=== PATIENT | female | born 1970 | race Caucasian/White ===

== ENCOUNTER 2023-05-01 13:35 | Emergency (ER) | payer SELFPAY ==
[2023-05-01 13:43] VITALS: BP 122/74; PULSE 91; RESP 16; TEMP 36.9; O2SAT 95; BMI 23.5
--- NOTE | 2023-05-01 14:05 | ED_ITS ---
HPI - URI/Sore Throat General Chief Complaint: Upper Respiratory Infection Stated Complaint: URTI COMPLAINTS Time Seen by Provider: 05/01/23 14:05 Source: patient Limitations: no limitations History of Present Illness HPI Narrative: Patient presents to emergency department complaining of cough. Patient states she has a productive cough for 3 days. Cough is worse in the morning. She is a smoker. She has a runny nose, a lot of nasal congestion and now is having postnasal drip and a sore throat. She took extra ALLERGY pills and decongestants has not had any relief. She denies any fever, or chills. She denies any nausea, vomiting, diarrhea, constipation, abdominal pain. She denies chest pain, shortness of breath. denies any wheezing.She states she had to cut down on the smoking this week. Related Data Previous Rx's Medication Instructions Recorded albuterol sulfate 90 mcg/actuation 2 inh inhalation Q4H PRN shortness 05/01/23 aerosol inhaler of breath or wheezing #8.5 grams methylprednisolone 4 mg tablets in 4 mg PO DAILY #21 ea 05/01/23 a dose pack (Medrol (Matteo)) Allergies Allergy/AdvReac Type Severity Reaction Status Date / Time No Known Drug Allergies Allergy Verified 05/01/23 13:42 Review of Systems ROS Status of ROS 10 or more systems reviewed and unremarkable except as noted in history and below [facility] Social History Smoking status: Current every day smoker Exam Narrative Exam Narrative: Nurses notes and vital signs reviewed and patient is not hypoxic. General: Nontoxic, Well-appearing and in no apparent distress. Skin: Warm, dry, no pallor noted. No Rash Head: Normocephalic, atraumatic. Neck: Supple, non-tender. Eye: Pupils are equal, round and EOMI. No scleral icterus. Ears, Nose, Mouth, and Throat: TM clear, no posterior oropharynx erythema, Postnasal drip noted,no nasal mucosal hypertrophy, uvula is mid-line Oral mucosa is moist Cardiovascular: Regular Rate and Rhythm without murmur, gallop or rub. Respiratory: No accessory muscle use or respiratory distress. Lungs are clear to auscultation, no wheezing, rales or rhonchi Chest Wall: no tenderness Back: No midline thoracic or lumbar vertebral tenderness. No CVA tenderness Musculoskeletal: normal ROM, no calf or popliteal tenderness, no lower extremity edema/swelling GI: Abdomen is soft, non-distended. Normal bowel sounds. No masses appreciated. No tenderness to palpation. No rebound, guarding, or rigidity noted. Neurological: A&O x4. No cranial nerve dysfunction observed. No truncal ataxia. Moves all extremities. Sensation intact. Psychiatric: Cooperative and interactive. Normal mood and affect. Constitutional Vital Signs - 24 hr 05/01/23 13:43 Temperature 98.4 F Pulse Rate [Monitor] 91 H Respiratory Rate 16 Blood Pressure [Right Arm] 122/74 H Pulse Oximetry 95 Oxygen Delivery Method Room Air Course Vital Signs Vital signs: Vital Signs Temperature 98.4 F 05/01/23 13:43 Pulse Rate 91 H 05/01/23 13:43 Respiratory Rate 16 05/01/23 13:43 Blood Pressure 122/74 H 05/01/23 13:43 Pulse Oximetry 95 05/01/23 13:43 Oxygen Delivery Method Room Air 05/01/23 13:43 Temperature 98.4 F 05/01/23 13:43 Pulse Rate 91 H 05/01/23 13:43 Respiratory Rate 16 05/01/23 13:43 Blood Pressure 122/74 H 05/01/23 13:43 Pulse Oximetry 95 05/01/23 13:43 Oxygen Delivery Method Room Air 05/01/23 13:43 MDM - URI/Sore Throat MDM Narrative Medical decision making narrative: This patient. Patient will be prescribed albuterol inhaler, and a Medrol Dosepak. pt declined covid 19 testing. At this time the patient is without objective evidence of an acute process requiring hospitalization or inpatient management. The patient has remained hemodynamically stable. No additional indication for emergent studies at this time. I answered all questions. Discussed discharge instructions including standard anticipatory guidance and what should prompt a return to the emergency department, including if they get worse are not getting better or develops any new or concerning symptoms. I've given them specific time frame in which to follow-up, and who to follow-up with. The patient demonstrates understanding. Patient is nontoxic and stable for discharge with outpatient follow-up. This note was created with the assistance of a speech recognition program. Although the intention is to generate documents that actually reflects the content of the visit, no guarantees can be provided that every mistake has been identified and corrected by editing. Differential Diagnosis Differential diagnosis: Likely upper respiratory infection, otitis media, viral infection, bronchitis and pharyngitis Lab Data Attestation: I reviewed the patient's lab results. Labs: Lab Results 05/01/23 Range/Units 14:05 Streptococcus Screen Negative Discharge Plan Discharge Chief Complaint: Upper Respiratory Infection Clinical Impression: Bronchitis, Pharyngitis Patient Disposition: Home, Self-Care Time of Disposition Decision: 14:32 Condition: Good Mode of Transportation: Private Vehicle Prescriptions / Home Meds: New methylprednisolone [Medrol (Matteo)] 4 mg tablets,dose pack 4 mg PO DAILY Qty: 21 0RF albuterol sulfate 90 mcg/actuation HFA aerosol inhaler 2 inh inhalation Q4H PRN (Reason: shortness of breath or wheezing) Qty: 8.5 0RF Instructions: Acute Bronchitis (ED), How to Quit Using Smokeless Tobacco (ED) Stand Alone Forms: Portal Instructions Referrals: VALENTE VICKERS MD [Physician] - 1 week Physician,Non-Staff, [Primary Care Provider] - 1 week Discharge Date/Time: 05/01/23 14:56
[2023-05-01 14:27] LABS: Strep A Antigen Screen Negative
[2023-05-01 14:28] LABS: Internal Control Within Normal Limits
== END 2023-05-01 14:56 | disposition home or self-care (01) ==
PROVIDERS: Emergency Provider Emergency Medicine
DX: J40 Bronchitis, not specified as acute or chronic (principal); J02.9 Acute pharyngitis, unspecified; F17.210 Nicotine dependence, cigarettes, uncomplicated
CPT/HCPCS: 87070; 87880; 99283

== ENCOUNTER 2023-05-17 19:29 | Emergency (ER) | payer SELFPAY ==
[2023-05-17 19:33] VITALS: BP 122/71; PULSE 101; RESP 16; TEMP 36.7; O2SAT 97; BMI 22.7
--- NOTE | 2023-05-17 19:44 | ED_ITS ---
HPI - URI/Sore Throat General Chief Complaint: Upper Respiratory Infection Stated Complaint: SOB, HURTS TO BREATHE Time Seen by Provider: 05/17/23 19:38 Source: patient Limitations: no limitations History of Present Illness HPI Narrative: patient states she was seen here about 2-3 weeks ago for bronchitis. Continues to cough. phlegm is clear. She does smoke cigarettes. She has left sided chest pain from coughing so much. Not short of breath but hurts to take a deep breath. Denies nausea of fever. No history of injury MD elicited complaint: Reports cough Related Data Previous Rx's Medication Instructions Recorded albuterol sulfate 90 mcg/actuation 2 inh inhalation Q4H PRN shortness 05/01/23 aerosol inhaler of breath or wheezing #8.5 grams methylprednisolone 4 mg tablets in 4 mg PO DAILY #21 ea 05/01/23 a dose pack (Medrol (Matteo)) Allergies Allergy/AdvReac Type Severity Reaction Status Date / Time No Known Drug Allergies Allergy Verified 05/01/23 13:42 Review of Systems ROS Status of ROS 10 or more systems reviewed and unremarkable except as noted in history and below Cardiovascular Reports: chest pain Respiratory Reports: cough PFSH PFSH Social History Smoking status: Current every day smoker Exam Constitutional Vital Signs - 24 hr 05/17/23 19:33 05/17/23 19:58 Temperature 98.1 F Pulse Rate [Monitor] 101 H Respiratory Rate 16 Blood Pressure [Right Arm] 122/71 H Pulse Oximetry 97 Oxygen Delivery Method Room Air Room Air Common normals: no apparent distress, oriented x3, healthy appearing, alert and well nourished [facility] Common normals: normocephalic and head/scalp atraumatic Eye Common normals: PERRL, EOMs intact bilaterally and conjunctivae normal Chest Common normals: inspection of chest normal Other: left chest wall tender Respiratory Common normals: normal respiratory effort, no retractions, no use of accessory muscles and clear to auscultation bilaterally Cardio Common normals: regular rate, regular rhythm, S1 normal heart sound and S2 normal heart sound GI Common normals: Normal to inspection, nondistended, normoactive bowel sounds present and non-tender Extremity Common normals: normal to inspection and full ROM Neuro Common normals: oriented x3, CN's II-XII intact bilaterally, moves all extremities, no focal motor deficits and no sensory deficits noted Psych Appearance: grossly normal Course Vital Signs Vital signs: Vital Signs Temperature 98.1 F 05/17/23 19:33 Pulse Rate 101 H 05/17/23 19:33 Respiratory Rate 16 05/17/23 19:33 Blood Pressure 122/71 H 05/17/23 19:33 Pulse Oximetry 97 05/17/23 19:33 Oxygen Delivery Method Room Air 05/17/23 19:33 Temperature 98.1 F 05/17/23 19:33 Pulse Rate 101 H 05/17/23 19:33 Respiratory Rate 16 05/17/23 19:33 Blood Pressure 122/71 H 05/17/23 19:33 Pulse Oximetry 97 05/17/23 19:33 Oxygen Delivery Method Room Air 05/17/23 19:58 MDM - URI/Sore Throat MDM Narrative Medical decision making narrative: patient presents complaining of left sided chest pain from repetitive coughing. Seen a couple of weeks ago and prescribed steroids for her cough. not short of breath. D-dimer neg. CT chest with left lingula infiltrate . CBC with elevated WBC. she also has hyperglycemia which may be related to recent steroid use. No past history of diabetes and she is asymptomatic. also found to have underlying renal disease. Patient informed of the above. Will treat her pneumonia with levaquin and she is advised of the importance of follow up with PCP Lab Data Labs: Lab Results 05/17/23 Range/Units 19:52 WBC 19.9 H (4.0-11.0) 10^3/uL RBC 4.55 (4.20-5.40) 10^6/uL Hgb 13.8 (12.0-16.0) g/dL Hct 40.2 (36.0-48.0) % MCV 88.4 (81.0-99.0) fL MCH 30.3 (26.7-34.0) pg MCHC 34.3 (29.9-35.2) g/dL RDW 12.7 (11.0-15.0) % Plt Count 326 (150-450) 10^3/uL MPV 10.0 (9.5-13.5) fL Neut % (Auto) 67.7 (43.0-75.0) % Lymph % (Auto) 26.2 (20.5-60.0) % Clare % (Auto) 4.1 (1.7-12.0) % Eos % (Auto) 0.8 L (0.9-7.0) % Baso % (Auto) 0.5 (0.2-2.0) % Neut # (Auto) 13.5 H (1.4-6.5) 10^3/uL Lymph # (Auto) 5.2 H (1.2-3.8) 10^3/uL Clare # (Auto) 0.8 (0.3-0.8) 10^3/uL Eos # (Auto) 0.2 (0.0-0.7) 10^3/uL Baso # (Auto) 0.1 (0.0-0.1) 10^3/uL Abs Immat Gran (auto) 0.13 H (0.00-0.03) 10^3/uL Imm/Tot Granulo (auto) 0.7 H (0.0-0.5) % D-Dimer 0.55 (<=0.59) mg/L FEU Sodium 135 L (136-145) mmol/L Potassium 3.5 (3.5-5.1) mmol/L Chloride 99 (98-107) mmol/L Carbon Dioxide 26.7 (21.0-32.0) mmol/L Anion Gap 12.8 BUN 3.0 L (7.0-18.0) mg/dL Creatinine 1.25 H (0.55-1.02) mg/dL Est GFR ( Amer) 55 L (>=60) Est GFR (Non-Af Amer) 45 L (>=60) BUN/Creatinine Ratio 2.4 Glucose 342 H (74-106) mg/dL Calcium 8.9 (8.5-10.1) mg/dL Discharge Plan Discharge Chief Complaint: Upper Respiratory Infection Clinical Impression: Acute hyperglycemia, Pneumonia Patient Disposition: Home, Self-Care Prescriptions / Home Meds: No Action methylprednisolone [Medrol (Matteo)] 4 mg tablets,dose pack 4 mg PO DAILY Qty: 21 0RF albuterol sulfate 90 mcg/actuation HFA aerosol inhaler 2 inh inhalation Q4H PRN (Reason: shortness of breath or wheezing) Qty: 8.5 0RF Instructions: Bacterial Pneumonia (ED), Diabetic Hyperglycemia (ED) Additional Instructions: follow up with Dr Yoo next week Stand Alone Forms: Portal Instructions Referrals: Physician,Non-Staff, MD [Primary Care Provider] - 1 week
[2023-05-17 20:04] LABS: Basophils Absolute Auto 0.1 10^3/uL (0.0-0.1); Basophils Percent Auto 0.5 % (0.2-2.0); Eosinophils Absolute Auto 0.2 10^3/uL (0.0-0.7); Eosinophils Percent Auto 0.8 % (0.9-7.0); Hematocrit 40.2 % (36.0-48.0); Hemoglobin 13.8 g/dL (12.0-16.0); Immature Granulocytes Abs Auto 0.13 10^3/uL (0.00-0.03); Immature Granulocytes Pct Auto 0.7 % (0.0-0.5); Lymphocytes Absolute Auto 5.2 10^3/uL (1.2-3.8); Lymphocytes Percent Auto 26.2 % (20.5-60.0); Mean Corpuscular HGB Conc 34.3 g/dL (29.9-35.2); Mean Corpuscular Hemoglobin 30.3 pg (26.7-34.0); Mean Corpuscular Volume 88.4 fL (81.0-99.0); Monocytes Absolute Auto 0.8 10^3/uL (0.3-0.8); Monocytes Percent Auto 4.1 % (1.7-12.0); Neutrophils Absolute Auto 13.5 10^3/uL (1.4-6.5); Neutrophils Percent Auto 67.7 % (43.0-75.0); Platelet Count 326 10^3/uL (150-450); Red Blood Count 4.55 10^6/uL (4.20-5.40); Red Cell Distribution Width 12.7 % (11.0-15.0); White Blood Count 19.9 10^3/uL (4.0-11.0)
[2023-05-17 20:23] LABS: D Dimer 0.55 mg/L FEU (<=0.59)
[2023-05-17 20:32] LABS: Anion Gap 12.8; BUN Creatinine Ratio 2.4; Calcium 8.9 mg/dL (8.5-10.1); Carbon Dioxide 26.7 mmol/L (21.0-32.0); Chloride 99 mmol/L (98-107); Estimated GFR (African America 55 (>=60); Estimated GFR (Non-African Ame 45 (>=60); Glucose 342 mg/dL (74-106); Potassium 3.5 mmol/L (3.5-5.1); Sodium 135 mmol/L (136-145)
--- NOTE | 2023-05-17 20:42 | CT_ITS ---
The [address] [address] Patient Name: CHAYA RODRIGUEZ MRN: [id number] date: 1970 Sex: F Assigned Patient Location: ER Current Patient Location: ER Accession/Order Number: [id number] Exam Date: 05/17/2023 20:50 Report Date: 05/17/2023 21:45 At the request of: TONIA BOND Procedure: CT chest wo con EXAMINATION:CT chest wo con INDICATION:left rib pain COMPARISON:None TECHNIQUE:Thin section transaxial slices were acquired through the chest. Coronal and sagittal reconstructed images were reviewed. IV CONTRAST:Without FINDINGS: LUNGS: There is endobronchial thickening and mucous plugging with patchy linear airspace disease in the left lower lobe and lingula. The imaging findings may represent an infectious process from developing pneumonia. There is a benign calcified granuloma in the left anterior upper lobe. There are emphysematous changes elsewhere in the lungs with chronic pleural-parenchymal scarring in right greater than left apices. PLEURAL CAVITY: No pleural effusion. MEDIASTINUM: Trachea and central airways are patent. HEART: The heart is unremarkable. VASCULAR:The thoracic aorta is normal in caliber. LYMPH NODES:No suspicious lymphadenopathy. CHEST WALL/AXILLA: Chest wall and axilla are unremarkable. BONES: No acute or healing fractures are present in the bony thorax. VISUALIZED UPPER ABDOMEN: There is hepatomegaly with severe diffuse hepatic steatosis of the visualized liver. There are a few calcified granulomas in the liver and spleen. Nonobstructive right renal calculi are present in the upper kidney. IMPRESSION: Peribronchial thickening and mucous plugging with airspace opacities in the lingula and left lower lobe possibly representing an infectious process given the clinical history. Electronically authenticated by: LILIAN GU Date: 05/17/2023 21:45
[2023-05-17] MEDS: LEVOFLOXACIN 500 MG TABLET PO (22:08)
[2023-05-17 22:12] VITALS: BP 105/64; PULSE 92; RESP 18; TEMP 37.7; O2SAT 98
== END 2023-05-17 22:10 | disposition home or self-care (01) ==
PROVIDERS: Emergency Provider Internal Medicine
DX: J18.9 Pneumonia, unspecified organism (principal); R73.9 Hyperglycemia, unspecified; F17.210 Nicotine dependence, cigarettes, uncomplicated
CPT/HCPCS: 36415; 71250; 80048; 85025; 85378; 99284

== ENCOUNTER 2023-08-14 20:46 | Emergency (ER) | payer SELFPAY ==
[2023-08-14 20:51] VITALS: BP 117/73; PULSE 93; RESP 16; TEMP 36.7; O2SAT 98; BMI 22.8
--- NOTE | 2023-08-14 20:56 | XR_ITS ---
The [address] [address] Patient Name: CHAYA RODRIGUEZ MRN: [id number] date: 1970 Sex: F Assigned Patient Location: ER Current Patient Location: ED.MAIN Accession/Order Number: [id number] Exam Date: 08/14/2023 21:10 Report Date: 08/14/2023 21:59 At the request of: TONIA BOND Procedure: XR knee RT 3V STUDY: XR knee RT 3V, [id number] HISTORY: injury COMPARISON: None FINDINGS: No acute fracture, dislocation, or suspicious osseous lesion. No significant degenerative changes. No knee joint effusion. XR/XR knee RT 3V IMPRESSION: No acute osseous abnormality. Electronically authenticated by: KACI GIRON Date: 08/14/2023 21:59
--- NOTE | 2023-08-14 20:56 | PC.NURSE ---
no redness, swelling ot bruising observed. pt able to ambulate but has a limp with ambulating
--- NOTE | 2023-08-14 20:57 | ED.LOWEXI1 ---
HPI - Extremity Injury (Lower) General Chief Complaint: Extremity Injury, Lower Stated Complaint: LOWER EXTREMITY PAIN Time Seen by Provider: 08/14/23 20:53 Source: patient Mode of arrival: walk-in History of Present Illness HPI Narrative: walking her dog on a leash last week and it pulled her down. States dog weighs about 80lbs. She landed on the right knee. Continues to have pain of the knee mikal when walking. No weakness or numbness and denies other injury MD complaint: Reports knee injury Onset (ago): week(s) Type of Injury: Reports blunt Place: Reports home Related Data Previous Rx's Medication Instructions Recorded albuterol sulfate 90 mcg/actuation 2 inh inhalation Q4H PRN shortness 05/01/23 aerosol inhaler of breath or wheezing #8.5 grams methylprednisolone 4 mg tablets in 4 mg PO DAILY #21 ea 05/01/23 a dose pack (Medrol (Matteo)) Allergies Allergy/AdvReac Type Severity Reaction Status Date / Time No Known Drug Allergies Allergy Verified 05/01/23 13:42 Review of Systems ROS Status of ROS 10 or more systems reviewed and unremarkable except as noted in history and below [facility] Social History Smoking status: Current every day smoker Exam Constitutional Vital Signs, click to edit/add: Last Vital Signs Temp 98.1 F 08/14/23 20:51 Pulse 93 H 08/14/23 20:51 Resp 16 08/14/23 20:51 BP 117/73 08/14/23 20:51 Pulse Ox 98 08/14/23 20:51 O2 Del Method Room Air 08/14/23 20:51 Common normals: no apparent distress, average body habitus, oriented x3, no limitations, healthy appearing, alert and well nourished Eye Common normals: EOMs intact bilaterally and conjunctivae normal Respiratory Common normals: normal respiratory effort, no retractions, no use of accessory muscles and clear to auscultation bilaterally Cardio Common normals: regular rate, regular rhythm, S1 normal heart sound and S2 normal heart sound Extremity Other: right hip nontender. right ankle nontender right knee grossly unremarkable on inspection . no swelling. mild tenderness Neuro Common normals: oriented x3, CN's II-XII intact bilaterally, moves all extremities, no focal motor deficits and no sensory deficits noted Psych Appearance: grossly normal Course Vital Signs Vital signs: Vital Signs Temperature 98.1 F 08/14/23 20:51 Pulse Rate 93 H 08/14/23 20:51 Respiratory Rate 16 08/14/23 20:51 Blood Pressure 117/73 08/14/23 20:51 Pulse Oximetry 98 08/14/23 20:51 Oxygen Delivery Method Room Air 08/14/23 20:51 Temperature 98.1 F 08/14/23 20:51 Pulse Rate 93 H 08/14/23 20:51 Respiratory Rate 16 08/14/23 20:51 Blood Pressure 117/73 08/14/23 20:51 Pulse Oximetry 98 08/14/23 20:51 Oxygen Delivery Method Room Air 08/14/23 20:51 MDM - Extremity Injury (Lower) MDM Narrative Medical decision making narrative: presents one week after fall and striking her right knee. Still has pain and tenderness. No significant swelling or deformity. xray neg. Patient informed of the diagnosis of contusion and discharged home after knee immobilizer applied. Discharge Plan Discharge Chief Complaint: Extremity Injury, Lower Clinical Impression: Contusion of knee, right Patient Disposition: Home, Self-Care Prescriptions / Home Meds: No Action methylprednisolone [Medrol (Matteo)] 4 mg tablets,dose pack 4 mg PO DAILY Qty: 21 0RF albuterol sulfate 90 mcg/actuation HFA aerosol inhaler 2 inh inhalation Q4H PRN (Reason: shortness of breath or wheezing) Qty: 8.5 0RF Instructions: Contusion in Adults (ED) Additional Instructions: follow up with the family doctor in 2-3 days for recheck Stand Alone Forms: Portal Instructions Referrals: Physician,Non-Staff, MD [Primary Care Provider] - 1 week
== END 2023-08-14 22:27 | disposition home or self-care (01) ==
PROVIDERS: Emergency Provider Internal Medicine
DX: S80.01XA Contusion of right knee, initial encounter (principal); W18.39XA Other fall on same level, initial encounter; F17.210 Nicotine dependence, cigarettes, uncomplicated
CPT/HCPCS: 73562; 99283

== ENCOUNTER 2024-03-06 18:33 | Emergency (ER) | payer MEDICAID, SELFPAY ==
[2024-03-06 18:46] VITALS: BP 132/73; PULSE 91; TEMP 36.7; O2SAT 98; BMI 24.0
--- NOTE | 2024-03-06 18:50 | XR_ITS ---
The [address] [address] Patient Name: CHAYA RODRIGUEZ MRN: [id number] date: 1970 Sex: F Assigned Patient Location: ER Current Patient Location: ER Accession/Order Number: [id number] Exam Date: 03/06/2024 19:08 Report Date: 03/06/2024 19:47 At the request of: JAME CALDWELL Procedure: XR toe LT min 2V STUDY: XR toe LT min 2V, [id number] HISTORY: pain 3rd toe COMPARISON: None FINDINGS: No acute fracture, dislocation, or suspicious osseous lesion. No significant degenerative changes. Visualized soft tissues are within normal limits. XR/XR toe LT min 2V IMPRESSION: Negative exam. No osseous etiology for third toe pain demonstrated. Electronically authenticated by: KACI GIRON Date: 03/06/2024 19:47
--- NOTE | 2024-03-06 18:58 | ED_ITS ---
HPI HPI - Extremity Injury (Lower) General Chief Complaint: Extremity Injury, Lower Stated Complaint: lower extremity injury Time Seen by Provider: 03/06/24 18:44 Source: patient Mode of arrival: walk-in Limitations: no limitations History of Present Illness HPI Narrative: Patient is a 53-year-old female presents to the ER with concerns of left third toe pain. Patient states she fractured the toe 4 weeks ago, was seen by orthopedics in [place], follow-up in the office with x-ray suspected healing per patient, was told to DC the shoe. Patient states she was at home when her dog stepped on her toe causing pain to increase. Patient has been taking naproxen 500 mg without relief. She appears in no distress. Patient states she would like the pain medicine she had for her knee arthroscopy. oxycodone. pt appears in no distresPatient denies injury to Her proximal foot, ankle or lower leg. Injury: Left: toes Place: Reports home Related Data Home Medications ?Medication ?Instructions ?Recorded ?Confirmed naproxen 500 mg tablet 500 mg PO BID 03/06/24 03/06/24 Allergies Allergy/AdvReac Type Severity Reaction Status Date / Time No Known Drug Allergies Allergy Verified 05/01/23 13:42 Opioid HPI Opioid Management Most Recent Pain and Opioid Data: Last Pain Scale 8 03/06/24 19:03 Last ED Pain Assessment 03/06/24 19:03 Review of Systems ROS Constitutional Denies: fever or chills Eyes Denies: change in vision or blurry vision Ears, nose, mouth, and throat Denies: throat pain, neck pain, throat swelling or difficulty swallowing Cardiovascular Denies: chest pain Respiratory Denies: shortness of breath, cough or wheezing Gastrointestinal Denies: abdominal pain, nausea or vomiting Genitourinary Denies: painful urination or urinary frequency Musculoskeletal Reports: joint pain (left 3rd toe); Denies: back pain Integumentary/Breast Denies: rash or itching Neurological Denies: headache Psychiatric Denies: anxiety Endocrine Denies: excessive urination PFSH PFSH Social History Smoking status: Current every day smoker Exam Narrative Exam Narrative: Vital signs reviewed and nurse's notes. The patient is not hypoxic. General: Alert, no acute distress, patient resting comfortably Skin: warm, intact, no pallor noted, no skin injury noted. Head: Normocephalic, atraumatic Eye: Normal conjunctiva, no exudates Respiratory: No acute distress, lungs CTA Musculoskeletal: No evidence of deformity to the left foot or toes. There is no swelling. There is no ecchymosis. No nail injury. No erythema or warmth noted. DP and PT pulses are intact 2+. Normal sensation, normal capillary refill less than 2 seconds. There is no cyanosis or mottling noted. The patient has tenderness very localized to middle and distal phalanx of 3rd toe. The patient has no pain with stressing the foot. Full ankle dorsiflexion and plantar flexion. No tenderness noted to the 5th MT, midfoot, ankle or proximal fibular area. There is no pain with calcaneal squeeze, achilles tendon is intact and no defect is palpated. Neurological: alert and orient x4, normal sensory and motor observed. Psychiatric: Cooperative Constitutional Vital Signs, click to edit/add: Last Vital Signs Temp 98.0 F 03/06/24 18:46 Pulse 91 H 03/06/24 18:46 Resp 16 03/06/24 18:46 BP 132/73 03/06/24 18:46 Pulse Ox 98 03/06/24 18:46 O2 Del Method Room Air 03/06/24 18:46 Course Vital Signs Vital signs: Vital Signs Temperature 98.0 F 03/06/24 18:46 Pulse Rate 91 H 03/06/24 18:46 Respiratory Rate 16 03/06/24 18:46 Blood Pressure 132/73 03/06/24 18:46 Pulse Oximetry 98 03/06/24 18:46 Oxygen Delivery Method Room Air 03/06/24 18:46 Temperature 98.0 F 03/06/24 18:46 Pulse Rate 91 H 03/06/24 18:46 Respiratory Rate 16 03/06/24 18:46 Blood Pressure 132/73 03/06/24 18:46 Pulse Oximetry 98 03/06/24 18:46 Oxygen Delivery Method Room Air 03/06/24 18:46 MDM - Extremity Injury (Lower) MDM Narrative Medical decision making narrative: No visual evidence of trauma, localized pain with patient describing fracture previously healed, patient medicated with Tylenol for pain, encouraged her to continue with her naproxen 500 mg prescription, ice pack applied. X-ray performed and discussed at bedside X-ray without evidence of fracture, would treat as toe contusion recommend ice, elevation. She may go back into her splint and follow-up with her orthopedist with previous treatment, I recommended Tylenol Counter as directed and continue with the naproxen. The patient is to followup with Your orthopedic provider , primary care physician in next 2-3 days or to return to the emergency department should any of the signs or symptoms worsen or new symptoms develop. Patient had questions answered. The patient agrees with the following Diagnosis and Treatment plan and the patient will be discharged home. Imaging Data xr left toe: Radiologist's impression: ITS Impressions Toe X-Ray 03/06/24 18:50 IMPRESSION: Negative exam. No osseous etiology for third toe pain demonstrated. Electronically authenticated by: KACI GIRON Date: 03/06/2024 19:47 Discharge Plan Discharge Stand Alone Forms: Portal Instructions Chief Complaint: Extremity Injury, Lower Clinical Impression: Contusion of toe of left foot Patient Disposition: Home, Self-Care Time of Disposition Decision: 19:55 Condition: Good Prescriptions / Home Meds: No Action naproxen 500 mg tablet 500 mg PO BID Print Language: Maori Instructions: P.R.I.C.E. Treatment (ED) Additional Instructions: Contact Dr. [facility] for follow up in 3- 5days Referrals: Physician,Non-Staff, [Primary Care Provider] - 1 week Logan Hameed DPM [Physician] - As needed
[2024-03-06] MEDS: ACETAMINOPHEN 500 MG TABLET 1000 MG PO (20:06)
== END 2024-03-06 20:12 | disposition home or self-care (01) ==
PROVIDERS: Emergency Provider Emergency Medicine
DX: S90.122A Contusion of left lesser toe(s) without damage to nail, initial encounter (principal); W54.1XXA Struck by dog, initial encounter; Z79.899 Other long term (current) drug therapy; F17.210 Nicotine dependence, cigarettes, uncomplicated
CPT/HCPCS: 73660; 99283

== ENCOUNTER 2024-03-13 22:32 | Emergency (ER) | payer MEDICAID, SELFPAY ==
[2024-03-13 22:37] VITALS: BP 113/75; PULSE 95; TEMP 37.1; O2SAT 98; BMI 23.5
[2024-03-13 22:56] LABS: Internal Control Within Normal Limits; Strep A Antigen Screen Negative
--- NOTE | 2024-03-13 22:56 | PC.NURSE ---
pt c/o sore throat that started yesterday, went away and came back worse today.
[2024-03-13] MEDS: IBUPROFEN 400 MG TABLET 800 MG PO (23:11)
[2024-03-13] MEDS: PENICILLIN V POTASSIUM 250 MG TABLET 500 MG PO (23:11)
--- NOTE | 2024-03-13 23:13 | ED.DENTAL1 ---
HPI - Dental/Oral General Chief complaint: Dental/Oral Stated complaint: Sore Throat Time Seen by Provider: 03/13/24 22:40 Source: patient Mode of arrival: walk-in Limitations: no limitations History of Present Illness HPI Narrative: 53-year-old female presents to the emergency department for sore throat and tooth ache. The sore throat started yesterday and today that her tooth started hurting, on the right lower jaw. The pain is throbbing and moderate and she does not have a dentist. No fever or difficulty breathing or swallowing. Related Data Home Medications ?Medication ?Instructions ?Recorded ?Confirmed multivitamin (Daily Multi-Vitamin 1 tab PO DAILY 03/13/24 03/13/24 tablet) Previous Rx's ?Medication ?Instructions ?Recorded ibuprofen 800 mg tablet 800 mg PO Q8H PRN pain #20 tabs 03/13/24 penicillin V potassium 250 mg 250 mg PO QID 10 days #40 tabs 03/13/24 tablet Allergies Allergy/AdvReac Type Severity Reaction Status Date / Time No Known Drug Allergies Allergy Verified 03/13/24 22:40 Review of Systems ROS Narrative A ten point review of systems is negative except as noted above. PFSH PFS Social History Smoking status: Current every day smoker Exam Narrative Exam Narrative: Nurses note and vital signs reviewed and patient is not hypoxic. General: The patient appears well and in no apparent distress. Patient is resting comfortably on cart. Skin: Warm, dry, no pallor noted. There is no rash noted. Head: Normocephalic, atraumatic Eye: Normal conjunctiva, no drainage Ears, Nose, Mouth, and Throat: oral mucosa is moist. Nares patent. Dental caries noted in the right lower dentition. No bleeding or pus present. No swelling to the floor of her mouth. Nose pharyngeal erythema or exudate. Uvula midline. Cardiovascular: Regular Rate and Rhythm Respiratory: Patient is in no distress, no accessory muscle use, lungs are clear to auscultation, no wheezing, rales or rhonchi Back: non-tender GI: Soft and nontender Musculoskeletal: No joint swelling Neurological: A&O, normal speech Psychiatric: Cooperative Constitutional Vital Signs, click to edit/add: Last Vital Signs Temp 98.8 F 03/13/24 22:37 Pulse 95 H 03/13/24 22:37 Resp 16 03/13/24 22:37 BP 113/75 03/13/24 22:37 Pulse Ox 98 03/13/24 22:37 O2 Del Method Room Air 03/13/24 22:37 Course Vital Signs Vital signs: Vital Signs Temperature 98.8 F 03/13/24 22:37 Pulse Rate 95 H 03/13/24 22:37 Respiratory Rate 16 03/13/24 22:37 Blood Pressure 113/75 03/13/24 22:37 Pulse Oximetry 98 03/13/24 22:37 Oxygen Delivery Method Room Air 03/13/24 22:37 Temperature 98.8 F 03/13/24 22:37 Pulse Rate 95 H 03/13/24 22:37 Respiratory Rate 16 03/13/24 22:37 Blood Pressure 113/75 03/13/24 22:37 Pulse Oximetry 98 03/13/24 22:37 Oxygen Delivery Method Room Air 03/13/24 22:37 MDM - Dental/Oral MDM Narrative Medical decision making narrative: Strep test is negative. She was prescribed penicillin and Motrin for her tooth and was given dental referral list. Treatment diagnosis and follow-up were discussed with the patient. Differential Diagnosis Differential diagnosis: Likely gingival abscess, dental caries, toothache, dental abscess and other (Strep throat) Lab Data Attestation: I reviewed the patient's lab results. Labs: Lab Results 03/13/24 Range/Units 22:40 Streptococcus Screen Negative Discharge Plan Discharge Stand Alone Forms: Portal Instructions Chief Complaint: Dental/Oral Clinical Impression: Dental caries, Toothache Patient Disposition: Home, Self-Care Time of Disposition Decision: 23:01 Condition: Good Mode of Transportation: Private Vehicle Prescriptions / Home Meds: New penicillin V potassium 250 mg tablet 250 mg PO QID 10 Days Qty: 40 0RF ibuprofen 800 mg tablet 800 mg PO Q8H PRN (Reason: pain) Qty: 20 0RF No Action multivitamin [Daily Multi-Vitamin] Tablet 1 tab PO DAILY Print Language: Mongolian Instructions: Toothache (ED) Additional Instructions: Follow-up with your dentist Referrals: Physician,Non-Staff, MD [Primary Care Provider] - 1 week
== END 2024-03-13 23:20 | disposition home or self-care (01) ==
PROVIDERS: Emergency Provider Emergency Medicine
DX: K08.89 Other specified disorders of teeth and supporting structures (principal); K02.9 Dental caries, unspecified; F17.210 Nicotine dependence, cigarettes, uncomplicated
CPT/HCPCS: 87070; 87880; 99283

== ENCOUNTER 2024-05-03 21:39 | Emergency (ER) | payer MEDICAID, SELFPAY ==
[2024-05-03 21:43] VITALS: BP 148/87; PULSE 95; TEMP 36.9; O2SAT 96; BMI 23.5
--- OUTSIDE RECORDS SUMMARY | 2024-05-03 21:46 | XMS_ITS | CCD ---
Author Organization [facility] CliniSymi Care Team Providers Care X Ray Examiner Of Aircraft Name Role Phone PAY ., DR YIN Admitting Unavailable GREMARY ALICE ., YUKI GARCIA Consulting Unavailabl e PAY ., DR YIN Attending Unavailable REQUEST, NONE LISTED Primary Care Unavaila ble MYRTLE RODRIGUEZ Consulting Unavailable STEVE ., JIMMY Attending Unavailable STEVE ., JIMMY Consulting Unavailable REQUEST, NONE LISTED Primary Care Unavaila ble STEVE ., JIMMY Admitting Unavailable REQUEST, NONE LISTED Primary Care Unavaila ble STEVE ., JIMMY Admitting Unavailable STEVE ., JIMMY Attending Unavailable RENEE YOUNG Consulting Unavailable STEVE ., JIMMY Consulting Unavailable GISELA ., YUKI GARCIA Consulting Unavailabl e HAY ., DR ACE Admitting Unavailable REQUEST, NONE LISTED Primary Care Unavaila ble HAY ., DR ACE Attending Unavailable RONDA, TONIA Admitting Unavailable RONDA, TONIA Attending Unavailable RONDA, TONIA Consulting Unavailable REQUEST, NONE LISTED Primary Care Unavaila ble NONE, XXXX Primary Care Physician Unavailab le Unavailable Primary Care Provider Unavailabl e HARTMAN, KAMARI T Attending Unavailable HARTMAN, KAMARI T Attending Unavailable HARTMAN, KAMARI T Attending Unavailable JAQUI GUEVARA Attending Unavailable HARTMAN, KAMARI T Attending Unavailable HARTMAN, KAMARI T Referring Unavailable JAQUI GUEVARA Attending Unavailable HARTMAN, KAMARI Hair Attending Unavailable DokkHayde almeida Attending Unavailable Hartman, Kamari T Referring Unavailable Hartman, Kamari T Attending Unavailable Hartman, Kamari T Admitting Unavailable Jaqui Guevara Attending Unavailable Jaqui Guevara Admitting Unavailable Jaqui Guevara Referring Unavailable Wayne Rangel Attending Unavailable kkjuan pablo, Hayde Sheth Attending Unavailable Hayde Pro Attending Unavailable Haflaquita, Astrit H Attending Unavailable Allergies Allergy Classification Reported Allergen(s) Allergy Type Date of Onset Reaction(s) Facility (1 source) No Known Medication Allergies; Translations: [No Known Medication Allergies] Propensity to adverse reactions (disorder) [facility] Repository Medications Current Medications Medication Drug Class(es) Dates Sig (Normalized) Sig (Original) lidocaine 0.05 mg/mg medicated patch (1 source) Antiarrhythmic, Amide Local Anesthetic Start: 03-18-2024 Lidoderm 5% Patch 1 patch(es), Topical, Daily, 7 EA, Refill(s) 0, apply 12 hours on and 12 hours off daily, [id number], 170, cm, 03/18/24 18:36:00 EDT, Height/Length Dosing, 70, kg, 03/18/24 18:36:00 EDT, Weight Dosing Start Date: 03/18/24 Status: Ordered Magnesium (1 source) Start: 01-16-2021 magnesium 200 MG tablet Multiple Vitamin (multivitamin) tablet (1 source) take 1 tablet by mouth in the morning Multiple Vitamin (multivitamin) tablet Take 1 tablet by mouth in the morning. 0 Active naproxen 500 mg oral tablet (11 sources) Nonsteroidal Anti-inflammatory Drug Start: 06-18-2023 End: 04-13-2024 take 1 tablet by mouth twice daily as needed for pain Naprosyn 500 mg Tab 500 mg = 1 tab(s), Oral, BID, PRN for pain, # 20 tab(s), Refills(s) 0, Pharmacy: [facility] #[id number], 170, cm, 03/18/24 18:36:00 EDT, Height/Length Dosing, 70, kg, 03/18/24 18:36:00 EDT, Weight Dosing Start Date: 03/18/24 Status: Ordered traMADol hydrochloride 50 mg oral tablet (1 source) Opioid Agonist Start: 09-01-2023 End: 09-04-2023 take 1 tablet by mouth every six hours as needed for pain traMADOL 50 mg Tab 50 mg = 1 tab(s), Oral, q6hr, PRN for pain, X 3 day(s), # 12 tab(s), Refills(s) 0, Pharmacy: [facility] #[id number], 170, cm, 09/01/23 14:16:00 EDT, Height/Length Dosing, 70.5, kg, 09/01/23 14:16:00 EDT, Weight Dosing Start Date: 09/01/23 Stop Date: 09/04/23 Status: Ordered Completed/Discontinued Medications Medication Drug Class(es) Dates Sig (Normalized) Sig (Original) penicillin v potassium 500 mg oral tablet (1 source) Start: 06-18-2023 End: 06-28-2023 take 1 tablet by mouth three times daily penicillin V potassium 500 mg Tab 500 mg = 1 tab(s), Oral, TID, Take one tab by mouth 3 times a day. # 30, X 10 day(s), # 30 tab(s), Refills(s) 0, Pharmacy: [facility] #[id number], 170, cm, 06/18/23 17:05:00 EDT, Height/Length Dosing, 70.5, kg, 06/18/23 17:05:00 EDT, Weight Dosing Start Date: 06/18/23 Stop Date: 06/28/23 Status: Ordered Problems Active Problems Problem Classification Problem Date Documented Date Episodic/Chronic Disorders of teeth and jaw (6 sources) Other specified disorders of teeth and supporting structures; Translations: [Periapical abscess without sinus] Onset: 05-01-2022 Episodic E Codes: Natural/environment (2 sources) Exposure to other specified factors, initial encounter; Translations: [Bitten by dog, initial encounter] Onset: 05-16-2022 Episodic Fracture of lower limb (1 source) Closed fracture of phalanx of foot; Translations: [Unspecified fracture of unspecified toe(s), initial encounter for closed fracture] Onset: 01-26-2024 Episodic Other eye disorders (3 sources) Other specified disorders of eye and adnexa; Translations: [OTHER SPEC DISORDERS EYE AND ADNEXA] Onset: 03-26-2023 Episodic Other nervous system disorders (1 source) Carpal tunnel syndrome, right upper limb; Translations: [CARPAL TUNNEL SYND RIGHT UPPER LIMB] Onset: 10-17-2022 Chronic Other non-traumatic joint disorders (1 source) Arthropathy of right knee joint; Translations: [Other specified joint disorders, right knee] Onset: 09-01-2023 Episodic Residual codes; unclassified (1 source) Acquired absence of other specified parts of digestive tract; Translations: [ACQ ABSENCE OTH PART DIGESTV TRACT] Onset: 03-27-2023 Episodic Residual codes; unclassified (1 source) History of arthroscopy of knee joint; Translations: [Other specified postprocedural states] 12-30-2023 Episodic Sprains and strains (2 sources) Unspecified sprain of right thumb, initial encounter; Translations: [Sprain of knee] Onset: 10-17-2022 Episodic Substance-related disorders (7 sources) Nicotine dependence, cigarettes, uncomplicated; Translations: [Smoker] Onset: 03-27-2023 09-01-2023 Chronic Comment on above: Added secondary to d ocumentation in Social History. Superficial injury; contusion (2 sources) Injury of conjunctiva and corneal abrasion without foreign body, right eye, initial encounter; Translations: [Contusion of left chest wall] Onset: 03-27-2023 Episodic Past or Other Problems Problem Classification Problem Date Documented Da te Episodic/Chronic Immunizations and screening for infectious disease (1 source) Encounter for immunization; Translations: [ENCOUNTER FOR IMMUNIZATION] Onset: 05-16-2022 Episodic Open wounds of extremities (4 sources) Open bite of right forearm, initial encounter; Translations: [OPEN BITE RIGHT FOREARM INITIAL ENC] Onset: 05-14-2022 Episodic Other aftercare (1 source) Other nursing home (current) drug therapy; Translations: [[employer]ORTS OFFICIAL CURRENT DRUG THERAPY] Onset: 10-03-2022 Episodic Other connective tissue disease (4 sources) Pain in right finger(s); Translations: [PAIN IN RIGHT FINGERS] Onset: 09-07-2022 Episodic Results Test Name Value Interpretation Reference Range Facility XR Ribs Unilat 3 Views Left w/ PA Cheston 03-19-2024 XR Ribs Unilat 3 Views Left w/ PA Chest Exam Date/Time: 03/18/2024 19:22 EDT Reason for Exam: Injury Report IMPRESSION: NO DISPLACED FRACTURE OR SIGNIFICANT POSTTRAUMATIC COMPLICATION IDENTIFIED. EXAM: XR Ribs Unilat 3 Views Left w/ PA Chest DATE: 03/18/2024 7:08 PM CLINICAL HISTORY: Pain after injury. COMPARISON: None available. TECHNIQUE: An upright PA radiograph of the chest, and 6 radiographs of the left ribs were obtained. FINDINGS: There is no displaced fracture, significant pulmonary infiltrate, cardiomegaly, vascular congestion, pleural effusion, pneumothorax, or other findings of concern identified. Minimal probable left basilar atelectasis and/or scarring, and a few small calcified granulomas are noted. Ordering Provider: Sakina Dejesus FINAL REPORT Dictated: 03/19/2024 11:29 am Gregorio Driscoll MD Signed (Electronic Signature): 03/19/2024 11:29 am Signed by: Gregorio Driscoll MD Transcribed by: OPHELIA Technologist: SEGUN Technical Comments Radiation Dose: Ka,r in mGy = na DAP = na Normal [facility] Consent for Treatmenton Consent for Treatment [id number] #1.00TIFF Normal [facility] Discharge Instructionson Discharge Instructions [id number] #1.00TIFF Normal [facility] ED Clinical Summaryon 2023 ED Clinical Summary [address] [address] ED Clinical Summary Person Information Name: CHAYA RODRIGUEZ/[facility] Age: 53 Years : 1970 Sex: Female Language: Belarusian PCP: NONE, XXXX Marital Status: Visit Id: Visit Reason: Rib/trunk pain-swelling; BACK PAIN Speciality: Acuity: 4 Enc Type: Emergency Med Service: Emergency Arrival: 03/18/2024 18:08:32 Discharge: 03/18/2024 19:38:48 LOS: 000 01:30 Checkin: 03/18/2024 18:08:32 Checkout: 03/18/2024 19:38:48 Dispo Type: Home (Routine DC) EVENTS: Event Name Event Status Request Date/Time Start Date/Time Complete Date/Time Arrive Complete 03/18/2024 18:08:32 03/18/2024 18:08:32 03/18/2024 18:08:32 Document Home Meds Request 03/18/2024 18:08:32 Triage Complete 03/18/2024 18:08:32 03/18/2024 18:36:28 03/18/2024 18:36:28 Registration Complete 03/18/2024 18:10:09 03/18/2024 18:10:09 03/18/2024 18:10:09 Reg Complete Request 03/18/2024 18:10:09 Reg Bed Request Complete 03/18/2024 18:10:09 03/18/2024 18:10:09 03/18/2024 18:10:09 Bed Assign Complete 03/18/2024 18:37:03 03/18/2024 18:37:03 03/18/2024 18:37:03 Dr Exam Complete 03/18/2024 18:37:03 03/18/2024 19:00:46 03/18/2024 19:00:46 RN Exam Complete 03/18/2024 18:37:03 03/18/2024 18:56:18 03/18/2024 18:56:18 X-Ray Cancel 03/18/2024 18:39:29 03/18/2024 19:07:42 Registration Complete 03/18/2024 19:00:46 03/18/2024 19:34:26 03/18/2024 19:34:26 X-Ray Complete 03/18/2024 19:07:41 03/18/2024 19:08:10 03/18/2024 19:22:16 Wet Read Request 03/18/2024 19:22:16 Meds Admin Complete 03/18/2024 19:29:15 03/18/2024 19:37:44 Discharge Complete 03/18/2024 19:31:06 03/18/2024 19:38:51 03/18/2024 19:38:51 Transfer Complete 03/18/2024 19:38:51 03/18/2024 19:38:51 03/18/2024 19:38:51 ADDRESS: [address] [place] [id number] PHYS DOC NOTES: MEDICAL INFORMATION: Prescriptions Given: New Medications [facility][id number], [address] [place], [place] [id number], [phone] lidocaine topical (Lidoderm 5% Patch) 1 Patches Topical every day. apply 12 hours on and 12 hours off daily. Refills: 0. Medications to Continue Taking That Have Changed [facility] #[id number], [address] [place], [place] [id number], [phone] START: naproxen (Naprosyn 500 mg Tab) 1 Tablets By Mouth 2 times a day as needed for pain. Refills: 0. Other Medications START: naproxen (Naprosyn 500 mg Tab) 1 Tablets By Mouth 2 times a day. Refills: 0. START: naproxen (Naprosyn 500 mg Tab) 1 Tablets By Mouth 2 times a day as needed for pain. Refills: 0. PATIENT EDUCATION INFORMATION: Instructions: Rib Contusion Follow up: With: Address: When: Cory Charisse [address] [place], [place] [id number] In 3 days 03/21/2024 Comments: You can use the medications as prescribed as needed for pain. Please follow-up with your primary care doctor next 2 to 3 days for further evaluation management. Please return to the ED for any new or worsening symptoms. With: Address: When: XXXX [facility] [place] In 3 days DIAGNOSIS: Contusion of rib on left side Normal [facility] ED Note-Physicianon 03-18-20 ED Note-Physician Basic Information Time Seen: Hayde Pro DO 03/18/2024 19:00 Chief Complaint pt leaned over against something and heard a pop on her left trunk area. reports pain. History of Present Illness Patient is a 53-year-old female presenting to the ED for evaluation of left rib pain. Patient states she was cleaning her car when she leaned over to turn the car on felt a pop in her left ribs. Patient denies any other falls or injuries, denies any difficulty breathing. Does note worsening pain with breathing Review of Systems A 10 point review of systems is negative except as noted above. Medical and Surgical History: Reviewed and noted Social history: Lives at home Tobacco: Denies Physical Exam Vitals & Measurements T: 36.8 ?C(Oral) HR: 79(Peripheral) RR: 18 BP: 115/70 SpO2: 97% HT: 170 cm WT: 70 kg BMI: 24.22 General: Well developed, non toxic appearing, no acute distress HEENT: Head atraumatic, Mucosa moist, hearing grossly normal Neck: No JVD, tracheal deviation Cardiac: Regular rate, rhythm, no murmurs, or gallops, 2+ radial pulses Respiratory: Lungs clear to auscultation B/L, normal respiratory effort reproducible pain over left ribs 8 and 9 Abdomen: Soft non tender, no rebound or guarding, no peritoneal signs Extremities: No edema noted in the LE B/L, no tenderness to palpation Neurologic: Alert and oriented, speech clear Skin: No rashes or lesions Psych: Appropriate mood and behavior Medical Decision Making MEDICAL DECISION MAKING Number and Complexity of Problems Differential Diagnosis: [] [facility] Data External documents reviewed: [] My EKG interpretation: [] My CT interpretation: [] My X-ray interpretation: [] My Ultrasound interpretation: [] Decision rules/scores evaluated: [] Discussed with: [] Treatment and Disposition ED Course: Patient is a 53-year-old female presenting to the ED for evaluation of left rib pain. Patient is nontoxic and on arrival, no acute distress. Does have pain to palpation of left rib #8 on exam, x-rays obtained which shows no acute fracture. Patient given short course of pain medication for home. Follow-up with her primary care doctor next 2 to 3 days. Return to ED for any new or worsening symptoms. Shared decision making: [] Code status: [] Assessment/Plan Contusion of rib on left side (S20.212A: Contusion of left front wall of thorax, initial encounter) Orders: acetaminophen-hydroc odone, 1 EA, Tab, Oral, Once, Stop date 03/18/24 19:29:00 EDT, STAT, Start date 03/18/24 19:29:00 EDT lidocaine topical, 1 patch(es), Patch, TransDermal, Once, Stop date 03/18/24 19:28:00 EDT, STAT, Start date 03/18/24 19:28:00 EDT lidocaine topical, 1 patch(es), Topical, Daily, 7 EA, Refill(s) 0, apply 12 hours on and 12 hours off daily, [facility][id number], 170, cm, 03/18/24 18:36:00 EDT, Height/Length Dosing, 70, kg, 03/18/24 18:36:00 EDT, Weight Dosing naproxen, 500 mg = 1 tab(s), Oral, BID, PRN for pain, # 20 tab(s), Refills(s) 0, Pharmacy: [facility] #[id number], 170, cm, 03/18/24 18:36:00 EDT, Height/Length Dosing, 70, kg, 03/18/24 18:36:00 EDT, Weight Dosing Medications Administered Given Lidoderm 5% Patch, 1 patch(es), TransDermal TO GO acetaminophen-hydroc odone 325 mg - 5 mg, 1 EA, Oral Disposition Plan Discharge Prescription List Prescriptions Lidoderm 5% Patch, 1 patch(es), Topical, Daily Naprosyn 500 mg Tab, 500 mg= 1 tab(s), Oral, BID, PRN Follow-up With When Contact Information Cory Mcqueen In 3 days 03/21/2024 EDT [address] [place] [address] Additional Instructions: You can use the medications as prescribed as needed for pain. Please follow-up with your primary care doctor next 2 to 3 days for further evaluation management. Please return to the ED for any new or worsening symptoms. XXXX NONE In 3 days [place] Additional Instructions: Patient Education Rib Contusion Problem List/Past Medical History Ongoing Smoker Historical No qualifying data Medications Inpatient No active inpatient medications Home Lidoderm 5% Patch, 1 patch(es), Topical, Daily Naprosyn 500 mg Tab, 500 mg= 1 tab(s), Oral, BID, PRN Naprosyn 500 mg Tab, 500 mg= 1 tab(s), Oral, BID Naprosyn 500 mg Tab, 500 mg= 1 tab(s), Oral, BID, PRN Allergies No Known Medication Allergies Social History Alcohol - Medium Risk, 09/01/2023 Current, Wine, 1-2 times per month, 09/01/2023 Substance Abuse - No Risk, 09/01/2023 Tobacco - High Risk, 09/01/2023 10 or more cigarettes (1/2 pack or more)/day in last 30 days Tobacco Use:. Cigarettes, 09/01/2023 Lab Results No qualifying data available. Diagnostic Results XR Ribs Unilat 3 Views Left w/ PA Chest * Preliminary * 03/18/24 19:27:36 NEGATIVE: No infiltrate, mass or other acute cardiopulmonary abnormality, no rib fracture Read By: Hayde Pro DO [facility] Comment on above: Result Comment: Elec tronically Signed By: Hayde Pro DO\.br\Date and Time Signed: 03/18/24 19:44 EDT ED Patient Education Noteon 03-18-2024 ED Patient Education Note Orthopedics Rib Contusion A rib contusion is a deep bruise on the rib area. Contusions are the result of a blunt trauma that causes bleeding and injury to the tissues under the skin. A rib contusion may involve bruising of the ribs and of the skin and muscles in the area. The skin over the contusion may turn blue, purple, or yellow. Minor injuries result in a painless contusion. More severe contusions may be painful and swollen for a few weeks. What are the causes? This condition is usually caused by a hard, direct hit to an area of the body. This often occurs while playing contact sports. What are the signs or symptoms? Symptoms of this condition include: ? Swelling and redness of the injured area. ? Discoloration of the injured area. ? Tenderness and soreness of the injured area. ? Pain with or without movement. ? Pain when breathing in. How is this diagnosed? This condition may be diagnosed based on: ? Your symptoms and medical history. ? A physical exam. ? Imaging tests?such as an X-ray, CT scan, or MRI?to determine if there were internal injuries or broken bones (fractures). How is this treated? This condition may be treated with: ? Rest. This is often the best treatment for a rib contusion. ? Ice packs. This reduces swelling and inflammation. ? Deep-breathing exercises. These may be recommended to reduce the risk for lung collapse and pneumonia. ? Medicines. Vihn-gvh-rfhtdbv or prescription medicines may be given to control pain. ? Injection of a numbing medicine around the nerve near your injury (nerve block). Follow these instructions at home: Medicines ? Take mbal-ojz-orjmolt and prescription medicines only as told by your health care provider. ? Ask your health care provider if the medicine prescribed to you: ? Requires you to avoid driving or using machinery. ? Can cause constipation. You may need to take these actions to prevent or treat constipation: ? Drink enough fluid to keep your urine pale yellow. ? Take eleq-qyy-kczaswy or prescription medicines. ? Eat foods that are high in fiber, such as beans, whole grains, and fresh fruits and vegetables. ? Limit foods that are high in fat and processed sugars, such as fried or sweet foods. Managing pain, stiffness, and swelling If directed, put ice on the injured area. To do this: ? Put ice in a plastic bag. ? Place a towel between your skin and the bag. ? Leave the ice on for 20 minutes, 2?3 times a day. ? Remove the ice if your skin turns bright red. This is very important. If you cannot feel pain, heat, or cold, you have a greater risk of damage to the area. Activity ? Rest the injured area. ? Avoid strenuous activity and any activities or movements that cause pain. Be careful during activities, and avoid bumping the injured area. ? Do not lift anything that is heavier than 5 lb (2.3 kg), or the limit that you are told, until your health care provider says that it is safe. General instructions ? Do not use any products that contain nicotine or tobacco, such as cigarettes, e-cigarettes, and chewing tobacco. These can delay healing. If you need help quitting, ask your health care provider. ? Do deep-breathing exercises as told by your health care provider. ? If you were given an incentive spirometer, use it every 1?2 hours while you are awake, or as recommended by your health care provider. This device measures how well you are filling your lungs with each breath. ? Keep all follow-up visits. This is important. Contact a health care provider if you have: ? Increased bruising or swelling. ? Pain that is not controlled with treatment. ? A fever. Get help right away if you: ? Have difficulty breathing or shortness of breath. ? Develop a continual cough, or you cough up thick or bloody mucus from your lungs (sputum). ? Feel nauseous or you vomit. ? Have pain in your abdomen. These symptoms may represent a serious problem that is an emergency. Do not wait to see if the symptoms will go away. Get medical help right away. Call your local emergency services (911 in the [place] Do not drive yourself to the hospital. Summary ? A rib contusion is a deep bruise on your rib area. Contusions are the result of a blunt trauma that causes bleeding and injury to the tissues under the skin. ? The skin over the contusion may turn blue, purple, or yellow. Minor injuries may cause a painless contusion. More severe contusions may be painful and swollen for a few weeks. ? Rest the injured area. Avoid strenuous activity and any activities or movements that cause pain. This information is not intended to replace advice given to you by your health care provider. Make sure you discuss any questions you have with your health care provider. Document Revised: 02/08/2021 Document Reviewed: 02/08/2021 Elsevier Patient Education ? 2022 [employer] Normal [facility] ED Patient Summaryon 024 ED Patient Summary [place] [id number] Patient Discharge Instructions Person Information Name: CHAYA RODRIGUEZ Age: 53 Years Arrival Date: 03/18/2024 18:08:32 Discharge Diagnosis: Contusion of rib on left side Primary Care Physician: NONE, XXXX Provider Information Primary Provider: Hayde Pro DO Advanced Sonographer:None The exam and treatment you received in the Emergency Department were for an urgent problem and are not intended as complete care. It is important that you follow up with a doctor, nurse practitioner, or physician?s paperhanger assistant for ongoing care. If your symptoms become worse or you do not improve as expected and you are unable to reach your usual health care provider, you should return to the Emergency Department. We are available 24 hours a day. MICHAELCHAYA NOEL has been given the following list of patient education materials, prescriptions and follow-up instructions: Follow-up Instructions: With: Address: When: Cory Mcqueen [address] [place], [place] [id number] In 3 days 03/21/2024 Comments: You can use the medications as prescribed as needed for pain. Please follow-up with your primary care doctor next 2 to 3 days for further evaluation management. Please return to the ED for any new or worsening symptoms. With: Address: When: XXXX NONE , [place] In 3 days In the event that this physician does not participate in your insurance network, please consult with your insurance company to find a nearby participating provider. Patient Education Materials: Rib Contusion A MESSAGE TO ALL PATIENTS REGARDING OPIOIDS PRESCRIPTION OPIOIDS: WHAT YOU NEED TO KNOW Prescription opioids can be used to help relieve hqqxdiey-in-ivwsep pain and are often prescribed following a surgery or injury, or for certain health conditions. These medications can be an important part of the treatment but also come with serious risks. It is important to work with your healthcare provider to make sure you are getting the safest, most effective care. WHAT ARE THE RISKS AND SIDE EFFECTS OF OPIOID USE? Prescription opioids carry serious risks of addiction and overdose, especially with prolonged use. An opioid overdose, often marked by slowed breathing, can cause sudden . The use of prescription opioids can have a number of side effects as well, even when taken as directed: ? Tolerance?meaning you might need to take more of the medication for the same pain relief ? Physical dependence?meaning you have symptoms of withdrawal when a medication is stopped ? Increased sensitivity to pain ? Constipation ? Nausea, vomiting, and dry mouth ? Sleepiness and dizziness ? Confusion ? Depression ? Low levels of testosterone that can result in lower sex drive, energy, and strength ? Itching and sweating RISKS ARE GREATER WITH: ? History of drug misuse, substance use disorder, or overdose ? Mental health conditions (such as depression or anxiety) ? Sleep apnea ? Older age (65 years and older) ? Avoid alcohol while taking prescription opioids. Also, unless specifically advised by your health care provider, medications to avoid include: ? Benzodiazepines (such as Xanax or Valium) ? Muscle relaxants (such as Soma or Flexeril) ? Hypnotics (such as Ambien or Lunesta) ? Other prescription opioids KNOW YOUR OPTIONS Talk to your health care provider about ways to manage your pain that don?t involve prescription opioids. Some of these options may actually work better and have fewer risks and side effects. Options may include: ? Pain relievers such as acetaminophen, ibuprofen, and naproxen ? Some medication that are also used for depression or seizures ? Physical therapy and exercise ? Cognitive behavioral therapy, a psychological, goal-directed approach, in which patients learn how to modify physical, behavioral, and emotional triggers of pain and stress. IF YOU ARE PRESCRIBED OPIOIDS FOR PAIN: ? Never take opioids in greater amounts or more often than prescribed. ? Follow up with your primary health care provider. o Work together to create a plan on how to manage your pain. o Talk about ways to help manage your pain that don?t involve prescription opioids. o Talk about any and all concerns and side effects. ? Help prevent misuse and abuse o Never sell or share prescription opioids. o Never use another person?s prescription opioids. ? Store prescription opioids in a secure place and out of reach of others (this may include visitors, children, friends, and family). ? Safely dispose of unused prescription opioids: Find your community drug take-back program or your pharmacy mail-back program, or flush them down the toilet, following guidance from the Food and Drug Administration (www.fda.gov/Drugs/R esourcesForYou). ? Visit www.cdc.gov/drugover dose to learn abou (more content not included)... [facility] Consent for Treatmenton 01-17 Consent for Treatment [id number] #1.00TIFF [facility] Discharge Instructionson Discharge Instructions [id number] #1.00TIFF Normal [facility] ED Clinical Summaryon 2023 ED Clinical Summary [place] [id number] ED Clinical Summary Person Information Name: CHAYA RODRIGUEZ Katia/[facility] Age: 53 Years : 1970 Sex: Female Language: Belarusian PCP: NONE, XXXX Marital Status: Visit Id: Visit Reason: Knee injury - Minor; Knee pain-swelling; RIGHT KNEE PAIN KNEE SURGERY DEC 04 Speciality: Acuity: 4 Enc Type: Emergency Med Service: Emergency Arrival: 02/09/2024 22:21:16 Discharge: 02/09/2024 23:00:56 LOS: 000 00:39 Checkin: 02/09/2024 22:21:16 Checkout: 02/09/2024 23:00:56 Dispo Type: Home (Routine DC) EVENTS: Event Name Event Status Request Date/Time Start Date/Time Complete Date/Time Arrive Complete 02/09/2024 22:21:16 02/09/2024 22:21:16 02/09/2024 22:21:16 Document Home Meds Request 02/09/2024 22:21:16 Triage Complete 02/09/2024 22:21:16 02/09/2024 22:28:49 02/09/2024 22:28:49 Dr Exam Complete 02/09/2024 22:23:26 02/09/2024 22:23:26 02/09/2024 22:23:26 Registration Complete 02/09/2024 22:23:26 02/09/2024 22:24:34 02/09/2024 22:24:34 Reg Complete Request 02/09/2024 22:24:34 Reg Bed Request Complete 02/09/2024 22:24:34 02/09/2024 22:24:34 02/09/2024 22:24:34 Bed Assign Complete 02/09/2024 22:29:01 02/09/2024 22:29:01 02/09/2024 22:29:01 RN Exam Complete 02/09/2024 22:29:01 02/09/2024 22:34:00 02/09/2024 22:34:00 X-Ray Complete 02/09/2024 22:32:44 02/09/2024 22:38:43 02/09/2024 22:47:49 Wet Read Request 02/09/2024 22:47:49 Meds Admin Complete 02/09/2024 22:52:33 02/09/2024 22:58:49 Discharge Complete 02/09/2024 22:53:42 02/09/2024 23:01:00 02/09/2024 23:01:00 Transfer Complete 02/09/2024 23:01:00 02/09/2024 23:01:00 02/09/2024 23:01:00 ADDRESS: [address] [place] [id number] PHYS DOC NOTES: MEDICAL INFORMATION: Prescriptions Given: Medications to Continue Taking That Have Changed [id number], [address] [place], [place] [id number], [phone] START: naproxen (Naprosyn 500 mg Tab) 1 Tablets By Mouth 2 times a day as needed for pain. Refills: 0. Other Medications START: naproxen (Naprosyn 500 mg Tab) 1 Tablets By Mouth 2 times a day. Refills: 0. PATIENT EDUCATION INFORMATION: Instructions: Knee Sprain, Adult, Ubnq-ue-Hjtd Follow up: With: Address: When: Kamari Hartman [address] [place] [id number] Business (1) In 3 days 02/12/2024 Comments: You can take the pain medication every 12 hours as prescribed as needed for pain. Please follow-up with your primary care doctor in addition to orthopedics for further evaluation management. Please return to the ED for any new or worsening symptoms. With: Address: When: [facility] , [place] In 3 days 02/12/2024 DIAGNOSIS: Knee sprain Normal [facility] ED Note-Physicianon 02-10-20 ED Note-Physician Basic Information Time Seen: Hayde Pro DO 02/09/2024 22:23 Chief Complaint (R) knee pain since yesterday after having a dog run into the back of knee. Knee surgery 12/04/23 History of Present Illness Patient is a 53-year-old female presenting to the ED for evaluation of right knee pain. Patient states that she had knee surgery done in November by Dr. Hartman for an meniscus repair. Patient states her dog ran into the back of her knee last night. Has been having pain in the back of her knee since last night however has been able to walk on it. Patient denies any numbness or tingling any other complaints. Review of Systems A 10 point review of systems is negative except as noted above. Medical and Surgical History: Reviewed and noted Social history: Lives at home Tobacco: Denies Physical Exam Vitals & Measurements T: 36.6 ?C(Oral) HR: 84(Peripheral) RR: 16 BP: 109/73 SpO2: 96% HT: 170 cm WT: 70.3 kg BMI: 24.33 General: Well developed, non toxic appearing, no acute distress HEENT: Head atraumatic, Mucosa moist, hearing grossly normal Neck: No JVD, tracheal deviation Cardiac: Regular rate, rhythm, no murmurs, or gallops, 2+ radial pulses Respiratory: Lungs clear to auscultation B/L, normal respiratory effort Extremities: Well-healed incision noted on the anterior aspect of the right knee tenderness palpation of the posterior aspect of the knee, no ligamentous laxity Neurologic: Alert and oriented, speech clear Skin: No rashes or lesions Psych: Appropriate mood and behavior Medical Decision Making MEDICAL DECISION MAKING Number and Complexity of Problems Differential Diagnosis: [] [facility] Data External documents reviewed: [] My EKG interpretation: [] My CT interpretation: [] My X-ray interpretation: [] My Ultrasound interpretation: [] Decision rules/scores evaluated: [] Discussed with: [] Treatment and Disposition ED Course: Patient is a 53-year-old female presenting to the ED for evaluation of right knee pain. Patient is nontoxic and on arrival, no acute distress. Due to patient's complaints x-ray of the knee is obtained. Patient offered medication for pain however she declined. Patient's x-ray imaging is negative. Patient given [place] in the ED for pain is discharged home with Naprosyn. She is to follow-up with her primary care doctor in addition to orthopedics for further evaluation and management. She states she has an appointment on Saturday with Dr. Rincon. She is to return to the ED for any new or worsening symptoms. Shared decision making: [] Code status: [] Assessment/Plan Knee sprain (S83.90XA: Sprain of unspecified site of unspecified knee, initial encounter) Orders: acetaminophen-hydroc odone, 1 tab(s), Tab, Oral, Once, Stop date 02/09/24 22:52:00 EDT, STAT, Start date 02/09/24 22:52:00 EDT naproxen, 500 mg = 1 tab(s), Oral, BID, PRN for pain, # 20 tab(s), Refills(s) 0, Pharmacy: [id number], 170, cm, 02/09/24 22:28:00 EDT, Height/Length Dosing, 70.3, kg, 02/09/24 22:28:00 EDT, Weight Dosing XR Knee Complete 4+ Views Right Disposition Plan Discharge Prescription List Prescriptions Naprosyn 500 mg Tab, 500 mg= 1 tab(s), Oral, BID, PRN Follow-up With When Contact Information Kamari Hartman In 3 days 02/12/[address] [place], [place] [phone] [facility] (1) Additional Instructions: You can take the pain medication every 12 hours as prescribed as needed for pain. Please follow-up with your primary care doctor in addition to orthopedics for further evaluation management. Please return to the ED for any new or worsening symptoms. XXXX NONE In 3 days 02/12/2024 EDT [place] Additional Instructions: Patient Education Knee Sprain, Adult, Lhzb-eo-Wwgn Problem List/Past Medical History Ongoing Smoker Historical No qualifying data Medications Inpatient No active inpatient medications Home Naprosyn 500 mg Tab, 500 mg= 1 tab(s), Oral, BID Allergies No Known Medication Allergies Social History Alcohol - Medium Risk, 09/01/2023 Current, Wine, 1-2 times per month, 09/01/2023 Substance Abuse - No Risk, 09/01/2023 Tobacco - High Risk, 09/01/2023 10 or more cigarettes (1/2 pack or more)/day in last 30 days Tobacco Use:. Cigarettes, 09/01/2023 Lab Results No qualifying data available. Diagnostic Results XR Knee Complete 4+ Views Right * Preliminary * 02/09/24 22:50:14 NEGATIVE: No fracture, dislocation or other acute abnormality Read By: Hayde Pro DO Normal [facility] Comment on above: Result Comment: Elec tronically Signed By: Hayde Pro DO\.br\Date and Time Signed: 02/09/24 22:54 EDT ED Patient Education Noteon 02-10-2024 ED Patient Education Note Orthopedics Knee Sprain A knee sprain is a stretch or tear in a knee ligament. Knee ligaments are tissues that connect bones in the knee to each other. What are the causes? This condition often results from: ? A fall. ? An injury to the knee. What are the signs or symptoms? Symptoms of this condition include: ? Trouble straightening or bending the leg. ? Swelling in the knee. ? Bruising around the knee. ? Tenderness or pain in the knee. ? Sudden muscle tightening (spasms) around the knee. How is this treated? Treatment for this condition may involve: ? Keeping the knee still (immobilized) with a cast, brace, or splint. ? Putting ice on the knee. This helps with pain and swelling. ? Raising (elevating) the knee above the level of your heart when you are resting. This helps with pain and swelling. ? Taking medicine for pain. ? Doing exercises to keep your knee from being weak or stiff. ? Having surgery. This may be needed if the ligament is completely torn. Follow these instructions at home: If you have a splint or brace: ? Wear it as told by your doctor. Remove it only as told by your doctor. ? Check the skin around it every day. Tell your doctor about any concerns. ? Loosen it if your toes: ? Tingle. ? Become numb. ? Turn cold and blue. ? Keep it clean and dry. If you have a cast: ? Do not stick anything inside it to scratch your skin. ? Check the skin around it every day. Tell your doctor about any concerns. ? You may put lotion on dry skin around the edges of the cast. Do not put lotion on the skin under the cast. ? Keep it clean and dry. Bathing If you have a splint, brace, or cast that is not waterproof: ? Do not let it get wet. ? Cover it with a watertight covering when you take a bath or a shower. Managing pain, stiffness, and swelling ? If told, put ice on the injured area. To do this: ? If you have a removable splint or brace, remove it as told by your doctor. ? Put ice in a plastic bag. ? Place a towel between your skin and the bag or between your cast and the bag. ? Leave the ice on for 20 minutes, 2?3 times a day. ? Move your toes often to reduce stiffness and swelling. ? Raise the injured area above the level of your heart while you are sitting or lying down. General instructions ? Take giqh-eqq-dvmhqgp and prescription medicines only as told by your doctor. ? Do not use any products that contain nicotine or tobacco, such as cigarettes, e-cigarettes, and chewing tobacco. These can delay healing. If you need help quitting, ask your doctor. ? Do exercises as told by your doctor. ? Keep all follow-up visits as told by your doctor. This is important. Contact a doctor if: ? Your pain gets worse. ? The cast, brace, or splint does not fit right. ? The cast, brace, or splint gets damaged. Get help right away if: ? You cannot use your knee to support your body weight (bear weight) for standing or walking. ? You cannot move the injured area. ? Your knee ramon or you have pain after you walk only a few steps. ? You have very bad pain, swelling, or numbness in your leg below the cast, brace, or splint. ? Your foot or toes are numb, cold, or blue after loosening your splint or brace. Summary ? A knee sprain is a stretch or tear in a tissue (ligament) that connects your knee bones to each other. ? You may need to wear a splint, brace, or cast to keep the knee still while it is getting better. ? Surgery may be needed if the ligament is completely torn. This information is not intended to replace advice given to you by your health care provider. Make sure you discuss any questions you have with your health care provider. Document Revised: 02/11/2023 Document Reviewed: 09/23/2020 [employer] Patient Education ? 2022 [employer]. Normal [facility] ED Patient Summaryon 024 ED Patient Summary [place] [id number] Patient Discharge Instructions Person Information Name: CHAYA RODRIGUEZ Age: 53 Years Arrival Date: 02/09/2024 22:21:16 Discharge Diagnosis: Knee sprain Primary Care Physician: NONE, XXXX Provider Information Primary Provider: Hayde Pro DO Advanced Sonographer:None The exam and treatment you received in the Emergency Department were for an urgent problem and are not intended as complete care. It is important that you follow up with a doctor, nurse practitioner, or physician?s paperhanger assistant for ongoing care. If your symptoms become worse or you do not improve as expected and you are unable to reach your usual health care provider, you should return to the Emergency Department. We are available 24 hours a day. CHAYA RODRIGUEZ has been given the following list of patient education materials, prescriptions and follow-up instructions: Follow-up Instructions: With: Address: When: Kamari Hartman [address] [place], [place] [phone] [facility] () In 3 days 02/12/2024 Comments: You can take the pain medication every 12 hours as prescribed as needed for pain. Please follow-up with your primary care doctor in addition to orthopedics for further evaluation management. Please return to the ED for any new or worsening symptoms. With: Address: When: [facility] , [place] In 3 days 02/12/2024 In the event that this physician does not participate in your insurance network, please consult with your insurance company to find a nearby participating provider. Patient Education Materials: Knee Sprain, Adult, Luht-ii-Dmkz A MESSAGE TO ALL PATIENTS REGARDING OPIOIDS PRESCRIPTION OPIOIDS: WHAT YOU NEED TO KNOW Prescription opioids can be used to help relieve mpigwcoj-fq-kzyzuk pain and are often prescribed following a surgery or injury, or for certain health conditions. These medications can be an important part of the treatment but also come with serious risks. It is important to work with your healthcare provider to make sure you are getting the safest, most effective care. WHAT ARE THE RISKS AND SIDE EFFECTS OF OPIOID USE? Prescription opioids carry serious risks of addiction and overdose, especially with prolonged use. An opioid overdose, often marked by slowed breathing, can cause sudden . The use of prescription opioids can have a number of side effects as well, even when taken as directed: ? Tolerance?meaning you might need to take more of the medication for the same pain relief ? Physical dependence?meaning you have symptoms of withdrawal when a medication is stopped ? Increased sensitivity to pain ? Constipation ? Nausea, vomiting, and dry mouth ? Sleepiness and dizziness ? Confusion ? Depression ? Low levels of testosterone that can result in lower sex drive, energy, and strength ? Itching and sweating RISKS ARE GREATER WITH: ? History of drug misuse, substance use disorder, or overdose ? Mental health conditions (such as depression or anxiety) ? Sleep apnea ? Older age (65 years and older) ? Avoid alcohol while taking prescription opioids. Also, unless specifically advised by your health care provider, medications to avoid include: ? Benzodiazepines (such as Xanax or Valium) ? Muscle relaxants (such as Soma or Flexeril) ? Hypnotics (such as Ambien or Lunesta) ? Other prescription opioids KNOW YOUR OPTIONS Talk to your health care provider about ways to manage your pain that don?t involve prescription opioids. Some of these options may actually work better and have fewer risks and side effects. Options may include: ? Pain relievers such as acetaminophen, ibuprofen, and naproxen ? Some medication that are also used for depression or seizures ? Physical therapy and exercise ? Cognitive behavioral therapy, a psychological, goal-directed approach, in which patients learn how to modify physical, behavioral, and emotional triggers of pain and stress. IF YOU ARE PRESCRIBED OPIOIDS FOR PAIN: ? Never take opioids in greater amounts or more often than prescribed. ? Follow up with your primary health care provider. o Work together to create a plan on how to manage your pain. o Talk about ways to help manage your pain that don?t involve prescription opioids. o Talk about any and all concerns and side effects. ? Help prevent misuse and abuse o Never sell or share prescription opioids. o Never use another person?s prescription opioids. ? Store prescription opioids in a secure place and out of reach of others (this may include visitors, children, friends, and family). ? Safely dispose of unused prescription opioids: Find your community drug take-back program or your pharmacy mail-back program, or flush them down the toilet, following guidance from the Food and Drug Administration (www.fda.gov/Drug (more content not included)... Normal [facility] XR Knee Complete 4+ Views Christian gonzalez 02-10-2024 XR Knee Complete 4+ Views Right Exam Date/Time: 02/09/2024 22:47 EDT Reason for Exam: Pain, Traumatic Report [facility] [phone] IMPRESSION: NEGATIVE RIGHT KNEE. CLINICAL HISTORY: Pain, Traumatic COMPARISON: NONE. FINDINGS: NUMBER OF VIEWS views of the right knee demonstrate no evidence of a fracture, dislocation, bone or joint abnormality. Ordering Provider: Hayde Pro FINAL REPORT Dictated: 02/10/2024 10:31 am Dimitris Yoon MD, V. Signed (Electronic Signature): 02/10/2024 10:31 am Signed by: Dimitris Yoon MD, V. Transcribed by: OPHELIA Technologist: CLAUDETTE Technical Comments Radiation Dose: abena Lucio in mGy = na DAP = na Normal [facility] Consent for Treatmenton 01-16 Consent for Treatment [id number] #1.00TIFF Normal [facility] Discharge Instructionson Discharge Instructions [id number]#1.00TIFF Normal [facility] ED Clinical Summaryon 2023 ED Clinical Summary [place] [id number] ED Clinical Summary Person Information Name: CHAYA RODRIGUEZ/[facility] Age: 53 Years : 1970 Sex: Female Language: Belarusian PCP: NONE, XXXX Marital Status: Visit Id: Visit Reason: Foot injury - Minor; Toe pain-swelling; TOE INJURY Speciality: Acuity: 4 Enc Type: Emergency Med Service: Emergency Arrival: 01/26/2024 22:26:58 Discharge: 01/26/2024 23:21:42 LOS: 000 00:55 Checkin: 01/26/2024 22:26:58 Checkout: 01/26/2024 23:21:42 Dispo Type: Home (Routine DC) EVENTS: Event Name Event Status Request Date/Time Start Date/Time Complete Date/Time Arrive Complete 01/26/2024 22:26:58 01/26/2024 22:26:58 01/26/2024 22:26:58 Document Home Meds Request 01/26/2024 22:26:58 Triage Complete 01/26/2024 22:26:58 01/26/2024 22:39:23 01/26/2024 22:39:23 Registration Complete 01/26/2024 22:30:42 01/26/2024 22:30:42 01/26/2024 22:30:42 Reg Complete Request 01/26/2024 22:30:42 Reg Bed Request Complete 01/26/2024 22:30:42 01/26/2024 22:30:42 01/26/2024 22:30:42 Bed Assign Complete 01/26/2024 22:39:34 01/26/2024 22:39:34 01/26/2024 22:39:34 Dr Exam Complete 01/26/2024 22:39:34 01/26/2024 22:39:45 01/26/2024 22:39:45 RN Exam Complete 01/26/2024 22:39:34 01/26/2024 23:04:27 01/26/2024 23:04:27 Registration Request 01/26/2024 22:39:45 X-Ray Complete 01/26/2024 22:45:27 01/26/2024 22:51:52 01/26/2024 23:06:36 Wet Read Request 01/26/2024 23:06:36 Patient Care Complete 01/26/2024 23:07:12 01/26/2024 23:14:02 Discharge Complete 01/26/2024 23:12:18 01/26/2024 23:21:48 01/26/2024 23:21:48 Meds Admin Complete 01/26/2024 23:12:41 01/26/2024 23:20:59 Transfer Complete 01/26/2024 23:21:48 01/26/2024 23:21:48 01/26/2024 23:21:48 ADDRESS: [address] [place] [phone] [facility] NOTES: MEDICAL INFORMATION: Prescriptions Given: Medications to Continue with No Changes Other Medications naproxen (Naprosyn 500 mg Tab) 1 Tablets By Mouth 2 times a day. Refills: 0. PATIENT EDUCATION INFORMATION: Instructions: Toe Fracture, Gqck-xq-Yaba Follow up: With: Address: When: [place] [address] Business (1) In 3 days 01/29/2024 Comments: You can use the pain medication every 6 hours as needed for pain. Please follow-up with orthopedics for further evaluation management. Please return to the ED for any new or worsening symptoms. With: Address: When: XXXX NONE , [place] In 3 days DIAGNOSIS: Toe fracture Normal [facility] ED Note-Physicianon 01-27-20 ED Note-Physician Basic Information Time Seen: Hayde Pro DO 01/26/2024 22:39 Chief Complaint pt to ED with c/o L third toe pain after stubbing it on tub around 1500. states increasing pain radiating up top of foot and bruising noted per pt. pt is ambulatory into ED. History of Present Illness Patient is a 53-year-old female presenting to the ED for evaluation of left third toe pain. Patient states she was attempting get into the bathtub when her dog tripped her up and she stubbed her third toe on the top. Patient states she has had increasing pain in the toe since that time. States she did hear it snap when initially occurred. Review of Systems A 10 point review of systems is negative except as noted above. Medical and Surgical History: Reviewed and noted Social history: Lives at home Tobacco: Denies Physical Exam Vitals & Measurements T: 36.8 ?C(Oral) HR: 88(Peripheral) RR: 16 BP: 112/70 SpO2: 97% HT: 170 cm WT: 69.2 kg BMI: 23.94 General: Well developed, non toxic appearing, no acute distress HEENT: Head atraumatic, Mucosa moist, hearing grossly normal Neck: No JVD, tracheal deviation Cardiac: Regular rate, rhythm, no murmurs, or gallops, 2+ radial pulses Respiratory: Lungs clear to auscultation B/L, normal respiratory effort Extremities: Bruising tenderness palpation of the third digit of the left foot, no obvious other bruising Neurologic: Alert and oriented, speech clear Skin: No rashes or lesions Psych: Appropriate mood and behavior Medical Decision Making MEDICAL DECISION MAKING Number and Complexity of Problems Differential Diagnosis: [] [facility] Data External documents reviewed: [] My EKG interpretation: [] My CT interpretation: [] My X-ray interpretation: [] My Ultrasound interpretation: [] Decision rules/scores evaluated: [] Discussed with: [] Treatment and Disposition ED Course: Patient is a 53-year-old female presenting to the ED for evaluation of third digit pain. Patient is nontoxic and on arrival, no acute distress. Does have bruising noted to the third digit on the left foot. X-rays obtained which does show a tuft fracture. Patient is placed in a postop shoe was given short course of pain medication for home. She is to follow-up with her primary care doctor in addition to orthopedics for further evaluation management. Shared decision making: [] Code status: [] Assessment/Plan Toe fracture (S92.919A: Unspecified fracture of unspecified toe(s), initial encounter for closed fracture) Orders: acetaminophen-hydroc odone, 1 EA, Tab, Oral, Once, Stop date 01/26/24 23:12:00 EDT, STAT, Start date 01/26/24 23:12:00 EDT Post-op Shoe XR Foot 3+ Views Left Medications Administered Given TO GO acetaminophen-hydroc odone 325 mg - 5 mg, 1 EA, Oral Disposition Plan Discharge Prescription List Prescriptions No active prescription medications Follow-up With When Contact Information Pan Rincon In 3 days 01/29/2024 EDT [address] [place] [address]- [facility] (1) Additional Instructions: You can use the pain medication every 6 hours as needed for pain. Please follow-up with orthopedics for further evaluation management. Please return to the ED for any new or worsening symptoms. XXXX NONE In 3 days [place] Additional Instructions: Patient Education Toe Fracture, Nycy-td-Zpoj Problem List/Past Medical History Ongoing Smoker Historical No qualifying data Medications Inpatient No active inpatient medications Home Naprosyn 500 mg Tab, 500 mg= 1 tab(s), Oral, BID Allergies No Known Medication Allergies Social History Alcohol - Medium Risk, 09/01/2023 Current, Wine, 1-2 times per month, 09/01/2023 Substance Abuse - No Risk, 09/01/2023 Tobacco - High Risk, 09/01/2023 10 or more cigarettes (1/2 pack or more)/day in last 30 days Tobacco Use:. Cigarettes, 09/01/2023 Lab Results No qualifying data available. Diagnostic Results XR Foot 3+ Views Left * Preliminary * 01/26/24 23:07:59 : tuft fracture 3rd digit Read By: Hayde Pro DO [facility] Comment on above: Result Comment: Elec tronically Signed By: Hayde Pro DO\.br\Date and Time Signed: 01/27/24 02:14 EDT ED Patient Education Noteon 01-27-2024 ED Patient Education Note Orthopedics Toe Fracture A toe fracture is a break in one of the toe bones (phalanges). This may happen if you: ? Drop a heavy object on your toe. ? Stub your toe. ? Twist your toe. ? Exercise the same way too much. What are the signs or symptoms? The main symptoms are swelling and pain in the toe. You may also have: ? Bruising. ? Stiffness. ? Numbness. ? A change in the way the toe looks. ? Broken bones that poke through the skin. ? Blood under the toenail. How is this treated? Treatments may include: ? Taping the broken toe to a toe that is next to it (sri taping). ? Wearing a shoe that has a wide, rigid sole to protect the toe and to limit its movement. ? Wearing a cast. ? Surgery. This may be needed if the: ? Pieces of broken bone are out of place. ? Bone pokes through the skin. ? Physical therapy. Follow these instructions at home: If you have a shoe: ? Wear the shoe as told by your doctor. Remove it only as told by your doctor. ? Loosen the shoe if your toes tingle, become numb, or turn cold and blue. ? Keep the shoe clean and dry. If you have a cast: ? Do not put pressure on any part of the cast until it is fully hardened. This may take a few hours. ? Do not stick anything inside the cast to scratch your skin. ? Check the skin around the cast every day. Tell your doctor about any concerns. ? You may put lotion on dry skin around the edges of the cast. ? Do not put lotion on the skin under the cast. ? Keep the cast clean and dry. Bathing ? Do not take baths, swim, or use a hot tub until your doctor says it is okay. Ask your doctor if you can take showers. ? If the shoe or cast is not waterproof: ? Do not let it get wet. ? Cover it with a watertight covering when you take a bath or a shower. Activity ? Do not use your foot to support your body weight until your doctor says it is okay. ? Use crutches as told by your doctor. ? Ask your doctor what activities are safe for you during recovery. ? Avoid activities as told by your doctor. ? Do exercises as told by your doctor or therapist. Driving ? Do not drive or use heavy machinery while taking pain medicine. ? Do not drive while wearing a cast on a foot that you use for driving. Managing pain, stiffness, and swelling ? Put ice on the injured area if told by your doctor: ? Put ice in a plastic bag. ? Place a towel between your skin and the bag. ? If you have a shoe, remove it as told by your doctor. ? If you have a cast, place a towel between your cast and the bag. ? Leave the ice on for 20 minutes, 2?3 times per day. ? Raise (elevate) the injured area above the level of your heart while you are sitting or lying down. General instructions ? If your toe was taped to a toe that is next to it, follow your doctor's instructions for changing the gauze and tape. Change it more often: ? If the gauze and tape get wet. If this happens, dry the space between the toes. ? If the gauze and tape are too tight and they cause your toe to become pale or to lose feeling (go numb). ? If your doctor did not give you a protective shoe, wear sturdy shoes that support your foot. Your shoes should not: ? Pinch your toes. ? Fit tightly against your toes. ? Do not use any tobacco products, including cigarettes, chewing tobacco, or e-cigarettes. These can delay bone healing. If you need help quitting, ask your doctor. ? Take medicines only as told by your doctor. ? Keep all follow-up visits as told by your doctor. This is important. Contact a doctor if: ? Your pain medicine is not helping. ? You have a fever. ? You notice a bad smell coming from your cast. Get help right away if: ? You lose feeling (have numbness) in your toe or foot, and it is getting worse. ? Your toe or your foot tingles. ? Your toe or your foot gets cold or turns blue. ? You have redness or swelling in your toe or foot, and it is getting worse. ? You have very bad pain. Summary ? A toe fracture is a break in one of the toe bones. ? Use ice and raise your foot. This will help lessen pain and swelling. ? Use crutches as told by your doctor. This information is not intended to replace advice given to you by your health care provider. Make sure you discuss any questions you have with your health care provider. Document Revised: 04/09/2022 Document Reviewed: 04/09/2022 Elsevier Patient Education ? 2022 [employer]. Normal [facility] ED Patient Summaryon 024 ED Patient Summary [address] [address] Patient Discharge Instructions Person Information Name: CHAYA RODRIGUEZ Age: 53 Years Arrival Date: 01/26/2024 22:26:58 Discharge Diagnosis: Toe fracture Primary Care Physician: JARAD, XXXX Provider Information Primary Provider: Hayde Pro DO Advanced Sonographer:None The exam and treatment you received in the Emergency Department were for an urgent problem and are not intended as complete care. It is important that you follow up with a doctor, nurse practitioner, or physician?s paperhanger assistant for ongoing care. If your symptoms become worse or you do not improve as expected and you are unable to reach your usual health care provider, you should return to the Emergency Department. We are available 24 hours a day. CHAYA RODRIGUEZ has been given the following list of patient education materials, prescriptions and follow-up instructions: Follow-up Instructions: With: Address: When: Pan Rincon [address] [place] [address] [id number] [facility] (1) In 3 days 01/29/2024 Comments: You can use the pain medication every 6 hours as needed for pain. Please follow-up with orthopedics for further evaluation management. Please return to the ED for any new or worsening symptoms. With: Address: When: XXXX NONE , [place] In 3 days In the event that this physician does not participate in your insurance network, please consult with your insurance company to find a nearby participating provider. Patient Education Materials: Toe Fracture, Cizt-po-Lzlz A MESSAGE TO ALL PATIENTS REGARDING OPIOIDS PRESCRIPTION OPIOIDS: WHAT YOU NEED TO KNOW Prescription opioids can be used to help relieve sjucshoh-ma-hbizty pain and are often prescribed following a surgery or injury, or for certain health conditions. These medications can be an important part of the treatment but also come with serious risks. It is important to work with your healthcare provider to make sure you are getting the safest, most effective care. WHAT ARE THE RISKS AND SIDE EFFECTS OF OPIOID USE? Prescription opioids carry serious risks of addiction and overdose, especially with prolonged use. An opioid overdose, often marked by slowed breathing, can cause sudden . The use of prescription opioids can have a number of side effects as well, even when taken as directed: ? Tolerance?meaning you might need to take more of the medication for the same pain relief ? Physical dependence?meaning you have symptoms of withdrawal when a medication is stopped ? Increased sensitivity to pain ? Constipation ? Nausea, vomiting, and dry mouth ? Sleepiness and dizziness ? Confusion ? Depression ? Low levels of testosterone that can result in lower sex drive, energy, and strength ? Itching and sweating RISKS ARE GREATER WITH: ? History of drug misuse, substance use disorder, or overdose ? Mental health conditions (such as depression or anxiety) ? Sleep apnea ? Older age (65 years and older) ? Avoid alcohol while taking prescription opioids. Also, unless specifically advised by your health care provider, medications to avoid include: ? Benzodiazepines (such as Xanax or Valium) ? Muscle relaxants (such as Soma or Flexeril) ? Hypnotics (such as Ambien or Lunesta) ? Other prescription opioids KNOW YOUR OPTIONS Talk to your health care provider about ways to manage your pain that don?t involve prescription opioids. Some of these options may actually work better and have fewer risks and side effects. Options may include: ? Pain relievers such as acetaminophen, ibuprofen, and naproxen ? Some medication that are also used for depression or seizures ? Physical therapy and exercise ? Cognitive behavioral therapy, a psychological, goal-directed approach, in which patients learn how to modify physical, behavioral, and emotional triggers of pain and stress. IF YOU ARE PRESCRIBED OPIOIDS FOR PAIN: ? Never take opioids in greater amounts or more often than prescribed. ? Follow up with your primary health care provider. o Work together to create a plan on how to manage your pain. o Talk about ways to help manage your pain that don?t involve prescription opioids. o Talk about any and all concerns and side effects. ? Help prevent misuse and abuse o Never sell or share prescription opioids. o Never use another person?s prescription opioids. ? Store prescription opioids in a secure place and out of reach of others (this may include visitors, children, friends, and family). ? Safely dispose of unused prescription opioids: Find your community drug take-back program or your pharmacy mail-back program, or flush them down the toilet, following guidance from the Food and Drug Administration (www.fda.gov/Drugs/R esourcesForYou). ? Visit www.cdc.gov/drugover dose to learn about the ris (more content not included)... Normal [facility] XR Foot 3+ Views Lefton 01-16 XR Foot 3+ Views Left Exam Date/Time: 01/26/2024 23:06 EDT Reason for Exam: Pain, Traumatic Report IMPRESSION: Possible nondisplaced fracture of the third toe distal phalanx. EXAMINATION/TECHNIQU E: XR Foot 3+ Views Left HISTORY: Pain of the left third toe. COMPARISON: None RESULT: Subtle area of irregularity involving the distal aspect of the third toe distal phalanx, possible nondisplaced fracture. No evidence for fracture elsewhere. No dislocation. No significant degenerative changes. Small plantar calcaneal enthesophyte. No other significant abnormality. Ordering Provider: Hayde Pro FINAL REPORT Dictated: 01/27/2024 10:52 am Eliseo Mills MD Signed (Electronic Signature): 01/27/2024 10:52 am Signed by: Eliseo Mills MD Transcribed by: OPHELIA Technologist: SHANNEN Technical Comments Radiation Dose: Ka,r in mGy = n/a DAP = n/a Normal [facility] Auto Diffon 11-06-2023 Basophils/100 WBC (Bld) 0.9 % Normal 0.0-2.0 [facility] Comment on above: Order Comment: Order Added by Anne Expert. Performed By: #### 2 [id number], [id number], [id number], [id number] ####[facility] [address] [place] [address] Basophils/Leukocytes Auto (Bld) [Pure # fraction] 0.1 E9/L Normal 0.0-0.2 [facility] Comment on above: Order Comment: Order Added by Discern Expert. Performed By: #### 2 628649, 0803747, [id number], [id number] ####[address] [address] Eosinophils/100 WBC (Bld) 2.3 % Normal 0.0-8.0 [facility] Comment on above: Order Comment: Order Added by Discern Expert. Performed By: #### 2 642671, 6641755, 01543832, 1349069 ####[address] [address] Eosinophils/Leukocytes Auto (Bld) [Pure # fraction] 0.3 E9/L Normal 0.0-0.5 [facility] Comment on above: Order Comment: Order Added by Anne Expert. Performed By: #### 2 124625, 9699742, 36267720, 4004295 ####[address] [address] Lymphocytes/100 WBC (Bld) 36.1 % Normal 14.0-50.0 [facility] Comment on above: Order Comment: Order Added by Anne Expert. Performed By: #### 2 234549, 5959478, 05507660, 0625784 ####[address] [address] Lymphocytes/Leukocytes Auto (Bld) [Pure # fraction] 5.3 E9/L High 1.0-4.0 [facility] Comment on above: Order Comment: Order Added by Anne Expert. Performed By: #### 2 925780, 2531681, 29608162, 0188341 ####[address] [address] Monocytes/100 WBC (Bld) 3.0 % Low 4.0-14.0 [facility] Comment on above: Order Comment: Order Added by Anne Expert. Performed By: #### 2 880005, 8468036, 01883780, 6247683 ####[address] [address] Monocytes/Leukocytes Auto (Bld) [Pure # fraction] 0.4 E9/L Normal 0.2-1.0 [facility] Comment on above: Order Comment: Order Added by Discern Expert. Performed By: #### 2 949602, 0473396, 33068630, 2945047 ####[facility] [address] [place] [address] Neutrophils/100 WBC (Bld) 57.7 % Normal 36.0-75.0 [facility] Comment on above: Order Comment: Order Added by Discern Expert. Performed By: #### 2 567570, 6730521, 40717242, 1477856 ####[facility] [address] [place] [address] Neutrophils/Leukocytes Auto (Bld) [Pure # fraction] 8.5 E9/L High 2.0-7.5 [facility] Comment on above: Order Comment: Order Added by Discern Expert. Performed By: #### 2 367880, 4636904, 96549026, 7446039 ####[facility] [address] [place] [address] BMPon 11-06-2023 Anion gap [Moles/Vol] 12 mmol/L Normal 6-16 [facility] Comment on above: Performed By: #### 2 958859, 4627890, 96738883, 4575257 ####[facility] [address] [place] [address] BUN/Creat Ratio 10 No Units Normal 10-20 [facility] Comment on above: Performed By: #### 2 122583, 5817640, 01117526, 0319686 ####[facility] [address] [place] [address] Calcium [Mass/Vol] 9.5 mg/dL Normal 8.9-11.1 [facility] Comment on above: Performed By: #### 2 057951, 6282401, 80819308, 6762242 ####[facility] [address] [place] [address] Chloride [Moles/Vol] 101 mmol/L Normal 101-111 [facility] Comment on above: Performed By: #### 2 232547, 4575368, 67662108, 4907209 ####[facility] [address] [place] [address] CO2 [Moles/Vol] 27 mmol/L Normal 21-31 [facility] Comment on above: Performed By: #### 2 340821, 9915896, 63702138, 2964830 ####[facility] [address] [place] [address] Creatinine [Mass/Vol] 0.9 mg/dL Normal 0.5-1.3 [facility] Comment on above: Performed By: #### 2 488618, 6342179, 05335848, 7724362 ####[facility] [address] [place] [address] Glucose [Mass/Vol] 247 mg/dL High 55-199 [facility] Comment on above: Performed By: #### 2 978947, 3632179, 47480846, 1117185 ####[facility] [address] [place] [address] Potassium [Moles/Vol] 3.7 mmol/L Normal 3.5-5.3 [facility] Comment on above: Performed By: #### 2 008196, 4548032, 52222277, 5577707 ####[facility] [address] [place] [address] Sodium [Moles/Vol] 136 mmol/L Normal 135-145 [facility] Comment on above: Performed By: #### 2 212839, 1663871, 61044520, 9690471 ####[facility] [address] [place] [address] Urea nitrogen [Mass/Vol] 9 mg/dL Normal 5-21 [facility] Comment on above: Performed By: #### 2 183762, 9260255, 33086813, 4993747 ####[facility] [address] [place] [address] CBC w/ Auto Diffon Erythrocyte distribution width (RBC) [Ratio] 13.2 % Normal 10.9-14.2 [facility] Comment on above: Performed By: #### 2 911932, 6668234, 74652462, 0344381 ####[address] [address] Hematocrit (Bld) [Volume fraction] 42.3 % Normal 34.0-46.0 [facility] Comment on above: Performed By: #### 2 904546, 7395030, 20683867, 8147163 ####[place] [address] Hemoglobin (Bld) [Mass/Vol] 14.5 g/dL Normal 12.0-16.0 [facility] Comment on above: Performed By: #### 2 071871, 2671976, 41924127, 4952478 ####[place] [address] MCH (RBC) [Entitic mass] 30.3 pg Normal 27.0-34.0 [facility] Comment on above: Performed By: #### 2 373824, 5101666, 15321265, 0374941 ####[address] [address] MCHC (RBC) [Mass/Vol] 34.4 g/dL Normal 31.4-36.0 [facility] Comment on above: Performed By: #### 2 886492, 0517565, 92557857, 8794681 ####[address] [address] MCV (RBC) [Entitic vol] 88.3 fL Normal 80.0-100.0 [facility] Comment on above: Performed By: #### 2 175843, 9113391, 50820609, 0387991 ####[address] [address] Platelet mean volume (Bld) [Entitic vol] 8.7 fL Normal 6.4-10.8 [facility] Comment on above: Performed By: #### 2 972518, 4163616, 66136260, 0516970 ####[facility] [address] [place] [address] Platelets (Bld) [#/Vol] 288.0 E9/L Normal 150.0-500.0 [facility] Comment on above: Performed By: #### 2 745818, 9876297, 98890654, 7854473 ####[facility] [address] [place] [address] RBC (Bld) [#/Vol] 4.8 E12/L Normal 4.3-5.9 [facility] Comment on above: Performed By: #### 2 1967[address], 6462726, 39240705, 4079373 ####[facility] [address] [place] [address] WBC corrected for nucl RBC Auto (Bld) [#/Vol] 14.8 E9/L High 4.0-11.0 [facility] Comment on above: Result Comment: Slid e reviewed by KD. Performed By: #### 2 186150, 8183440, 18360401, 5114996 ####[facility] [address] [place] [address] CHEMISTRYOrdered By: SYSTEM SYSTEM on 11-06-2023 Anion gap [Moles/Vol] 12 mmol/L Normal 6 - 16 mEq/L R emisol Chem Calcium [Mass/Vol] 9.5 mg/dL Normal 8.9 - 11. 1 mg/dL Remisol Chem Chloride [Moles/Vol] 101 mmol/L Normal 101 - 1 11 mmol/L Remisol Chem CO2 [Moles/Vol] 27 mmol/L Normal 21 - 31 mmol/L Remis ol Chem Creatinine [Mass/Vol] 0.9 mg/dL Normal 0.5 - 1.3 mg/dL Remisol Chem eGFR mL/min/1.73 m2 Normal >=59mL/min/1. 7 3 m2 Remisol Chem Glucose [Mass/Vol] 247 mg/dL High 55 - 199 mg/dL Re misol Chem Potassium [Moles/Vol] 3.7 mmol/L Normal 3.5 - 5.3 mmol/L Remisol Chem Sodium [Moles/Vol] 136 mmol/L Normal 135 - 145 mmol/L Remisol Chem Urea nitrogen [Mass/Vol] 9 mg/dL Normal 5 - 21 mg/dL Remisol Chem Urea nitrogen/Creatinine [Mass ratio] 10 mg/mg Normal 10 - 20 Remisol Chem Consent for Treatmenton 10-19 Consent for Treatment [id number] #1.00TIFF Normal [facility] HEMATOLOGYOrdered By: SYSTEM SYSTEM on 11-06-2023 Basophils/100 WBC (Bld) 0.9 % Normal 0.0 - 2.0 % [facility] Basophils/Leukocytes Auto (Bld) [Pure # fraction] 0.1 E9/L Normal 0.0 - 0.2 E9/L [facility] Eosinophils/100 WBC (Bld) 2.3 % Normal 0.0 - 8.0 % [facility] Eosinophils/Leukocytes Auto (Bld) [Pure # fraction] 0.3 E9/L Normal 0.0 - 0.5 E9/L [facility] Lymphocytes/100 WBC (Bld) 36.1 % Normal 14.0 - 50.0 % [facility] Lymphocytes/Leukocytes Auto (Bld) [Pure # fraction] 5.3 E9/L High 1.0 - 4.0 E9/L [facility] Monocytes/100 WBC (Bld) 3.0 % Low 4.0 - 14.0 % [facility] Monocytes/Leukocytes Auto (Bld) [Pure # fraction] 0.4 E9/L Normal 0.2 - 1.0 E9/L [facility] Neutrophils/100 WBC (Bld) 57.7 % Normal 36.0 - 75.0 % [facility] Neutrophils/Leukocytes Auto (Bld) [Pure # fraction] 8.5 E9/L High 2.0 - 7.5 E9/L [facility] HEMATOLOGYOrdered By: Sharon Souza on 11-06-2023 Erythrocyte distribution width (RBC) [Ratio] 13.2 % Normal 10.9 - 14.2 % [facility] Hematocrit (Bld) [Volume fraction] 42.3 % Normal 34.0 - 46.0 % [facility] Hemoglobin (Bld) [Mass/Vol] 14.5 g/dL Normal 12.0 - 16.0 gm/dL [facility] MCH (RBC) [Entitic mass] 30.3 pg Normal 27.0 - 34.0 pg [facility] MCHC (RBC) [Mass/Vol] 34.4 g/dL Normal 31.4 - 36.0 gm/dL [facility] MCV (RBC) [Entitic vol] 88.3 fL Normal 80.0 - 100.0 fL [facility] Platelet mean volume (Bld) [Entitic vol] 8.7 fL Normal 6.4 - 10.8 fL [facility] Platelets (Bld) [#/Vol] 288.0 E9/L Normal 150.0 - 500.0 E9/L [facility] RBC (Bld) [#/Vol] 4.8 E12/L Normal 4.3 - 5.9 E12/L [facility] WBC corrected for nucl RBC Auto (Bld) [#/Vol] 14.8 E9/L High 4.0 - 11.0 E9/L [facility] Comment on above: Result Comment: Slid e reviewed by CHRISTELLE. eGFRon 11-06-2023 GFR/1.73 sq M.predicted among non-blacks MDRD (S/P/Bld) [Vol rate/Area] mL/min/{1.73_m2} Normal >=59 [facility] Comment on above: Order Comment: Order added by Discern Expert. Performed By: #### 2 782352, 3754807, 45521801, 2931133 ####[facility] [address] [place] [address] Physician Orderon 11-04-2023 Physician Order [id number] #1.00TIFF Normal [facility] Physician Orderon 10-31-2023 Physician Order [id number] #1.00TIFF Normal [facility] MRI Knee w/ + w/o Contrast R ighton 10-09-2023 MRI Knee w/ + w/o Contrast Right Exam Date/Time: 10/07/2023 12:47 EST Reason for Exam: [id number], [id number] Report IMPRESSION: LIGAMENTS AND MENISCI ARE INTACT. NO SUSPICIOUS BONE OR SOFT TISSUE LESION. Exam: MRI Knee w/ + w/o Contrast Right History: Knee cyst. Knee pain. Technique: Multiplanar multisequence MRI of the knee was performed without contrast. Comparison: Radiograph since the knee 09/01/2023 Findings: Quadriceps and patellar tendons are intact. A round hyperintense T2/hypointense T1 structure anterior and medial to the distal patellar tendon measures approximately 1 cm and demonstrates no internal enhancement compatible with nonspecific cyst, possibly epidermal inclusion cyst. Small joint effusion. Anterior and posterior cruciate ligaments are intact. Hyperintense T2/hypointense T1 structure within the posterior aspect of the tibial plateau at the attachment of the posterior cruciate ligament is most compatible with intraosseous ganglion. The medial collateral ligament, lateral collateral ligament, and popliteus are intact. The medial and lateral meniscus are intact. No well-defined or measurable cartilage defect identified. Popliteal fossa structures are intact. No Echeverria cyst. Ordering Provider: Jaqui Guevara FINAL REPORT Dictated: 10/09/2023 1:50 pm Cory Paula DO Signed (Electronic Signature): 10/09/2023 1:50 pm Signed by: Cory Paula DO Transcribed by: OPHELIA Technologist: MELI Technical Comments MultiHance Technical Comments Contrast amount in ml's: 14 Normal [facility] Consent for Treatmenton 09-19 Consent for Treatment [id number] #1.00TIFF Normal [facility] RAD - MRI Screening Formon 1 12-07-2022 RAD - MRI Screening Form [id number] 4#1.00TIFF Normal [facility] Physician Orderon 09-30-2023 Physician Order [id number] #1.00TIFF Normal [facility] ED Note-Physicianon 09-03-20 ED Note-Physician Basic Information Time Seen: Mauro PICKERING, Yahir Ramirez. 09/01/2023 15:06 Chief Complaint Pt presents to ED with complaints of lump on right knee onset a while ago, increased after cleaning and felt a pop . Ambulatory upon arrival. History of Present Illness A 52-year-old female reports to the emergency department with chief complaint of a lump on her right knee. Reports been going on for a while, but after cleaning today, she felt a pop, and she was kneeling on it. Reports the pain is slowly worsened. States that she is still with a cough, but went to get checked out. She denies any injury or trauma otherwise to the leg. Reports that she does not take anything for pain except with Tylenol. Denies any fevers. Review of Systems A 10 point review of systems is negative except as noted above. Medical and Surgical History: Reviewed and noted Social history: Lives at home Family History: Reviewed. Tobacco: User Physical Exam Vitals & Measurements T: 36.8 ?C(Oral) HR: 85(Monitored) RR: 16 BP: 111/65 SpO2: 97% HT: 170 cm WT: 70.5 kg BMI: 24.39 General: The patient appears well and in no apparent distress. Patient is resting comfortably on bed. Afebrile Skin: Warm, dry, no pallor noted. There is a small area that appears to be cystic booker on the patient's right knee in the medial aspect of the knee. Mild tenderness to palpation. No swelling or erythema noted. Head: Normocephalic, atraumatic Neck: No JVD Eye: PERRLA, EOMI ENT: Moist mucus membranes Cardiovascular: Regular rate normal peripheral perfusion. Pedal pulses +2 bilaterally Respiratory: No respiratory distress no accessory muscle use no obvious audible wheezing Chest Wall: no deformity Musculoskeletal: normal ROM, no deformity, no swelling GI: No obvious distention Neurological: A&O moves all extremities equal strength and symmetry Psychiatric: Cooperative and appropriate Medical Decision Making MEDICAL DECISION MAKING Number and Complexity of Problems Differential Diagnosis: [] [facility] Data External documents reviewed: [] My EKG interpretation: [] My CT interpretation: [] My X-ray interpretation: reviewed My Ultrasound interpretation: [] Decision rules/scores evaluated: [] Discussed with: [] Treatment and Disposition ED Course: 52-year-old female reports to the emergency department with chief complaint of right knee pain. Reports that it is slowly been a cystlike structure has been growing. Reports last couple days has worsened. States that she did hear a pop, wanting it checked out. No swelling or erythema noted of the leg. There is the area of the what appears to be a cyst, that does not appear to be osseous. Is not erythematous there is any signs of infection. Patient is otherwise afebrile and was comfortably. Due to her concerns we did do an x-ray. X-ray was negative for any acute findings. Due to her symptoms, discussed likely a cyst, and should follow-up with orthopedics for further evaluation. Patient was given tramadol for pain. Discussed return precautions. Follow-up with your primary care provider in 3 to 5 days. If symptoms worsen, do not improve, or new symptoms arise please report back to emergency department for further evaluation. The patient was understanding and agreeable to plan moving forward. Shared decision making: [] Code status: [] Assessment/Plan Cyst of right knee joint (M25.861: Other specified joint disorders, right knee) Orders: tramadol, 50 mg = 1 tab(s), Oral, q6hr, PRN for pain, X 3 day(s), # 12 tab(s), Refills(s) 0, Pharmacy: [id number], 170, cm, 09/01/23 14:16:00 EDT, Height/Length Dosing, 70.5, kg, 09/01/23 14:16:00 EDT, Weight Dosing XR Knee Complete 4+ Views Right Disposition Plan Patient Discharge Condition Stable Discharge Disposition To home Discharge Prescription List Prescriptions traMADOL 50 mg Tab, 50 mg= 1 tab(s), Oral, q6hr, PRN Follow-up With When Contact Information Pan Rincon In 3 days 09/04/2023 EDT [address] [place] [address]- Business (1) Additional Instructions: You may follow-up with Dr. Rincon for further evaluation of your knee cyst. Naomy RINCON In 3 days 09/04/2023 EDT [address] [place] [address] [facility] (1) Additional Instructions: Follow-up with your primary care provider in 3 to 5 days. If symptoms worsen, do not improve, or new symptoms arise please report back to emergency department for further evaluation. Patient Education Meniscal Cyst Attestation Patient seen and evaluated by the physician paperhanger assistant. Attending physician was present in the emergency department and supervised care. This visit was performed by both the physician and an APC. I performed all aspects of the MDM as documented. This report was transcribed using voice recognition software. Every effort was made to ensure accuracy, however, inadvertently computerized transcriptio (more content not included)... Normal [facility] Comment on above: Result Comment: Elec tronically Signed By: Yahir Wade PA-C\.br\Date and Time Signed: 09/01/23 18:11 EDT\.br\Electronically Co-Signed By: Wayne Rangel MD\.br\Date and Time Co-Signed: 09/03/23 20:04 EDT Consent for Treatmenton 08-18 Consent for Treatment [id number] #1.00TIFF [facility] Discharge Instructionson Discharge Instructions [id number] 6#1.00TIFF [facility] ED Clinical Summaryon 2022 ED Clinical Summary [address] [address] ED Clinical Summary Person Information Name: CHAYA RODRIGUEZ/[facility] Age: 52 Years : 1970 Sex: Female Language: Belarusian PCP: NONE, XXXX Marital Status: Single Visit Id: Visit Reason: Knee pain-swelling; LUMP ON RIGHT KNEE Speciality: Acuity: 4 Enc Type: Emergency Med Service: Emergency Arrival: 09/01/2023 14:11:07 Discharge: 09/01/2023 16:07:07 LOS: 000 01:56 Checkin: 09/01/2023 14:11:07 Checkout: 09/01/2023 16:07:07 Dispo Type: Home (Routine DC) EVENTS: Event Name Event Status Request Date/Time Start Date/Time Complete Date/Time Arrive Complete 09/01/2023 14:11:07 09/01/2023 14:11:07 09/01/2023 14:11:07 Document Home Meds Request 09/01/2023 14:11:07 Triage Complete 09/01/2023 14:11:07 09/01/2023 14:16:06 09/01/2023 14:16:06 Bed Assign Complete 09/01/2023 14:16:20 09/01/2023 14:16:20 09/01/2023 14:16:20 Dr Exam Complete 09/01/2023 14:16:20 09/01/2023 15:06:50 09/01/2023 15:06:50 RN Exam Complete 09/01/2023 14:16:20 09/01/2023 15:00:32 09/01/2023 15:00:32 Registration Complete 09/01/2023 14:16:22 09/01/2023 14:16:22 09/01/2023 14:16:22 Reg Complete Request 09/01/2023 14:16:22 Reg Bed Request Complete 09/01/2023 14:16:22 09/01/2023 14:16:22 09/01/2023 14:16:22 Registration Request 09/01/2023 15:06:50 X-Ray Complete 09/01/2023 15:10:41 09/01/2023 15:22:57 09/01/2023 15:35:56 Wet Read Request 09/01/2023 15:35:56 Discharge Complete 09/01/2023 15:59:17 09/01/2023 16:07:11 09/01/2023 16:07:11 Transfer Complete 09/01/2023 16:07:11 09/01/2023 16:07:11 09/01/2023 16:07:11 ADDRESS: [address] [place] [id number] PHYS DOC NOTES: MEDICAL INFORMATION: Prescriptions Given: New Medications [id number], [address] [place], [place] [id number], [phone] tramadol (traMADOL 50 mg Tab) 1 Tablets By Mouth every 6 hours as needed for pain for 3 Days. Refills: 0. Medications to Continue with No Changes Other Medications naproxen (Naprosyn 500 mg Tab) 1 Tablets By Mouth 2 times a day. Refills: 0. PATIENT EDUCATION INFORMATION: Instructions: Meniscal Cyst Follow up: With: Address: When: Pan Rincon [address] [place] [address] Business (1) In 3 days 09/04/2023 Comments: You may follow-up with Dr. Rincon for further evaluation of your knee cyst. With: Address: When: Naomy RINCON [address] [place], [place] [id number] [employer] [facility] (1) In 3 days 09/04/2023 Comments: Follow-up with your primary care provider in 3 to 5 days. If symptoms worsen, do not improve, or new symptoms arise please report back to emergency department for further evaluation. DIAGNOSIS: Cyst of right knee joint Normal [facility] ED Patient Education Noteon 09-01-2023 ED Patient Education Note Orthopedics Meniscal Cyst A meniscal cyst is a fluid-filled growth that forms on a crescent-shaped wedge of cartilage in the knee (meniscus). Each knee has two menisci. They sit between the thighbone (femur) and shinbone (tibia) that form the knee joint. The menisci cushion and stabilize the knee. A meniscal cyst can cause knee pain and limit movement of your knee. What are the causes? Often, a meniscal cyst develops after a knee injury involving a tear in a meniscus. The tear allows the fluid inside the knee joint (synovial fluid) to leak out and form the cyst. What increases the risk? You are more likely to develop a meniscal cyst if you have a knee injury resulting in a torn meniscus. These injuries often occur from: ? Contact sports. ? Sports or activities that involve squatting, twisting, or pivoting movements. As people age, their menisci get thinner and weaker. Tears can happen more easily, even from simply climbing stairs. What are the signs or symptoms? Symptoms of this condition include: ? A bump on either side of your knee where the knee bones come together. ? Knee pain that gets worse with movement and better with rest. ? Swelling. ? Stiffness. ? A feeling that your knee is locking, catching, or giving way. How is this diagnosed? This condition may be diagnosed based on: ? Your symptoms and medical history, including any previous injuries. ? A physical exam. During the exam, your health care provider may: ? Feel for a lump that pops in and out of your knee joint with movement. ? Check your knee for tenderness, strength, movement, and stability. ? Imaging tests, such as an MRI or ultrasound. How is this treated? Treatment for this condition may depend on your symptoms. These include: ? Resting. ? Taking medicine to reduce pain and swelling. This is usually an NSAID, such as ibuprofen. ? Doing physical therapy. ? Wearing a knee brace or elastic wrap for support. ? Getting an injection of medicine (steroid) into the cyst. ? Having a procedure to drain fluid from the cyst with a needle (aspiration). ? Having surgery to remove the cyst and possibly part of the meniscus. Follow these instructions at home: If you have a knee brace or elastic wrap: ? Wear the brace or wrap as told by your health care provider. Remove it only as told by your health care provider. ? Loosen it if your toes tingle, become numb, or turn cold and blue. ? Keep it clean. ? If the brace or wrap is not waterproof and cannot be removed: ? Do not let it get wet. ? Cover it with a watertight covering when you take a bath or shower. Managing pain, stiffness, and swelling ? If directed, put ice on the affected area. To do this: ? If you have a removable brace or wrap, remove it as told by your health care provider. ? Put ice in a plastic bag. ? Place a towel between your skin and the bag. ? Leave the ice on for 20 minutes, 2?3 times a day. ? Remove the ice if your skin turns bright red. This is very important. If you cannot feel pain, heat, or cold, you have a greater risk of damage to the area. ? Move your toes often to reduce stiffness and swelling. Activity ? Rest and return to your normal activities as told by your health care provider. Avoid activities that make pain or swelling worse. Ask your health care provider what activities are safe for you. ? Do not use the injured limb to support your body weight until your health care provider says that you can. Use crutches or a cane as told by your health care provider. ? Do exercises to strengthen your knee and leg muscles as told by your health care provider. General instructions ? Use a knee brace or wrap as told by your health care provider. ? Take zmru-ctl-gmkvury and prescription medicines only as told by your health care provider. ? Keep all follow-up visits. This is important. How is this prevented? To help prevent a meniscal cyst from recurring: ? Do not play sports after an injury until your health care provider approves. ? Do not train too hard. If you have pain or swelling, stop and rest. ? Ask your health care provider to design a stretching program for you. Follow it as directed. ? Use proper equipment when playing sports and exercising. ? Wear shoes that are right for your activity. ? Wear a knee support during sports activities as told by your health care provider. ? Start new activities gradually. Contact a health care provider if: ? You have pain that is getting worse. ? Your knee brace is damaged. ? Your knee feels numb. ? You notice swelling or redness below your brace. Summary ? The meniscus is a crescent-shaped wedge of cartilage in the knee. There are two menisci in each knee. They cushion and stabilize the knee. ? A meniscal cyst is a fluid-filled growth that forms on a meniscus. ? A meniscal cyst can cause knee pain and limit movement of (more content not included)... Normal [facility] ED Patient Summaryon 023 ED Patient Summary [place] [id number] Patient Discharge Instructions Person Information Name: CHAYA RODRIGUEZ Age: 52 Years Arrival Date: 09/01/2023 14:11:07 Discharge Diagnosis: Cyst of right knee joint Primary Care Physician: NONE, XXXX Provider Information Primary Provider: Advanced Sonographer:None The exam and treatment you received in the Emergency Department were for an urgent problem and are not intended as complete care. It is important that you follow up with a doctor, nurse practitioner, or physician?s paperhanger assistant for ongoing care. If your symptoms become worse or you do not improve as expected and you are unable to reach your usual health care provider, you should return to the Emergency Department. We are available 24 hours a day. CHAYA RODRIGUEZ has been given the following list of patient education materials, prescriptions and follow-up instructions: Follow-up Instructions: With: Address: When: Pan Rincon [address] [place] [id number] [facility] [facility] [place] (1) In 3 days 09/04/2023 Comments: You may follow-up with Dr. Rincon for further evaluation of your knee cyst. With: Address: When: Naomy RINCON [address] [place] [address] [facility] [place] (1) In 3 days 09/04/2023 Comments: Follow-up with your primary care provider in 3 to 5 days. If symptoms worsen, do not improve, or new symptoms arise please report back to emergency department for further evaluation. In the event that this physician does not participate in your insurance network, please consult with your insurance company to find a nearby participating provider. Patient Education Materials: Meniscal Cyst A MESSAGE TO ALL PATIENTS REGARDING OPIOIDS PRESCRIPTION OPIOIDS: WHAT YOU NEED TO KNOW Prescription opioids can be used to help relieve nskbodbd-ig-eqfmfx pain and are often prescribed following a surgery or injury, or for certain health conditions. These medications can be an important part of the treatment but also come with serious risks. It is important to work with your healthcare provider to make sure you are getting the safest, most effective care. WHAT ARE THE RISKS AND SIDE EFFECTS OF OPIOID USE? Prescription opioids carry serious risks of addiction and overdose, especially with prolonged use. An opioid overdose, often marked by slowed breathing, can cause sudden . The use of prescription opioids can have a number of side effects as well, even when taken as directed: ? Tolerance?meaning you might need to take more of the medication for the same pain relief ? Physical dependence?meaning you have symptoms of withdrawal when a medication is stopped ? Increased sensitivity to pain ? Constipation ? Nausea, vomiting, and dry mouth ? Sleepiness and dizziness ? Confusion ? Depression ? Low levels of testosterone that can result in lower sex drive, energy, and strength ? Itching and sweating RISKS ARE GREATER WITH: ? History of drug misuse, substance use disorder, or overdose ? Mental health conditions (such as depression or anxiety) ? Sleep apnea ? Older age (65 years and older) ? Avoid alcohol while taking prescription opioids. Also, unless specifically advised by your health care provider, medications to avoid include: ? Benzodiazepines (such as Xanax or Valium) ? Muscle relaxants (such as Soma or Flexeril) ? Hypnotics (such as Ambien or Lunesta) ? Other prescription opioids KNOW YOUR OPTIONS Talk to your health care provider about ways to manage your pain that don?t involve prescription opioids. Some of these options may actually work better and have fewer risks and side effects. Options may include: ? Pain relievers such as acetaminophen, ibuprofen, and naproxen ? Some medication that are also used for depression or seizures ? Physical therapy and exercise ? Cognitive behavioral therapy, a psychological, goal-directed approach, in which patients learn how to modify physical, behavioral, and emotional triggers of pain and stress. IF YOU ARE PRESCRIBED OPIOIDS FOR PAIN: ? Never take opioids in greater amounts or more often than prescribed. ? Follow up with your primary health care provider. o Work together to create a plan on how to manage your pain. o Talk about ways to help manage your pain that don?t involve prescription opioids. o Talk about any and all concerns and side effects. ? Help prevent misuse and abuse o Never sell or share prescription opioids. o Never use another person?s prescription opioids. ? Store prescription opioids in a secure place and out of reach of others (this may include visitors, children, friends, and family). ? Safely dispose of unused prescription opioids: Find your community drug take-back program or your pharmacy mail-back program, or flush them down the t (more content not included)... Normal [facility] XR Knee Complete 4+ Views [facility] 09-01-2023 XR Knee Complete 4+ Views Right Exam Date/Time: 09/01/2023 15:35 EDT Reason for Exam: Pain, Non Traumatic Report IMPRESSION: MILD DEGENERATIVE CHANGE, RIGHT. CLINICAL HISTORY: Pain, Non Traumatic COMPARISON: NONE. FINDINGS: 4 views of the right knee. Mild narrowing of the medial, lateral, patellofemoral compartments. No fracture, dislocation, bone lesion, effusion. Ordering Provider: Yahir Wade FINAL REPORT Dictated: 09/01/2023 3:42 pm Signer Dylon FRAGOSO Signed (Electronic Signature): 09/01/2023 3:42 pm Signed by: Signer Dylon FRAGOSO Transcribed by: OPHELIA Technologist: SOL Technical Comments Radiation Dose: Kar in mGy = na DAP = na Normal [facility] Consent for Treatmenton 08-0 Consent for Treatment [id number] #1.00CD:127 Normal [facility] Discharge Instructionson Discharge Instructions [id number] #1.00CD:127 Normal [facility] ED Clinical Summaryon 2022 ED Clinical Summary [place] [id number] ED Clinical Summary Person Information Name: CHAYA RODRIGUEZ/[facility] Age: 52 Years : 1970 Sex: Female Language: Belarusian PCP: NONE, XXXX Marital Status: Single Visit Id: Visit Reason: Mouth pain; Jaw pain; Dental pain; DENTAL PAIN Speciality: Acuity: 5 Enc Type: Emergency Med Service: Emergency Arrival: 06/18/2023 16:57:49 Discharge: 06/18/2023 17:37:07 LOS: 000 00:40 Checkin: 06/18/2023 16:57:49 Checkout: 06/18/2023 17:37:07 Dispo Type: Home (Routine DC) EVENTS: Event Name Event Status Request Date/Time Start Date/Time Complete Date/Time Arrive Complete 06/18/2023 16:57:49 06/18/2023 16:57:49 06/18/2023 16:57:49 Document Home Meds Request 06/18/2023 16:57:49 Triage Complete 06/18/2023 16:57:49 06/18/2023 17:05:05 06/18/2023 17:05:05 Bed Assign Complete 06/18/2023 17:00:16 06/18/2023 17:00:16 06/18/2023 17:00:16 Dr Exam Complete 06/18/2023 17:00:16 06/18/2023 17:01:33 06/18/2023 17:01:33 RN Exam Complete 06/18/2023 17:00:16 06/18/2023 17:40:36 06/18/2023 17:40:36 Registration Complete 06/18/2023 17:01:33 06/18/2023 17:02:11 06/18/2023 17:02:11 Reg Complete Request 06/18/2023 17:02:11 Reg Bed Request Complete 06/18/2023 17:02:11 06/18/2023 17:02:11 06/18/2023 17:02:11 Dr Exam Complete 06/18/2023 17:06:07 06/18/2023 17:06:07 06/18/2023 17:06:07 Registration Complete 06/18/2023 17:06:07 06/18/2023 17:21:53 06/18/2023 17:21:53 Discharge Complete 06/18/2023 17:19:28 06/18/2023 17:41:22 06/18/2023 17:41:22 Transfer Complete 06/18/2023 17:41:22 06/18/2023 17:41:22 06/18/2023 17:41:22 ADDRESS: [address] [place] [id number] PHYS DOC NOTES: MEDICAL INFORMATION: Prescriptions Given: New Medications [id number], [address] [place], [place] [id number], [phone] naproxen (Naprosyn 500 mg Tab) 1 Tablets By Mouth 2 times a day. Refills: 0. penicillin V potassium (penicillin V potassium 500 mg Tab) 1 Tablets By Mouth 3 times a day for 10 Days. Take one tab by mouth 3 times a day. # 30. Refills: 0. PATIENT EDUCATION INFORMATION: Instructions: Dental Pain Follow up: With: Address: When: [address] [address] Business (1) In 3 days 06/21/2023 Comments: Dentistry follow-up DIAGNOSIS: Pain, dental Normal [facility] ED Note-Physicianon 06-18-20 ED Note-Physician Basic Information Time Seen: Gopal Sutton PA-C 06/18/2023 17:01 Chief Complaint pt c/o right lower jaw pain and edema. pt stated that she needs to get her teeth pulled but has to wait d/t money reasons History of Present Illness 52-year-old female comes to the ED for evaluation of dental pain. She states she has bad teeth . She developed some right lower dental pain this morning. No fever, chills, nausea, vomiting or bleeding or drainage from mouth pain or difficulty with speaking or swallowing. No prior treatments. Review of Systems A 10 point review of systems is negative except as noted above. Medical and Surgical History: Reviewed and noted Social history: Lives at home Tobacco: Denies Physical Exam Vitals & Measurements T: 36.8 ?C(Oral) HR: 97(Peripheral) RR: 16 BP: 120/73 SpO2: 97% HT: 170 cm WT: 70.5 kg BMI: 24.39 Nurses notes and vital signs reviewed and patient is not hypoxic. General: The patient appears well, no acute distress. Skin: Warm, dry. Head: Atraumatic. Neck: No soft tissue swelling. Eye: Normal conjunctiva. Ears, Nose, Mouth, and Throat: Tenderness around the #29 tooth with gingival erythema. No swelling. No evidence of abscess formation. No dental instability or bleeding. No tonsillar hypertrophy or exudates. Uvula is midline. No associated stridor, trismus or drooling. Cardiovascular: Strong distal pulses. Chest wall: Respiratory: Respirations are nonlabored. Back: Normal range of motion. Musculoskeletal: Normal ROM with no gross deformity. Gastrointestinal: Urological: Neurological: Awake and alert. No focal deficits. Follows commands. Psychiatric: Cooperative. Medical Decision Making No evidence of acute fractures. No trismus, stridor or drooling. No evidence of abscess formation requiring incision and drainage. No fever or chills. No airway compromise. Patient treated with pain medications and antibiotics. Given dentistry follow-up. Patient was encouraged to return to the ED if symptoms worsen or change. Assessment/Plan Pain, dental (K08.89: Other specified disorders of teeth and supporting structures) Orders: naproxen, 500 mg = 1 tab(s), Oral, BID, # 20 tab(s), Refills(s) 0, Pharmacy: [id number], 170, cm, 06/18/23 17:05:00 EDT, Height/Length Dosing, 70.5, kg, 06/18/23 17:05:00 EDT, Weight Dosing penicillin V potassium, 500 mg = 1 tab(s), Oral, TID, Take one tab by mouth 3 times a day. # 30, X 10 day(s), # 30 tab(s), Refills(s) 0, Pharmacy: [facility] #[id number], 170, cm, 06/18/23 17:05:00 EDT, Height/Length Dosing, 70.5, kg, 06/18/23 17:05:00 EDT, Weight Dosing Disposition Plan Patient Discharge Condition Disposition: Discharged home Condition: Improved and stable Counseled: Patient and/or family were counseled to workup, results, treatment plan and follow-up recommendations Discharge Prescription List Prescriptions Naprosyn 500 mg Tab, 500 mg= 1 tab(s), Oral, BID penicillin V potassium 500 mg Tab, 500 mg= 1 tab(s), Oral, TID Follow-up With When Contact Information [employer] [facility] In 3 days 06/21/[address] [place] [address] [id number] [facility] (1) Additional Instructions: Dentistry follow-up Patient Education Dental Pain Attestation Patient seen and evaluated by the physician paperhanger assistant. Attending physician was present in the emergency department and supervised care. This visit was performed by both the physician and an APC. I performed all aspects of the MDM as documented. This report was transcribed using voice recognition software. Every effort was made to ensure accuracy, however, inadvertently computerized alteration worker mistakes may be present. Appropriate healthcare PPE was used in evaluating this patient. The patient was placed in a mask. The healthcare provider was wearing mask, gloves, and utilizing proper hand hygiene. All equipment was properly cleansed. Problem List/Past Medical History Ongoing No qualifying data Historical No qualifying data Medications Inpatient No active inpatient medications Home No active home medications Allergies No Known Medication Allergies Lab Results No qualifying data available. Diagnostic Results No qualifying data available. [facility] Comment on above: Result Comment: Elec tronically Signed By: Gopal Sutton PA-C\.br\Date and Time Signed: 06/18/23 17:19 EDT\.br\Electronically Co-Signed By: Adán James M.D.\.br\Date and Time Co-Signed: 06/18/23 18:04 EDT ED Patient Education Noteon 06-18-2023 ED Patient Education Note Dentistry Dental Pain Dental pain is often a sign that something is wrong with your teeth or gums. It is also something that can occur following dental treatment. If you have dental pain, it is important to contact your dental care provider, especially if the cause of the pain has not been determined. Dental pain may be of varying intensity and can be caused by many things, including: ? Tooth decay (cavities or caries). Cavities are caused by bacteria that produce acids that irritate the nerve of your tooth, making it sensitive to air and hot or cold temperatures. This eventually causes discomfort or pain. ? Abscess or infection. Once the bacteria reach the inner part of the tooth (pulp), a bacterial infection (dental abscess) can occur. Pus typically collects at the end of the root of a tooth. ? Injury. ? A crack in the tooth. ? Gum recession exposing the root, and possibly the nerves, of a tooth. ? Gum (periodontal)disease . ? Abnormal grinding or clenching. ? Poor or improper home care. ? An unknown reason (idiopathic). Your pain may be mild or severe. It may occur when you are: ? Chewing. ? Exposed to hot or cold temperatures. ? Eating or drinking sugary foods or beverages, such as soda or candy. Your pain may be constant, or it may come and go without cause. Follow these instructions at home: The following actions may help to lessen any discomfort that you are feeling before or after getting dental care. Medicines ? Take orou-tti-xqzjlem and prescription medicines only as told by your dental care provider. ? If you were prescribed an antibiotic medicine, take it as told by your dental care provider. Do not stop taking the antibiotic even if you start to feel better. Eating and drinking Avoid foods or drinks that cause you pain, such as: ? Very hot or very cold foods or drinks. ? Sweet or sugary foods or drinks. Managing pain and swelling ? Ice can sometimes be used to reduce pain and swelling, especially if the pain is following dental treatment. ? If directed, put ice on the painful area of your face. To do this: ? Put ice in a plastic bag. ? Place a towel between your skin and the bag. ? Leave the ice on for 20 minutes, 2?3 times a day. ? Remove the ice if your skin turns bright red. This is very important. If you cannot feel pain, heat, or cold, you have a greater risk of damage to the area. Brushing your teeth ? To keep your mouth and gums healthy, brush your teeth twice a day using a fluoride toothpaste. ? Use a toothpaste made for sensitive teeth as directed by your dental care provider, especially if the root is exposed. ? Always brush your teeth with a soft-bristled toothbrush. This will help prevent irritation to your gums. General instructions ? Floss at least once a day. ? Do not apply heat to the outside of the face. ? Gargle with a mixture of salt and water 3?4 times a day or as needed. To make salt water, completely dissolve ??1 tsp (3?6 g) of salt in 1 cup (237 mL) of warm water. ? Keep all follow-up visits. This is important. Contact a dental care provider if: ? You have any unexplained dental pain. ? Your pain is not controlled with medicines. ? Your symptoms get worse. ? You have new symptoms. Get help right away if: ? You are unable to open your mouth. ? You are having trouble breathing or swallowing. ? You have a fever. ? You notice that your face, neck, or jaw is swollen. These symptoms may represent a serious problem that is an emergency. Do not wait to see if the symptoms will go away. Get medical help right away. Call your local emergency services (911 in the [place] Do not drive yourself to the hospital. Summary ? Dental pain may be caused by many things, including tooth decay and infection. ? Your pain may be mild or severe. ? Take qano-vny-pscqcnt and prescription medicines only as told by your dental care provider. ? Watch your dental pain for any changes. Let your dental care provider know if your symptoms get worse. This information is not intended to replace advice given to you by your health care provider. Make sure you discuss any questions you have with your health care provider. Document Revised: 08/09/2021 Document Reviewed: 08/09/2021 Elsevier Patient Education ? 2022 [employer] Normal [facility] ED Patient Summaryon 023 ED Patient Summary [address] [address] Patient Discharge Instructions Person Information Name: CHAYA RODRIGUEZ Age: 52 Years Arrival Date: 06/18/2023 16:57:49 Discharge Diagnosis: Pain, dental Primary Care Physician: NONE, XXXX Provider Information Primary Provider: Adán James M.D. Advanced Sonographer:Gopal Sutton PA-C The exam and treatment you received in the Emergency Department were for an urgent problem and are not intended as complete care. It is important that you follow up with a doctor, nurse practitioner, or physician?s paperhanger assistant for ongoing care. If your symptoms become worse or you do not improve as expected and you are unable to reach your usual health care provider, you should return to the Emergency Department. We are available 24 hours a day. CHAYA RODRIGUEZ has been given the following list of patient education materials, prescriptions and follow-up instructions: Follow-up Instructions: With: Address: When: [employer] [address] [address] Business (1) In 3 days 06/21/2023 Comments: Dentistry follow-up In the event that this physician does not participate in your insurance network, please consult with your insurance company to find a nearby participating provider. Patient Education Materials: Dental Pain A MESSAGE TO ALL PATIENTS REGARDING OPIOIDS PRESCRIPTION OPIOIDS: WHAT YOU NEED TO KNOW Prescription opioids can be used to help relieve fucbfkcu-qf-obqvhb pain and are often prescribed following a surgery or injury, or for certain health conditions. These medications can be an important part of the treatment but also come with serious risks. It is important to work with your healthcare provider to make sure you are getting the safest, most effective care. WHAT ARE THE RISKS AND SIDE EFFECTS OF OPIOID USE? Prescription opioids carry serious risks of addiction and overdose, especially with prolonged use. An opioid overdose, often marked by slowed breathing, can cause sudden . The use of prescription opioids can have a number of side effects as well, even when taken as directed: ? Tolerance?meaning you might need to take more of the medication for the same pain relief ? Physical dependence?meaning you have symptoms of withdrawal when a medication is stopped ? Increased sensitivity to pain ? Constipation ? Nausea, vomiting, and dry mouth ? Sleepiness and dizziness ? Confusion ? Depression ? Low levels of testosterone that can result in lower sex drive, energy, and strength ? Itching and sweating RISKS ARE GREATER WITH: ? History of drug misuse, substance use disorder, or overdose ? Mental health conditions (such as depression or anxiety) ? Sleep apnea ? Older age (65 years and older) ? Avoid alcohol while taking prescription opioids. Also, unless specifically advised by your health care provider, medications to avoid include: ? Benzodiazepines (such as Xanax or Valium) ? Muscle relaxants (such as Soma or Flexeril) ? Hypnotics (such as Ambien or Lunesta) ? Other prescription opioids KNOW YOUR OPTIONS Talk to your health care provider about ways to manage your pain that don?t involve prescription opioids. Some of these options may actually work better and have fewer risks and side effects. Options may include: ? Pain relievers such as acetaminophen, ibuprofen, and naproxen ? Some medication that are also used for depression or seizures ? Physical therapy and exercise ? Cognitive behavioral therapy, a psychological, goal-directed approach, in which patients learn how to modify physical, behavioral, and emotional triggers of pain and stress. IF YOU ARE PRESCRIBED OPIOIDS FOR PAIN: ? Never take opioids in greater amounts or more often than prescribed. ? Follow up with your primary health care provider. o Work together to create a plan on how to manage your pain. o Talk about ways to help manage your pain that don?t involve prescription opioids. o Talk about any and all concerns and side effects. ? Help prevent misuse and abuse o Never sell or share prescription opioids. o Never use another person?s prescription opioids. ? Store prescription opioids in a secure place and out of reach of others (this may include visitors, children, friends, and family). ? Safely dispose of unused prescription opioids: Find your community drug take-back program or your pharmacy mail-back program, or flush them down the toilet, following guidance from the Food and Drug Administration (www.fda.gov/Drugs/R esourcesForYou). ? Visit www.cdc.gov/drugover dose to learn about the risks of opioids abuse and overdose. ? If you believe you may be struggling with addiction, tell your health animal care worker and ask for guidance or call [employer]pl[employer] at 6-887-962-BXRT. (more content not included)... Normal [facility] XR HAND RT MIN 3Von 09-29-20 22 XR HAND RT MIN 3V EXAM: XR HAND RT MIN 3V, XR WRIST RT MIN 3 V HISTORY: Bone injury COMPARISON: None. TECHNIQUE: 3 views of the right hand and 3 views of the right wrist FINDINGS: No acute fracture is seen. Joint alignment is normal. Joint spaces are preserved. Soft tissues appear unremarkable. IMPRESSION: No acute fracture of the right wrist and right hand. Electronically authenticated by: RENEE YOUNG Date: 2022-09-29 17:12 Normal [facility] XR FOREARM RT 2Von 2 XR FOREARM RT 2V EXAM: XR FOREARM RT 2V HISTORY: Dog bite of forearm COMPARISON: None. TECHNIQUE: 2 views of the right forearm were obtained. FINDINGS: There is no evidence of an acute fracture or dislocation. No significant osseous abnormality is identified. The joint spaces proximally and distally are intact and there is no evidence of a joint effusion. Mild soft tissue swelling is seen at the site of dog bite distally and dorsally in the forearm. No radiopaque foreign body is identified. IMPRESSION: No acute fracture or dislocation. The joint spaces are intact. No osseous abnormality is identified. Mild soft tissue swelling along the dorsal aspect of the distal forearm. No radiopaque foreign body is identified. Electronically authenticated by: MYRTLE RODRIGUEZ Date: 2022-05-14 16:25 Normal [facility] Vital Signs Date Time Vital Sign Value Performing Clinician Pepito alatorre 03-18-2024 18:34-0400 Body temperature 98.24 [degF] [facility] 03-18-2024 18:34-0400 Diastolic blood pressure 70 mm[Hg] [facility] 03-18-2024 18:34-0400 Heart rate 79 /min [facility] 03-18-2024 18:34-0400 Respiratory rate 18 /min [facility] 03-18-2024 18:34-0400 SaO2% (BldA) [Mass fraction] 97 % [facility] 03-18-2024 18:34-0400 Systolic blood pressure 115 mm[Hg] [facility] 02-09-2024 22:24-0400 Body temperature 97.88 [degF] Kaylinn Dokken [facility] 02-09-2024 22:24-0400 Diastolic blood pressure 73 mm[Hg] Kaylinn Dokken [facility] 02-09-2024 22:24-0400 Heart rate 84 /min Kaylinn Dokken [facility] 02-09-2024 22:24-0400 Respiratory rate 16 /min Kaylinn Dokken [facility] 02-09-2024 22:24-0400 SaO2% (BldA) [Mass fraction] 96 % Kaylinn Dokken [facility] 02-09-2024 22:24-0400 Systolic blood pressure 109 mm[Hg] Kaylinn Dokken [facility] 01-26-2024 22:34-0400 Body temperature 98.24 [degF] Kaylinn Dokken [facility] 01-26-2024 22:34-0400 Diastolic blood pressure 70 mm[Hg] Kaylinn Dokken [facility] 01-26-2024 22:34-0400 Heart rate 88 /min Kaylinn Dokken [facility] 01-26-2024 22:34-0400 Respiratory rate 16 /min Kaylinn Dokken [facility] 01-26-2024 22:34-0400 SaO2% (BldA) [Mass fraction] 97 % Hayde Pro [facility] 01-26-2024 22:34-0400 Systolic blood pressure 112 mm[Hg] Hayde Ortizen [facility] 09-01-2023 14:57-0400 Diastolic blood pressure 65 mm[Hg] Wayne Juan Carlos [facility] 09-01-2023 14:57-0400 Heart rate 85 /min Wayne Juan Carlos [facility] 09-01-2023 14:57-0400 Mean blood pressure 80 mm[Hg] Wayne Juan Carlos [facility] 09-01-2023 14:57-0400 Respiratory rate 16 /min Wayne Juan Carlos [facility] 09-01-2023 14:57-0400 SaO2% (BldA) [Mass fraction] 97 % Wayne Juan Carlos [facility] 09-01-2023 14:57-0400 Systolic blood pressure 111 mm[Hg] Wayne Juan Carlos [facility] 09-01-2023 14:14-0400 Body temperature 98.24 [degF] Wayne Juan Carlos [facility] 09-01-2023 14:14-0400 Diastolic blood pressure 75 mm[Hg] Wayne Juan Carlos [facility] 09-01-2023 14:14-0400 Heart rate 105 /min Wayne Juan Carlos [facility] 09-01-2023 14:14-0400 Respiratory rate 18 /min Wayne Juan Carols [facility] 09-01-2023 14:14-0400 SaO2% (BldA) [Mass fraction] 98 % Wayne Rangel [facility] 09-01-2023 14:14-0400 Systolic blood pressure 115 mm[Hg] Wayne Rangel [facility] 06-18-2023 17:00-0400 Body temperature 98.24 [degF] [facility] 06-18-2023 17:00-0400 Diastolic blood pressure 73 mm[Hg] [facility] 06-18-2023 17:00-0400 Heart rate 97 /min [facility] 06-18-2023 17:00-0400 Respiratory rate 16 /min [facility] 06-18-2023 17:00-0400 SaO2% (BldA) [Mass fraction] 97 % [facility] 06-18-2023 17:00-0400 Systolic blood pressure 120 mm[Hg] [facility] Encounters Encounter Date Encounter Type Care Provider Facility Start: 03-18-2024 End: 03-18-2024 Emergency department patient visit Hayde Pro [facility] Start: 03-18-2024 End: 03-18-2024 Emergency department patient visit [facility] Start: 02-18-2024 End: 02-18-2024 ambulatory KAMARI HARTMAN Not Available Start: 02-12-2024 End: 02-12-2024 ambulatory JAQUI GUEVARA Not Available Start: 02-10-2024 End: 02-10-2024 Emergency department patient visit Hayde Pro Facility[facility] Start: 02-09-2024 End: 02-09-2024 Emergency department patient visit Hayde Pro [facility] Start: 01-28-2024 End: 01-28-2024 ambulatory KAMARI HARTMAN Not Available Start: 01-27-2024 End: 01-27-2024 Emergency department patient visit Hayde Pro [facility] Start: 01-26-2024 End: 01-26-2024 Emergency department patient visit Hayde Pro [facility] Start: 12-20-2023 End: 12-20-2023 ambulatory KAMARI HARTMAN Not Available Start: 12-20-2023 End: 12-20-2023 Clinical Support Kamari Hartman DO Work Phone: [facility] Comment on above: S/P right knee arthr oscopy (Primary Dx) Start: 12-17-2023 End: 12-17-2023 ambulatory KAMARI HARTMAN Not Available Start: 11-06-2023 End: 11-07-2023 ambulatory Kamari Reginaldo Hartman [facility] Start: 11-06-2023 End: 11-06-2023 Patient encounter procedure Kamari Reginaldo Hartman [facility] Start: 10-31-2023 End: 10-31-2023 ambulatory KAMARI Reginaldo HARTMAN Not Available Start: 10-16-2023 End: 10-16-2023 ambulatory JAQUI Brielle NASIMA Not Available Start: 10-07-2023 End: 10-08-2023 ambulatory Jaqui Guevara [facility] Start: 10-07-2023 End: 10-07-2023 Patient encounter procedure Jaqui Guevara [facility] Start: 09-01-2023 End: 09-01-2023 Emergency department patient visit Wayne Rangel [facility] Start: 09-01-2023 End: 09-01-2023 Emergency department patient visit Wayne Rangel [facility] Start: 06-18-2023 End: 06-18-2023 Emergency department patient visit Adán James [facility] Start: 06-18-2023 End: 06-18-2023 Emergency department patient visit Adán James [facility] Start: 03-26-2023 End: 03-26-2023 ambulatory YUKI HIGGINS . Facility:[facility] Start: 09-29-2022 End: 09-29-[address] ABRAHAM LISTED REQUEST Facility:[facility] Start: 09-07-2022 End: 09-07-2022 ambulatory JIMMY WILSON . Facility:[facility] Start: 05-14-2022 End: 05-14-[address] ANNAMARIA GALLEGOS . Facility:[facility] Start: 05-01-2022 End: 05-01-2022 ambulatory TONIA BOND Facility:[facility] Plan of Treatment Date Care Activity Detail Author Start: 02-12-2024 End: 02-12-2024 Patient encounter procedure 02/12/2024 1:15 PM EDT Office Visit [facility] [address] [place] [id number] Jaqui Guevara PA [address] [place] [address] [facility] Payers Date Payer Category Payer Medicaid [facility] [facility] [place] [employer] [place] [id number] 2023-Present [address] [address] [place] [address] [id number] 2023 Medicaid [id number] 2023 Self-pay 1970 Unknown [id number] 2.840.1.655680.3.579.2.59 1970 Unknown [id number] 2.840.1.961211.3.579.2.593 1970 Unknown [id number] 2.16840.1.914148.3.579.2.593 1970 Unknown [id number] 2.840.1.057705.3.579.2.593 1970 Unknown [id number] 2.16.840.1.286745.3.579.2.593 1970 Unknown [id number] 2.16.840.1.666997.3.579.2.1259 1970 Unknown [id number] 2.16.840.1.278551.3.579.2.1259 1970 Unknown [id number] 2.16.840.1.596784.3.579.2.1259 1970 Unknown [id number] 2.16.840.1.457381.3.579.2.1259 1970 Unknown [id number] 2.16.840.1.544088.3.579.2.1259 1970 Unknown [id number] 2.16.840.1.179193.3.579.2.9 1970 Unknown [id number] 2.16.840.1.753324.3.579.2.125 1970 Unknown [id number] 2.16.840.1.943857.3.579.2.9 1970 Unknown [id number] 2.16.840.1.993674.3.579.2.727 1970 Unknown [id number] 2.16.840.1.165551.3.579.2.727 1970 Unknown [id number] 2.16.840.1.113067.3.579.2.72 1970 Unknown [id number] 2.16.840.1.199371.3.579.2.72 1970 Unknown [id number] 2.16.840.1.538193.3.579.2.72 1970 Unknown [id number] 2.16.840.1.730971.3.579.2.727 1970 Unknown [id number] 2.16.840.1.688476.3.579.2.727 1959 Self-pay [id number] Social History Date Type Detail Facility Tobacco smoking status Raman kraft [facility] Start: 12-17-2023 Sex Assigned At Female F [facility] Start: 09-01-2023 Tobacco smoking status Heavy t obacco smoker (finding) [facility] Start: 10-18-1985 [facility] Start: 10-18-1985 History of tobacco use Cigarette Smo ker [facility] Start: 10-16-2023 End: 12-17-2023 Cigarettes smoked current (pack per day) - Reported 0.5 [facility] Start: 10-16-2023 Tobacco use and exposure Smokeless tobacco non-user [facility] Start: 12-17-2023 Alcohol intake Ex-drinker (finding) [facility] Start: 1970 Sex Assigned At Not on file [facility] Functional Status Date Assessment Result Facility 03-18-2024 Functional Status N/A [facility] 02-09-2024 Functional Status N/A [facility] 01-26-2024 Functional Status N/A [facility] 09-01-2023 Functional Status N/A [facility] 06-18-2023 Functional Status N/A [facility] Clinical Notes 06-18-2023 to 03-18-2024 Note Date & Type Note Facility 03-18-2024 Hospital Discharg e instructions Patient Education 03/18/2024 19:38:52 Rib Contusion Rib Contusion A rib contusion is a deep bruise on the rib area. Contusions are the result of a blunt trauma that causes bleeding and injury to the tissues under the skin. A rib contusion may involve bruising of the ribs and of the skin and muscles in the area. The skin over the contusion may turn blue, purple, or yellow. Minor injuries result in a painless contusion. More severe contusions may be painful and swollen for a few weeks. What are the causes? This condition is usually caused by a hard, direct hit to an area of the body. This often occurs while playing contact sports. What are the signs or symptoms? Symptoms of this condition include: Swelling and redness of the injured area. Discoloration of the injured area. Tenderness and soreness of the injured area. Pain with or without movement. Pain when breathing in. How is this diagnosed? This condition may be diagnosed based on: Your symptoms and medical history. A physical exam. Imaging tests such as an X-ray, CT scan, or MRI to determine if there were internal injuries or broken bones (fractures). How is this treated? This condition may be treated with: Rest. This is often the best treatment for a rib contusion. Ice packs. This reduces swelling and inflammation. Deep-breathing exercises. These may be recommended to reduce the risk for lung collapse and pneumonia. Medicines. Jexc-aie-hogljxe or prescription medicines may be given to control pain. Injection of a numbing medicine around the nerve near your injury (nerve block). Follow these instructions at home: Medicines Take aqar-ihq-tukgxmh and prescription medicines only as told by your health care provider. Ask your health care provider if the medicine prescribed to you: ?Requires you to avoid driving or using machinery. ?Can cause constipation. You may need to take these actions to prevent or treat constipation: ?Drink enough fluid to keep your urine pale yellow. ?Take aqbr-umb-djrhlbg or prescription medicines. ?Eat foods that are high in fiber, such as beans, whole grains, and fresh fruits and vegetables. ?Limit foods that are high in fat and processed sugars, such as fried or sweet foods. Managing pain, stiffness, and swelling If directed, put ice on the injured area. To do this: Put ice in a plastic bag. Place a towel between your skin and the bag. Leave the ice on for 20 minutes, 2 3 times a day. Remove the ice if your skin turns bright red. This is very important. If you cannot feel pain, heat, or cold, you have a greater risk of damage to the area. Activity Rest the injured area. Avoid strenuous activity and any activities or movements that cause pain. Be careful during activities, and avoid bumping the injured area. Do not lift anything that is heavier than 5 lb (2.3 kg), or the limit that you are told, until your health care provider says that it is safe. General instructions Do not use any products that contain nicotine or tobacco, such as cigarettes, e-cigarettes, and chewing tobacco. These can delay healing. If you need help quitting, ask your health care provider. Do deep-breathing exercises as told by your health care provider. If you were given an incentive spirometer, use it every 1 2 hours while you are awake, or as recommended by your health care provider. This device measures how well you are filling your lungs with each breath. Keep all follow-up visits. This is important. Contact a health care provider if you have: Increased bruising or swelling. Pain that is not controlled with treatment. A fever. Get help right away if you: Have difficulty breathing or shortness of breath. Develop a continual cough, or you cough up thick or bloody mucus from your lungs (sputum). Feel nauseous or you vomit. Have pain in your abdomen. These symptoms may represent a serious problem that is an emergency. Do not wait to see if the symptoms will go away. Get medical help right away. Call your local emergency services (911 in the [place] Do not drive yourself to the hospital. Summary A rib contusion is a deep bruise on your rib area. Contusions are the result of a blunt trauma that causes bleeding and injury to the tissues under the skin. The skin over the contusion may turn blue, purple, or yellow. Minor injuries may cause a painless contusion. More severe contusions may be painful and swollen for a few weeks. Rest the injured area. Avoid strenuous activity and any activities or movements that cause pain. This information is not intended to replace advice given to you by your health care provider. Make sure you discuss any questions you have with your health care provider. Document Revised: 02/08/2021 Document Reviewed: 02/08/2021 [employer] Patient Education 2022 [employer]. Follow Up Care 03/18/2024 18:08:50 With:Cory Mcqueen Address: [address] [place] [address] When:03/21/2024 19:30:51 Comments:You can use the medications as prescribed as needed for pain. Please follow-up with your primary care doctor next 2 to 3 days for further evaluation management. Please return to the ED for any new or worsening symptoms. With:XXXX NONE Address: [place] When:Within 3 Day(s) [facility] 03-18-2024 Evaluation + Plan note Extrac ginny from: Title:ED Note Author:Hayde Pro DO Date :03/18/24 Contusion of rib on left yadira e (S20.212A: Contusion of left front wall of thorax, initial encounter) Orders: acetaminophen-hydrocodone, 1 EA, Tab, Oral, Once, Stop date 03/18/24 19:29:00 EDT, STAT, Start date 03/18/24 19:29:00 EDT lidocaine topical, 1 patch(es), Patch, TransDermal, Once, Stop date 03/18/24 19:28:00 EDT, STAT, Start date 03/18/24 19:28:00 EDT lidocaine topical, 1 patch(es), Topical, Daily, 7 EA, Refill(s) 0, apply 12 hours on and 12 hours off daily, [facility] #[id number], 170, cm, 03/18/24 18:36:00 EDT, Height/Length Dosing, 70, kg, 03/18/24 18:36:00 EDT, Weight Dosing naproxen, 500 mg = 1 tab(s), Oral, BID, PRN for pain, # 20 tab(s), Refills(s) 0, Pharmacy: [facility] #[id number], 170, cm, 03/18/24 18:36:00 EDT, Height/Length Dosing, 70, kg, 03/18/24 18:36:00 EDT, Weight Dosing [facility]03-25-2024 Hospital Discharge instructions Patient Education 02/09/2024 23:01:01 Knee Sprain, Adult, Mrby-vb-Hkrq Knee Sprain A knee sprain is a stretch or tear in a knee ligament. Knee ligaments are tissues that connect bones in the knee to each other. What are the causes? This condition often results from: A fall. An injury to the knee. What are the signs or symptoms? Symptoms of this condition include: Trouble straightening or bending the leg. Swelling in the knee. Bruising around the knee. Tenderness or pain in the knee. Sudden muscle tightening (spasms) around the knee. How is this treated? Treatment for this condition may involve: Keeping the knee still (immobilized) with a cast, brace, or splint. Putting ice on the knee. This helps with pain and swelling. Raising (elevating) the knee above the level of your heart when you are resting. This helps with pain and swelling. Taking medicine for pain. Doing exercises to keep your knee from being weak or stiff. Having surgery. This may be needed if the ligament is completely torn. Follow these instructions at home: If you have a splint or brace: Wear it as told by your doctor. Remove it only as told by your doctor. Check the skin around it every day. Tell your doctor about any concerns. Loosen it if your toes: ?Tingle. ?Become numb. ?Turn cold and blue. Keep it clean and dry. If you have a cast: Do not stick anything inside it to scratch your skin. Check the skin around it every day. Tell your doctor about any concerns. You may put lotion on dry skin around the edges of the cast. Do not put lotion on the skin under the cast. Keep it clean and dry. Bathing If you have a splint, brace, or cast that is not waterproof: Do not let it get wet. Cover it with a watertight covering when you take a bath or a shower. Managing pain, stiffness, and swelling If told, put ice on the injured area. To do this: ?If you have a removable splint or brace, remove it as told by your doctor. ?Put ice in a plastic bag. ?Place a towel between your skin and the bag or between your cast and the bag. ?Leave the ice on for 20 minutes, 2 3 times a day. Move your toes often to reduce stiffness and swelling. Raise the injured area above the level of your heart while you are sitting or lying down. General instructions Take mdqc-orn-xrwjwtx and prescription medicines only as told by your doctor. Do not use any products that contain nicotine or tobacco, such as cigarettes, e- cigarettes, and chewing tobacco. These can delay healing. If you need help quitting, ask your doctor. Do exercises as told by your doctor. Keep all follow-up visits as told by your doctor. This is important. Contact a doctor if: Your pain gets worse. The cast, brace, or splint does not fit right. The cast, brace, or splint gets damaged. Get help right away if: You cannot use your knee to support your body weight (bear weight) for standing or walking. You cannot move the injured area. Your knee ramon or you have pain after you walk only a few steps. You have very bad pain, swelling, or numbness in your leg below the cast, brace, or splint. Your foot or toes are numb, cold, or blue after loosening your splint or brace. Summary A knee sprain is a stretch or tear in a tissue (ligament) that connects your knee bones to each other. You may need to wear a splint, brace, or cast to keep the knee still while it is getting better. Surgery may be needed if the ligament is completely torn. This information is not intended to replace advice given to you by your health care provider. Make sure you discuss any questions you have with your health care provider. Document Revised: 02/11/2023 Document Reviewed: 09/23/2020 [employer] Patient Education 2022 [employer]. Follow Up Care 02/09/2024 22:22:55 With:Kamari Hartman Address: [address] [place], [place] [id number] [facility] () When:02/12/2024 Comments:You can take the pain medication every 12 hours as prescribed as needed for pain. Please follow-up with your primary care doctor in addition to orthopedics for further evaluation management. Please return to the ED for any new or worsening symptoms. With:XXXX NONE Address: [place] When:02/12/2024 [facility]03-24-2024 Evaluation + Plan noteExtracted from: Title:ED Note Author:Hayde Pro DO Date :02/09/24 Knee sprain (S83.90XA: Sprai n of unspecified site of unspecified knee, initial encounter) Orders: acetaminophen-hydrocodone, 1 tab(s), Tab, Oral, Once, Stop date 02/09/24 22:52:00 EDT, STAT, Start date 02/09/24 22:52:00 EDT naproxen, 500 mg = 1 tab(s), Oral, BID, PRN for pain, # 20 tab(s), Refills(s) 0, Pharmacy: [facility] #[id number], 170, cm, 02/09/24 22:28:00 EDT, Height/Length Dosing, 70.3, kg, 02/09/24 22:28:00 EDT, Weight Dosing XR Knee Complete 4+ Views Right [facility]03-11-2024 Hospital Discharge instructions Patient Education 01/26/2024 23:21:49 Toe Fracture, Eraf-nb-Fiom Toe Fracture A toe fracture is a break in one of the toe bones (phalanges). This may happen if you: Drop a heavy object on your toe. Stub your toe. Twist your toe. Exercise the same way too much. What are the signs or symptoms? The main symptoms are swelling and pain in the toe. You may also have: Bruising. Stiffness. Numbness. A change in the way the toe looks. Broken bones that poke through the skin. Blood under the toenail. How is this treated? Treatments may include: Taping the broken toe to a toe that is next to it (sri taping). Wearing a shoe that has a wide, rigid sole to protect the toe and to limit its movement. Wearing a cast. Surgery. This may be needed if the: ?Pieces of broken bone are out of place. ?Bone pokes through the skin. Physical therapy. Follow these instructions at home: If you have a shoe: Wear the shoe as told by your doctor. Remove it only as told by your doctor. Loosen the shoe if your toes tingle, become numb, or turn cold and blue. Keep the shoe clean and dry. If you have a cast: Do not put pressure on any part of the cast until it is fully hardened. This may take a few hours. Do not stick anything inside the cast to scratch your skin. Check the skin around the cast every day. Tell your doctor about any concerns. You may put lotion on dry skin around the edges of the cast. Do not put lotion on the skin under the cast. Keep the cast clean and dry. Bathing Do not take baths, swim, or use a hot tub until your doctor says it is okay. Ask your doctor if youcan take showers. If the shoe or cast is not waterproof: ?Do not let it get wet. ?Cover it with a watertight covering when you take a bath or a shower. Activity Do not use your foot to support your body weight until your doctor says it is okay. Use crutches as told by your doctor. Ask your doctor what activities are safe for you during recovery. Avoid activities as told by your doctor. Do exercises as told by your doctor or therapist. Driving Do not drive or use heavy machinery while taking pain medicine. Do not drive while wearing a cast on a foot that you use for driving. Managing pain, stiffness, and swelling Put ice on the injured area if told by your doctor: ?Put ice in a plastic bag. ?Place a towel between your skin and the bag. ?If you have a shoe, remove it as told by your doctor. ?If you have a cast, place a towel between your cast and the bag. ?Leave the ice on for 20 minutes, 2 3 times per day. Raise (elevate) the injured area above the level of your heart while you are sitting or lying down. General instructions If your toe was taped to a toe that is next to it, follow your doctor's instructions for changing the gauze and tape. Change it more often: ?If the gauze and tape get wet. If this happens, dry the space between the toes. ?If the gauze and tape are too tight and they cause your toe to become pale or to lose feeling (go numb). If your doctor did not give you a protective shoe, wear sturdy shoes that support your foot. Your shoes should not: ?Pinch your toes. ?Fit tightly against your toes. Do not use any tobacco products, including cigarettes, chewing tobacco, or e- cigarettes. These can delay bone healing. If you need help quitting, ask your doctor. Take medicines only as told by your doctor. Keep all follow-up visits as told by your doctor. This is important. Contact a doctor if: Your pain medicine is not helping. You have a fever. You notice a bad smell coming from your cast. Get help right away if: You lose feeling (have numbness) in your toe or foot, and it is getting worse. Your toe or your foot tingles. Your toe or your foot gets cold or turns blue. You have redness or swelling in your toe or foot, and it is getting worse. You have very bad pain. Summary A toe fracture is a break in one of the toe bones. Use ice and raise your foot. This will help lessen pain and swelling. Use crutches as told by your doctor. This information is not intended to replace advice given to you by your health care provider. Make sure you discuss any questions you have with your health care provider. Document Revised: 04/09/2022 Document Reviewed: 04/09/2022 [employer] Patient Education 2022 [employer]. Follow Up Care 01/26/2024 22:28:41 With:Pan Rincon Address: [address] [address]- [facility] (1) When:01/29/2024 Comments:You can use the pain medication every 6 hours as needed for pain. Please follow-up with orthopedicsfor further evaluation management. Please return to the ED for any new or worsening symptoms. With:XXXX NONE Address: [place] When:Within 3 Day(s) [facility]10-15-2023 Hospital Discharge instructions Patient Education 09/01/2023 16:07:11 Meniscal Cyst Meniscal Cyst A meniscal cyst is a fluid-filled growth that forms on a crescent-shaped wedge of cartilage in the knee (meniscus). Each knee has two menisci. They sit between the thighbone (femur) and shinbone (tibia) that form the knee joint. The menisci cushion and stabilize the knee. A meniscal cyst can cause knee pain and limit movement of your knee. What are the causes? Often, a meniscal cyst develops after a knee injury involving a tear in a meniscus. The tear allowsthe fluid inside the knee joint (synovial fluid) to leak out and form the cyst. What increases the risk? You are more likely to develop a meniscal cyst if you have a knee injury resulting in a torn meniscus. These injuries often occur from: Contact sports. Sports or activities that involve squatting, twisting, or pivoting movements. As people age, their menisci get thinner and weaker. Tears can happen more easily, even from simplyclimbing stairs. What are the signs or symptoms? Symptoms of this condition include: A bump on either side of your knee where the knee bones come together. Knee pain that gets worse with movement and better with rest. Swelling. Stiffness. A feeling that your knee is locking, catching, or giving way. How is this diagnosed? This condition may be diagnosed based on: Your symptoms and medical history, including any previous injuries. A physical exam. During the exam, your health care provider may: ?Feel for a lump that pops in and out of your knee joint with movement. ?Check your knee for tenderness, strength, movement, and stability. Imaging tests, such as an MRI or ultrasound. How is this treated? Treatment for this condition may depend on your symptoms. These include: Resting. Taking medicine to reduce pain and swelling. This is usually an NSAID, such as ibuprofen. Doing physical therapy. Wearing a knee brace or elastic wrap for support. Getting an injection of medicine (steroid) into the cyst. Having a procedure to drain fluid from the cyst with a needle (aspiration). Having surgery to remove the cyst and possibly part of the meniscus. Follow these instructions at home: If you have a knee brace or elastic wrap: Wear the brace or wrap as told by your health care provider. Remove it only as told by your health care provider. Loosen it if your toes tingle, become numb, or turn cold and blue. Keep it clean. If the brace or wrap is not waterproof and cannot be removed: ?Do not let it get wet. ?Cover it with a watertight covering when you take a bath or shower. Managing pain, stiffness, and swelling If directed, put ice on the affected area. To do this: ?If you have a removable brace or wrap, remove it as told by your health care provider. ?Put ice in a plastic bag. ?Place a towel between your skin and the bag. ?Leave the ice on for 20 minutes, 2 3 times a day. ?Remove the ice if your skin turns bright red. This is very important. If you cannot feel pain, heat, or cold, you have a greater risk of damage to the area. Move your toes often to reduce stiffness and swelling. Activity Rest and return to your normal activities as told by your health care provider. Avoid activities that make pain or swelling worse. Ask your health care provider what activities are safe for you. Do not use the injured limb to support your body weight until your health care provider says that you can. Use crutches or a cane as told by your health care provider. Do exercises to strengthen your knee and leg muscles as told by your health care provider. General instructions Use a knee brace or wrap as told by your health care provider. Take pukn-vum-tdeuasz and prescription medicines only as told by your health care provider. Keep all follow-up visits. This is important. How is this prevented? To help prevent a meniscal cyst from recurring: Do not play sports after an injury until your health care provider approves. Do not train too hard. If you have pain or swelling, stop and rest. Ask your health care provider to design a stretching program for you. Follow it as directed. Use proper equipment when playing sports and exercising. Wear shoes that are right for your activity. Wear a knee support during sports activities as told by your health care provider. Start new activities gradually. Contact a health care provider if: You have pain that is getting worse. Your knee brace is damaged. Your knee feels numb. You notice swelling or redness below your brace. Summary The meniscus is a crescent-shaped wedge of cartilage in the knee. There are two menisci in each knee. They cushion and stabilize the knee. A meniscal cyst is a fluid-filled growth that forms on a meniscus. A meniscal cyst can cause knee pain and limit movement of the knee. You are more likely to develop a meniscal cyst if you have a knee injury involving a torn meniscus. This information is not intended to replace advice given to you by your health care provider. Make sure you discuss any questions you have with your health care provider. Document Revised: 03/09/2021 Document Reviewed: 03/09/2021 [employer] Patient Education 2022 [employer]. Follow Up Care 09/01/2023 14:11:44 With:Pan Rincon Address: [address] [place] [address]- Business (1) When:09/04/2023 15:59:05 Comments:You may follow-up with Dr. Rincon for further evaluation of your knee cyst. With:Naomy RINCON Address: [address] [place] [address]- Business (1) When:09/04/2023 15:58:55 Comments:Follow-up with your primary care provider in 3 to 5 days. If symptoms worsen, do not improve, or new symptoms arise please report back to emergency department for further evaluation. [facility]08-01-2023 Hospital Discharge instructions Patient Education 06/18/2023 17:41:23 Dental Pain Dental Pain Dental pain is often a sign that something is wrong with your teeth or gums. It is also something that can occur following dental treatment. If you have dental pain, it is important to contact your dental care provider, especially if the cause of the pain has not been determined. Dental pain may beof varying intensity and can be caused by many things, including: Tooth decay (cavities or caries). Cavities are caused by bacteria that produce acids that irritate the nerve of your tooth, making it sensitive to air and hot or cold temperatures. This eventually causes discomfort or pain. Abscess or infection. Once the bacteria reach the inner part of the tooth (pulp), a bacterial infection (dental abscess) can occur. Pus typically collects at the end of the root of a tooth. Injury. A crack in the tooth. Gum recession exposing the root, and possibly the nerves, of a tooth. Gum (periodontal)disease. Abnormal grinding or clenching. Poor or improper home care. An unknown reason (idiopathic). Your pain may be mild or severe. It may occur when you are: Chewing. Exposed to hot or cold temperatures. Eating or drinking sugary foods or beverages, such as soda or candy. Your pain may be constant, or it may come and go without cause. Follow these instructions at home: The following actions may help to lessen any discomfort that you are feeling before or after getting dental care. Medicines Take tqtk-qoc-wqmjyxz and prescription medicines only as told by your dental care provider. If you were prescribed an antibiotic medicine, take it as told by your dental care provider. Do notstop taking the antibiotic even if you start to feel better. Eating and drinking Avoid foods or drinks that cause you pain, such as: Very hot or very cold foods or drinks. Sweet or sugary foods or drinks. Managing pain and swelling Ice can sometimes be used to reduce pain and swelling, especially if the pain is following dental treatment. If directed, put ice on the painful area of your face. To do this: ?Put ice in a plastic bag. ?Place a towel between your skin and the bag. ?Leave the ice on for 20 minutes, 2 3 times a day. ?Remove the ice if your skin turns bright red. This is very important. If you cannot feel pain, heat, or cold, you have a greater risk of damage to the area. Brushing your teeth To keep your mouth and gums healthy, brush your teeth twice a day using a fluoride toothpaste. Use a toothpaste made for sensitive teeth as directed by your dental care provider, especially if the root is exposed. Always brush your teeth with a soft-bristled toothbrush. This will help prevent irritation to your gums. General instructions Floss at least once a day. Do not apply heat to the outside of the face. Gargle with a mixture of salt and water 3 4 times a day or as needed. To make salt water, completely dissolve 1 tsp (3 6 g) of salt in 1 cup (237 mL) of warm water. Keep all follow-up visits. This is important. Contact a dental care provider if: You have any unexplained dental pain. Your pain is not controlled with medicines. Your symptoms get worse. You have new symptoms. Get help right away if: You are unable to open your mouth. You are having trouble breathing or swallowing. You have a fever. You notice that your face, neck, or jaw is swollen. These symptoms may represent a serious problem that is an emergency. Do not wait to see if the symptoms will go away. Get medical help right away. Call your local emergency services (911 in the [place] Do not drive yourself to the hospital. Summary Dental pain may be caused by many things, including tooth decay and infection. Your pain may be mild or severe. Take ghlg-uuu-ixplzqn and prescription medicines only as told by your dental care provider. Watch your dental pain for any changes. Let your dental care provider know if your symptoms get worse. This information is not intended to replace advice given to you by your health care provider. Make sure you discuss any questions you have with your health care provider. Document Revised: 08/09/2021 Document Reviewed: 08/09/2021 [employer] Patient Education 2022 [employer]. Follow Up Care 06/18/2023 16:59:26 With:[employer] Address: [facility] [place] [address] Business (1) When:06/21/2023 17:19:24 Comments:Dentistry follow-up [facility]08-01-2023 Evaluation + Plan noteExtracted from: Title:ED Note Author:Gopal Sutton PA-C te:06/18/23 Pain, dental (K08.89: Other specified disorders of teeth and supporting structures) Orders: naproxen, 500 mg = 1 tab(s), Oral, BID, # 20 tab(s), Refills(s) 0, Pharmacy: [id number], 170, cm, 06/18/23 17:05:00 EDT, Height/Length Dosing, 70.5, kg, 06/18/23 17:05:00 EDT, Weight Dosing penicillin V potassium, 500 mg = 1 tab(s), Oral, TID, Take one tab by mouth 3 times a day. # 30, X 10 day(s), # 30 tab(s), Refills(s) 0, Pharmacy: [facility] #[id number], 170, cm, 06/18/23 17:05:00 EDT, Height/Length Dosing, 70.5, kg, 06/18/23 17:05:00 EDT, [facility] Diagnosis S/P right knee arthroscopy- Primary [facility] Narrative No data available for this section [facility] No data available for this section [facility] No data available for this section [facility] Summary Purpose Family History No Family History Records Found No data available for this section No data available for this section No data available for this section No data available for this section No data available for this section No Family History Records Found No data available for this section No Family History Records Found Advance Directives No Advanced Directives Records FoundNo Advanced Directives Records FoundNo Advanced Directives Records Found Additional Source Comments INFORMATION SOURCE (unrecogn ized section and content) DATE CREATED AUTHOR 03/27/2023 [facility] DATE CREATED AUTHOR AUTHOR'S ORGANIZ ATION 02/19/2024 [facility] DATE CREATED AUTHOR AUTHOR'S ORGANIZ ATION 03/22/2024 [facility] FOR RECORDS PERTAINING TO PATIENTS WHO ARE OR HAVE BEEN ENROLLED IN A CHEMICAL DEPENDENCY/SUBSTANCEABUSE PROGRAM, SOME INFORMATION MAY BE OMITTED. This clinical summary was aggregated from multiple sources. Caution should be exercised in using it in the provision of clinical care. This summary normalizes information from multiple sources, and as a consequence, information in this document may materially change the coding, format and clinical context of patient data. In addition, data may be omitted in some cases. CLINICAL DECISIONS SHOULD BE BASED ON THE PRIMARY CLINICAL RECORDS. [facility] [email or web address] [facility]. provides no warranty or guarantee of the accuracy or completeness of information in this document.
--- NOTE | 2024-05-03 21:48 | XR_ITS ---
The [address] [address] Patient Name: CHAYA RODRIGUEZ MRN: [id number] date: 1970 Sex: F Assigned Patient Location: ER Current Patient Location: ER Accession/Order Number: [id number] Exam Date: 05/03/2024 21:57 Report Date: 05/03/2024 22:40 At the request of: ANA LAURA LATIF Procedure: XR knee RT 3V EXAM: XR knee RT 3V TECHNIQUE: AP, lateral and oblique views right knee HISTORY: pain, hx of knee surgery COMPARISON: 08/14/2023 FINDINGS: No acute fracture or dislocation. Soft tissues are unremarkable. No arthritic changes. XR/XR knee RT 3V IMPRESSION: No acute findings Electronically authenticated by: ANKIT RIVERA Date: 05/03/2024 22:40
[2024-05-03] MEDS: OXYCODONE HCL/ACETAMINOPHEN 5MG/325MG 1 TAB PO (22:06)
--- NOTE | 2024-05-03 22:23 | ED_ITS ---
HPI HPI - General Adult General Chief complaint: Extremity Problem, Nontraumatic Stated complaint: Lower Extremity Pain, Right Knee Time Seen by Provider: 05/03/24 21:43 Source: patient Mode of arrival: walk-in Limitations: no limitations History of Present Illness HPI narrative: 53-year-old female to the emergency department chief complaint of right knee pain. Patient has a history of trouble with this knee including 2 previous surgeries. She has not seen Dr. Hartman in some time. She reports that she has increasing pain especially after her dog jumped on her and pushed on the knee. She denies any redness, warmth or swelling. No specific falls or injuries. Pain worsening over the last 2 weeks. Related Data Previous Rx's ?Medication ?Instructions ?Recorded oxycodone-acetaminophen 5 mg-325 1 tab PO Q6H PRN pain 3 days #12 05/03/24 mg tablet (Percocet) tabs Allergies Allergy/AdvReac Type Severity Reaction Status Date / Time No Known Drug Allergies Allergy Verified 05/03/24 21:48 Opioid HPI Opioid Management Most Recent Opioid Data: Last Pain Scale 8 03/13/24 23:11 Review of Systems ROS Status of ROS 10 or more systems reviewed and unremark able except as noted in history and below PFSH PFSH Social History Smoking status: Current every day smoker Exam Narrative Exam Narrative: VITALS: I have reviewed the triage vital signs. GENERAL: Well developed, well appearing adult in no acute distress. Right lower Extremity: DP and PT pulses intact. Limb is similar color and temperature to the contralateral limb. No redness or warmth. Compartments soft. No swelling. No ecchymosis. No medial malleolus tenderness. No lateral malleolus tenderness. No tenderness at the base of the fifth metatarsal. No midfoot tenderness. No fibular head tenderness. Able to bear weight with arches maintained. Sensation is intact over the foot and lower leg. Dorsiflexion/plantar flexion, knee flexion/extension, hip flexion/extension are grossly intact by strength testing. SKIN: Warm and dry. Normal turgor. No rash or lesions appreciated. PSYCH: Mood, affect, and interaction is appropriate to the setting. Constitutional Vital Signs, click to edit/add: Last Vital Signs Temp 98.4 F 05/03/24 21:43 Pulse 95 H 05/03/24 21:43 Resp 18 05/03/24 21:43 BP 148/87 H 05/03/24 21:43 Pulse Ox 96 05/03/24 21:43 O2 Del Method Room Air 05/03/24 21:43 Course Vital Signs Vital signs: Vital Signs Temperature 98.4 F 05/03/24 21:43 Pulse Rate 95 H 05/03/24 21:43 Respiratory Rate 18 05/03/24 21:43 Blood Pressure 148/87 H 05/03/24 21:43 Pulse Oximetry 96 05/03/24 21:43 Oxygen Delivery Method Room Air 05/03/24 21:43 Temperature 98.4 F 05/03/24 21:43 Pulse Rate 95 H 05/03/24 21:43 Respiratory Rate 18 05/03/24 21:43 Blood Pressure 148/87 H 05/03/24 21:43 Pulse Oximetry 96 05/03/24 21:43 Oxygen Delivery Method Room Air 05/03/24 21:43 Medical Decision Making MDM Narrative Medical decision making narrative: 53-year-old female to the emergency department chief complaint of acute on chronic right knee pain. Vital stable, the patient is afebrile. Right lower extremity unremarkable exam. No evidence of septic arthritis. Low suspicion for fracture. Will obtain an x-ray. Percocet was given for discomfort. Patient agrees with this plan. X-rays negative. Short course of Percocet given for her breakthrough pain. Francois wrap. She will follow-up with Dr. Hartman in office. Return precautions were discussed. All questions were answered. The patient was discharged home. Imaging Data X-ray knee: Radiologist's impression: ITS Impressions Knee X-Ray 05/03/24 21:48 IMPRESSION: No acute findings Electronically authenticated by: ANKIT RIVERA Date: 05/03/2024 22:40 Discharge Plan Discharge Stand Alone Forms: Portal Instructions Chief Complaint: Extremity Problem, Nontraumatic Clinical Impression: Knee sprain Patient Disposition: Home, Self-Care Time of Disposition Decision: 22:50 Condition: Good Mode of Transportation: Private Vehicle Prescriptions / Home Meds: New oxycodone-acetaminophen [Percocet] 5-325 mg tablet 1 tab PO Q6H PRN (Reason: pain) 3 Days Qty: 12 0RF Print Language: Guyanese Instructions: Knee Sprain (ED), How to Use an Elastic Bandage (ED) Additional Instructions: Call the office of your primary care doctor to arrange for follow-up within the above-stated timeframe. Follow-up with your primary care doctor about this ED visit. You should review your labs, imaging, and diagnoses from this ED visit with your primary care physician. There may be non-emergent findings that need further evaluation. If you were prescribed medications you should discuss possible side-effects and drug interactions with your pharmacist. Call 911 or go to the nearest Emergency Department if you develop any new or worsening symptoms. Referrals: KAMARI HARTMAN [Physician] - 1 week Physician,Non-Staff, [Primary Care Provider] - 1 week
== END 2024-05-03 23:17 | disposition home or self-care (01) ==
PROVIDERS: Emergency Provider Student in an Organized Health Care Education/Training Program
DX: S83.91XA Sprain of unspecified site of right knee, initial encounter (principal); W54.1XXA Struck by dog, initial encounter; F17.200 Nicotine dependence, unspecified, uncomplicated
CPT/HCPCS: 73562; 99283

== ENCOUNTER 2024-05-15 22:22 | Emergency (ER) | payer MEDICAID, SELFPAY ==
--- OUTSIDE RECORDS SUMMARY | 2024-05-15 22:30 | XMS_ITS ---
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 Name Role Phone PAY ., DR YIN Admitting Unavailable GRECHRODOLFO ., YUKI GARCIA Consulting Unavailabl e PAY ., DR YIN Attending Unavailable REQUEST, NONE LISTED Primary Care Unavaila ble NEFCY, MYRTLE Consulting Unavailable STEVE ., JIMMY Attending Unavailable STEVE ., JIMMY Consulting Unavailable REQUEST, NONE LISTED Primary Care Unavaila ble STEVE ., JIMMY Admitting Unavailable REQUEST, NONE LISTED Primary Care Unavaila ble STEVE ., JIMMY Admitting Unavailable STEVE ., JIMMY Attending Unavailable AHDOOT, RENEE Consulting Unavailable STEVE ., JIMMY Consulting Unavailable RENECHRODOLFO ., YUKI GARCIA Consulting Unavailabl e HAY [...] Attending Unavailable HARTMAN, KAMARI T Attending Unavailable HILLS, JAQUI Hannah Attending Unavailable HARTMAN, KAMARI Hair Attending Unavailable HARTMAN, KAMARI T Referring Unavailable HILLSJAQUI Attending Unavailable HARTMAN, KAMARI Hair Attending Unavailable DokkHayde almeida Attending Unavailable Hartman, Kamari T Referring Unavailable Hartman, Kamari T Attending Unavailable Hartman, Kamari T Admitting Unavailable Hope Hull, Jaqui D Attending Unavailable Hope Hull, Jaqiu D Admitting Unavailable Hope Hull, Jaqui D Referring Unavailable Wayne Rangel Attending Unavailable Inocencia, Hayde Sheth Attending Unavailable Hayde Pro Attending Unavailable Adán James Attending Unavailable Allergies Allergy Classification Reported Allergen(s) Allergy Type Date of Onset Reaction(s) Facility (1 source) No Known Medication Allergies; Translations: [No Known Medication Allergies] Propensity to adverse reactions (disorder) [facility] Repository Encounters Encounter Date Encounter Type Care Provider Facility Start: 03-18-2024 End: 03-18-2024 Emergency department patient visit Hayde Pro Facility:[facility] [place] Start: 03-18-2024 End: 03-18-2024 Emergency department patient visit Adán James [facility] Start: 02-18-2024 End: 02-18-2024 ambulatory KAMARI HARTMAN Not Available Start: 02-12-2024 End: 02-12-2024 ambulatory JAQUI GUEVARA Not Available Start: 02-10-2024 End: 02-10-2024 Emergency department patient visit Hayde Pro Facility:[facility] [place] Start: 02-09-2024 End: 02-09-2024 Emergency department patient visit Hayde Pro [facility] Start: 01-28-2024 End: 01-28-2024 ambulatory KAMARI HARTMAN Not Available Start: 01-27-2024 End: 01-27-2024 Emergency department patient visit Hayde Pro Facility:[facility] [place] Start: 01-26-2024 End: 01-26-2024 Emergency department patient visit Hayde Pro [facility] Start: 12-20-2023 End: 12-20-2023 ambulatory KAMARI HARTMAN Not Available Start: 12-20-2023 End: 12-20-2023 Clinical Support Kamari Hartman DO Work Phone: [facility] Comment on above: S/P right knee arthr oscopy (Primary Dx) Start: 12-17-2023 End: 12-17-2023 ambulatory KAMARI HARTMAN Not Available Start: 11-06-2023 End: 11-07-2023 ambulatory Kamari Hartman Facility:[facility] [place] Start: 11-06-2023 End: 11-06-2023 Patient encounter procedure Kamari Hartman [facility] Start: 10-31-2023 End: 10-31-2023 ambulatory KAMARI HARTMAN Not Available Start: 10-16-2023 End: 10-16-2023 ambulatory JAQUI GUEVARA Not Available Start: 10-07-2023 End: 10-08-2023 ambulatory Jaqui Guevara Facility:[facility] [place] Start: 10-07-2023 End: 10-07-2023 Patient encounter procedure Jaqui Guevara [facility] Start: 09-01-2023 End: 09-01-2023 Emergency department patient visit Wayne Rangel Facility:[facility] [place] Start: 09-01-2023 End: 09-01-2023 Emergency department patient visit Wayne Rangel [facility] Start: 06-18-2023 End: 06-18-2023 Emergency department patient visit Adán Parry Erika Facility:[facility] [place] Start: 06-18-2023 End: 06-18-2023 [facility] Start: 03-26-2023 End: 03-26-2023 ambulatory YUKI HIGGINS . Facility: Start: 09-29-2022 End: 09-29-[address] ABRAHAM LISTED REQUEST Facility: Start: 09-07-2022 End: 09-07-2022 ambulatory JIMMY WILSON . Facility: Start: 05-14-2022 End: 05-14-[address] ANNAMARIA GALLEGOS . Facility: Start: 05-01-2022 End: 05-01-2022 ambulatory TONIA BOND Facility: Medications Current Medications Medication Drug Class(es) Dates Sig (Normalized) Sig (Original) lidocaine 0.05 mg/mg medicated patch (1 source) Antiarrhythmic, Amide Local Anesthetic Start: 03-18-2024 Lidoderm 5% Patch 1 patch(es), Topical, Daily, 7 EA, Refill(s) 0, apply 12 hours on and 12 hours off daily, [facility] #[id number], 170, cm, 03/18/24 18:36:00 EDT, Height/Length Dosing, [...] pain, # 20 tab(s), Refills(s) 0, Pharmacy: [id number], 170, cm, 03/18/24 18:36:00 EDT, Height/Length Dosing, [...] day(s), # 12 tab(s), Refills(s) 0, Pharmacy: [facility] #[id number], 170, cm, 09/01/23 14:16:00 EDT, Height/Length Dosing, [...] day(s), # 30 tab(s), Refills(s) 0, Pharmacy: [facility] #[id number], 170, cm, 06/18/23 17:05:00 EDT, Height/Length Dosing, 70.5, kg, 06/18/23 17:05:00 EDT, Weight Dosing Start Date: 06/18/23 Stop Date: 06/28/23 Status: Ordered Payers Date Payer Category Payer Medicaid [employer] [place] [employer] [place] [id number] 2023-Present [address] [address] [place] [address] [id number] 2023 Medicaid [id number] 2023 Self-pay 1970 Unknown [id number] 2.16.840.1.986405.3.579.2.593 1970 Unknown [id number] 2.16.840.1.340508.3.579.2.593 1970 Unknown [id number] 2.16.840.1.000064.3.579.2.593 1970 Unknown [id number] 2.16.840.1.597732.3.579.2.593 1970 Unknown [id number] 2.16.840.1.955954.3.579.2.593 1970 Unknown [id number] 2.16.840.1.985198.3.579.2.1259 1970 Unknown [id number] 2.16.840.1.470953.3.579.2.1259 1970 Unknown [id number] 2.16.840.1.156174.3.579.2.1259 1970 Unknown [id number] 2.16.840.1.198029.3.579.2.1259 1970 Unknown [id number] 2.16.840.1.170919.3.579.2.1259 1970 Unknown [id number] 2.16.840.1.525007.3.579.2.1259 1970 Unknown [id number] 2.16.840.1.089121.3.579.2.1259 1970 Unknown [id number] 2.16.840.1.377642.3.579.2.1259 1970 Unknown [id number] 2.16.840.1.353659.3.579.2.727 1970 Unknown [id number] 2.16.840.1.527215.3.579.2.727 1970 Unknown [id number] 2.16.840.1.987845.3.579.2.727 1970 Unknown [id number] 2.16.840.1.686384.3.579.2.727 1970 Unknown [id number] 2.16.840.1.285859.3.579.2.727 1970 Unknown [id number] 2.16.840.1.007092.3.579.2.727 1970 Unknown [id number] 2.16.840.1.673534.3.579.2.727 1959 Self-pay [id number] Plan of Treatment Date Care Activity Detail Author Start: 02-12-2024 End: 02-12-2024 Patient encounter procedure 02/12/2024 1:15 PM EDT Office Visit [facility] [address] [place] [id number] Jaqui Guevara PA [address] [place] [address] [facility] Problems Active Problems Problem Classification Problem Date [...] 05-14-2022 Episodic Other aftercare (1 source) 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) drug therapy; Translations: [OTH USP CURRENT DRUG THERAPY] Onset: 10-03-2022 Episodic Other [...] mGy = na DAP = na Normal [facility] Consent for Treatmenton Consent for Treatment [id number] #1.00TIFF Normal [facility] Discharge Instructionson Discharge Instructions [id number] #1.00TIFF Normal [facility] ED Clinical Summaryon 2023 ED Clinical Summary [address] [address] ED Clinical Summary Person Information Name: CHAYA RODRIGUEZ/[facility] Age: 53 Years : 1970 Sex: Female Language: German PCP: NONE, XXXX Marital Status: Visit Id: [...] 03/18/2024 19:38:51 03/18/2024 19:38:51 03/18/2024 19:38:51 ADDRESS: [address] [place] [phone] PHYS DOC NOTES: MEDICAL INFORMATION: Prescriptions Given: New Medications [id number], [address] [place], [place] [phone], [phone] lidocaine topical (Lidoderm 5% Patch) 1 Patches Topical every day. apply 12 hours on and 12 hours off daily. Refills: 0. Medications to Continue Taking That Have Changed [facility] [employer] [facility] #[id number], [address] [place], [place] [id number], [phone] START: naproxen (Naprosyn 500 mg Tab) 1 [...] Contusion Follow up: With: Address: When: Cory Mcqueen [address] [place], [place] [phone] In 3 days 03/21/2024 Comments: You can use the medications as prescribed as needed for pain. Please follow-up with your primary care doctor next 2 to 3 days for further evaluation management. Please return to the ED for any new or worsening symptoms. With: Address: When: XXXX [facility] , [place] In 3 days DIAGNOSIS: Contusion of rib on left side Normal [facility] ED Note-Physicianon 03-18-20 ED Note-Physician Basic Information [...] and Complexity of Problems Differential Diagnosis: [] [facility] Data External documents reviewed: [] My EKG [...] hours on and 12 hours off daily, [id number], 170, cm, 03/18/24 18:36:00 EDT, Height/Length Dosing, 70, kg, 03/18/24 18:36:00 EDT, Weight Dosing naproxen, 500 mg = 1 tab(s), Oral, BID, PRN for pain, # 20 tab(s), Refills(s) 0, Pharmacy: [facility] #[id number], 170, cm, 03/18/24 18:36:00 EDT, Height/Length Dosing, [...] 03/21/2024 EDT [address] [place] [address] Additional Instructions: You can use the medications [...] rib fracture Read By: Hayde Pro DO [facility] Comment on above: Result Comment: Elec tronically [...] for lung collapse and pneumonia. ? Medicines. Exyk-kmx-qbphkvv or prescription medicines may be given to control pain. ? Injection of a numbing medicine around the nerve near your injury (nerve block). Follow these instructions at home: Medicines ? Take yibq-vym-zwpvlpm and prescription medicines only as told by your health care provider. ? Ask your health care provider if the medicine prescribed to you: ? Requires you to avoid driving or using machinery. ? Can cause constipation. You may need to take these actions to prevent or treat constipation: ? Drink enough fluid to keep your urine pale yellow. ? Take dfdz-buy-hymjtdf or prescription medicines. ? Eat foods that [...] provider. Document Revised: 02/08/2021 Document Reviewed: 02/08/2021 [employer] Patient Education ? 2022 [employer] Normal [facility] ED Patient Summaryon 024 ED Patient Summary [place] [id number] Patient Discharge Instructions Person Information Name: CHAYA RODRIGUEZ Age: 53 Years Arrival Date: 03/18/2024 18:08:32 Discharge Diagnosis: Contusion of rib on left side Primary Care Physician: NONE, XXXX Provider Information Primary Provider: Dokken DO, Kaylinn A Advanced Tailman:None The exam and treatment you received in the Emergency Department were for an urgent problem and are not intended as complete care. It is important that you follow up with a doctor, nurse practitioner, or physician?s assistant to the dean for ongoing care. If your symptoms become [...] Cory Mcqueen [address] [place], [place] [phone] In 3 days 03/21/2024 Comments: You can use the medications as prescribed as needed for pain. Please follow-up with your primary care doctor next 2 to 3 days for further evaluation management. Please return to the ED for any new or worsening symptoms. With: Address: When: XXXX [facility] , [place] In 3 days In the event that this physician does not participate in your insurance network, please consult with your insurance company to find a nearby participating provider. Patient Education Materials: Rib Contusion A MESSAGE TO ALL PATIENTS REGARDING OPIOIDS PRESCRIPTION OPIOIDS: WHAT YOU NEED TO KNOW Prescription opioids can be used to help relieve mbnaycse-fa-cvhwaj pain and are often prescribed following a [...] to learn abou (more content not included)... [facility] Consent for Treatmenton 01-17 Consent for Treatment [id number] #1.00TIFF [facility] Discharge Instructionson Discharge Instructions [id number] #1.00TIFF [facility] ED Clinical Summaryon 2023 ED Clinical Summary [address] [address] ED Clinical Summary Person Information Name: CHAYA RODRIGUEZ/[facility] Age: 53 Years : 1970 Sex: Female Language: German PCP: NONE, XXXX Marital Status: Visit Id: [...] 02/09/2024 23:01:00 02/09/2024 23:01:00 02/09/2024 23:01:00 ADDRESS: [address] [place] [phone] PHYS DOC NOTES: MEDICAL INFORMATION: Prescriptions Given: Medications to Continue Taking That Have Changed [facility] #[id number], [address] [place], [place] [id number], [phone] START: naproxen (Naprosyn 500 mg Tab) 1 Tablets By Mouth 2 times a day as needed for pain. Refills: 0. Other Medications START: naproxen (Naprosyn 500 mg Tab) 1 Tablets By Mouth 2 times a day. Refills: 0. PATIENT EDUCATION INFORMATION: Instructions: Knee Sprain, Adult, Exhk-ig-Limt Follow up: With: Address: When: Kamari Hartman [address] [place] [id number] [facility] () In 3 days 02/12/2024 Comments: You can take the pain medication every 12 hours as prescribed as needed for pain. Please follow-up with your primary care doctor in addition to orthopedics for further evaluation management. Please return to the ED for any new or worsening symptoms. With: Address: When: MICHELLE NONE , [place] In 3 days 02/12/2024 DIAGNOSIS: Knee sprain Normal [facility] ED Note-Physicianon 02-10-20 ED Note-Physician Basic Information [...] and Complexity of Problems Differential Diagnosis: [] [facility] Data External documents reviewed: [] My EKG [...] Patient's x-ray imaging is negative. Patient given [place] in the ED for pain is discharged [...] pain, # 20 tab(s), Refills(s) 0, Pharmacy: [facility] #[id number], 170, cm, 02/09/24 22:28:00 EDT, Height/Length Dosing, 70.3, kg, 02/09/24 22:28:00 EDT, Weight Dosing XR Knee Complete 4+ Views Right Disposition Plan Discharge Prescription List Prescriptions Naprosyn 500 mg Tab, 500 mg= 1 tab(s), Oral, BID, PRN Follow-up With When Contact Information Kamari Hartman In 3 days 02/12/[address] [place], [place] [id number] (1) Additional Instructions: You can take the pain medication every 12 hours as prescribed as needed for pain. Please follow-up with your primary care doctor in addition to orthopedics for further evaluation management. Please return to the ED for any new or worsening symptoms. XXXX NONE In 3 days 02/12/2024 EDT [place] Additional Instructions: Patient Education Knee Sprain, Adult, Mzdb-gb-Xhmj Problem List/Past Medical History Ongoing Smoker Historical [...] abnormality Read By: Hayde Pro DO Normal [facility] Comment on above: Result Comment: Elec tronically [...] or lying down. General instructions ? Take aygi-lud-kxjhtys and prescription medicines only as told by [...] provider. Document Revised: 02/11/2023 Document Reviewed: 09/23/2020 [employer] Patient Education ? 2022 [employer] Normal [facility] ED Patient Summaryon 024 ED Patient Summary [facility] [address] [place], [place] [address] Patient Discharge Instructions Person Information Name: CHAYA RODRIGUEZ Age: 53 Years Arrival Date: 02/09/2024 22:21:16 Discharge Diagnosis: Knee sprain Primary Care Physician: NONE, XXXX Provider Information Primary Provider: Hayde Pro DO Advanced Tailman:Jori The exam and treatment you received in the Emergency Department were for an urgent problem and are not intended as complete care. It is important that you follow up with a doctor, nurse practitioner, or physician?s assistant to the dean for ongoing care. If your symptoms become worse or you do not improve as expected and you are unable to reach your usual health care provider, you should return to the Emergency Department. We are available 24 hours a day. CHAYA RODRIGUZE has been given the following list of patient education materials, prescriptions and follow-up instructions: Follow-up Instructions: With: Address: When: Kamari Hartman [address] [place] [address] [facility] () In 3 days 02/12/2024 Comments: You can take the pain medication every 12 hours as prescribed as needed for pain. Please follow-up with your primary care doctor in addition to orthopedics for further evaluation management. Please return to the ED for any new or worsening symptoms. With: Address: When: SERA NORRIS In 3 days 02/12/2024 In the event that this physician does not participate in your insurance network, please consult with your insurance company to find a nearby participating provider. Patient Education Materials: Knee Sprain, Adult, Kxnf-yw-Igse A MESSAGE TO ALL PATIENTS REGARDING OPIOIDS PRESCRIPTION OPIOIDS: WHAT YOU NEED TO KNOW Prescription opioids can be used to help relieve bmnewqqc-xn-ypzyjv pain and are often prescribed following a [...] Administration (www.fda.gov/Drug (more content not included)... [facility] XR Knee Complete 4+ Views Christian gonzalez 02-10-2024 XR Knee Complete 4+ Views Right Exam Date/Time: 02/09/2024 22:47 EDT Reason for Exam: Pain, Traumatic Report [facility] [phone] IMPRESSION: NEGATIVE RIGHT KNEE. CLINICAL HISTORY: Pain, [...] OPHELIA Technologist: CLAUDETTE Technical Comments Radiation Dose: Ka,r in mGy = na DAP = na [facility] Consent for Treatmenton 01-16 Consent for Treatment [id number] #1.00TIFF Normal [facility] Discharge Instructionson Discharge Instructions [id number] 2#1.00TIFF Normal [facility] ED Clinical Summaryon 2023 ED Clinical Summary [address] [address] ED Clinical Summary Person Information Name: CHAYA RODRIGUEZ/[facility] Age: 53 Years : 1970 Sex: Female Language: German PCP: NONE, XXXX Marital Status: Visit Id: [...] 01/26/2024 23:21:48 01/26/2024 23:21:48 01/26/2024 23:21:48 ADDRESS: [address] [place] [phone] PHYS DOC NOTES: MEDICAL INFORMATION: Prescriptions Given: Medications to Continue with No Changes Other Medications naproxen (Naprosyn 500 mg Tab) 1 Tablets By Mouth 2 times a day. Refills: 0. PATIENT EDUCATION INFORMATION: Instructions: Toe Fracture, Jypm-en-Hlbq Follow up: With: Address: When: Pan Rin[address] [place] [address] Business (1) In 3 days 01/29/2024 Comments: You can use the pain medication every 6 hours as needed for pain. Please follow-up with orthopedics for further evaluation management. Please return to the ED for any new or worsening symptoms. With: Address: When: XXXX [facility] , [place] In 3 days DIAGNOSIS: Toe fracture [facility] ED Note-Physicianon 01-27-20 ED Note-Physician Basic Information [...] and Complexity of Problems Differential Diagnosis: [] [facility] Data External documents reviewed: [] My EKG [...] Rincon In 3 days 01/29/2024 EDT [address] [place] [address]- [facility] (1) Additional Instructions: You can use the pain medication every 6 hours as needed for pain. Please follow-up with orthopedics for further evaluation management. Please return to the ED for any new or worsening symptoms. XXXX NONE In 3 days [place] Additional Instructions: Patient Education Toe Fracture, Rzuk-uv-Jobv Problem List/Past Medical History Ongoing Smoker Historical [...] 3rd digit Read By: Hayde Pro DO [facility] Comment on above: Result Comment: Elec tronically [...] provider. Document Revised: 04/09/2022 Document Reviewed: 04/09/2022 [employer] Patient Education ? 2022 [employer] Normal [facility] ED Patient Summaryon 024 ED Patient Summary [place] [id number] Patient Discharge Instructions Person Information Name: CHAYA RODRIGUEZ Age: 53 Years Arrival Date: 01/26/2024 22:26:58 Discharge Diagnosis: Toe fracture Primary Care Physician: NONE, XXXX Provider Information Primary Provider: Hayde Pro DO Advanced Tailman:None The exam and treatment you received in the Emergency Department were for an urgent problem and are not intended as complete care. It is important that you follow up with a doctor, nurse practitioner, or physician?s assistant to the dean for ongoing care. If your symptoms become worse or you do not improve as expected and you are unable to reach your usual health care provider, you should return to the Emergency Department. We are available 24 hours a day. CHAYA RODRIGUEZ has been given the following list of patient education materials, prescriptions and follow-up instructions: Follow-up Instructions: With: Address: When: Pan Rincon [address] [place] [address] Business (1) In 3 days 01/29/2024 Comments: You can use the pain medication every 6 hours as needed for pain. Please follow-up with orthopedics for further evaluation management. Please return to the ED for any new or worsening symptoms. With: Address: When: XXXX [facility] , [place] In 3 days In the event that this physician does not participate in your insurance network, please consult with your insurance company to find a nearby participating provider. Patient Education Materials: Toe Fracture, Tdcz-mt-Jpcc A MESSAGE TO ALL PATIENTS REGARDING OPIOIDS PRESCRIPTION OPIOIDS: WHAT YOU NEED TO KNOW Prescription opioids can be used to help relieve hwxqxpor-sv-hnubvx pain and are often prescribed following a [...] the ris (more content not included)... [facility] XR Foot 3+ Views Lefton 03 XR Foot 3+ Views Left Exam Date/Time: [...] mGy = n/a DAP = n/a [facility] Auto Diffon 11-06-2023 Basophils/100 WBC (Bld) 0.9 % Normal 0.0-2.0 [facility] Comment on above: Order Comment: Order Added by Discern Expert. Performed By: #### 2 [id number], [id number] ####[facility] [address] [place] [address] Basophils/Leukocytes Auto (Bld) [Pure # fraction] 0.1 E9/L Normal 0.0-0.2 [facility] Comment on above: Order Comment: Order Added by Discern Expert. Performed By: #### 2 [id number], [id number], [id number] ####[facility] [address] [place] [address] Eosinophils/100 WBC (Bld) 2.3 % Normal 0.0-8.0 [facility] Comment on above: Order Comment: Order Added by Discern Expert. Performed By: #### 2 [id number], [id number], [id number], [id number] ####[facility] [address] [place] [address] Eosinophils/Leukocytes Auto (Bld) [Pure # fraction] 0.3 E9/L Normal 0.0-0.5 [facility] Comment on above: Order Comment: Order Added by Discern Expert. Performed By: #### 2 [id number], [id number], [id number], [id number] ####[facility] [address] [place] [address] Lymphocytes/100 WBC (Bld) 36.1 % Normal 14.0-50.0 [facility] Comment on above: Order Comment: Order Added by Discern Expert. Performed By: #### 2 [id number], [id number], [id number], [id number] ####[place] [address] [place] [address] Lymphocytes/Leukocytes Auto (Bld) [Pure # fraction] 5.3 E9/L High 1.0-4.0 [facility] Comment on above: Order Comment: Order Added by Discern Expert. Performed By: #### 2 [id number], [id number], [id number], [id number] ####[address] [address] Monocytes/100 WBC (Bld) 3.0 % Low 4.0-14.0 [facility] Comment on above: Order Comment: Order Added by Anne Expert. Performed By: #### 2 [id number], [id number], [id number], [id number] ####[address] [address] Monocytes/Leukocytes Auto (Bld) [Pure # fraction] 0.4 E9/L Normal 0.2-1.0 [facility] Comment on above: Order Comment: Order Added by Anne Expert. Performed By: #### 2 743809, 4054828, 54484838, [id number] ####[address] [address] Neutrophils/100 WBC (Bld) 57.7 % Normal 36.0-75.0 [facility] Comment on above: Order Comment: Order Added by Discern Expert. Performed By: #### 2 885271, 2001416, [id number], 5691184 ####[place] [address] [place] [address] Neutrophils/Leukocytes Auto (Bld) [Pure # fraction] 8.5 E9/L High 2.0-7.5 [facility] Comment on above: Order Comment: Order Added by Anne Expert. Performed By: #### 2 111577, 1547135, 59673783, [id number] ####[address] [address] BMPon 11-06-2023 Anion gap [Moles/Vol] 12 mmol/L Normal 6-16 [facility] Comment on above: Performed By: #### 2 061486, 9785301, 50150165, 9291945 ####[facility] [address] [place] [address] BUN/Creat Ratio 10 No Units Normal 10-20 [facility] Comment on above: Performed By: #### 2 793541, 9159927, 38906011, 3612007 ####[facility] [address] [place] [address] Calcium [Mass/Vol] 9.5 mg/dL Normal 8.9-11.1 [facility] Comment on above: Performed By: #### 2 400793, 7943864, 09961863, 1324043 ####[facility] [address] [place] [address] Chloride [Moles/Vol] 101 mmol/L Normal 101-111 [facility] Comment on above: Performed By: #### 2 049470, 7488323, 84583121, 1432946 ####[facility] [address] [place] [address] CO2 [Moles/Vol] 27 mmol/L Normal 21-31 [facility] Comment on above: Performed By: #### 2 879287, 7060162, 40748498, 1857274 ####[facility] [address] [place] [address] Creatinine [Mass/Vol] 0.9 mg/dL Normal 0.5-1.3 [facility] Comment on above: Performed By: #### 2 271235, 3656071, 63355998, 4169914 ####[facility] [address] [place] [address] Glucose [Mass/Vol] 247 mg/dL High 55-199 [facility] Comment on above: Performed By: #### 2 561695, 5699929, 20126375, 9194989 ####[facility] [address] [place] [address] Potassium [Moles/Vol] 3.7 mmol/L Normal 3.5-5.3 [facility] Comment on above: Performed By: #### 2 628765, 9071107, 32603329, 1732232 ####[facility] [address] [place] [address] Sodium [Moles/Vol] 136 mmol/L Normal 135-145 [facility] Comment on above: Performed By: #### 2 218370, 6408813, 53851944, 7377052 ####[facility] [address] [place] [address] Urea nitrogen [Mass/Vol] 9 mg/dL Normal 5-21 [facility] Comment on above: Performed By: #### 2 063160, 4486092, 25192504, 8090056 ####[facility] [address] [place] [address] CBC w/ Auto Diffon 3 Erythrocyte distribution width (RBC) [Ratio] 13.2 % Normal 10.9-14.2 [facility] Comment on above: Performed By: #### 2 300263, 8710092, 96695347, 7118961 ####[facility] [address] [place] [address] Hematocrit (Bld) [Volume fraction] 42.3 % Normal 34.0-46.0 [facility] Comment on above: Performed By: #### 2 970064, 2949507, 89460440, 9699108 ####[facility] [address] [place] [address] Hemoglobin (Bld) [Mass/Vol] 14.5 g/dL Normal 12.0-16.0 [facility] Comment on above: Performed By: #### 2 509443, 9401490, 89332510, 7235691 ####[facility] [address] [place] [address] MCH (RBC) [Entitic mass] 30.3 pg Normal 27.0-34.0 [facility] Comment on above: Performed By: #### 2 111767, 3380179, 46513204, 6725772 ####[place] [address] MCHC (RBC) [Mass/Vol] 34.4 g/dL Normal 31.4-36.0 [facility] Comment on above: Performed By: #### 2 923781, 6763138, 51496495, 4413923 ####[place] [address] MCV (RBC) [Entitic vol] 88.3 fL Normal 80.0-100.0 [facility] Comment on above: Performed By: #### 2 326012, 3832949, 70531614, 1989169 ####[address] [address] Platelet mean volume (Bld) [Entitic vol] 8.7 fL Normal 6.4-10.8 [facility] Comment on above: Performed By: #### 2 480671, 5392171, 62462086, 6355021 ####[place] [address] Platelets (Bld) [#/Vol] 288.0 E9/L Normal 150.0-500.0 [facility] Comment on above: Performed By: #### 2 637039, 7187232, 51301245, 3620843 ####[place] [address] RBC (Bld) [#/Vol] 4.8 E12/L Normal 4.3-5.9 [facility] Comment on above: Performed By: #### 2 007552, 1395380, 85173050, 2342475 ####[address] [address] WBC corrected for nucl RBC Auto (Bld) [#/Vol] 14.8 E9/L High 4.0-11.0 [facility] Comment on above: Result Comment: Slid e reviewed by KD. Performed By: #### 2 100124, 3755983, 85287103, 4182205 ####[facility] [address] [place] [address] CHEMISTRYOrdered By: SYSTEM SYSTEM on 11-06-2023 Anion [...] Treatmenton 10-19 Consent for Treatment [id number] #1.00TIFF Normal [facility] HEMATOLOGYOrdered By: SYSTEM SYSTEM on 11-06-2023 Basophils/100 [...] 7.5 E9/L [facility] HEMATOLOGYOrdered By: Sharon Sozua on 11-06-2023 Erythrocyte distribution width (RBC) [Ratio] [...] 14.8 E9/L High 4.0 - 11.0 E9/L [facility] Comment on above: Result Comment: Slid e reviewed by KD. eGFRon 11-06-2023 GFR/1.73 sq M.predicted among non-blacks MDRD (S/P/Bld) [Vol rate/Area] mL/min/{1.73_m2} Normal >=59 [facility] Comment on above: Order Comment: Order added by Discern Expert. Performed By: #### 2 828366, 5619814, 85994835, 6569087 ####[facility] [address] [place] [address] Physician Orderon 11-04-2023 Physician Order [id number] #1.00TIFF Normal [facility] Physician Orderon 10-31-2023 Physician Order [id number] #1.00TIFF Normal [facility] MRI Knee w/ + w/o Contrast R [facility] 10-09-2023 MRI Knee w/ + w/o Contrast [...] Comments Contrast amount in ml's: 14 Normal [facility] Consent for Treatmenton 09-19 Consent for Treatment [id number] #1.00TIFF Normal [facility] RAD - MRI Screening Formon 1 12-07-2022 RAD - MRI Screening Form [id number] 4#1.00TIFF Normal [facility] Physician Orderon 09-30-2023 Physician Order [id number] #1.00TIFF Normal [facility] ED Note-Physicianon 09-03-20 ED Note-Physician Basic Information [...] and Complexity of Problems Differential Diagnosis: [] [facility] Data External documents reviewed: [] My EKG [...] day(s), # 12 tab(s), Refills(s) 0, Pharmacy: [id number], 170, cm, 09/01/23 14:16:00 EDT, Height/Length Dosing, 70.5, kg, 09/01/23 14:16:00 EDT, Weight Dosing XR Knee Complete 4+ Views Right Disposition Plan Patient Discharge Condition Stable Discharge Disposition To home Discharge Prescription List Prescriptions traMADOL 50 mg Tab, 50 mg= 1 tab(s), Oral, q6hr, PRN Follow-up With When Contact Information Pan Rincon In 3 days 09/04/2023 EDT [address] [place] [address]- Business (1) Additional Instructions: You may follow-up with Dr. Rincon for further evaluation of your knee cyst. Naomy RINCON In 3 days 09/04/2023 EDT [address] [place] [address]- Business (1) Additional Instructions: Follow-up with your primary care provider in 3 to 5 days. If symptoms worsen, do not improve, or new symptoms arise please report back to emergency department for further evaluation. Patient Education Meniscal Cyst Attestation Patient seen and evaluated by the physician assistant to the dean. Attending physician was present in the emergency department and supervised care. This visit was performed by both the physician and an APC. I performed all aspects of the MDM as documented. This report was transcribed using voice recognition software. Every effort was made to ensure accuracy, however, inadvertently computerized transcriptio (more content not included)... [facility] Comment on above: Result Comment: Elec tronically Signed By: Yahir Wade PA-C\.br\Date and Time Signed: 09/01/23 18:11 EDT\.br\Electronically Co-Signed By: Wayne Rangel MD\.br\Date and Time Co-Signed: 09/03/23 20:04 EDT Consent for Treatmenton 08-18 Consent for Treatment [id number] #1.00TIFF Normal [facility] Discharge Instructionson Discharge Instructions [id number] 6#1.00TIFF Normal [facility] ED Clinical Summaryon 2022 ED Clinical Summary [place] [id number] ED Clinical Summary Person Information Name: [facility] Age: 52 Years : 1970 Sex: Female Language: German PCP: NONE, XXXX Marital Status: Single Visit [...] 09/01/2023 16:07:11 09/01/2023 16:07:11 09/01/2023 16:07:11 ADDRESS: [address] [place] [id number] [facility] DOC NOTES: MEDICAL INFORMATION: Prescriptions Given: New Medications [id number], [address] [place], [place] [id number], [phone] tramadol (traMADOL 50 mg Tab) 1 Tablets By Mouth every 6 hours as needed for pain for 3 Days. Refills: 0. Medications to Continue with No Changes Other Medications naproxen (Naprosyn 500 mg Tab) 1 Tablets By Mouth 2 times a day. Refills: 0. PATIENT EDUCATION INFORMATION: Instructions: Meniscal Cyst Follow up: With: Address: When: Pan Rincon [address] [place] [address] Business (1) In 3 days 09/04/2023 Comments: You may follow-up with Dr. Rincon for further evaluation of your knee cyst. With: Address: When: Naomy RINCON [address] [place] [address] Business (1) In 3 days 09/04/2023 Comments: Follow-up with your primary care provider in 3 to 5 days. If symptoms worsen, do not improve, or new symptoms arise please report back to emergency department for further evaluation. DIAGNOSIS: Cyst of right knee joint Normal [facility] ED Patient Education Noteon 09-01-2023 ED Patient [...] by your health care provider. ? Take pvor-pli-aostfrg and prescription medicines only as told by [...] movement of (more content not included)... Normal [facility] ED Patient Summaryon 023 ED Patient Summary [address] [address] Patient Discharge Instructions Person Information Name: CHAYA RODRIGUEZ Age: 52 Years Arrival Date: 09/01/2023 14:11:07 Discharge Diagnosis: Cyst of right knee joint Primary Care Physician: NONE, XXXX Provider Information Primary Provider: Advanced Tailman:None The exam and treatment you received in the Emergency Department were for an urgent problem and are not intended as complete care. It is important that you follow up with a doctor, nurse practitioner, or physician?s assistant to the dean for ongoing care. If your symptoms become worse or you do not improve as expected and you are unable to reach your usual health care provider, you should return to the Emergency Department. We are available 24 hours a day. CHAYA RODRIGUEZ has been given the following list of patient education materials, prescriptions and follow-up instructions: Follow-up Instructions: With: Address: When: Pan Rincon [address] [place] [address] Business () In 3 days 09/04/2023 Comments: You may follow-up with Dr. Rincon for further evaluation of your knee cyst. With: Address: When: Naomy RINCON [address] [place] [address] [employer] (1) In 3 days 09/04/2023 Comments: Follow-up [...] opioids can be used to help relieve ancaodfm-pv-irrzyj pain and are often prescribed following a [...] the t (more content not included)... Normal [facility] XR Knee Complete 4+ Views Christian gonzalez 09-01-2023 XR Knee Complete 4+ Views Right Exam Date/Time: 09/01/2023 15:35 EDT Reason for Exam: Pain, Non Traumatic Report IMPRESSION: MILD DEGENERATIVE CHANGE, RIGHT. CLINICAL HISTORY: Pain, Non Traumatic COMPARISON: NONE. FINDINGS: 4 views of the right knee. Mild narrowing of the medial, lateral, patellofemoral compartments. No fracture, dislocation, bone lesion, effusion. Ordering Provider: Yahir Wade FINAL REPORT Dictated: 09/01/2023 3:42 pm Dylon Aragon MD Signed (Electronic Signature): 09/01/2023 3:42 pm Signed by: Dylon Aragon MD Transcribed by: OPHELIA Technologist: SOL Technical Comments Radiation Dose: Ka,r in mGy = na DAP = na [facility] Consent for Treatmenton Consent for Treatment [id number] #1.00CD:127 Normal [facility] Discharge Instructionson Discharge Instructions [id number] #1.00CD:127 Normal [facility] ED Clinical Summaryon 2022 ED Clinical Summary [address] [address] ED Clinical Summary Person Information Name: CHAYA RODRIGUEZ/[facility] Age: 52 Years : 1970 Sex: Female Language: German PCP: NONE, XXXX Marital Status: Single Visit [...] 06/18/2023 17:41:22 06/18/2023 17:41:22 06/18/2023 17:41:22 ADDRESS: [address] [place] [id number] PHYS DOC NOTES: MEDICAL INFORMATION: Prescriptions Given: New Medications [facility] #[id number], [address] [place], [place] [id number], [phone] naproxen (Naprosyn 500 mg Tab) 1 Tablets By Mouth 2 times a day. Refills: 0. penicillin V potassium (penicillin V potassium 500 mg Tab) 1 Tablets By Mouth 3 times a day for 10 Days. Take one tab by mouth 3 times a day. # 30. Refills: 0. PATIENT EDUCATION INFORMATION: Instructions: Dental Pain Follow up: With: Address: When: [place] [address] [address] Business (1) In 3 days 06/21/2023 Comments: Dentistry follow-up DIAGNOSIS: Pain, dental Normal [facility] ED Note-Physicianon 06-18-20 ED Note-Physician Basic Information [...] BID, # 20 tab(s), Refills(s) 0, Pharmacy: [facility], 170, cm, 06/18/23 17:05:00 EDT, Height/Length Dosing, 70.5, kg, 06/18/23 17:05:00 EDT, Weight Dosing penicillin V potassium, 500 mg = 1 tab(s), Oral, TID, Take one tab by mouth 3 times a day. # 30, X 10 day(s), # 30 tab(s), Refills(s) 0, Pharmacy: [facility], 170, cm, 06/18/23 17:05:00 EDT, Height/Length Dosing, [...] Oral, TID Follow-up With When Contact Information [facility] In 3 days 06/21/2023 [place] [address]- Business (1) Additional Instructions: Dentistry follow-up Patient Education Dental Pain Attestation Patient seen and evaluated by the physician assistant to the dean. Attending physician was present in the emergency department and supervised care. This visit was performed by both the physician and an APC. I performed all aspects of the MDM as documented. This report was transcribed using voice recognition software. Every effort was made to ensure accuracy, however, inadvertently computerized location worker mistakes may be present. Appropriate healthcare [...] available. Diagnostic Results No qualifying data available. Normal [facility] Comment on above: Result Comment: Elec tronically [...] after getting dental care. Medicines ? Take olfe-lht-lqoyxys and prescription medicines only as told by [...] may be mild or severe. ? Take mvsr-uag-jmhtcua and prescription medicines only as told by [...] provider. Document Revised: 08/09/2021 Document Reviewed: 08/09/2021 [employer] Patient Education ? 2022 [employer]. Normal [facility] ED Patient Summaryon 023 ED Patient Summary [place] [address] Patient Discharge Instructions Person Information Name: CHAYA RODRIGUEZ Age: 52 Years Arrival Date: 06/18/2023 16:57:49 Discharge Diagnosis: Pain, dental Primary Care Physician: NONE, XXXX Provider Information Primary Provider: Erika Gann, Aádn Parry Advanced Tailman:Gopal Sutton PA-C The exam and treatment you received in the Emergency Department were for an urgent problem and are not intended as complete care. It is important that you follow up with a doctor, nurse practitioner, or physician?s assistant to the dean for ongoing care. If your symptoms become worse or you do not improve as expected and you are unable to reach your usual health care provider, you should return to the Emergency Department. We are available 24 hours a day. CHAYA RODRIGUEZ has been given the following list of patient education materials, prescriptions and follow-up instructions: Follow-up Instructions: With: Address: When: [place] [place] [id number] Business (1) In 3 days 06/21/2023 Comments: Dentistry follow-up In the event that this physician does not participate in your insurance network, please consult with your insurance company to find a nearby participating provider. Patient Education Materials: Dental Pain A MESSAGE TO ALL PATIENTS REGARDING OPIOIDS PRESCRIPTION OPIOIDS: WHAT YOU NEED TO KNOW Prescription opioids can be used to help relieve cblunoko-hg-qgylfe pain and are often prescribed following a [...] be struggling with addiction, tell your health intensive care medicine specialist and ask for guidance or call [facility] National Helpline at 9-692-067-PVQW. (more content not included)... Normal [facility] XR HAND RT MIN 3Von 09-29-20 22 [...] by: RENEE YOUNG Date: 2022-09-29 17:12 Normal [facility] XR FOREARM RT 2Von 2 XR [...] by: MYRTLE RODRIGUEZ Date: 2022-05-14 16:25 Normal [facility] Social History Date Type Detail Facility Start: 12-17-2023 Sex Assigned At Female F [facility] Start: 12-17-2023 Alcohol intake Ex-drinker (finding) [facility] Start: 10-18-1985 Tobacco smoking stat [facility] Smokes tobacco daily [facility] Start: 10-16-2023 End: 12-17-2023 Cigarettes smoked current (pack per day) - Reported 0.5 [facility] Start: 10-16-2023 Tobacco use and exposure Smokeless tobacco non-user [facility] Start: 09-01-2023 Tobacco smoking status Heavy t obacco smoker (finding) [facility] Start: 10-18-1985 History of tobacco use Cigarette Smo ker [facility] Start: 1970 Sex Assigned At Not on file N [facility] Tobacco smoking status [facility] Vital Signs Date Time Vital Sign Value Performing Clinician Pepito alatorre 03-18-2024 18:34-0400 Body temperature 98.24 [degF] [facility] 03-18-2024 18:34-0400 Diastolic blood pressure 70 mm[Hg] [facility] 03-18-2024 18:34-0400 Heart rate 79 /min [facility] 03-18-2024 18:34-0400 Respiratory rate 18 /min [facility] 03-18-2024 18:34-0400 SaO2% (BldA) [Mass fraction] 97 % [facility] 03-18-2024 18:34-0400 Systolic blood pressure 115 mm[Hg] Astrit Hajdari [facility] 02-09-2024 22:24-0400 Body temperature 97.88 [degF] Kaylinn Dokken [facility] 02-09-2024 22:24-0400 Diastolic blood pressure 73 mm[Hg] Kaylinn Dokken [facility] 02-09-2024 22:24-0400 Heart rate 84 /min Kaylinn Dokken [facility] 02-09-2024 22:24-0400 Respiratory rate 16 /min Kaylinn Dokken [facility] 02-09-2024 22:24-0400 SaO2% (BldA) [Mass fraction] 96 % Kaylinn Dokken [facility] 02-09-2024 22:24-0400 Systolic blood pressure 109 mm[Hg] Kaylinn Dokken [facility] 01-26-2024 22:34-0400 Body temperature 98.24 [degF] Kaylinn Dokken [facility] 01-26-2024 22:34-0400 Diastolic blood pressure 70 mm[Hg] Kaylinn Dokken [facility] 01-26-2024 22:34-0400 Heart rate 88 /min Kaylinn Dokken [facility] 01-26-2024 22:34-0400 Respiratory rate 16 /min Kaylinn Dokken [facility] 01-26-2024 22:34-0400 SaO2% (BldA) [Mass fraction] 97 % Kaylinn Dokken [facility] 01-26-2024 22:34-0400 Systolic blood pressure 112 mm[Hg] Hayde Pro [facility] 09-01-2023 14:57-0400 Diastolic blood pressure 65 mm[Hg] Wayne Juan Carlos [facility] 09-01-2023 14:57-0400 Heart rate 85 /min Wayne Juan Carlos [facility] 09-01-2023 14:57-0400 Mean blood pressure 80 mm[Hg] Wayne Juan Carlos [facility] 09-01-2023 14:57-0400 Respiratory rate 16 /min Wayne Juan Carlos [facility] 09-01-2023 14:57-0400 SaO2% (BldA) [Mass fraction] 97 % Wayne Juan Carlos [facility] 09-01-2023 14:57-0400 Systolic blood pressure 111 mm[Hg] Wayne Juan Carlos [facility] 09-01-2023 14:14-0400 Body temperature 98.24 [degF] Wayne Juan Carlos [facility] 09-01-2023 14:14-0400 Diastolic blood pressure 75 mm[Hg] Wayne Juan Carlos [facility] 09-01-2023 14:14-0400 Heart rate 105 /min Wayne Juan Carlos [facility] 09-01-2023 14:14-0400 Respiratory rate 18 /min Wayne Juan Carlos [facility] 09-01-2023 14:14-0400 SaO2% (BldA) [Mass fraction] 98 % Wayne Juan Carlos [facility] 09-01-2023 14:14-0400 Systolic blood pressure 115 mm[Hg] Wayne Juan Carlos [facility] 06-18-2023 17:00-0400 Body temperature 98.24 [degF] [facility] 06-18-2023 17:00-0400 Diastolic blood pressure 73 mm[Hg] [facility] 06-18-2023 17:00-0400 Heart rate 97 /min [facility] 06-18-2023 17:00-0400 Respiratory rate 16 /min [facility] 06-18-2023 17:00-0400 SaO2% (BldA) [Mass fraction] 97 % [facility] 06-18-2023 17:00-0400 Systolic blood pressure 120 mm[Hg] [facility] Functional Status Date Assessment Result Facility 03-18-2024 Functional Status N/A [facility] 02-09-2024 Functional Status N/A [facility] 01-26-2024 Functional Status N/A [facility] 09-01-2023 Functional Status N/A [facility] 06-18-2023 Functional Status N/A [facility] Clinical Notes 06-18-2023 to 03-18-2024 Note [...] risk for lung collapse and pneumonia. Medicines. Msrc-lks-rvctrwl or prescription medicines may be given to control pain. Injection of a numbing medicine around the nerve near your injury (nerve block). Follow these instructions at home: Medicines Take qmkn-auj-rttettp and prescription medicines only as told by your health care provider. Ask your health care provider if the medicine prescribed to you: ?Requires you to avoid driving or using machinery. ?Can cause constipation. You may need to take these actions to prevent or treat constipation: ?Drink enough fluid to keep your urine pale yellow. ?Take jzwm-cxk-ihxdiog or prescription medicines. ?Eat foods that are [...] provider. Document Revised: 02/08/2021 Document Reviewed: 02/08/2021 [employer] Patient Education 2022 [employer]. Follow Up Care 03/18/2024 18:08:50 With:Cory Mcqueen Address: [address] [facility] [address] [place] [id number] When:03/21/2024 19:30:51 Comments:You can use the medications as prescribed as needed for pain. Please follow-up with your primary care doctor next 2 to 3 days for further evaluation management. Please return to the ED for any new or worsening symptoms. With:XXXX NONE Address: [place] When:Within 3 Day(s) [facility] 03-18-2024 Evaluation + Plan note Extrac ginny [...] hours on and 12 hours off daily, [facility], 170, cm, 03/18/24 18:36:00 EDT, Height/Length Dosing, 70, kg, 03/18/24 18:36:00 EDT, Weight Dosing naproxen, 500 mg = 1 tab(s), Oral, BID, PRN for pain, # 20 tab(s), Refills(s) 0, Pharmacy: [facility], 170, cm, 03/18/24 18:36:00 EDT, Height/Length Dosing, 70, kg, 03/18/24 18:36:00 EDT, Weight Dosing [facility] Discharge instructions Patient Education 02/09/2024 23:01:01 Knee Sprain, Adult, Kquk-ge-Xxjv Knee Sprain A knee sprain is a [...] sitting or lying down. General instructions Take lvjt-xtx-ikruxsa and prescription medicines only as told by [...] provider. Document Revised: 02/11/2023 Document Reviewed: 09/23/2020 [employer] Patient Education 2022 [employer]. Follow Up Care 02/09/2024 22:22:55 With:Kamari Hartman Address: [address] [place], [place] [id number] [facility] (1) When:02/12/2024 Comments:You can take the pain medication every 12 hours as prescribed as needed for pain. Please follow-up with your primary care doctor in addition to orthopedics for further evaluation management. Please return to the ED for any new or worsening symptoms. With:XXXX NONE Address: ID When:02/12/2024 [facility]03-24-2024 Evaluation + Plan noteExtracted from: Title:ED Note Author:Hayde Pro DO Date :02/09/24 Knee sprain (S83.90XA: Sprai n of unspecified site of unspecified knee, initial encounter) Orders: acetaminophen-hydrocodone, 1 tab(s), Tab, Oral, Once, Stop date 02/09/24 22:52:00 EDT, STAT, Start date 02/09/24 22:52:00 EDT naproxen, 500 mg = 1 tab(s), Oral, BID, PRN for pain, # 20 tab(s), Refills(s) 0, Pharmacy: [id number], 170, cm, 02/09/24 22:28:00 EDT, Height/Length Dosing, 70.3, kg, 02/09/24 22:28:00 EDT, Weight Dosing XR Knee Complete 4+ Views Right [facility]03-11-2024 Hospital Discharge instructions Patient Education 01/26/2024 23:21:49 Toe Fracture, Eqvr-sd-Khoz Toe Fracture A toe fracture is a [...] provider. Document Revised: 04/09/2022 Document Reviewed: 04/09/2022 [employer] Patient Education 2022 [employer]. Follow Up Care 01/26/2024 22:28:41 With:Pan Rincon Address: [address] [address]- [employer] (1) When:01/29/2024 Comments:You can use the pain medication every 6 hours as needed for pain. Please follow-up with orthopedicsfor further evaluation management. Please return to the ED for any new or worsening symptoms. With:XXXX NONE Address: [place] When:Within 3 Day(s) [facility]10-15-2023 Hospital Discharge instructions Patient Education 09/01/2023 16:07:11 [...] told by your health care provider. Take dfcn-fur-bkcgwen and prescription medicines only as told by [...] provider. Document Revised: 03/09/2021 Document Reviewed: 03/09/2021 [employer] Patient Education 2022 [employer]. Follow Up Care 09/01/2023 14:11:44 With:Pan Rincon Address: [address] [place] [address]- [employer] (1) When:09/04/2023 15:59:05 Comments:You may follow-up with Dr. Rincon for further evaluation of your knee cyst. With:Naomy RINCON Address: [address] [place] [address]- Business (1) When:09/04/2023 15:58:55 Comments:Follow-up with your primary care provider in 3 to 5 days. If symptoms worsen, do not improve, or new symptoms arise please report back to emergency department for further evaluation. [facility]08-01-2023 Hospital Discharge instructions Patient Education 06/18/2023 17:41:23 [...] or after getting dental care. Medicines Take xnpu-bpw-yfklobc and prescription medicines only as told by [...] pain may be mild or severe. Take hxnl-bdi-wzvwkgv and prescription medicines only as told by [...] provider. Document Revised: 08/09/2021 Document Reviewed: 08/09/2021 [employer] Patient Education 2022 [employer]. Follow Up Care 06/18/2023 16:59:26 With:[employer] Address: [address] [place] [id number] [employer] (1) When:06/21/2023 17:19:24 Comments:Dentistry follow-up [facility]08-01-2023 Evaluation + Plan noteExtracted from: Title:ED Note Author:Herman PICKERING, Gopal Briones te:06/18/23 Pain, dental (K08.89: Other specified disorders of teeth and supporting structures) Orders: naproxen, 500 mg = 1 tab(s), Oral, BID, # 20 tab(s), Refills(s) 0, Pharmacy: [facility] #[id number], 170, cm, 06/18/23 17:05:00 EDT, Height/Length Dosing, 70.5, kg, 06/18/23 17:05:00 EDT, Weight Dosing penicillin V potassium, 500 mg = 1 tab(s), Oral, TID, Take one tab by mouth 3 times a day. # 30, X 10 day(s), # 30 tab(s), Refills(s) 0, Pharmacy: [facility] #[id number], 170, cm, 06/18/23 17:05:00 EDT, Height/Length Dosing, 70.5, kg, 06/18/23 17:05:00 EDT, Weight Dosing [facility] Diagnosis S/P right knee arthroscopy- Primary [facility] Narrative No data available for this section [facility] No data available for this section [facility] No data available for this section [facility] Summary Purpose Family History No Family History [...] content) DATE CREATED AUTHOR 03/27/2023 [facility] DATE CREATED AUTHOR AUTHOR'S ORGANIZ ATION 02/19/2024 [facility] DATE CREATED AUTHOR AUTHOR'S ORGANIZ ATION 03/22/2024 [facility] FOR RECORDS PERTAINING TO PATIENTS WHO ARE [...] BE BASED ON THE PRIMARY CLINICAL RECORDS. [facility]. provides no warranty or guarantee of the accuracy or completeness of information in this document.
[2024-05-15 22:43] VITALS: BP 133/70; PULSE 90; TEMP 36.8; O2SAT 97; BMI 23.5
--- NOTE | 2024-05-15 22:48 | XR_ITS ---
The [address] [address] Patient Name: CHAYA RODRIGUEZ MRN: [id number] date: 1970 Sex: F Assigned Patient Location: ER Current Patient Location: ER Accession/Order Number: [id number] Exam Date: 05/15/2024 23:59 Report Date: 05/16/2024 00:45 At the request of: TONIA BOND Procedure: XR ankle LT min 3V EXAM: XR ankle LT min 3V HISTORY: The patient is a 53-year-old female. Ankle wrapped in dog chain COMPARISON: None. FINDINGS: No acute or ununited fractures are seen within or around the ankle joint. The ankle mortise is intact and uniform. The syndesmosis is maintained. No soft tissue swelling is seen. XR/XR ankle LT min 3V IMPRESSION: Radiographically negative left ankle. Electronically authenticated by: LACY ALCALA Date: 05/16/2024 00:45
--- NOTE | 2024-05-16 01:57 | ED.LOWEXI1 ---
HPI HPI - Extremity Injury (Lower) General Chief Complaint: Extremity Injury, Lower Stated Complaint: Lower Pain Time Seen by Provider: 05/16/24 01:45 Source: patient Mode of arrival: walk-in Limitations: no limitations History of Present Illness HPI Narrative: walking her dogs and the leash wrapped around and twist her left ankle tonight. Presents complaining of pain of the ankle. Denies numbness , weakness or other injury Related Data Previous Rx's ?Medication ?Instructions ?Recorded oxycodone-acetaminophen 5 mg-325 1 tab PO Q6H PRN pain 3 days #12 05/03/24 mg tablet (Percocet) tabs Allergies Allergy/AdvReac Type Severity Reaction Status Date / Time No Known Drug Allergies Allergy Verified 05/15/24 22:47 Opioid HPI Opioid Management Most Recent Pain and Opioid Data: Last Pain Scale 8 03/13/24 23:11 Review of Systems ROS Status of ROS 10 or more systems reviewed and unremarkable except as noted in history and below PFSH PFSH Social History Smoking status: Current every day smoker Exam Constitutional Vital Signs, click to edit/add: Last Vital Signs Temp 98.2 F 05/15/24 22:43 Pulse 90 05/15/24 22:43 Resp 16 05/15/24 22:43 BP 133/70 05/15/24 22:43 Pulse Ox 97 05/15/24 22:43 O2 Del Method Room Air 05/15/24 22:43 Common normals: no apparent distress, average body habitus, oriented x3, no limitations, healthy appearing, alert and well nourished [facility] Common normals: normocephalic and head/scalp atraumatic Respiratory Common normals: normal respiratory effort, no retractions and no use of accessory muscles Cardio Common normals: regular rate, regular rhythm, S1 normal heart sound and S2 normal heart sound Extremity Other: mild swelling left lat. malleolus. No discoloration. mild-mod tenderness Neuro Common normals: oriented x3, CN's II-XII intact bilaterally, moves all extremities and no focal motor deficits Psych Appearance: grossly normal Course Vital Signs Vital signs: Vital Signs Temperature 98.2 F 05/15/24 22:43 Pulse Rate 90 05/15/24 22:43 Respiratory Rate 16 05/15/24 22:43 Blood Pressure 133/70 05/15/24 22:43 Pulse Oximetry 97 05/15/24 22:43 Oxygen Delivery Method Room Air 05/15/24 22:43 Temperature 98.2 F 05/15/24 22:43 Pulse Rate 90 05/15/24 22:43 Respiratory Rate 16 05/15/24 22:43 Blood Pressure 133/70 05/15/24 22:43 Pulse Oximetry 97 05/15/24 22:43 Oxygen Delivery Method Room Air 05/15/24 22:43 MDM - Extremity Injury (Lower) MDM Narrative Medical decision making narrative: patient presents after sprain injury left ankle while walking her dogs. Xray neg for fracture. Does have mild left lateral malleolus swelling. Placed in air cast and provided dose of motrin and discharged home Imaging Data Chest x-ray: Radiologist's impression: ITS Impressions Ankle X-Ray 05/15/24 22:48 IMPRESSION: Radiographically negative left ankle. Electronically authenticated by: LACY ALCALA Date: 05/16/2024 00:45 Discharge Plan Discharge Stand Alone Forms: Portal Instructions Chief Complaint: Extremity Injury, Lower Clinical Impression: Ankle sprain and strain Patient Disposition: Home, Self-Care Prescriptions / Home Meds: No Action oxycodone-acetaminophen [Percocet] 5-325 mg tablet 1 tab PO Q6H PRN (Reason: pain) 3 Days Qty: 12 0RF Print Language: Sierra Leonean Instructions: Ankle Sprain (ED) Additional Instructions: follow up with your doctor next week for recheck Referrals: Physician,Non-Staff, MD [Primary Care Provider] - 1 week
[2024-05-16 02:03] VITALS: BP 113/69; PULSE 79; O2SAT 99
[2024-05-16] MEDS: IBUPROFEN 400 MG TABLET 800 MG PO (02:33)
== END 2024-05-16 02:39 | disposition home or self-care (01) ==
PROVIDERS: Emergency Provider Internal Medicine
DX: S93.402A Sprain of unspecified ligament of left ankle, initial encounter (principal); S96.912A Strain of unspecified muscle and tendon at ankle and foot level, left foot, initial encounter; X50.1XXA Overexertion from prolonged static or awkward postures, initial encounter; Y93.K1 Activity, walking an animal; F17.200 Nicotine dependence, unspecified, uncomplicated
CPT/HCPCS: 73610; 99283

== ENCOUNTER 2024-07-10 20:28 | Emergency (ER) | payer MEDICAID, SELFPAY ==
--- OUTSIDE RECORDS SUMMARY | 2024-07-10 20:35 | XMS_ITS | CCD ---
Author Organization [facility] CliniSyde Care Team Providers Care Home Economics Expert Name Role Phone PAY ., DR YIN Admitting Unavailable GREMARY ALICE ., YUKI GARCIA Consulting Unavailabl e PAY ., DR YIN Attending Unavailable REQUEST, NONE LISTED Primary Care Unavaila ble JENNIFER, MYRTLE Consulting Unavailable STEVE ., JIMMY Attending [...] HARTMAN, KAMARI T Attending Unavailable HARTMAN, KAMARI Hair Attending Unavailable HILLS, JAQUI Hannah Attending Unavailable HARTMAN, KAMARI Hair Attending Unavailable HARTMAN, KAMARI T Referring Unavailable HILLS, JAQUI D Attending Unavailable HARTMAN, KAMARI Hair Attending Unavailable HARTMAN, KAMARI T Referring Unavailable HILLS, JAQUI D Referring Unavailable HILLS, JAQUI D Attending Unavailable HARTMAN, KAMARI Hair Attending Unavailable Dokken, Hayde Sheth Attending Unavailable Hartman, Kamari T Admitting Unavailable Hartman, Kamari T Attending Unavailable Hartman, Kamari T Referring Unavailable Channelview, Jaqui D Admitting Unavailable [place], Jaqui D Attending Unavailable [place], Jaqui D Referring Unavailable Dokken, Hayde Sheth Attending Unavailable Juan Carlos, Wayne Attending Unavailable JesusFederico Attending Unavailable Dokkjuan pablo, Hayde Sheth Attending Unavailable Allergies Allergy Classification Reported Allergen(s) Allergy Type Date of Onset Reaction(s) Facility (1 source) No Known Medication Allergies; Translations: [No Known Medication Allergies] Propensity to adverse reactions (disorder) [facility] Repository Medications Current Medications Medication Drug Class(es) Dates Sig (Normalized) Sig (Original) amoxicillin 875 mg / clavulanate 125 mg oral tablet (1 source) Penicillin-class Antibacterial Start: 06-20-2024 End: 06-27-2024 take 1 tablet by mouth every twelve hours Augmentin 875 mg oral tablet = 1 tab(s), Oral, q12hr, X 7 day(s), # 14 tab(s), Refills(s) 0, Pharmacy: [facility] #[id number], 170, cm, 06/20/24 17:44:00 EDT, Height/Length Dosing, 70.5, kg, 06/20/24 17:44:00 EDT, Weight Dosing Start Date: 06/20/24 Stop Date: 06/27/24 Status: Ordered lidocaine 0.05 mg/mg medicated patch (2 sources) Antiarrhythmic, Amide Local Anesthetic Start: 03-18-2024 Lidoderm 5% Patch 1 patch(es), Topical, Daily, 7 EA, Refill(s) 0, apply 12 hours on and 12 hours off daily, [facility] #[id number], 170, cm, 03/18/24 18:36:00 EDT, Height/Length Dosing, 70, kg, 03/18/24 18:36:00 EDT, Weight Dosing Start Date: 03/18/24 Status: Ordered Magnesium (1 source) Start: 01-16-2021 magnesium 200 MG tablet Multiple Vitamin (multivitamin) tablet (1 source) take 1 tablet by mouth in the morning Multiple Vitamin (multivitamin) tablet Take 1 tablet by mouth in the morning. 0 Active naproxen 500 mg oral tablet (15 sources) Nonsteroidal Anti-inflammatory Drug Start: 06-20-2024 End: 06-30-2024 take 1 tablet by mouth twice daily naproxen 500 mg Tab 500 mg = 1 tab(s), Oral, BID, X 10 day(s), # 20 tab(s), Refills(s) 0, Pharmacy: [facility] #[id number], 170, cm, 06/20/24 17:44:00 EDT, Height/Length Dosing, 70.5, kg, 06/20/24 17:44:00 EDT, Weight Dosing Start Date: 06/20/24 Stop Date: 06/30/24 Status: Ordered Start: 06-18-2023 End: 04-13-2024 take 1 tablet by mouth twice daily as needed for pain Naprosyn 500 mg Tab 500 mg = 1 tab(s), Oral, BID, PRN for pain, # 20 tab(s), Refills(s) 0, Pharmacy: [facility] #[id number], 170, cm, 03/18/24 18:36:00 EDT, Height/Length Dosing, [...] day(s), # 12 tab(s), Refills(s) 0, Pharmacy: [facility] #[id number], 170, cm, 09/01/23 14:16:00 EDT, Height/Length Dosing, [...] day(s), # 30 tab(s), Refills(s) 0, Pharmacy: [facility] #[id number], 170, cm, 06/18/23 17:05:00 EDT, Height/Length Dosing, 70.5, kg, 06/18/23 17:05:00 EDT, Weight Dosing Start Date: 06/18/23 Stop Date: 06/28/23 Status: Ordered Problems Active Problems Problem Classification Problem Date Documented Date Episodic/Chronic Disorders of teeth and jaw (8 sources) Other specified disorders of teeth and [...] of knee] Onset: 10-17-2022 Episodic Substance-related disorders (8 sources) Nicotine dependence, cigarettes, uncomplicated; Translations: [Smoker] [...] 05-14-2022 Episodic Other aftercare (1 source) Other senior living (current) drug therapy; Translations: [OTH PENITENTIARY CURRENT DRUG THERAPY] Onset: 10-03-2022 Episodic Other connective tissue disease (4 sources) Pain in right finger(s); Translations: [PAIN IN RIGHT FINGERS] Onset: 09-07-2022 Episodic Results Test Name Value Interpretation Reference Range Facility ED Note-Physicianon 06-22-20 ED Note-Physician ED Note-Physician Basic Information Time Seen: Ever Caldwell PA-C 06/20/2024 17:52 Chief Complaint dental pain started this am, radiates into jaw bottom left. no dentist. History of Present Illness Patient is a 53-year-old female who presents today for evaluation of her left-sided dental pain that radiates into her jaw. She states that this started this morning and has had this in the past due to dental caries. She states that because it Saturday she did not even try and contact her dentist. She states that she does have an oral surgeon that she follows up with and she will contact him on Saturday morning. She denies any fevers, body aches, chills. She does admit to poor dentition and knows that she needs teeth pulled. Review of Systems No other aggravating or relieving factors no other associated symptoms no other prior treatments or complaints. Family: Reviewed and noncontributory Social: lives at home Review of systems negative unless otherwise specified in the HPI. Physical Exam Vitals & Measurements T: 36.8 ?C(Oral) HR: 110(Peripheral) RR: 18 BP: 120/79 SpO2: 96% HT: 170 cm WT: 70.5 kg BMI: 24.39 Nurses notes reviewed and patient is noted to be non-hypoxic. General: The patient is comfortable, alert and oriented x3, well appearing, non toxic in no apparent distress. Head: Atraumatic and normocephalic. Eyes: Normal conjunctiva ENT: The oropharynx is normal. No pharyngeal erythema, uvular edema, tonsillar exudates, asymmetry or trismus. Uvula is midline. Mouth is normal to inspection With the exception of a pain on percussion of the tooth #20 and #21 and evidence of dental caries. There is no evidence of facial asymmetry or abscess formation. Floor of the mouth is soft. No tenderness in the submental or submandibular space. No tongue elevation or deviation. The patient has no evidence of periapical abscess, gingivitis, ANUG or other acute pathology. Airway is patent. Neck: The neck demonstrates normal range of motion. No meningeals signs are present. No stridor. No masses or lymphandenopathy noted. Respiratory: No acute distress. No stridor or retractions are noted. Cardiovascular: Normal perfusion peripherally. Skin: The skin exam shows no evidence of rashes Neuro: Alert and oriented, normal speech Medical Decision Making Patient is a 53-year-old female presents today for evaluation of her left-sided dental pain that radiates into her jaw. She has known poor dentition and needs teeth pulled. On exam there is multiple dental caries noted throughout the entire oral cavity. No evidence of abscess formation. She is afebrile and nontoxic-appearing. Pain to percussion of tooth #20 and 21. Given the concern for possible dental infection we will start her on Augmentin which I provided her with a dose here in the ED for. I will also start her on naproxen as an outpatient to help with pain and she will call her dentist first thing Saturday morning to get in with him. I did provide her with family health services if she is unable to get in with them. Return to ED precautions were reviewed with the patient at length. Assessment/Plan Dental infection (K04.7: Periapical abscess without sinus) Pain due to dental caries (K02.9: Dental caries, unspecified) Orders: amoxicillin-clavulana te, = 1 tab(s), Oral, q12hr, X 7 day(s), # 14 tab(s), Refills(s) 0, Pharmacy: [facility] #[id number], 170, cm, 06/20/24 17:44:00 EDT, Height/Length Dosing, 70.5, kg, 06/20/24 17:44:00 EDT, Weight Dosing amoxicillin-clavulana te, 1 tab(s), Tab, Oral, Once, Stop date 06/20/24 18:29:00 EDT, STAT, Start date 06/20/24 18:29:00 EDT naproxen, 500 mg = 1 tab(s), Oral, BID, X 10 day(s), # 20 tab(s), Refills(s) 0, Pharmacy: [facility] #[id number], 170, cm, 06/20/24 17:44:00 EDT, Height/Length Dosing, 70.5, kg, 06/20/24 17:44:00 EDT, Weight Dosing naproxen, 500 mg = 2 tab(s), Tab, Oral, Once, Stop date 06/20/24 18:29:00 EDT, STAT, Start date 06/20/24 18:29:00 EDT, 06/20/24 18:29:00 EDT Disposition Plan Patient Discharge Condition Stable Discharge Disposition Home Discharge Prescription List Prescriptions Augmentin 875 mg oral tablet, 1 tab(s), Oral, q12hr naproxen 500 mg Tab, 500 mg= 1 tab(s), Oral, BID Follow-up With When Contact LEYIO In 3 days 06/23/2024 EDT [address] [id number] [facility] (1) Additional Instructions: Justina FLYNN In 3 days 06/23/2024 EDT [address] [employer] [place], [place] [address] [facility] (1) Additional Instructions: Patient Education Dental Pain Attestation Patient seen and evaluated by the physician cafe assistant. Attending physician was present in the emergency department and supervised care. This visit was performed by both the physician and an APC. I performed all aspects of the MDM as documented. This report was transcribed using voice recognition software. Every effort was made to ensure accuracy, however, inadvertently computerized (more content not included)... [facility] Comment on above: Result Comment: Elec tronically Signed By: Ever Caldwell PA-C\.br\Date and Time Signed: 06/20/24 18:34 EDT\.br\Electronically Co-Signed By: Federico Lee DO\.br\Date and Time Co-Signed: 06/22/24 07:17 EDT ED Clinical Summaryon 2023 ED Clinical Summary ED Clinical Summary [address] [address] ED Clinical Summary Person Information Name: CHAYA RODRIGUEZ/Elissa Age: 53 Years : 1970 Sex: Female Language: Emirati PCP: NONE, XXXX Marital Status: Visit Id: Visit Reason: Jaw pain; Dental pain; JAAW PAIN Speciality: Acuity: 5 Enc Type: Emergency Med Service: Emergency Arrival: 06/20/2024 17:34:14 Discharge: 06/20/2024 18:34:50 LOS: 000 01:00 Checkin: 06/20/2024 17:34:14 Checkout: 06/20/2024 18:34:50 Dispo Type: Home (Routine DC) EVENTS: Event Name Event Status Request Date/Time Start Date/Time Complete Date/Time Arrive Complete 06/20/2024 17:34:14 06/20/2024 17:34:14 06/20/2024 17:34:14 Document Home Meds Request 06/20/2024 17:34:14 Triage Complete 06/20/2024 17:34:14 06/20/2024 17:44:00 06/20/2024 17:44:00 Registration Complete 06/20/2024 17:38:13 06/20/2024 17:38:13 06/20/2024 17:38:13 Reg Complete Request 06/20/2024 17:38:13 Reg Bed Request Complete 06/20/2024 17:38:13 06/20/2024 17:38:13 06/20/2024 17:38:13 Bed Assign Complete 06/20/2024 17:51:35 06/20/2024 17:51:35 06/20/2024 17:51:35 Dr Exam Complete 06/20/2024 17:51:35 06/20/2024 17:52:57 06/20/2024 17:52:57 RN Exam Complete 06/20/2024 17:51:35 06/20/2024 17:53:55 06/20/2024 17:53:55 Registration Request 06/20/2024 17:52:57 Dr Exam Complete 06/20/2024 17:55:29 06/20/2024 17:55:29 06/20/2024 17:55:29 Meds Admin Complete 06/20/2024 18:29:55 06/20/2024 18:33:52 Discharge Complete 06/20/2024 18:31:14 06/20/2024 18:35:00 06/20/2024 18:35:00 Transfer Complete 06/20/2024 18:35:00 06/20/2024 18:35:00 06/20/2024 18:35:00 ADDRESS: [address] [place] [phone] PHYS DOC NOTES: MEDICAL INFORMATION: Prescriptions Given: New Medications [facility] [employer] [facility] #[id number], [address] [place], [place] [phone], [phone] amoxicillin-clavulana te (Augmentin 875 mg oral tablet) 1 Tablets By Mouth every 12 hours for 7 Days. Refills: 0. Medications to Continue Taking That Have Changed [facility] [employer] [facility] #[id number], [address], [place] [phone], [phone] START: naproxen (naproxen 500 mg Tab) 1 Tablets By Mouth 2 times a day for 10 Days. Refills: 0. Other Medications START: naproxen (Naprosyn 500 mg Tab) 1 Tablets By Mouth 2 times a day. Refills: 0. START: naproxen (Naprosyn 500 mg Tab) 1 Tablets By Mouth 2 times a day as needed for pain. Refills: 0. START: naproxen (Naprosyn 500 mg Tab) 1 Tablets By Mouth 2 times a day as needed for pain. Refills: 0. Medications to Continue with No Changes Other Medications lidocaine topical (Lidoderm 5% Patch) 1 Patches Topical every day. apply 12 hours on and 12 hours off daily. Refills: 0. PATIENT EDUCATION INFORMATION: Instructions: Dental Pain Follow up: With: Address: When: [employer] [address] [address] Business (1) In 3 days 06/23/2024 With: Address: When: Justina FLYNN [address] [place] [address] Business (1) In 3 days 06/23/2024 DIAGNOSIS: Dental infection; Pain due to dental caries [facility] ED Patient Summaryon 024 ED Patient Summary ED Patient Summary [address] [address] Patient Discharge Instructions Person Information Name: CHAYA RODRIGUEZ Age: 53 Years Arrival Date: 06/20/2024 17:34:14 Discharge Diagnosis: Dental infection; Pain due to dental caries Primary Care Physician: NONE, XXXX Provider Information Primary Provider: Federico Lee DO [employer] P[employer]:Ever Caldwell PA-C The exam and treatment you received in the Emergency Department were for an urgent problem and are not intended as complete care. It is important that you follow up with a doctor, nurse practitioner, or physician?s cafe assistant for ongoing care. If your symptoms become worse or you do not improve as expected and you are unable to reach your usual health care provider, you should return to the Emergency Department. We are available 24 hours a day. CHAYA RODRIGUEZ has been given the following list of patient education materials, prescriptions and follow-up instructions: Follow-up Instructions: With: Address: When: [employer] [address] [place] [address] Business (1) In 3 days 06/23/2024 With: Address: When: Justina FLYNN [address] [place] [address] [facility] (1) In 3 days 06/23/2024 In the event that this physician does not participate in your insurance network, please consult with your insurance company to find a nearby participating provider. Patient Education Materials: Dental Pain A MESSAGE TO ALL PATIENTS REGARDING OPIOIDS PRESCRIPTION OPIOIDS: WHAT YOU NEED TO KNOW Prescription opioids can be used to help relieve yqzyesmr-uh-ofctjt pain and are often prescribed following a [...] guidance from the Food and Drug Administration (www.fda.gov/Drugs/Re sourcesForYou). ? Visit www.cdc.gov/drugoverd ose to learn about the risks of opioids abuse and overdose. ? If you believe you may be str (more content not included)... [facility] XR Ribs Unilat 3 Views Left w/ [...] in mGy = na DAP = na [facility] Consent for Treatmenton Consent for Treatment [id number] .00TIFF [facility] Discharge Instructionson Discharge Instructions [id number] .00TIFF [facility] ED Clinical Summaryon 2023 ED Clinical Summary [address] [address] ED Clinical Summary Person Information Name: CHAYA RODRIGUEZ/[place] Age: 53 Years : 1970 Sex: Female Language: Emirati PCP: NONE, XXXX Marital Status: Visit Id: [...] 03/18/2024 19:38:51 03/18/2024 19:38:51 03/18/2024 19:38:51 ADDRESS: [address] [place] [phone] PHYS DOC NOTES: MEDICAL INFORMATION: Prescriptions Given: [id number] [address] [place], [place] [phone], [phone] lidocaine topical (Lidoderm 5% Patch) 1 Patches Topical every day. apply 12 hours on and 12 hours off daily. Refills: 0. Medications to Continue Taking That Have Changed [facility] #[id number], [address] [place], [place] [phone], [phone] START: naproxen (Naprosyn 500 mg Tab) 1 [...] Cory Mcqueen [address] [place], [place] [phone] In 3 days 03/21/2024 Comments: You can use the medications as prescribed as needed for pain. Please follow-up with your primary care doctor next 2 to 3 days for further evaluation management. Please return to the ED for any new or worsening symptoms. With: Address: When: XXXX NONE , [place] In 3 days DIAGNOSIS: Contusion of rib on left side [facility] ED Note-Physicianon 03-18-20 ED Note-Physician Basic [...] front wall of thorax, initial encounter) Orders: acetaminophen-hydroco done, 1 EA, Tab, Oral, Once, Stop date 03/18/24 19:29:00 EDT, STAT, Start date 03/18/24 19:29:00 EDT lidocaine topical, 1 patch(es), Patch, TransDermal, Once, Stop date 03/18/24 19:28:00 EDT, STAT, Start date 03/18/24 19:28:00 EDT lidocaine topical, 1 patch(es), Topical, Daily, 7 EA, Refill(s) 0, apply 12 hours on and 12 hours off daily, [facility] #[id number], 170, cm, 03/18/24 18:36:00 EDT, Height/Length Dosing, 70, kg, 03/18/24 18:36:00 EDT, Weight Dosing naproxen, 500 mg = 1 tab(s), Oral, BID, PRN for pain, # 20 tab(s), Refills(s) 0, Pharmacy: [facility] #[id number], 170, cm, 03/18/24 18:36:00 EDT, Height/Length Dosing, 70, kg, 03/18/24 18:36:00 EDT, Weight Dosing Medications Administered Given Lidoderm 5% Patch, 1 patch(es), TransDermal TO GO acetaminophen-hydroco done 325 mg - 5 mg, 1 EA, Oral Disposition Plan Discharge Prescription List Prescriptions Lidoderm 5% Patch, 1 patch(es), Topical, Daily Naprosyn 500 mg Tab, 500 mg= 1 tab(s), Oral, BID, PRN Follow-up With When Contact Information Cory Mcqueen In 3 days 03/21/2024 EDT [address] [place] [address] Additional Instructions: You can use the medications [...] rib fracture Read By: Hayde Pro DO [facility] Comment on above: Result Comment: Elec tronically [...] for lung collapse and pneumonia. ? Medicines. Axju-voo-tewchhf or prescription medicines may be given to control pain. ? Injection of a numbing medicine around the nerve near your injury (nerve block). Follow these instructions at home: Medicines ? Take mjry-fiu-gggfjcb and prescription medicines only as told by your health care provider. ? Ask your health care provider if the medicine prescribed to you: ? Requires you to avoid driving or using machinery. ? Can cause constipation. You may need to take these actions to prevent or treat constipation: ? Drink enough fluid to keep your urine pale yellow. ? Take hosg-lrt-gtavgli or prescription medicines. ? Eat foods that [...] Reviewed: 02/08/2021 Elsevier Patient Education ? 2022 [employer] [facility] ED Patient Summaryon 024 ED Patient Summary [address] [id number] Patient Discharge Instructions Person Information Name: CHAYA RODRIGUEZ Age: 53 Years Arrival Date: 03/18/2024 18:08:32 Discharge Diagnosis: Contusion of rib on left side Primary Care Physician: NONE, XXXX Provider Information Primary Provider: Hayde Pro DO [employer] P[employer]:None The exam and treatment you received in the Emergency Department were for an urgent problem and are not intended as complete care. It is important that you follow up with a doctor, nurse practitioner, or physician?s cafe assistant for ongoing care. If your symptoms [...] Cory Mcqueen [address] [place], [place] [phone] In 3 days 03/21/2024 Comments: You can use the medications as prescribed as needed for pain. Please follow-up with your primary care doctor next 2 to 3 days for further evaluation management. Please return to the ED for any new or worsening symptoms. With: Address: When: XXXX [facility] , [place] In 3 days In the event that this physician does not participate in your insurance network, please consult with your insurance company to find a nearby participating provider. Patient Education Materials: Rib Contusion A MESSAGE TO ALL PATIENTS REGARDING OPIOIDS PRESCRIPTION OPIOIDS: WHAT YOU NEED TO KNOW Prescription opioids can be used to help relieve hlocrldd-qa-hfkjeo pain and are often prescribed following a [...] guidance from the Food and Drug Administration (www.fda.gov/Drugs/Re sourcesForYou). ? Visit www.cdc.gov/drugoverd ose to learn abou (more content not included)... [facility] Discharge Instructionson Discharge Instructions [id number] .00TIFF [facility] XR Knee Complete 4+ Views Ri mireyagloria 02-10-2024 XR Knee Complete 4+ Views Right Exam Date/Time: 02/09/2024 22:47 EDT Reason for Exam: Pain, Traumatic Report [facility] [phone] IMPRESSION: NEGATIVE RIGHT KNEE. CLINICAL HISTORY: Pain, [...] mGy = na DAP = na [facility] Consent for Treatmenton 01-17 Consent for Treatment [id number] .00TIFF [facility] ED Clinical Summaryon 2023 ED Clinical Summary [address] [address] ED Clinical Summary Person Information Name: CHAYA RODRIGUEZ Katia/[facility] Age: 53 Years : 1970 Sex: Female Language: Emirati PCP: NONE, XXXX Marital Status: Visit Id: [...] 02/09/2024 23:01:00 02/09/2024 23:01:00 02/09/2024 23:01:00 ADDRESS: [address] [place] [id number] PHYS DOC NOTES: MEDICAL INFORMATION: Prescriptions Given: Medications to Continue Taking That Have Changed [facility] #[id number], [address] [place], [place] [id number], [phone] START: naproxen (Naprosyn 500 mg Tab) 1 Tablets By Mouth 2 times a day as needed for pain. Refills: 0. Other Medications START: naproxen (Naprosyn 500 mg Tab) 1 Tablets By Mouth 2 times a day. Refills: 0. PATIENT EDUCATION INFORMATION: Instructions: Knee Sprain, Adult, Dotd-vp-Bflv Follow up: With: Address: When: Kamari Hartman [address] [place], [place] [id number] [employer] (1) In 3 days 02/12/2024 Comments: You can take the pain medication every 12 hours as prescribed as needed for pain. Please follow-up with your primary care doctor in addition to orthopedics for further evaluation management. Please return to the ED for any new or worsening symptoms. With: Address: When: XXXX NONE , [place] In 3 days 02/12/2024 DIAGNOSIS: Knee sprain [facility] ED Note-Physicianon 02-09-20 ED Note-Physician Basic Information Time Seen: Hayde [...] and Complexity of Problems Differential Diagnosis: [] MDM Data External documents reviewed: [] My EKG [...] Patient's x-ray imaging is negative. Patient given Ramsay in the ED for pain is discharged [...] site of unspecified knee, initial encounter) Orders: acetaminophen-hydroco done, 1 tab(s), Tab, Oral, Once, Stop date 02/09/24 22:52:00 EDT, STAT, Start date 02/09/24 22:52:00 EDT naproxen, 500 mg = 1 tab(s), Oral, BID, PRN for pain, # 20 tab(s), Refills(s) 0, Pharmacy: [facility] #[id number], 170, cm, 02/09/24 22:28:00 EDT, Height/Length Dosing, 70.3, kg, 02/09/24 22:28:00 EDT, Weight Dosing XR Knee Complete 4+ Views Right Disposition Plan Discharge Prescription List Prescriptions Naprosyn 500 mg Tab, 500 mg= 1 tab(s), Oral, BID, PRN Follow-up With When Contact Information Kamari Hartman In 3 days 02/12/[address] [place] [address]- [facility] (1) Additional Instructions: You can take the pain medication every 12 hours as prescribed as needed for pain. Please follow-up with your primary care doctor in addition to orthopedics for further evaluation management. Please return to the ED for any new or worsening symptoms. XXXX NONE In 3 days 02/12/2024 EDT [place] Additional Instructions: Patient Education Knee Sprain, Adult, Amqa-lg-Fbxy Problem List/Past Medical History Ongoing Smoker Historical [...] abnormality Read By: Hayde Pro DO [facility] Comment on above: Result Comment: Elec tronically Signed By: Hayde Pro DO\.br\Date and Time Signed: 02/09/24 22:54 EDT ED Patient Education Noteon 02-09-2024 ED Patient Education Note Orthopedics Knee Sprain [...] or lying down. General instructions ? Take aasp-bvy-cqsxjkd and prescription medicines only as told by [...] provider. Document Revised: 02/11/2023 Document Reviewed: 09/23/2020 [employer] Patient Education ? 2022 [employer] Normal [facility] ED Patient Summaryon 024 ED Patient Summary [address] [address] Patient Discharge Instructions Person Information Name: CHAYA RODRIGUEZ Age: 53 Years Arrival Date: 02/09/2024 22:21:16 Discharge Diagnosis: Knee sprain Primary Care Physician: NONE, XXXX Provider Information Primary Provider: Hadye Pro DO [employer] Pneumatic:None The exam and treatment you received in the Emergency Department were for an urgent problem and are not intended as complete care. It is important that you follow up with a doctor, nurse practitioner, or physician?s cafe assistant for ongoing care. If your symptoms [...] Instructions: With: Address: When: Kamari Hartman [address] [place] [address] Business (1) In 3 days 02/12/2024 Comments: You can take the pain medication every 12 hours as prescribed as needed for pain. Please follow-up with your primary care doctor in addition to orthopedics for further evaluation management. Please return to the ED for any new or worsening symptoms. With: Address: When: XXXX NONE , [place] In 3 days 02/12/2024 In the event that this physician does not participate in your insurance network, please consult with your insurance company to find a nearby participating provider. Patient Education Materials: Knee Sprain, Adult, Uxvp-yg-Ocic A MESSAGE TO ALL PATIENTS REGARDING OPIOIDS PRESCRIPTION OPIOIDS: WHAT YOU NEED TO KNOW Prescription opioids can be used to help relieve arrthtmy-pl-epexzc pain and are often prescribed following a [...] Drug Administration (www.fda.gov/Drug (more content not included)... [facility] Discharge Instructionson Discharge Instructions [id number]# 1.00TIFF [facility] ED Note-Physicianon 01-27-20 24 ED Note-Physician Basic Information Time Seen: Hayde [...] toe(s), initial encounter for closed fracture) Orders: acetaminophen-hydroco done, 1 EA, Tab, Oral, Once, Stop date 01/26/24 23:12:00 EDT, STAT, Start date 01/26/24 23:12:00 EDT Post-op Shoe XR Foot 3+ Views Left Medications Administered Given TO GO acetaminophen-hydroco done 325 mg - 5 mg, 1 EA, Oral Disposition Plan Discharge Prescription List Prescriptions No active prescription medications Follow-up With When Contact Information Pan Rincon In 3 days 01/29/2024 EDT [address] [place] [address]- [facility] (1) Additional Instructions: You can use the pain medication every 6 hours as needed for pain. Please follow-up with orthopedics for further evaluation management. Please return to the ED for any new or worsening symptoms. XXXX NONE In 3 days [place] Additional Instructions: Patient Education Toe Fracture, Zqcr-ul-Ayhd Problem List/Past Medical History Ongoing Smoker Historical [...] 3rd digit Read By: Hayde Pro DO [facility] Comment on above: Result Comment: Elec tronically Signed By: Hayde Pro DO\.br\Date and Time Signed: 01/27/24 02:14 EDT XR Foot 3+ Views Lefton 03- XR Foot 3+ Views Left Exam Date/Time: 01/26/2024 23:06 EDT Reason for Exam: Pain, Traumatic Report IMPRESSION: Possible nondisplaced fracture of the third toe distal phalanx. EXAMINATION/TECHNIQUE : XR Foot 3+ Views Left HISTORY: Pain [...] mGy = n/a DAP = n/a [facility] Consent for Treatmenton 01-16 Consent for Treatment [id number]#1 .00TIFF Normal [facility] ED Clinical Summaryon 2023 ED Clinical Summary [address] [address] ED Clinical Summary Person Information Name: CHAYA RODRIGUEZ/[facility] Age: 53 Years : 1970 Sex: Female Language: Emirati PCP: NONE, XXXX Marital Status: Visit Id: [...] 01/26/2024 23:21:48 01/26/2024 23:21:48 01/26/2024 23:21:48 ADDRESS: [address] [place] [id number] PHYS DOC NOTES: MEDICAL INFORMATION: Prescriptions Given: Medications to Continue with No Changes Other Medications naproxen (Naprosyn 500 mg Tab) 1 Tablets By Mouth 2 times a day. Refills: 0. PATIENT EDUCATION INFORMATION: Instructions: Toe Fracture, Erhn-kh-Fobk Follow up: With: Address: When: Pan Rincon [address] [place] [address] Business (6) In 3 days 01/29/2024 Comments: You can use the pain medication every 6 hours as needed for pain. Please follow-up with orthopedics for further evaluation management. Please return to the ED for any new or worsening symptoms. With: Address: When: XXXX NONE , [place] In 3 days DIAGNOSIS: Toe fracture Normal [facility] ED Patient Education Noteon 01-26-2024 ED Patient Education Note Orthopedics Toe Fracture [...] Reviewed: 04/09/2022 Elsevier Patient Education ? 2022 [employer]. Normal [facility] ED Patient Summaryon 024 ED Patient Summary [address] [address] Patient Discharge Instructions Person Information Name: CHAYA RODRIGUEZ Age: 53 Years Arrival Date: 01/26/2024 22:26:58 Discharge Diagnosis: Toe fracture Primary Care Physician: JARAD, XXXX Provider Information Primary Provider: Hayde Pro DO [employer] Pneumatic:None The exam and treatment you received in the Emergency Department were for an urgent problem and are not intended as complete care. It is important that you follow up with a doctor, nurse practitioner, or physician?s cafe assistant for ongoing care. If your symptoms [...] Follow-up Instructions: With: Address: When: Pan Rincon [address] [place] [address] [address] [facility] (1) In 3 days 01/29/2024 [...] participating provider. Patient Education Materials: Toe Fracture, Bdzx-qm-Onax A MESSAGE TO ALL PATIENTS REGARDING OPIOIDS PRESCRIPTION OPIOIDS: WHAT YOU NEED TO KNOW Prescription opioids can be used to help relieve svxgobuc-zq-rbmoqr pain and are often prescribed following a [...] guidance from the Food and Drug Administration (www.fda.gov/Drugs/Re sourcesForYou). ? Visit www.cdc.gov/drugoverd ose to learn about the ris (more content not included)... Normal [facility] Auto Diffon 11-06-2023 Basophils/100 WBC (Bld) 0.9 % Normal 0.0-2.0 [facility] Comment on above: Order Comment: Order Added by Discern Expert. Performed By: #### 2 435040, 3931208, 96969449, 8496239 ####[address] [address] Basophils/Leukocytes Auto (Bld) [Pure # fraction] 0.1 E9/L Normal 0.0-0.2 [facility] Comment on above: Order Comment: Order Added by Discern Expert. Performed By: #### 2 664716, 4609618, [id number], 6968786 ####[place] [address] [place] [address] Eosinophils/100 WBC (Bld) 2.3 % Normal 0.0-8.0 [facility] Comment on above: Order Comment: Order Added by Discern Expert. Performed By: #### 2 941351, 0923665, 11501719, 0071147 ####[address] [place] [address] Eosinophils/Leukocytes Auto (Bld) [Pure # fraction] 0.3 E9/L Normal 0.0-0.5 [facility] Comment on above: Order Comment: Order Added by Discern Expert. Performed By: #### 2 328225, 0515078, 37404354, 2631446 ####[address] [place] [address] Lymphocytes/100 WBC (Bld) 36.1 % Normal 14.0-50.0 [facility] Comment on above: Order Comment: Order Added by Discern Expert. Performed By: #### 2 560001, 7283197, 23961134, 8039235 ####[address] [address] Lymphocytes/Leukocytes Auto (Bld) [Pure # fraction] 5.3 E9/L High 1.0-4.0 [facility] Comment on above: Order Comment: Order Added by Discern Expert. Performed By: #### 2 369590, 8380617, 93258843, 5652783 ####[address] [address] Monocytes/100 WBC (Bld) 3.0 % Low 4.0-14.0 [facility] Comment on above: Order Comment: Order Added by Anne Expert. Performed By: #### 2 366968, 6346954, 85555253, 4854909 ####[address] [address] Monocytes/Leukocytes Auto (Bld) [Pure # fraction] 0.4 E9/L Normal 0.2-1.0 [facility] Comment on above: Order Comment: Order Added by Anne Expert. Performed By: #### 2 891295, 7502219, 65554315, 2483811 ####[address] [address] Neutrophils/100 WBC (Bld) 57.7 % Normal 36.0-75.0 [facility] Comment on above: Order Comment: Order Added by Anne Expert. Performed By: #### 2 424197, 5229958, 71514293, 3342811 ####[address] [address] Neutrophils/Leukocytes Auto (Bld) [Pure # fraction] 8.5 E9/L High 2.0-7.5 [facility] Comment on above: Order Comment: Order Added by Anne Expert. Performed By: #### 2 655747, 8241257, 28385802, 3601617 ####[place] [address] [place] [address] BMPon 11-06-2023 Anion gap [Moles/Vol] 12 mmol/L Normal 6-16 [facility] Comment on above: Performed By: #### 2 268099, 9495561, 40585104, 1768228 ####[facility] [address] [place] [address] BUN/Creat Ratio 10 No Units Normal 10-20 [facility] Comment on above: Performed By: #### 2 425307, 6513481, 33860245, 0466162 ####[facility] [address] [place] [address] Calcium [Mass/Vol] 9.5 mg/dL Normal 8.9-11.1 [facility] Comment on above: Performed By: #### 2 413123, 7748465, 24176557, 8721452 ####[facility] [address] [place] [address] Chloride [Moles/Vol] 101 mmol/L Normal 101-111 [facility] Comment on above: Performed By: #### 2 628963, 6624519, 40431386, 4235588 ####[facility] [address] [place] [address] CO2 [Moles/Vol] 27 mmol/L Normal 21-31 [facility] Comment on above: Performed By: #### 2 191409, 3336351, 74899103, 6914684 ####[facility] [address] [place] [address] Creatinine [Mass/Vol] 0.9 mg/dL Normal 0.5-1.3 [facility] Comment on above: Performed By: #### 2 913984, 8644233, 90995795, 9392302 ####[facility] [address] [place] [address] Glucose [Mass/Vol] 247 mg/dL High 55-199 [facility] Comment on above: Performed By: #### 2 041462, 6882907, 21689866, 1463212 ####[facility] [address] [place] [address] Potassium [Moles/Vol] 3.7 mmol/L Normal 3.5-5.3 [facility] Comment on above: Performed By: #### 2 829345, 0137788, 92185541, 9736892 ####[facility] [address] [place] [address] Sodium [Moles/Vol] 136 mmol/L Normal 135-145 [facility] Comment on above: Performed By: #### 2 541263, 2663543, 55641064, 7553870 ####[facility] [address] [place] [address] Urea nitrogen [Mass/Vol] 9 mg/dL Normal 5-21 [facility] Comment on above: Performed By: #### 2 457154, 4107031, 86092535, 9412205 ####[facility] [address] [place] [address] CBC w/ Auto Diffon 3 Erythrocyte distribution width (RBC) [Ratio] 13.2 % Normal 10.9-14.2 [facility] Comment on above: Performed By: #### 2 264006, 6266616, 92499436, 5308792 ####[facility] [address] [place] [address] Hematocrit (Bld) [Volume fraction] 42.3 % Normal 34.0-46.0 [facility] Comment on above: Performed By: #### 2 450651, 2332336, 65639806, 0145283 ####[facility] [address] [place] [address] Hemoglobin (Bld) [Mass/Vol] 14.5 g/dL Normal 12.0-16.0 [facility] Comment on above: Performed By: #### 2 743184, 8710213, 41089125, 8734183 ####[address] [place] [address] MCH (RBC) [Entitic mass] 30.3 pg Normal 27.0-34.0 [facility] Comment on above: Performed By: #### 2 739681, 4420522, 21423833, 5097148 ####[address] [address] MCHC (RBC) [Mass/Vol] 34.4 g/dL Normal 31.4-36.0 [facility] Comment on above: Performed By: #### 2 277028, 5549425, 92323450, 4760473 ####[address] [address] MCV (RBC) [Entitic vol] 88.3 fL Normal 80.0-100.0 [facility] Comment on above: Performed By: #### 2 124542, 2856268, 64664536, 0956536 ####[place] [address] Platelet mean volume (Bld) [Entitic vol] 8.7 fL Normal 6.4-10.8 [facility] Comment on above: Performed By: #### 2 575077, 8133258, 97662932, 4250840 ####[address] [address] Platelets (Bld) [#/Vol] 288.0 E9/L Normal 150.0-500.0 [facility] Comment on above: Performed By: #### 2 123447, 1395735, 98271774, 8516609 ####[address] [address] RBC (Bld) [#/Vol] 4.8 E12/L Normal 4.3-5.9 [facility] Comment on above: Performed By: #### 2 183215, 1533102, 06672231, 2053677 ####[address] [address] WBC corrected for nucl RBC Auto (Bld) [#/Vol] 14.8 E9/L High 4.0-11.0 [facility] Comment on above: Result Comment: Slid e reviewed by KD. Performed By: #### 2 794077, 7544075, 75120815, 4037825 ####[facility] [address] [place] [address] CHEMISTRYOrdered By: SYSTEM SYSTEM on 11-06-2023 Anion gap [Moles/Vol] 12 mmol/L Normal 6 - 16 mEq/L R emisol Chem Calcium [Mass/Vol] 9.5 mg/dL Normal 8.9 - 11. 1 mg/dL Remisol Chem Chloride [Moles/Vol] 101 mmol/L Normal 101 - 1 11 mmol/L Rem[facility] CO2 [Moles/Vol] 27 mmol/L Normal 21 - 31 mmol/L Rem[facility] Chem Creatinine [Mass/Vol] 0.9 mg/dL Normal 0.5 - 1.3 mg/dL Remisol Chem eGFR mL/min/1.73 m2 Normal >=59mL/min/1. 73 m2 [facility] Glucose [Mass/Vol] 247 mg/dL High 55 - 199 mg/dL [facility] Potassium [Moles/Vol] 3.7 mmol/L Normal 3.5 - 5.3 mmol/L [facility] Sodium [Moles/Vol] 136 mmol/L Normal 135 - 145 mmol/L [facility] Urea nitrogen [Mass/Vol] 9 mg/dL Normal 5 - 21 mg/dL [facility] Urea nitrogen/Creatinine [Mass ratio] 10 mg/mg Normal 10 - 20 Rem[facility] Consent for Treatmenton 10-19 Consent for Treatment [id number]#1 .00TIFF Normal [facility] HEMATOLOGYOrdered By: SYSTEM SYSTEM on 11-06-2023 [...] 14.8 E9/L High 4.0 - 11.0 E9/L [facility] Comment on above: Result Comment: Slid e reviewed by CHRISTELLE. eGFRon 11-06-2023 GFR/1.73 sq M.predicted among non-blacks MDRD (S/P/Bld) [Vol rate/Area] mL/min/{1.73_m2} Normal >=59 [facility] Comment on above: Order Comment: Order added by Discern Expert. Performed By: #### 2 414291, 7180814, 40032031, 7177124 ####[facility] [address] [place] [address] Physician Orderon 11-04-2023 Physician Order [id number]#1 .00TIFF Normal [facility] Physician Orderon 10-31-2023 Physician Order [id number]#1 .00TIFF Normal [facility] MRI Knee w/ + w/o Contrast R [facility] 10-09-2023 MRI Knee w/ + w/o [...] Comments Contrast amount in ml's: 14 Normal [facility] Consent for Treatmenton 09-19 Consent for Treatment [id number]#1 .00TIFF Normal [facility] RAD - MRI Screening Formon 12-07-2022 RAD - MRI Screening Form [id number]# 1.00TIFF Normal [facility] Physician Orderon 09-30-2023 Physician Order [id number]#1 .00TIFF Normal [facility] ED Note-Physicianon 09-03-20 ED Note-Physician Basic Information Time Seen: Yahir Wade PA-C. 09/01/2023 15:06 Chief Complaint Pt presents to [...] day(s), # 12 tab(s), Refills(s) 0, Pharmacy: [id number], 170, cm, 09/01/23 14:16:00 EDT, Height/Length Dosing, 70.5, kg, 09/01/23 14:16:00 EDT, Weight Dosing XR Knee Complete 4+ Views Right Disposition Plan Patient Discharge Condition Stable Discharge Disposition To home Discharge Prescription List Prescriptions traMADOL 50 mg Tab, 50 mg= 1 tab(s), Oral, q6hr, PRN Follow-up With When Contact Information Pan Rincon In 3 days 09/04/2023 EDT [address] [place] [address]- Business (1) Additional Instructions: You may follow-up with Dr. Rincon for further evaluation of your knee cyst. Naomy RINCON In 3 days 09/04/2023 EDT [address] [place] [address]- Business (1) Additional Instructions: Follow-up with your primary care provider in 3 to 5 days. If symptoms worsen, do not improve, or new symptoms arise please report back to emergency department for further evaluation. Patient Education Meniscal Cyst Attestation Patient seen and evaluated by the physician cafe assistant. Attending physician was present in the emergency department and supervised care. This visit was performed by both the physician and an APC. I performed all aspects of the MDM as documented. This report was transcribed using voice recognition software. Every effort was made to ensure accuracy, however, inadvertently computerized transcriptio (more content not included)... Normal [facility] Comment on above: Result Comment: Elec tronically Signed By: Yahir Wade PA-C\.br\Date and Time Signed: 09/01/23 18:11 EDT\.br\Electronically Co-Signed By: Wayne Rangel MD\.br\Date and Time Co-Signed: 09/03/23 20:04 EDT Consent for Treatmenton 08-18 Consent for Treatment [id number]#1 .00TIFF Normal [facility] Discharge Instructionson Discharge Instructions [id number]# 1.00TIFF Normal [facility] ED Clinical Summaryon 2022 ED Clinical Summary [place] [id number] ED Clinical Summary Person Information Name: CHAYA RODRIGUE[facility] Age: 52 Years : 1970 Sex: Female Language: Emirati PCP: NONE, XXXX Marital Status: Single Visit [...] 09/01/2023 16:07:11 09/01/2023 16:07:11 09/01/2023 16:07:11 ADDRESS: [address] [place] [id number] PHYS DOC NOTES: MEDICAL INFORMATION: Prescriptions Given: New Medications [id number], [address] [place], [place] [id number], [phone] tramadol (traMADOL 50 mg Tab) 1 Tablets By Mouth every 6 hours as needed for pain for 3 Days. Refills: 0. Medications to Continue with No Changes Other Medications naproxen (Naprosyn 500 mg Tab) 1 Tablets By Mouth 2 times a day. Refills: 0. PATIENT EDUCATION INFORMATION: Instructions: Meniscal Cyst Follow up: With: Address: When: Pan Rincon [address] [place] [address] Business (1) In 3 days 09/04/2023 Comments: You may follow-up with Dr. Rincon for further evaluation of your knee cyst. With: Address: When: Naomy RINCON [address] [place] [address] Business (1) In 3 days 09/04/2023 Comments: Follow-up with your primary care provider in 3 to 5 days. If symptoms worsen, do not improve, or new symptoms arise please report back to emergency department for further evaluation. DIAGNOSIS: Cyst of right knee joint Normal [facility] ED Patient Education Noteon 09-01-2023 ED [...] by your health care provider. ? Take vwwd-uwe-jtxuqnw and prescription medicines only as told by [...] movement of (more content not included)... Normal [facility] ED Patient Summaryon 023 ED Patient Summary [address] [address] Patient Discharge Instructions Person Information Name: CHAYA RODRIGUEZ Age: 52 Years Arrival Date: 09/01/2023 14:11:07 Discharge Diagnosis: Cyst of right knee joint Primary Care Physician: NONE, XXXX Provider Information Primary Provider: Advanced Riveter Pneumatic:None The exam and treatment you received in the Emergency Department were for an urgent problem and are not intended as complete care. It is important that you follow up with a doctor, nurse practitioner, or physician?s cafe assistant for ongoing care. If your symptoms [...] Instructions: With: Address: When: Pan Rincon [address] [place] [address] Business (1) In 3 days 09/04/2023 Comments: You may follow-up with Dr. Rincon for further evaluation of your knee cyst. With: Address: When: Naomy RINCON [address] [place] [address] [facility] (1) In 3 days 09/04/2023 Comments: Follow-up [...] opioids can be used to help relieve hdepomvf-wk-yxzotb pain and are often prescribed following a [...] the t (more content not included)... Normal [facility] XR Knee Complete 4+ Views Ri [facility] 09-01-2023 XR Knee Complete 4+ Views Right [...] mGy = na DAP = na Normal [facility] XR HAND RT MIN 3Von 09-29-20 [...] by: RENEE YOUNG Date: 2022-09-29 17:12 Normal [facility] XR FOREARM RT 2Von 2 XR FOREARM [...] by: MYRTLE RODRIGUEZ Date: 2022-05-14 16:25 Normal [facility] Vital Signs Date Time Vital Sign Value Performing Clinician Pepito alatorre 06-20-2024 17:40-0400 Body temperature 98.24 [degF] Federico Lee [facility] 06-20-2024 17:40-0400 Diastolic blood pressure 79 mm[Hg] Federico Lee [facility] 06-20-2024 17:40-0400 Heart rate 110 /min Federico Lee [facility] 06-20-2024 17:40-0400 Respiratory rate 18 /min Federico Lee [facility] 06-20-2024 17:40-0400 SaO2% (BldA) [Mass fraction] 96 % Federico Lee [facility] 06-20-2024 17:40-0400 Systolic blood pressure 120 mm[Hg] Federico Lee [facility] 03-18-2024 18:34-0400 Body temperature 98.24 [degF] [facility] 03-18-2024 18:34-0400 Diastolic blood pressure 70 mm[Hg] [facility] 03-18-2024 18:34-0400 Heart rate 79 /min [facility] 03-18-2024 18:34-0400 Respiratory rate 18 /min [facility] 03-18-2024 18:34-0400 SaO2% (BldA) [Mass fraction] 97 % Adán James [facility] 03-18-2024 18:34-0400 Systolic blood pressure 115 mm[facility]Hg[facility] 02-09-2024 22:24-0400 Body temperature 97.88 [degF] Kaylinn Dokken [facility] 02-09-2024 22:24-0400 Diastolic blood pressure 73 mm[Hg] Kaylinn Dokken [facility] 02-09-2024 22:24-0400 Heart rate 84 /min Kaylinn Dokken [facility] 02-09-2024 22:24-0400 Respiratory rate 16 /min Kaylinn Dokken [facility] 02-09-2024 22:24-0400 SaO2% (BldA) [Mass fraction] 96 % Kaylinn Dokken [facility] 02-09-2024 22:24-0400 Systolic blood pressure 109 mm[Hg] Kaylinn Dokken [facility] 01-26-2024 22:34-0400 Body temperature 98.24 [degF] Kaylinn Dokken [facility] 01-26-2024 22:34-0400 Diastolic blood pressure 70 mm[Hg] Kaylinn Dokken [facility] 01-26-2024 22:34-0400 Heart rate 88 /min Kaylinn Dokken [facility] 01-26-2024 22:34-0400 Respiratory rate 16 /min Kaylinn Dokken [facility] 01-26-2024 22:34-0400 SaO2% (BldA) [Mass fraction] 97 % Hayde Pro [facility] 01-26-2024 22:34-0400 Systolic blood pressure 112 mm[Hg] Hayde Pro [facility] 09-01-2023 14:57-0400 Diastolic blood pressure 65 mm[Hg] Wayne Juan Carlos [facility] 09-01-2023 14:57-0400 Heart rate 85 /min Wayne Juan Carlos [facility] 09-01-2023 14:57-0400 Mean blood pressure 80 mm[Hg] Wayne Juan Carlos [facility] 09-01-2023 14:57-0400 Respiratory rate 16 /min Wayne Juan Carlos [facility] 09-01-2023 14:57-0400 SaO2% (BldA) [Mass fraction] 97 % Wayne Juan Carlos [facility] 09-01-2023 14:57-0400 Systolic blood pressure 111 mm[Hg] Wayne Juan Carlos [facility] 09-01-2023 14:14-0400 Body temperature 98.24 [degF] Wayne Juan Carlos [facility] 09-01-2023 14:14-0400 Diastolic blood pressure 75 mm[Hg] Wayne Juan Carlos [facility] 09-01-2023 14:14-0400 Heart rate 105 /min Wayne Juan Carlos [facility] 09-01-2023 14:14-0400 Respiratory rate 18 /min Wayne Juan Carlos [facility] 09-01-2023 14:14-0400 SaO2% (BldA) [Mass fraction] 98 % Wayne Juan Carlos [facility] 09-01-2023 14:14-0400 Systolic blood pressure 115 mm[Hg] Wayne Rangel [facility] 06-18-2023 17:00-0400 Body temperature 98.24 [degF] [facility] 06-18-2023 17:00-0400 Diastolic blood pressure 73 mm[Hg] [facility] 06-18-2023 17:00-0400 Heart rate 97 /min [facility] 06-18-2023 17:00-0400 Respiratory rate 16 /min [facility] 06-18-2023 17:00-0400 SaO2% (BldA) [Mass fraction] 97 % [facility] 06-18-2023 17:00-0400 Systolic blood pressure 120 mm[Hg] [facility] Encounters Encounter Date Encounter Type Care Provider Facility Start: 06-22-2024 End: 06-22-2024 ambulatory JAQUI D HILLS Not Available Start: 06-22-2024 End: 06-22-2024 ambulatory JAQUI D HILLS Not Available Start: 06-20-2024 End: 06-20-2024 Emergency department patient visit Federico Lee [facility] Start: 05-26-2024 End: 05-26-2024 ambulatory KAMARI HARTMAN Not Available Start: 03-18-2024 End: 03-18-2024 Emergency department patient visit [facility] Start: 02-18-2024 End: 02-18-2024 ambulatory KAMARI HARTMAN Not Available Start: 02-12-2024 End: 02-12-2024 ambulatory JAQUI D HILLS Not Available Start: 02-09-2024 End: 02-09-2024 Emergency department patient visit Hayde Pro [facility] Start: 01-28-2024 End: 01-28-2024 ambulatory KAMARI HARTMAN Not Available Start: 01-26-2024 End: 01-26-2024 Emergency department patient visit Hayde Pro [facility] Start: 12-20-2023 End: 12-20-2023 Clinical Support Kamari Hartman DO Work Phone: [facility] Comment on above: S/P right knee arthr oscopy (Primary Dx) Start: 12-17-2023 End: 12-17-2023 ambulatory KAMARI HARTMAN Not Available Start: 11-06-2023 End: 11-06-2023 ambulatory Kamari Hartman Facility:[facility] Start: 11-06-2023 End: 11-06-2023 Patient encounter procedure Kamari Hartman [facility] Start: 10-31-2023 End: 10-31-2023 ambulatory KAMARI HARTMAN Not Available Start: 10-16-2023 End: 10-16-2023 ambulatory JAQUI GUEVARA Not Available Start: 10-07-2023 End: 10-07-2023 ambulatory Jaqui Guevara Facility:[facility] Start: 10-07-2023 End: 10-07-2023 Patient encounter procedure Jaqui Guevara [facility] Start: 09-01-2023 End: 09-01-2023 Emergency department patient visit Wayne Rangel [facility] Start: 06-18-2023 End: 06-18-2023 Emergency department patient visit Adán James [facility] Start: 03-26-2023 End: 03-26-2023 ambulatory YUKI HIGGINS . Facility: Start: 09-29-2022 End: 11-12-2022 ambulatory NONE LISTED REQUEST Facility:[facility] Start: 09-07-2022 End: 09-07-2022 ambulatory JIMMY WILSON . Facility:[facility] Start: 05-14-2022 End: 05-14-[address] ANNAMARIA GALLEGOS . Facility:[facility] Start: 05-01-2022 End: 05-01-2022 ambulatory TONIA BOND Facility: Plan of Treatment Date Care Activity Detail Author Start: 02-12-2024 End: 02-12-2024 Patient encounter procedure 02/12/2024 1:15 PM EDT Office Visit [facility] [address] [place] [id number] Jaqui Guevara PA [address] [place] [address] [facility] Payers Date Payer Category Payer Medicaid [employer] [employer] [place] [id number] 2023-Present [address] [address] [place] [address] [id number] 2023 Medicaid [id number] 1970 Unknown [id number] 2.16.840.1.643887.3.579.2.593 1970 Unknown [id number] 2.16.840.1.694333.3.579.2.593 1970 Unknown [id number] 2.16.840.1.172417.3.579.2.593 1970 Unknown [id number] 2.16.840.1.206723.3.579.2.593 1970 Unknown [id number] 2.16.840.1.500836.3.579.2.593 1970 Unknown [id number] 2.16.840.1.988503.3.579.2.1259 1970 Unknown [id number] 2.16.840.1.919560.3.579.2.1259 1970 Unknown [id number] 2.16.840.1.629795.3.579.2.9 1970 Unknown [id number] 2.16.840.1.213387.3.579.2.1259 1970 Unknown [id number] 2.16.840.1.435335.3.579.2.9 1970 Unknown [id number] 2.16.840.1.741904.3.579.2.1259 1970 Unknown [id number] 2.16.840.1.857156.3.579.2.9 1970 Unknown [id number] 2.16.840.1.892550.3.579.2.9 1970 Unknown [id number] 2.16.840.1.555407.3.579.2.9 1970 Unknown [id number] 2.16.840.1.945000.3.579.2.9 1970 Unknown [id number] 2.16.840.1.669197.3.579.2.9 1970 Unknown [id number] 2.16.840.1.426927.3.579.2.7 1970 Unknown [id number] 2.16.840.1.371433.3.579.2.727 1970 Unknown [id number] 2.16.840.1.863137.3.579.2.72 1970 Unknown [id number] 2.16.840.1.613343.3.579.2.72 1970 Unknown [id number] 2.16.840.1.814318.3.579.2.727 1970 Unknown [id number] 2.16.840.1.673657.3.579.2.727 1970 Unknown [id number] 2.16.840.1.225692.3.579.2.727 1959 Self-pay [id number] Social History Date Type Detail Facility Tobacco smoking status Raman kraft [facility] Start: 12-17-2023 Sex Assigned At Female F [facility] Start: 09-01-2023 Tobacco smoking status Heavy t obacco smoker (finding) [facility] Start: 10-18-1985 Tobacco smoking stat [facility] Smokes tobacco daily [facility] Start: 10-18-1985 History of tobacco use Cigarette Smo ker [facility] Start: 10-16-2023 End: 12-17-2023 Cigarettes smoked current (pack per day) - Reported 0.5 [facility] Start: 10-16-2023 Tobacco use and exposure Smokeless tobacco non-user [facility] Start: 12-17-2023 Alcohol intake Ex-drinker (finding) [facility] Start: 1970 Sex Assigned At Not on file [facility] Functional Status Date Assessment Result Facility 06-20-2024 Functional Status N/A [facility] 03-18-2024 Functional Status N/A [facility] 02-09-2024 Functional Status N/A [facility] 01-26-2024 Functional Status N/A [facility] 09-01-2023 Functional Status N/A [facility] 06-18-2023 Functional Status N/A [facility] Clinical Notes 06-18-2023 to 06-20-2024 Note Date & Type Note Facility 06-20-2024 Hospital Discharg e instructions Patient Education 06/20/2024 18:35:00 Dental Pain Dental Pain Dental pain is [...] or after getting dental care. Medicines Take zwqc-lxp-bvsbodn and prescription medicines only as told by [...] pain may be mild or severe. Take hhxs-spd-tqnbxtq and prescription medicines only as told by [...] provider. Document Revised: 08/09/2021 Document Reviewed: 08/09/2021 [employer] Patient Education 2022 [place]. Follow Up Care 06/20/2024 17:35:13 With:Primo1D Address: [address] [place] [address] Business (1) When:06/23/2024 18:31:08 With:Justina FLYNN Address: [address] [place] [address] Business (1) When:06/23/2024 18:31:05 [facility] 06-20-2024 Note ED Patient Education Note Dentistry Dental Pain [...] the nerves, of a tooth. ? Gum (periodontal)disease. ? Abnormal grinding or clenching. ? Poor [...] after getting dental care. Medicines ? Take uiqb-uls-xnsvwkz and prescription medicines only as told by [...] may be mild or severe. ? Take rnav-tlq-vewokps and prescription medicines only as told by [...] provider. Document Revised: 08/09/2021 Document Reviewed: 08/09/2021 [employer] Patient Education ? 2022 [place]. [facility] 03-18-2024 Hospital Discharg e instructions Patient Education [...] risk for lung collapse and pneumonia. Medicines. Zgxg-bhh-jzlcump or prescription medicines may be given to control pain. Injection of a numbing medicine around the nerve near your injury (nerve block). Follow these instructions at home: Medicines Take vush-yoi-diloqiy and prescription medicines only as told by your health care provider. Ask your health care provider if the medicine prescribed to you: ?Requires you to avoid driving or using machinery. ?Can cause constipation. You may need to take these actions to prevent or treat constipation: ?Drink enough fluid to keep your urine pale yellow. ?Take vtas-boj-rgopnog or prescription medicines. ?Eat foods that are [...] provider. Document Revised: 02/08/2021 Document Reviewed: 02/08/2021 [employer] Patient Education 2022 [place]. Follow Up Care 03/18/2024 18:08:50 With:Cory Mcqueen Address: [address] [place] [address] When:03/21/2024 19:30:51 Comments:You can use the medications as prescribed as needed for pain. Please follow-up with your primary care doctor next 2 to 3 days for further evaluation management. Please return to the ED for any new or worsening symptoms. With:XXXX NONE Address: [place] When:Within 3 Day(s) [facility] 03-18-2024 Evaluation + Plan note Extrac [...] hours on and 12 hours off daily, [id number], 170, cm, 03/18/24 18:36:00 EDT, Height/Length Dosing, 70, kg, 03/18/24 18:36:00 EDT, Weight Dosing naproxen, 500 mg = 1 tab(s), Oral, BID, PRN for pain, # 20 tab(s), Refills(s) 0, Pharmacy: [facility] #[id number], 170, cm, 03/18/24 18:36:00 EDT, Height/Length Dosing, 70, kg, 03/18/24 18:36:00 EDT, Weight Dosing [facility]03-25-2024 Hospital Discharge instructions Patient Education 02/09/2024 23:01:01 Knee Sprain, Adult, Avba-yk-Xkby Knee Sprain A knee sprain is a [...] sitting or lying down. General instructions Take ujic-abu-cgavvle and prescription medicines only as told by [...] provider. Document Revised: 02/11/2023 Document Reviewed: 09/23/2020 [employer] Patient Education 2022 [place]. Follow Up Care 02/09/2024 22:22:55 With:Kamari Hartman Address: [address] [place], [place] [id number] [facility] (1) When:02/12/2024 Comments:You can take the pain medication every 12 hours as prescribed as needed for pain. Please follow-up with your primary care doctor in addition to orthopedics for further evaluation management. Please return to the ED for any new or worsening symptoms. With:XXXX NONE Address: [place] When:02/12/2024 [facility]03-24-2024 Evaluation + Plan noteExtracted from: Title:ED Note Author:Hayde Pro DO Date :02/09/24 Knee sprain (S83.90XA: Sprai n of unspecified site of unspecified knee, initial encounter) Orders: acetaminophen-hydrocodone, 1 tab(s), Tab, Oral, Once, Stop date 02/09/24 22:52:00 EDT, STAT, Start date 02/09/24 22:52:00 EDT naproxen, 500 mg = 1 tab(s), Oral, BID, PRN for pain, # 20 tab(s), Refills(s) 0, Pharmacy: [id number], 170, cm, 02/09/24 22:28:00 EDT, Height/Length Dosing, 70.3, kg, 02/09/24 22:28:00 EDT, Weight Dosing XR Knee Complete 4+ Views Right [facility]03-11-2024 Hospital Discharge instructions Patient Education 01/26/2024 23:21:49 Toe Fracture, Gazy-oe-Oonm Toe Fracture A toe fracture is a [...] provider. Document Revised: 04/09/2022 Document Reviewed: 04/09/2022 [employer] Patient Education 2022 [place]. Follow Up Care 01/26/2024 22:28:41 With:Pan Rincon Address: [address] [place] [address]- [facility] (1) When:01/29/2024 Comments:You can use the pain medication every 6 hours as needed for pain. Please follow-up with orthopedicsfor further evaluation management. Please return to the ED for any new or worsening symptoms. With:XXXX NONE Address: [place] When:Within 3 Day(s) [facility]10-15-2023 Hospital Discharge instructions Patient Education 09/01/2023 [...] told by your health care provider. Take xlev-tgn-uuxbawi and prescription medicines only as told by [...] provider. Document Revised: 03/09/2021 Document Reviewed: 03/09/2021 [employer] Patient Education 2022 [place]. Follow Up Care 09/01/2023 14:11:44 With:Pan Rincon Address: [address] [place] [address] Business (1) When:09/04/2023 15:59:05 Comments:You may follow-up with Dr. Rincon for further evaluation of your knee cyst. With:Naomy RINCON Address: [address] [place] [address]- Business (1) When:09/04/2023 15:58:55 Comments:Follow-up with your primary care provider in 3 to 5 days. If symptoms worsen, do not improve, or new symptoms arise please report back to emergency department for further evaluation. [facility]08-01-2023 Hospital Discharge instructions Patient Education 06/18/2023 [...] or after getting dental care. Medicines Take ejep-pkq-jrggoaq and prescription medicines only as told by [...] pain may be mild or severe. Take kjcb-psk-rdzadxq and prescription medicines only as told by [...] provider. Document Revised: 08/09/2021 Document Reviewed: 08/09/2021 [employer] Patient Education 2022 [place]. Follow Up Care 06/18/2023 16:59:26 With:[employer] [facility] Address: [address] [place] [address] [place] [address] Business (1) When:06/21/2023 17:19:24 Comments:Dentistry follow-up [facility]08-01-2023 Evaluation + Plan noteExtracted from: Title:ED Note Author:Gopal Sutton PA-C te:06/18/23 Pain, dental (K08.89: Other specified disorders of teeth and supporting structures) Orders: naproxen, 500 mg = 1 tab(s), Oral, BID, # 20 tab(s), Refills(s) 0, Pharmacy: [facility] #[id number], 170, cm, 06/18/23 17:05:00 EDT, Height/Length Dosing, 70.5, kg, 06/18/23 17:05:00 EDT, Weight Dosing penicillin V potassium, 500 mg = 1 tab(s), Oral, TID, Take one tab by mouth 3 times a day. # 30, X 10 day(s), # 30 tab(s), Refills(s) 0, Pharmacy: [facility] #[id number], 170, cm, 06/18/23 17:05:00 EDT, Height/Length Dosing, 70.5, kg, 06/18/23 17:05:00 EDT, [facility] Diagnosis S/P right knee arthroscopy- Primary documented [facility] Narrative No data available [facility] No data available [facility] this [facility] No data available for this section [facility] Summary Purpose Family History No Family History Records Found No data available for this section No data available for this section No data available for this section No data available for this section No data available for this section No data available for this section No data available for this section No Family History Records FoundNo Family History Records Found Advance Directives No Advanced Directives Records FoundNo Advanced Directives Records FoundNo Advanced Directives Records Found Additional Source Comments INFORMATION SOURCE (unrecogn ized section and content) DATE CREATED AUTHOR 03/27/2023 [facility] DATE CREATED AUTHOR AUTHOR'S ORGANIZ ATION 06/24/2024 [facility] DATE CREATED AUTHOR AUTHOR'S ORGANIZ ATION 06/28/2024 [facility] FOR RECORDS PERTAINING TO PATIENTS WHO ARE [...] BE BASED ON THE PRIMARY CLINICAL RECORDS. [facility] [employer] [facility]. provides no warranty or guarantee of the accuracy or completeness of information in this document.
[2024-07-10 20:37] VITALS: BP 130/78; PULSE 101; TEMP 36.8; O2SAT 96; BMI 22.7
[2024-07-10] MEDS: TRIAMCINOLONE ACETONIDE 40 MG/ML VIAL IM (21:33)
--- NOTE | 2024-07-10 21:38 | ED_ITS ---
HPI HPI - General Adult General Chief complaint: Neuro Symptoms/Deficit Stated complaint: HAND PAIN, DROPPING ITEMS FROM HANDS Time Seen by Provider: 07/10/24 20:46 Source: patient Mode of arrival: walk-in Limitations: no limitations History of Present Illness HPI narrative: 53-year-old female to the emergency department with chief complaint of bilateral wrist pain and thumb tingling/numbness. Patient reports that she has had the symptoms multiple times in the past. Her orthopedic doctor told there was carpal tunnel. She is to wear thumb spica splints at night for this. She reports that it started acting up again over the last few days. She denies any other major medical problems. No falls or injuries. No other neurologic symptoms Related Data Allergies Allergy/AdvReac Type Severity Reaction Status Date / Time No Known Drug Allergies Allergy Verified 07/10/24 20:37 Opioid HPI Opioid Management Most Recent Opioid Data: Last Pain Scale 8 03/13/24 23:11 Review of Systems ROS Status of ROS 10 or more systems reviewed and unremark able except as noted in history and below PFSH PFSH Social History Smoking status: Current every day smoker Exam Narrative Exam Narrative: VITALS: I have reviewed the triage vital signs. GENERAL: Well developed, well appearing adult in no acute distress. NEURO: Alert and oriented. Moves all extremities. Face is symmetric and expressive. EYES: PERRL. No scleral icterus or conjunctival injection. No discharge. HENT: Normocephalic, atraumatic. Hearing is grossly intact. Nares grossly patent and without discharge. Mucous membranes moist. NECK: No JVD. Patient moves neck without restriction. ORTHO: Radial pulse intact bilaterally. Decree sensation over the thumb. Increased paresthesia with percussion of the carpal tunnel. Thumb apposition, finger abduction adduction, supervisor vendor quality strength are intact. Limbs are similar color temperature SKIN: Warm and dry. Normal turgor. No rash or lesions appreciated. PSYCH: Mood, affect, and interaction is appropriate to the setting. Constitutional Vital Signs, click to edit/add: Last Vital Signs Temp 98.2 F 07/10/24 20:37 Pulse 101 H 07/10/24 20:37 Resp 16 07/10/24 20:37 BP 130/78 07/10/24 20:37 Pulse Ox 96 07/10/24 20:37 O2 Del Method Room Air 07/10/24 20:37 Course Vital Signs Vital signs: Vital Signs Temperature 98.2 F 07/10/24 20:37 Pulse Rate 101 H 07/10/24 20:37 Respiratory Rate 16 07/10/24 20:37 Blood Pressure 130/78 07/10/24 20:37 Pulse Oximetry 96 07/10/24 20:37 Oxygen Delivery Method Room Air 07/10/24 20:37 Temperature 98.2 F 07/10/24 20:37 Pulse Rate 101 H 07/10/24 20:37 Respiratory Rate 16 07/10/24 20:37 Blood Pressure 130/78 07/10/24 20:37 Pulse Oximetry 96 07/10/24 20:37 Oxygen Delivery Method Room Air 07/10/24 20:37 Medical Decision Making MDM Narrative Medical decision making narrative: 53-year-old female with history of carpal tunnel the emergency department provide clinically appears to be carpal tunnel. Vital stable, the patient is afebrile. No other focal neurologic deficits. She is neurovascularly intact. Conservative treatment. Steroids, current splints, will follow-up with orthopedics. Return precautions were discussed. All questions were answered. Patient was discharged home. Medical Records Medical records reviewed: Yes I reviewed the patient's medical records Discharge Plan Discharge Stand Alone Forms: Work/School Release, Portal Instructions Chief Complaint: Neuro Symptoms/Deficit Clinical Impression: Bilateral carpal tunnel syndrome Patient Disposition: Home, Self-Care Time of Disposition Decision: 21:08 Condition: Good Mode of Transportation: Private Vehicle Print Language: Romanian Instructions: Carpal Tunnel Syndrome (DC) Referrals: KAMARI HARTMAN [Physician] - 1 week Physician,Non-Staff, [Primary Care Provider] - 1 week
== END 2024-07-10 21:48 | disposition home or self-care (01) ==
PROVIDERS: Emergency Provider Student in an Organized Health Care Education/Training Program
DX: G56.03 Carpal tunnel syndrome, bilateral upper limbs (principal); F17.210 Nicotine dependence, cigarettes, uncomplicated
CPT/HCPCS: 96372; 99284; J3301

== ENCOUNTER 2024-11-02 15:35 | Emergency (ER) | payer MEDICAID, SELFPAY ==
[2024-11-02 15:39] VITALS: BP 119/73; PULSE 100; TEMP 36.4; O2SAT 96; BMI 39.2
--- NOTE | 2024-11-02 15:47 | ED.BACK1 ---
HPI HPI - Back Pain/Injury General Chief Complaint: Back Pain/Injury Stated Complaint: HIP PAIN Time Seen by Provider: 11/02/24 15:38 History of Present Illness HPI Narrative: 54-year-old female presents for left-sided lower back pain. It began this morning when she got up. There is no injury or unusual activity yesterday. Goes into her buttock but not all the way down her leg. It is worse in certain positions. Related Data Previous Rx's ?Medication ?Instructions ?Recorded acetaminophen 300 mg-codeine 30 mg 1 tab PO Q6H PRN pain 5 days #20 11/02/24 tablet tabs prednisone 10 mg tablet See Rx Instructions .Route 11/02/24 .COMPLEX #30 tabs Allergies Allergy/AdvReac Type Severity Reaction Status Date / Time No Known Drug Allergies Allergy Verified 07/10/24 20:37 Opioid HPI Opioid Management Most Recent Opioid Data: Last Pain Scale 8 11/02/24 15:42 11/02/24 Review of Systems ROS Narrative A ten point review of systems is negative except as noted above. PFSH PFSH Social History Smoking status: Current every day smoker Little interest or pleasure in doing things: not at all Feeling down, depressed, or hopeless: not at all Exam Narrative Exam Narrative: Nurses note and vital signs reviewed and patient is not hypoxic. General: The patient appears well and in no apparent distress. Skin: Warm, dry, no pallor noted. There is no rash noted. Head: Normocephalic, atraumatic Eye: Normal conjunctiva, no drainage Ears, Nose, Mouth, and Throat: oral mucosa is moist. Nares patent. Cardiovascular: Regular Rate and Rhythm Respiratory: Patient is in no distress, no accessory muscle use, lungs are clear to auscultation, no wheezing, rales or rhonchi Back: No bruise or rash or focal area of tenderness to palpation. Left hip has full range of motion. GI: Soft and nontender Musculoskeletal: The patient has no evidence of calf tenderness, no pitting edema, symmetrical pulses noted bilaterally Neurological: A&O, normal speech Psychiatric: Cooperative Constitutional Vital Signs, click to edit/add: Last Vital Signs Temp 97.6 F 11/02/24 15:39 Pulse 100 H 11/02/24 15:39 Resp 18 11/02/24 15:39 BP 119/73 11/02/24 15:39 Pulse Ox 96 12/16/24 15:39 O2 Del Method Room Air 11/02/24 15:39 Course Vital Signs Vital signs: Vital Signs Temperature 97.6 F 11/02/24 15:39 Pulse Rate 100 H 11/02/24 15:39 Respiratory Rate 18 11/02/24 15:39 Blood Pressure 119/73 11/02/24 15:39 Pulse Oximetry 96 11/02/24 15:39 Oxygen Delivery Method Room Air 11/02/24 15:39 Temperature 97.6 F 11/02/24 15:39 Pulse Rate 100 H 11/02/24 15:39 Respiratory Rate 18 11/02/24 15:39 Blood Pressure 119/73 11/02/24 15:39 Pulse Oximetry 96 11/02/24 15:39 Oxygen Delivery Method Room Air 11/02/24 15:39 MDM - Back Pain/Injury MDM Narrative Medical decision making narrative: X-ray findings are discussed with the patient and she was prescribed Tylenol 3 and prednisone. She was given a list of PCPs since she does not have one currently. Treatment diagnosis and follow-up were discussed with the patient Differential Diagnosis Differential diagnosis: Likely lumbar radiculopathy, sciatica and strain of lumbar region Imaging Data Lumbar x-rays: Radiologist's impression: ITS Impressions Lumbar Spine X-Ray 11/02/24 16:14 IMPRESSION: Mild degenerative changes Electronically authenticated by: ESPINOZA BUSH Date: 11/02/2024 16:23 Discharge Plan Discharge Chief Complaint: Back Pain/Injury Clinical Impression: Low back pain Patient Disposition: Home, Self-Care Time of Disposition Decision: 16:42 Condition: Good Mode of Transportation: Private Vehicle Prescriptions / Home Meds: New acetaminophen-codeine 300-30 mg tablet 1 tab PO Q6H PRN (Reason: pain) 5 Days Qty: 20 0RF prednisone 10 mg tablet See Rx Instructions .ROUTE .COMPLEX Qty: 30 0RF Rx Instructions: 4 by mouth daily for three days then 3 by mouth daily for three days then 2 by mouth daily for three days then 1 by mouth daily for three days Print Language: Greenlandic Instructions: Acute Low Back Pain (ED) Referrals: Physician,Non-Staff, MD [Primary Care Provider] - 1 week
--- NOTE | 2024-11-02 16:14 | XR_ITS ---
The [address] [address] Patient Name: CHAYA RODRIGUEZ MRN: [id number] date: 1970 Sex: F Assigned Patient Location: ED.MAIN Current Patient Location: ED.MAIN Accession/Order Number: [id number] Exam Date: 11/02/2024 16:10 Report Date: 11/02/2024 16:23 At the request of: SHARITA MCPHERSON Procedure: XR lumbar spine 2-3V EXAMINATION: XR lumbar spine 2-3V HISTORY: Atraumatic pain COMPARISON: No relevant comparison available. FINDINGS: BONES: Mild widespread spondylosis and facet osteoarthritis. No visible acute bony abnormality. DISC SPACES: Normal. No significant disc height narrowing, subluxation, or endplate abnormality. PARASPINOUS: Negative. No paraspinous abnormality is seen. OTHER: Negative. XR/XR lumbar spine 2-3V IMPRESSION: Mild degenerative changes Electronically authenticated by: ESPINOZA BUSH Date: 11/02/2024 16:23
[2024-11-02 16:54] VITALS: BP 122/86; PULSE 76; O2SAT 98
== END 2024-11-02 16:55 | disposition home or self-care (01) ==
PROVIDERS: Emergency Provider Emergency Medicine
DX: M54.50 Low back pain, unspecified (principal); F17.200 Nicotine dependence, unspecified, uncomplicated
CPT/HCPCS: 72100; 99283

== ENCOUNTER 2025-03-03 19:42 | Emergency (ER) | payer MEDICAID, SELFPAY ==
[2025-03-03 19:47] VITALS: BP 114/71; PULSE 94; TEMP 36.9; O2SAT 97; BMI 23.5
--- OUTSIDE RECORDS SUMMARY | 2025-03-03 19:54 | XMS_ITS | CCD ---
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 stable Discharge Disposition home Discharge Prescription List Prescriptions predniSONE 50 mg Tab, 50 mg= 1 tab(s), Oral, Daily Robaxin 500 mg Tab, 1000 mg= 2 tab(s), Oral, QID Follow-up With When Contact Information Liliyachristian Quilesker In 3 days 10/11/2024 EST [address] C, [facility] [address] [place] [phone] Business (1) Additional Instructions: Call to schedule a follow-up appointment with your family physician in the next 2 to 3 days. Take the prednisone as prescribed. Use naproxen and Robaxin as needed for pain. Return to the ED with any new or worsening symptoms. Patient Education Cervical Radiculopathy, Rpuw-qr-Yhvn Attestation Patient seen and evaluated by the physician bakery assistant. Attending physician was present in the emergency department and supervised care. This visit was performed by both the physician and an APC. I performed all aspects of the MDM as d (more content not included)... [facility] Comment on above: Result Comment: Elec tronically Signed By: Rebeca Kruger PA-C\.br\Date and Time Signed: 10/08/24 14:09 EST\.br\Electronically Co-Signed By: Kamari Miguel DO\.br\Date and Time Co-Signed: 10/10/24 13:57 EST ED Clinical Summaryon 2023 ED Clinical Summary ED Clinical Summary [address] [address] ED Clinical Summary Person Information Name: CHAYA RODRIGUEZ/[facility] Age: 53 Years : 1970 Sex: Female Language: [place] PCP: NONE, XXXX Marital Status: Phone: Visit Id: Visit Reason: Shoulder pain-swelling; Neck pain; SHOULDER AND NECK PAIN DOWN RT ARM Speciality: Acuity: 4 Enc Type: Emergency Med Service: Emergency Arrival: 10/08/2024 13:39:01 Discharge: 10/08/2024 14:45:51 LOS: 000 01:06 Checkin: 10/08/2024 13:39:01 Checkout: 10/08/2024 14:45:51 Dispo Type: Home (Routine DC) EVENTS: Event Name Event Status Request Date/Time Start Date/Time Complete Date/Time Arrive Complete 10/08/2024 13:39:01 10/08/2024 13:39:01 10/08/2024 13:39:01 Document Home Meds Request 10/08/2024 13:39:01 Triage Complete 10/08/2024 13:39:01 10/08/2024 13:45:18 10/08/2024 13:45:18 Bed Assign Complete 10/08/2024 13:40:16 10/08/2024 13:40:16 10/08/2024 13:40:16 Dr Exam Complete 10/08/2024 13:40:16 10/08/2024 13:46:42 10/08/2024 13:46:42 RN Exam Complete 10/08/2024 13:40:16 10/08/2024 13:47:26 10/08/2024 13:47:26 Registration Complete 10/08/2024 13:46:42 10/08/2024 14:13:39 10/08/2024 14:13:39 Dr Exam Complete 10/08/2024 13:53:11 10/08/2024 13:53:11 10/08/2024 13:53:11 Meds Admin Complete 10/08/2024 13:59:47 10/08/2024 14:07:29 Discharge Complete 10/08/2024 14:03:05 10/08/2024 14:46:01 10/08/2024 14:46:01 Reg Complete Request 10/08/2024 14:13:39 Reg Bed Request Complete 10/08/2024 14:13:40 10/08/2024 14:13:40 10/08/2024 14:13:40 Transfer Complete 10/08/2024 14:46:01 10/08/2024 14:46:01 10/08/2024 14:46:01 ADDRESS: [address] [place] [phone] PHYS DOC NOTES: MEDICAL INFORMATION: Prescriptions Given: New Medications [id number], [address] [place], [place] [id number], [phone] methocarbamol (Robaxin 500 mg Tab) 2 Tablets By Mouth 4 times a day for 3 Days. Refills: 0. predniSONE (predniSONE 50 mg Tab) 1 Tablets By Mouth every day for 5 Days. Refills: 0. Medications to Continue with No Changes Other Medications lidocaine topical (Lidoderm 5% Patch) 1 Patches Topical every day. apply 12 hours on and 12 hours off daily. Refills: 0. naproxen (Naprosyn 500 mg Tab) 1 Tablets By Mouth 2 times a day as needed for pain. Refills: 0. naproxen (Naprosyn 500 mg Tab) 1 Tablets By Mouth 2 times a day as needed for pain. Refills: 0. naproxen (Naprosyn 500 mg Tab) 1 Tablets By Mouth 2 times a day. Refills: 0. PATIENT EDUCATION INFORMATION: Instructions: Cervical Radiculopathy, Qrct-jr-Mcbx Follow up: With: Address: When: Liliya Mejia [address] [place] [address] Guero Tracy , [address] [address] Business (1) In 3 days 10/11/2024 Comments: Call to schedule a follow-up appointment with your family physician in the next 2 to 3 days. Take the prednisone as prescribed. Use naproxen and Robaxin as needed for pain. Return to the ED with any new or worsening symptoms. DIAGNOSIS: Acute cervical radiculopathy [facility] ED Patient Summaryon 024 ED Patient Summary ED Patient Summary [address] [address] Patient Discharge Instructions Person Information Name: CHAYA RODRIGUEZ Age: 53 Years Arrival Date: 10/08/2024 13:39:01 Discharge Diagnosis: Acute cervical radiculopathy Primary Care Physician: NONE, XXXX Provider Information Primary Provider: Kamari Miguel DO [facility] Consultant:Rebeca Kruger PA-C The exam and treatment you received in the Emergency Department were for an urgent problem and are not intended as complete care. It is important that you follow up with a doctor, nurse practitioner, or physician???s bakery assistant for ongoing care. If your symptoms become worse or you do not improve as expected and you are unable to reach your usual health care provider, you should return to the Emergency Department. We are available 24 hours a day. CHAYA RODRIGUEZ has been given the following list of patient education materials, prescriptions and follow-up instructions: Follow-up Instructions: With: Address: When: Liliya Mejia [address] [place] [address] [place], [facility] [address] [place] [address] [facility] () In 3 days 10/11/2024 Comments: Call to schedule a follow-up appointment with your family physician in the next 2 to 3 days. Take the prednisone as prescribed. Use naproxen and Robaxin as needed for pain. Return to the ED with any new or worsening symptoms. In the event that this physician does not participate in your insurance network, please consult with your insurance company to find a nearby participating provider. Patient Education Materials: Cervical Radiculopathy, Iutn-wu-Pral A MESSAGE TO ALL PATIENTS REGARDING OPIOIDS PRESCRIPTION OPIOIDS: WHAT YOU NEED TO KNOW Prescription opioids can be used to help relieve xmzxguzj-qn-qxzljs pain and are often prescribed following a [...] as well, even when taken as directed: ??? Tolerance???meaning you might need to take more of the medication for the same pain relief ??? Physical dependence???meaning you have symptoms of withdrawal when a medication is stopped ??? Increased sensitivity to pain ??? Constipation ??? Nausea, vomiting, and dry mouth ??? Sleepiness and dizziness ??? Confusion ??? Depression ??? Low levels of testosterone that can result in lower sex drive, energy, and strength ??? Itching and sweating RISKS ARE GREATER WITH: ??? History of drug misuse, substance use disorder, or overdose ??? Mental health conditions (such as depression or anxiety) ??? Sleep apnea ??? Older age (65 years and older) ??? Avoid alcohol while taking prescription opioids. Also, unless specifically advised by your health care provider, medications to avoid include: ??? Benzodiazepines (such as Xanax or Valium) ??? Muscle relaxants (such as Soma or Flexeril) ??? Hypnotics (such as Ambien or Lunesta) ??? Other prescription opioids KNOW YOUR OPTIONS Talk to your health care provider about ways to manage your pain that don???t involve prescription opioids. Some of these options may actually work better and have fewer risks and side effects. Options may include: ??? Pain relievers such as acetaminophen, ibuprofen, and naproxen ??? Some medication that are also used for depression or seizures ??? Physical therapy and exercise ??? Cognitive behavioral therapy, a psychological, goal-directed approach, in which patients learn how to modify physical, behavioral, and emotional triggers of pain and stress. IF YOU ARE PRESCRIBED OPIOIDS FOR PAIN: ??? Never take opioids in greater amounts or more often than prescribed. ??? Follow up with your primary health care provider. o Work together to create a plan on how to manage your pain. o Talk about ways to help manage your pain that don???t involve prescription opioids. o Talk about any and all concerns and side effects. ??? Help prevent misuse and abuse o Never sell or share prescription opioids. o Never use another person???s prescription opioids. ??? Store prescription opioids in a secure place and out of reach of others (this may include visitors, children, friends, and family). ??? Safely dispose of unused prescription opioids: Find your community drug take-back program or your pharmacy mail-back program, or flush them down the toilet, following guid (more content not included)... [facility] EMG 2 Extremitieson 08-12-20 24 EMG/NCS BUE Minimal bilateral carpal tunnel syndrome [facility] NVC 11-12 Nerveson 4 EMG/NCS BUE Minimal bilateral carpal tunnel syndrome [facility] ED Note-Physicianon 06-22-20 ED Note-Physician ED Note-Physician [...] day(s), # 14 tab(s), Refills(s) 0, Pharmacy: [facility] #[id number], 170, cm, 06/20/24 17:44:00 EDT, Height/Length Dosing, 70.5, kg, 06/20/24 17:44:00 EDT, Weight Dosing amoxicillin-clavulana te, 1 tab(s), Tab, Oral, Once, Stop date 06/20/24 18:29:00 EDT, STAT, Start date 06/20/24 18:29:00 EDT naproxen, 500 mg = 1 tab(s), Oral, BID, X 10 day(s), # 20 tab(s), Refills(s) 0, [id number], 170, cm, 06/20/24 17:44:00 EDT, Height/Length Dosing, [...] tab(s), Oral, BID Follow-up With When Contact Information [employer] In 3 days 06/23/2024 EDT [address] Business (1) Additional Instructions: Justina FLYNN In 3 days 06/23/2024 EDT [address] [place] [address]- Business (1) Additional Instructions: Patient Education Dental Pain Attestation Patient seen and evaluated by the physician bakery assistant. Attending physician was present in the emergency department and supervised care. This visit was performed by both the physician and an APC. I performed all aspects of the MDM as documented. This report was transcribed using voice recognition software. Every effort was made to ensure accuracy, however, inadvertently computerized (more content not included)... Normal [facility] Comment on above: Result Comment: Elec tronically Signed By: Ever Caldwell PA-C\.br\Date and Time Signed: 06/20/24 18:34 EDT\.br\Electronically Co-Signed By: Federico Lee DO\.br\Date and Time Co-Signed: 06/22/24 07:17 EDT ED Clinical Summaryon 2023 ED Clinical Summary ED Clinical Summary [facility] [address] [place], [place] [address] ED Clinical Summary Person Information Name: CHAYA RODRIGUEZ/[facility] Age: 53 Years : 1970 Sex: Female Language: [place] PCP: NONE, XXXX Marital Status: Visit Id: [...] 06/20/2024 18:35:00 06/20/2024 18:35:00 06/20/2024 18:35:00 ADDRESS: [address] [place] [phone] PHYS DOC NOTES: MEDICAL INFORMATION: Prescriptions Given: New Medications [facility] #[id number], [address] [place], [place] [id number], [phone] amoxicillin-clavulana te (Augmentin 875 mg oral tablet) 1 Tablets By Mouth every 12 hours for 7 Days. Refills: 0. Medications to Continue Taking That Have Changed [facility] [employer] #[id number], [address] [place], [place] [phone], [phone] START: naproxen (naproxen 500 mg Tab) 1 [...] Dental Pain Follow up: With: Address: When: [facility] [address] [place] [address] Business (1) In 3 days 06/23/2024 With: Address: When: Justina FLYNN [address] [place] [address] Business (1) In 3 days 06/23/2024 DIAGNOSIS: Dental infection; Pain due to dental caries [facility] ED Patient Summaryon 024 ED Patient Summary ED Patient Summary [place] [id number] Patient Discharge Instructions Person Information Name: CHAYA RODRIGUEZ Age: 53 Years Arrival Date: 06/20/2024 17:34:14 Discharge Diagnosis: Dental infection; Pain due to dental caries Primary Care Physician: NONE, XXXX Provider Information Primary Provider: Federico Lee DO [facility] Consultant:Ever Caldwell PA-C The exam and treatment you received in the Emergency Department were for an urgent problem and are not intended as complete care. It is important that you follow up with a doctor, nurse practitioner, or physician?s bakery assistant for ongoing care. If your symptoms become worse or you do not improve as expected and you are unable to reach your usual health care provider, you should return to the Emergency Department. We are available 24 hours a day. CHAYA RODRIGUEZ has been given the following list of patient education materials, prescriptions and follow-up instructions: Follow-up Instructions: With: Address: When: [employer] [address] [place], [place] [phone] Business (1) In 3 days 06/23/2024 With: Address: When: Justina FLYNN [address] [place] [address] [employer] (1) In 3 days 06/23/2024 In the event that this physician does not participate in your insurance network, please consult with your insurance company to find a nearby participating provider. Patient Education Materials: Dental Pain A MESSAGE TO ALL PATIENTS REGARDING OPIOIDS PRESCRIPTION OPIOIDS: WHAT YOU NEED TO KNOW Prescription opioids can be used to help relieve pbqgseve-lt-qeiovq pain and are often prescribed following a [...] be str (more content not included)... Normal [facility] XR Ribs Unilat 3 Views [...] in mGy = na DAP = na [facility] Consent for Treatmenton Consent for Treatment [id number] .00TIFF [facility] Discharge Instructionson Discharge Instructions [id number] .00TIFF [facility] ED Clinical Summaryon 2023 ED Clinical Summary [address] [address] ED Clinical Summary Person Information Name: CHAYA RODRIGUEZ/[facility] Age: 53 Years : 1970 Sex: Female Language: [place] PCP: NONE, XXXX Marital Status: Visit Id: [...] 03/18/2024 19:38:51 03/18/2024 19:38:51 03/18/2024 19:38:51 ADDRESS: [address] [place] [phone] PHYS DOC NOTES: MEDICAL INFORMATION: Prescriptions Given: New Medications [facility] #[id number], [address] [place], [place] [id number], [phone] lidocaine topical (Lidoderm 5% Patch) 1 Patches Topical every day. apply 12 hours on and 12 hours off daily. Refills: 0. Medications to Continue Taking That Have Changed [facility] [employer] [facility] #[id number], [address] [place], [place] [id number], [phone] START: naproxen (Naprosyn 500 mg Tab) 1 [...] Cory Mcqueen [address] [place], [place] [phone] In 3 days 03/21/2024 Comments: You can use the medications as prescribed as needed for pain. Please follow-up with your primary care doctor next 2 to 3 days for further evaluation management. Please return to the ED for any new or worsening symptoms. With: Address: When: [employer] [place] , [place] In 3 days DIAGNOSIS: Contusion of rib on left side [facility] ED Note-Physicianon 03-18-20 ED Note-Physician [...] and Complexity of Problems Differential Diagnosis: [] [facility] Data External documents reviewed: [] My EKG [...] hours on and 12 hours off daily, [facility] #[id number], 170, cm, 03/18/24 18:36:00 EDT, Height/Length Dosing, 70, kg, 03/18/24 18:36:00 EDT, Weight Dosing naproxen, 500 mg = 1 tab(s), Oral, BID, PRN for pain, # 20 tab(s), Refills(s) 0, Pharmacy: [facility] #[id number], 170, cm, 03/18/24 18:36:00 EDT, Height/Length Dosing, [...] 03/21/2024 EDT [address] [place] [phone] Additional Instructions: You can use the medications [...] rib fracture Read By: Hayde Pro DO [facility] Comment on above: Result Comment: [...] for lung collapse and pneumonia. ? Medicines. Feiv-nrh-emsxrly or prescription medicines may be given to control pain. ? Injection of a numbing medicine around the nerve near your injury (nerve block). Follow these instructions at home: Medicines ? Take qvhw-kci-lncymre and prescription medicines only as told by your health care provider. ? Ask your health care provider if the medicine prescribed to you: ? Requires you to avoid driving or using machinery. ? Can cause constipation. You may need to take these actions to prevent or treat constipation: ? Drink enough fluid to keep your urine pale yellow. ? Take yiev-vbo-soawesv or prescription medicines. ? Eat foods that [...] provider. Document Revised: 02/08/2021 Document Reviewed: 02/08/2021 [employer] Patient Education ? 2022 [employer] [facility] ED Patient Summaryon 024 ED Patient Summary [place] [id number] Patient Discharge Instructions Person Information Name: CHAYA RODRIGUEZ Age: 53 Years Arrival Date: 03/18/2024 18:08:32 Discharge Diagnosis: Contusion of rib on left side Primary Care Physician: NONE, XXXX Provider Information Primary Provider: Hayde Pro DO [facility] Consultant:None The exam and treatment you received in the Emergency Department were for an urgent problem and are not intended as complete care. It is important that you follow up with a doctor, nurse practitioner, or physician?s bakery assistant for ongoing care. If your symptoms [...] Cory Mcqueen [address] [place], [place] [id number] In 3 days 03/21/2024 Comments: You can use the medications as prescribed as needed for pain. Please follow-up with your primary care doctor next 2 to 3 days for further evaluation management. Please return to the ED for any new or worsening symptoms. With: Address: When: XXXX [place], [place] In 3 days In the event that this physician does not participate in your insurance network, please consult with your insurance company to find a nearby participating provider. Patient Education Materials: Rib Contusion A MESSAGE TO ALL PATIENTS REGARDING OPIOIDS PRESCRIPTION OPIOIDS: WHAT YOU NEED TO KNOW Prescription opioids can be used to help relieve qwxwjsty-cn-rezvcd pain and are often prescribed following a [...] learn abou (more content not included)... [facility] Discharge Instructionson Discharge Instructions [id number] .00TIFF [facility] XR Knee Complete 4+ Views Ri lisa 02-10-2024 XR Knee Complete 4+ Views Right Exam Date/Time: 02/09/2024 22:47 EDT Reason for Exam: Pain, Traumatic Report [facility] [phone] IMPRESSION: NEGATIVE RIGHT KNEE. CLINICAL HISTORY: Pain, [...] mGy = na DAP = na [facility] Consent for Treatmenton 01-17 Consent for Treatment [id number] .00TIFF [facility] ED Clinical Summaryon 2023 ED Clinical Summary [place] [id number] ED Clinical Summary Person Information Name: CHAYA RODRIGUEZ/[facility] Age: 53 Years : 1970 Sex: Female Language: [place] PCP: NONE, XXXX Marital Status: Visit Id: [...] 02/09/2024 23:01:00 02/09/2024 23:01:00 02/09/2024 23:01:00 ADDRESS: [address] [place] [phone] PHYS DOC NOTES: MEDICAL INFORMATION: Prescriptions Given: Medications to Continue Taking That Have Changed [facility] #[id number], [address] [place], [place] [phone], [phone] START: naproxen (Naprosyn 500 mg Tab) 1 Tablets By Mouth 2 times a day as needed for pain. Refills: 0. Other Medications START: naproxen (Naprosyn 500 mg Tab) 1 Tablets By Mouth 2 times a day. Refills: 0. PATIENT EDUCATION INFORMATION: Instructions: Knee Sprain, Adult, Zdvy-up-Ctjy Follow up: With: Address: When: Kamari Hartman [address] [place] [id number] [employer] (1) In 3 days 02/12/2024 Comments: You can take the pain medication every 12 hours as prescribed as needed for pain. Please follow-up with your primary care doctor in addition to orthopedics for further evaluation management. Please return to the ED for any new or worsening symptoms. With: Address: When: XXXX [facility] [place] In 3 days 02/12/2024 DIAGNOSIS: Knee sprain [facility] ED Note-Physicianon 02-09-20 ED Note-Physician Basic Information Time Seen: leonidas Khadijahanibal Sheth 02/09/2024 22:23 Chief Complaint (R) knee pain [...] and Complexity of Problems Differential Diagnosis: [] [facility] Data External documents reviewed: [] My EKG [...] Patient's x-ray imaging is negative. Patient given [place] in the ED for pain is discharged [...] pain, # 20 tab(s), Refills(s) 0, Pharmacy: [facility] #[id number], 170, cm, 02/09/24 22:28:00 EDT, Height/Length Dosing, 70.3, kg, 02/09/24 22:28:00 EDT, Weight Dosing XR Knee Complete 4+ Views Right Disposition Plan Discharge Prescription List Prescriptions Naprosyn 500 mg Tab, 500 mg= 1 tab(s), Oral, BID, PRN Follow-up With When Contact Information Kamari Hartman In 3 days 02/12/[address] [place] [id number] Business (1) Additional Instructions: You can take the pain medication every 12 hours as prescribed as needed for pain. Please follow-up with your primary care doctor in addition to orthopedics for further evaluation management. Please return to the ED for any new or worsening symptoms. XXXX NONE In 3 days 02/12/2024 EDT [place] Additional Instructions: Patient Education Knee Sprain, Adult, Txje-tc-Jgvu Problem List/Past Medical History Ongoing Smoker Historical [...] abnormality Read By: Hayde Pro DO [facility] Comment on above: Result Comment: [...] or lying down. General instructions ? Take wgxp-qxj-oiywrhw and prescription medicines only as told by [...] provider. Document Revised: 02/11/2023 Document Reviewed: 09/23/2020 Elsevier Patient Education ? 2022 [employer]. [facility] ED Patient Summaryon 024 ED Patient Summary [address] [address] Patient Discharge Instructions Person Information Name: CHAYA RODRIGUEZ Age: 53 Years Arrival Date: 02/09/2024 22:21:16 Discharge Diagnosis: Knee sprain Primary Care Physician: NONE, XXXX Provider Information Primary Provider: Hayde Pro DO [facility] Consultant:None The exam and treatment you received in the Emergency Department were for an urgent problem and are not intended as complete care. It is important that you follow up with a doctor, nurse practitioner, or physician?s bakery assistant for ongoing care. If your symptoms become worse or you do not improve as expected and you are unable to reach your usual health care provider, you should return to the Emergency Department. We are available 24 hours a day. MICHAELCHAYA MAGANA has been given the following list of patient education materials, prescriptions and follow-up instructions: Follow-up Instructions: With: Address: When: Kamari Hartman [address] [place] [address] Business (1) In 3 days [...] provider. Patient Education Materials: Knee Sprain, Adult, Aini-ld-Npok A MESSAGE TO ALL PATIENTS REGARDING OPIOIDS PRESCRIPTION OPIOIDS: WHAT YOU NEED TO KNOW Prescription opioids can be used to help relieve txfrlxiy-za-ahunno pain and are often prescribed following a [...] Administration (www.fda.gov/Drug (more content not included)... [facility] Discharge Instructionson Discharge Instructions [id number]# 1.00TIFF [facility] ED Note-Physicianon 01-27-20 24 ED Note-Physician Basic [...] and Complexity of Problems Differential Diagnosis: [] [facility] Data External documents reviewed: [] My EKG [...] medications Follow-up With When Contact Information Pan Sergey In 3 days 01/29/2024 EDT [address] [place] [address]- Business (1) Additional Instructions: You can use the pain medication every 6 hours as needed for pain. Please follow-up with orthopedics for further evaluation management. Please return to the ED for any new or worsening symptoms. XXXX NONE In 3 days [place] Additional Instructions: Patient Education Toe Fracture, Fbqk-pf-Dawv Problem List/Past Medical History Ongoing Smoker Historical [...] 3rd digit Read By: Hayde Pro DO [facility] Comment on above: Result Comment: Elec tronically Signed By: Hayde Pro DO\.br\Date and Time Signed: 01/27/24 02:14 EDT XR Foot 3+ Views Lefton 01-16 XR [...] mGy = n/a DAP = n/a Normal [facility] Consent for Treatmenton 01-16 Consent for Treatment [id number] Normal [facility] ED Clinical Summaryon 2023 ED Clinical Summary [address] [address] ED Clinical Summary Person Information Name: CHAYA RODRIGUEZ/[facility] Age: 53 Years : 1970 Sex: Female Language: [place] PCP: NONE, XXXX Marital Status: Visit Id: [...] 01/26/2024 23:21:48 01/26/2024 23:21:48 01/26/2024 23:21:48 ADDRESS: [address] [place] [phone] PHYS DOC NOTES: MEDICAL INFORMATION: Prescriptions Given: Medications to Continue with No Changes Other Medications naproxen (Naprosyn 500 mg Tab) 1 Tablets By Mouth 2 times a day. Refills: 0. PATIENT EDUCATION INFORMATION: Instructions: Toe Fracture, Whtp-dr-Oseu Follow up: With: Address: When: [place] [address] [facility] (4) In 3 days 01/29/2024 Comments: You can use the pain medication every 6 hours as needed for pain. Please follow-up with orthopedics for further evaluation management. Please return to the ED for any new or worsening symptoms. With: Address: When: MICHELLE [place] , [place] In 3 days DIAGNOSIS: Toe fracture Normal [facility] ED Patient Education Noteon 01-26-2024 [...] Reviewed: 04/09/2022 Elsevier Patient Education ? 2022 [employer] Normal [facility] ED Patient Summaryon 024 ED Patient Summary [address] [address] Patient Discharge Instructions Person Information Name: CHAYA RODRIGUEZ Age: 53 Years Arrival Date: 01/26/2024 22:26:58 Discharge Diagnosis: Toe fracture Primary Care Physician: NONE, XXXX Provider Information Primary Provider: Hayde Pro DO [facility] Consultant:Jori The exam and treatment you received in the Emergency Department were for an urgent problem and are not intended as complete care. It is important that you follow up with a doctor, nurse practitioner, or physician?s bakery assistant for ongoing care. If your symptoms [...] Follow-up Instructions: With: Address: When: Pan Rincon [address] [place] [address] [phone] Business (1) In 3 days 01/29/2024 Comments: [...] participating provider. Patient Education Materials: Toe Fracture, Simh-jm-Jxxu A MESSAGE TO ALL PATIENTS REGARDING OPIOIDS PRESCRIPTION OPIOIDS: WHAT YOU NEED TO KNOW Prescription opioids can be used to help relieve fpsxtygv-dc-iesdzv pain and are often prescribed following a [...] the ris (more content not included)... Normal [facility] CHEMISTRYOrdered By: SYSTEM SYSTEM on 11-06-2023 Anion [...] mg/mg Normal 10 - 20 Remisol Chem HEMATOLOGYOrdered By: SYSTEM SYSTEM on 11-06-2023 Basophils/100 [...] [facility] Comment on above: Result Comment: Betty young reviewed by KD. XR HAND RT MIN 3Von 09-29-20 22 [...] by: RENEE YOUNG Date: 2022-09-29 17:12 Normal [facility] XR FOREARM RT 2Von 2 XR [...] by: MYRTLE RODRIGUEZ Date: 2022-05-14 16:25 Normal [facility] Vital Signs Date Time Vital Sign Value Performing Clinician Facility 11-14-2024 22:19-0500 Body temperature 98.6 [degF] [facility] Sontra [facility] 11-14-2024 22:19-0500 Diastolic blood pressure 66 mm[Hg] [facility] 11-14-2024 22:19-0500 Heart rate 102 /min [facility] 11-14-2024 22:19-0500 Respiratory rate 20 /min [facility] 11-14-2024 22:19-0500 SaO2% (BldA) [Mass fraction] 97 % Michael John [facility] 11-14-2024 22:19-0500 Systolic blood pressure 113 mm[Hg] Michael John [facility] 10-08-2024 13:40-0500 Body temperature 97.7 [degF] Rafael Payton [facility] 10-08-2024 13:40-0500 Diastolic blood pressure 69 mm[Hg] Rafael Payton [facility] 10-08-2024 13:40-0500 Heart rate 85 /min Rafael Payton [facility] 10-08-2024 13:40-0500 Respiratory rate 17 /min Rafael Payton [facility] 10-08-2024 13:40-0500 SaO2% (BldA) [Mass fraction] 97 % Rafael Payton [facility] 10-08-2024 13:40-0500 Systolic blood pressure 109 mm[Hg] Rafael Payton [facility] 10-02-2024 13:07-0500 Body height 170.2 cm [facility] [employer] Work Phone: [facility] 10-02-2024 13:07-0500 Body mass index (BMI) [Ratio] 23.81 kg/m2 [facility] [employer] Work Phone: [facility] 10-02-2024 13:07-0500 Body weight 68.95 kg [facility] PA Work Phone: [facility] [employer] 08-20-2024 10:41-0400 Body height 170.2 cm Kamari Hartman DO Work Phone: [facility] [employer] 08-20-2024 10:41-0400 Body mass index (BMI) [Ratio] 23.81 kg/m2 Kamari Hartman DO Work Phone: [facility] 08-20-2024 10:41-0400 Body weight 68.95 kg Kamari Hartman DO Work Phone: [facility] 07-30-2024 14:07-0400 Body height 170.2 cm Kamari Hartman DO Work Phone: [facility] 07-30-2024 14:07-0400 Body mass index (BMI) [Ratio] 23.81 kg/m2 Kamari Hartman DO Work Phone: [facility] 07-30-2024 14:07-0400 Body weight 68.95 kg Kamari Hartman DO Work Phone: [facility] 06-20-2024 17:40-0400 Body temperature 98.24 [degF] Federico Lee [facility] 06-20-2024 17:40-0400 Diastolic blood pressure 79 mm[Hg] Federico Lee [facility] 06-20-2024 17:40-0400 Heart rate 110 /min Federico Lee [facility] 06-20-2024 17:40-0400 Respiratory rate 18 /min Federico Lee [facility] 06-20-2024 17:40-0400 SaO2% (BldA) [Mass fraction] 96 % Federico Lee [facility] 06-20-2024 17:40-0400 Systolic blood pressure 120 mm[Hg] Federico Lee [facility] 03-18-2024 18:34-0400 Body temperature 98.24 [degF] [facility] 03-18-2024 18:34-0400 Diastolic blood pressure 70 mm[Hg] [facility] 03-18-2024 18:34-0400 Heart rate 79 /min [facility] 03-18-2024 18:34-0400 Respiratory rate 18 /min [facility] 03-18-2024 18:34-0400 SaO2% (BldA) [Mass fraction] 97 % [facility] 03-18-2024 18:34-0400 Systolic blood pressure 115 mm[Hg] [facility] 02-09-2024 22:24-0400 Body temperature 97.88 [degF] Kaylinn Dokken [facility] 02-09-2024 22:24-0400 Diastolic blood pressure 73 mm[Hg] Kaylinn Dokken [facility] 02-09-2024 22:24-0400 Heart rate 84 /min Kaylinn Dokken [facility] 02-09-2024 22:24-0400 Respiratory rate 16 /min Kaylinn Dokken [facility] 02-09-2024 22:24-0400 SaO2% (BldA) [Mass fraction] 96 % Kaylinn Dokken [facility] 02-09-2024 22:24-0400 Systolic blood pressure 109 mm[Hg] Kaylinn Dokken [facility] 01-26-2024 22:34-0400 Body temperature 98.24 [degF] Kaylinn Dokken [facility] 01-26-2024 22:34-0400 Diastolic blood pressure 70 mm[Hg] Kaylinn Dokken [facility] 01-26-2024 22:34-0400 Heart rate 88 /min Kaylinn Dokken [facility] 01-26-2024 22:34-0400 Respiratory rate 16 /min Kaylinn Dokken [facility] 01-26-2024 22:34-0400 SaO2% (BldA) [Mass fraction] 97 % Hayde Pro [facility] 01-26-2024 22:34-0400 Systolic blood pressure 112 mm[Hg] Hayde Pro [facility] 09-01-2023 14:57-0400 Diastolic blood pressure 65 mm[Hg] Awyne Juan Carlos [facility] 09-01-2023 14:57-0400 Heart rate 85 /min Wayne Juan Carlos [facility] 09-01-2023 14:57-0400 Mean blood pressure 80 mm[Hg] Wayne Juan Carlos [facility] 09-01-2023 14:57-0400 Respiratory rate 16 /min Wayne Juan Carlos [facility] 09-01-2023 14:57-0400 SaO2% (BldA) [Mass fraction] 97 % Wayne Juan Carlos [facility] 09-01-2023 14:57-0400 Systolic blood pressure 111 mm[Hg] Wayne Juan Carlos [facility] 09-01-2023 14:14-0400 Body temperature 98.24 [degF] Wayne Juan Carlos [facility] 09-01-2023 14:14-0400 Diastolic blood pressure 75 mm[Hg] Wayne Juan Carlos [facility] 09-01-2023 14:14-0400 Heart rate 105 /min Wayne Juan Carlos [facility] 09-01-2023 14:14-0400 Respiratory rate 18 /min Wayne Juan Carlos [facility] 09-01-2023 14:14-0400 SaO2% (BldA) [Mass fraction] 98 % Wayne Rangel [facility] 09-01-2023 14:14-0400 Systolic blood pressure 115 mm[Hg] Wayne Rangel [facility] 06-18-2023 17:00-0400 Body temperature 98.24 [degF] [facility] 06-18-2023 17:00-0400 Diastolic blood pressure 73 mm[Hg] [facility] 06-18-2023 17:00-0400 Heart rate 97 /min [facility] 06-18-2023 17:00-0400 Respiratory rate 16 /min [facility] 06-18-2023 17:00-0400 SaO2% (BldA) [Mass fraction] 97 % [facility] 06-18-2023 17:00-0400 Systolic blood pressure 120 mm[Hg] [facility] Encounters Encounter Date Encounter Type Care Provider Facility Start: 11-14-2024 End: 11-15-2024 Emergency department patient visit Michael John [facility] Start: 10-08-2024 End: 10-08-2024 Emergency department patient visit Rafael Payton [facility] Start: 10-02-2024 End: 10-02-2024 Bamboo flowsheet Jaqui MIRZA Work Phone: [facility] Start: 10-02-2024 End: 10-02-2024 Bamboo flowsheet Jaqui Guevara PA Work Phone: [facility] Start: 10-02-2024 End: 10-02-2024 Postop follow up visit related to original px Jaqui MIRZA Work Phone: [facility] Comment on above: Status post carpal t unnel release (Primary Dx) Start: 10-02-2024 End: 10-02-2024 ambulatory JAQUI D HILLS Not Available Start: 08-20-2024 End: 08-20-2024 Bamboo flowsheet Kamari Hartman DO Work Phone: [facility] Start: 08-20-2024 End: 08-20-2024 Bamboo flowsheet Kamari Hartman DO Work Phone: [facility] Start: 08-20-2024 End: 08-20-2024 Patient encounter procedure Kamari Hartman DO Work Phone: [facility] Comment on above: Bilateral hand pain (Primary Dx) Start: 08-20-2024 End: 08-20-2024 ambulatory KAMARI HARTMAN Not Available Start: 08-12-2024 End: 08-12-2024 Bamboo flowsheet Elena Castro DO Work Phone: [facility] [place] [facility] Start: 08-12-2024 End: 08-12-2024 Bamboo flowsheet Elena Eda DO Work Phone: [facility] [place] [facility] Start: 08-12-2024 End: 08-12-2024 Patient encounter procedure Elena Eda DO Work Phone: [facility] [place] [facility] Comment on above: Bilateral carpal jhon gabriela syndrome (Primary Dx); Numbness and tingling Start: 08-12-2024 End: 08-12-2024 ambulatory ELENA CASTRO Not Available Start: 07-30-2024 End: 07-30-2024 Patient encounter procedure Kamari Hartman DO Work Phone: [facility] Comment on above: Bilateral hand pain (Primary Dx) Start: 07-30-2024 End: 07-30-2024 ambulatory KAMARI HARTMAN Not Available Start: 07-30-2024 End: 07-30-2024 ambulatory KAMARI HARTMAN Not Available Start: 06-22-2024 End: 06-22-2024 ambulatory JAQUI D HILLS Not Available Start: 06-22-2024 End: 06-22-2024 ambulatory JAQUI D HILLS Not Available Start: 06-20-2024 End: 06-20-2024 Emergency department patient visit Federico Lee [facility] Start: 05-26-2024 End: 05-26-2024 ambulatory KAMARI HARTMAN Not Available Start: 03-18-2024 End: 03-18-2024 Emergency department patient visit Adán James [facility] Start: 02-18-2024 End: 02-18-2024 ambulatory KAMARI HARTMAN Not Available Start: 02-12-2024 End: 02-12-2024 ambulatory JAQUI Hannah NASIMA Not Available Start: 02-09-2024 End: 02-09-2024 Emergency department patient visit Hayde Sheth Doclementjuan pablo [facility] Start: 01-28-2024 End: 01-28-2024 ambulatory KAMARI HARTMAN Not Available Start: 01-26-2024 End: 01-26-2024 Emergency department patient visit Hayde Sheth Dianajuan pablo [facility] Start: 12-20-2023 End: 12-20-2023 Clinical Support Kamari Hartman DO Work Phone: [facility] Comment on above: S/P right knee arthr oscopy (Primary Dx) Start: 12-17-2023 End: 12-17-2023 ambulatory KAMARI HARTMAN Not Available Start: 11-06-2023 End: 11-06-2023 Patient encounter procedure Kamari Hartman [facility] Start: 10-31-2023 End: 10-31-2023 ambulatory KAMARI HARTMAN Not Available Start: 10-16-2023 End: 10-16-2023 ambulatory JAQUI GUEVARA Not Available Start: 10-07-2023 End: 10-07-2023 Patient encounter procedure Jaqui Guevara [facility] Start: 09-01-2023 End: 09-01-2023 Emergency department patient visit Wayne Rangel [facility] Start: 06-18-2023 End: 06-18-2023 Emergency department patient visit Adán James [facility] Start: 03-26-2023 End: 03-26-2023 ambulatory YUKI HIGGINS . Facility:[facility] Start: 09-29-2022 End: 09-29-[address] ABRAHAM LISTED REQUEST Facility:[facility] Start: 09-07-2022 End: 09-07-2022 ambulatory JIMMY WILSON . Facility:[facility] Start: 05-14-2022 End: 05-14-[address] ANNAMARIA GALLEGOS . Facility:[facility] Start: 05-01-2022 End: 05-01-2022 ambulatory TONIA BOND Facility: Procedures Date Procedure Procedure Detail Performing Clinician Start: 08-12-2024 End: 08-12-2024 Needle emg ea extremty w/paraspinl area complete Elena Castro DO Work Phone: Start: 07-30-2024 Radex hand minimum 3 views Kamari Hartman DO Work Phone: History of decompres sheba of median nerve Status post carpal tunnel release Jaqui MIRZA Work Phone: Plan of Treatment Date Care Activity Detail Author Start: 09-18-2024 End: 09-18-2024 Patient encounter procedure 09/18/2024 12:30 PM EDT Procedure Visit [facility] Kamari Hartman DO [address] [place] [address] [facility] Start: 08-20-2024 End: 08-20-2024 Patient encounter procedure [facility] Comment on above: Bilateral hand pain (Primary Dx) Start: 08-12-2024 End: 08-12-2024 Patient encounter procedure 08/12/2024 9:00 AM EDT Procedure Visit [facility] [address] [place] [phone] Elena Castro DO [address] [place], [place] [id number] [facility] Comment on above: Arrived Start: 07-19-2024 Influenza vaccination Influenz a Vaccine (#1) [facility] Start: 02-12-2024 End: 02-12-2024 Patient encounter procedure 02/12/2024 1:15 PM EDT Office Visit [facility] [address] [place] [address] Jaqui Guevara PA [address] [place] [address] [facility] Start: 2010 Screening for malign ant neoplasm of breast Mammogram [facility] Start: 2000 Screening for malign ant neoplasm of cervix [facility] Start: 1991 Screening for malign ant neoplasm of cervix Pap Smear [facility] Start: 1970 Screening for malign ant neoplasm of colon [facility] XR Hand - left 3 Views XR hand 3 + views left Imaging Routine Bilateral hand pain 07/30/2024 11:33 AM EDT [facility] XR Hand - right 3 Views XR hand 3+ views right Imaging Routine Bilateral hand pain 07/30/2024 11:33 AM EDT [facility] Work Phone: Payers Date Payer Category Payer Medicaid [id number] 2023 Medicaid [id number] 1970 Unknown [id number] 2.16.84 0.1.973210.3.579.2.593 1970 Unknown [id number] 2.16.84 0.1.344216.3.579.2.593 1970 Unknown [id number] 2.16.84 0.1.936734.3.579.2.593 1970 Unknown [id number] 2.16.84 0.1.422105.3.579.2.593 1970 Unknown [id number] 2.16.84 0.1.925944.3.579.2.593 1970 Unknown [id number] 2.16.84 0.1.362183.3.579.2.1259 1970 Unknown [id number] 2.16.84 0.1.460110.3.579.2.1259 1970 Unknown [id number] 2.16.84 0.1.789962.3.579.2.1259 1970 Unknown [id number] 2.16.84 0.1.908179.3.579.2.1259 1970 Unknown [id number] 2.16.84 0.1.859179.3.579.2.1259 1970 Unknown [id number] 2.16.84 0.1.382206.3.579.2.1259 1970 Unknown [id number] 2.16.84 0.1.884518.3.579.2.1259 1970 Unknown [id number] 2.16.84 0.1.002683.3.579.2.1259 1970 Unknown [id number] 2.16.84 0.1.061877.3.579.2.1259 1970 Unknown [id number] 2.16.84 0.1.550292.3.579.2.1259 1970 Unknown [id number] 2.16.84 0.1.588227.3.579.2.1259 1970 Unknown [id number] 2.16.84 0.1.130183.3.579.2.1259 1970 Unknown [id number] 2.16.84 0.1.353138.3.579.2.1259 1970 Unknown [id number] 2.16.84 0.1.099003.3.579.2.1259 1970 Unknown [id number] 2.16.84 0.1.058739.3.579.2.1259 1970 Unknown [id number] 2.16.840 .1.924902.3.579.2.1259 1970 Unknown [id number] 2.16.840 .1.285235.3.579.2.1259 1970 Unknown [id number] 2.16.8 40.1.628540.3.579.2.727 1970 Unknown [id number] 2.16.8 40.1.656509.3.579.2.727 1970 Unknown [id number] 2.16.8 40.1.625796.3.579.2.727 1970 Unknown [id number] 2.16.8 40.1.823180.3.579.2.727 1970 Unknown [id number] 2.16.8 40.1.630725.3.579.2.727 1970 Unknown [id number] 2.16.8 40.1.684399.3.579.2.727 1959 Self-pay [id number] Social History Date Type Detail Facility Tobacco smoking status [facility] Start: 12-17-2023 End: 07-30-2024 Sex Assigned At Female [facility] Start: 09-01-2023 Tobacco smoking status Heavy t obacco smoker (finding) [facility] Start: 10-18-1985 End: 05-26-2024 Tobacco smoking status NHIS Smokes tobacco daily [facility] Start: 10-18-1985 History of tobacco use Cigarette Smo ker [facility] Start: 10-16-2023 End: 07-30-2024 Cigarettes smoked current (pack per day) - Reported 0.5 [facility] Start: 10-16-2023 End: 05-26-2024 Tobacco use and exposure Smokeless tobacco non-user [facility] Start: 12-17-2023 End: 07-30-2024 Alcohol intake Ex-drinker (finding) [facility] Start: 1970 Sex Assigned At Not on file N [facility] Functional Status Date Assessment Result Facility 11-14-2024 Functional Status N/A [facility] 10-08-2024 Functional Status N/A [facility] 06-20-2024 Functional Status N/A [facility] 03-18-2024 Functional Status N/A [facility] 02-09-2024 Functional Status N/A [facility] 01-26-2024 Functional Status N/A [facility] 09-01-2023 Functional Status N/A [facility] 06-18-2023 Functional Status N/A [facility] Clinical Notes 06-18-2023 to 11-15-2024 Note Date & Type Note Facility 11-15-2024 Evaluation + Plan note Extrac ginny from: Title:ED Note Author:Javi PICKERING, Ever Briones te:11/15/24 Sprain of right hand (S63.91 XA: Sprain of unspecified part of right wrist and hand, initial encounter) Orders: naproxen, 500 mg = 1 tab(s), Oral, BID, X 10 day(s), # 20 tab(s), Refills(s) 0, Pharmacy: [id number], 170, cm, 11/14/24 22:23:00 EST, Height/Length Dosing, 68.3, kg, 11/14/24 22:23:00 EST, Weight Dosing naproxen, 500 mg = 2 tab(s), Tab, Oral, Once, Stop date 11/15/24 0:52:00 EST, STAT, Start date 11/15/24 0:52:00 EST, 11/15/24 0:52:00 EST [facility] 12-29-2024 Hospital Discharge instructions Patient Education 11/15/2024 01:12:38 RICE Therapy for Routine Care of Injuries RICE Therapy for Routine Care of Injuries The routine care of many injuries includes rest, ice, compression, and elevation (RICE therapy). RICE therapy is often recommended for injuries to soft tissues, such as muscle strain, sprains, bruises, and overuse injuries. It can also be used for some bone injuries. Using RICE therapy can help to relieve pain and lessen swelling. Supplies needed: Ice. Plastic bag. Towel. Elastic bandage. Pillow or pillows to raise (elevate) the injured body part. How to care for your injury with RICE therapy Rest Rest your injury. This may help with the healing process. Rest usually involves limiting your normal activities and not using the injured part of your body. Generally, you can return to your normal activities when your health care provider says it is okay and you can do them without much discomfort. If you rest the injury too much, it may not heal as well. Some injuries heal better with early movement instead of resting for too long. Talk with your health care provider about how you should limityour activities and whether you should start nynou-sv-tuksrs exercises for your injury. Ice Ice your injury to lessen swelling and pain. Do not apply ice directly to your skin. Put ice in a plastic bag. Place a towel between your skin and the bag. Leave the ice on for 20 minutes, 2 3 times a day. Use ice on as many days as told by your health care provider. Compression Put pressure (compression) on your injured area to control swelling, give support, and help with discomfort. Compression may be done with an elastic bandage. If an elastic bandage has been applied, follow these general tips: Use the bandage as directed by the maker of the bandage that you are using. Do not wrap the bandage too tightly. That may block (cut off) circulation in the arm or leg in the area below the bandage. ?If part of your body beyond the bandage becomes blue, numb, cold, swollen, or more painful, your bandage is probably too tight. If this occurs, remove your bandage and reapply it more loosely. Remove and reapply the bandage every 3 4 hours or as told by your health care provider. See your health care provider if the bandage seems to be making your problems worse rather than better. Elevation Elevate your injured area to lessen swelling and pain. If possible, elevate your injured area at orabove the level of your heart or the center of your chest. Contact a health care provider if: Your pain and swelling continue. Your symptoms are getting worse rather than improving. Having these problems may mean that you need further evaluation or imaging tests, such as X-rays dorie MRI. Sometimes, X-rays may not show a small broken bone (fracture) until days after the injury happened. Make a follow-up appointment with your health care provider. Ask your health care provider,or the department that is doing the imaging test, when your results will be ready. Get help right away if: You have sudden severe pain at or below the area of your injury. You have redness or increased swelling around your injury. You have tingling or numbness at or below the area of your injury and it does not improve after youremove the elastic bandage. Summary The routine care of many injuries includes rest, ice, compression, and elevation (RICE therapy). Using RICE therapy can help to relieve pain and lessen swelling. RICE therapy is often recommended for injuries to soft tissues, such as muscle strain, sprains, bruises, and overuse injuries. It can also be used for some bone injuries. Seek medical care if your pain and swelling continue or if your symptoms are getting worse rather than improving. This information is not intended to replace advice given to you by your health care provider. Make sure you discuss any questions you have with your health care provider. Document Revised: 01/09/2021 Document Reviewed: 07/25/2018 [employer] Patient Education 2020 [employer]. 11/15/2024 01:12:38 Hand Pain Hand Pain Hand pain can make it hard to do daily activities. Many things can cause hand pain. Some common causes are: Injuries. These may include: ?Broken bones (fractures)and cuts. ?Overuse injuries from doing the same movements many times (repetitive activity). Arthritis. Lumps in the tendons or joints of the hand and wrist (ganglion cysts). Nerve compression syndromes (carpal tunnel syndrome). Inflammation of the tendons (tendinitis). Infection. Follow these instructions at home: Managing pain, stiffness, and swelling Take bcfe-uei-rygamdt and prescription medicines only as told by your health care provider. If told, put ice on the affected area. ?Put ice in a plastic bag. ?Place a towel between your skin and the bag. ?Leave the ice on for 20 minutes, 2 3 times a day. If told, apply heat to the affected area before you exercise or as often as told by your provider. Use the heat source that your provider recommends, such as a moist heat pack or a heating pad. ?Place a towel between your skin and the heat source. ?Leave the heat on for 20 30 minutes. If your skin turns bright red, remove the ice or heat right away to prevent skin damage. The risk of damage is higher if you cannot feel pain, heat, or cold. Activity Take breaks from repetitive activity often. Minimize stress on your hands and wrists as much as possible. Do stretches or exercises as told by your provider. Do not do activities that make your pain worse. Wear a hand splint or support as told by your provider. Contact a health care provider if: Your pain does not get better after a few days. Your pain gets worse. Your pain affects your ability to do your daily activities. Your hand becomes warm, red, or swollen. Your hand is numb or tingling. Get help right away if: Your hand is extremely swollen or is an unusual shape. Your hand or fingers turn white or blue. You cannot move your hand, wrist, or fingers. This information is not intended to replace advice given to you by your health care provider. Make sure you discuss any questions you have with your health care provider. Document Revised: 06/12/2023 Document Reviewed: 06/12/2023 [employer] Patient Education 2023 [employer]. Follow Up Care 11/14/2024 22:15:08 With:Isaac Link Address: [address] [place], [place] [id number] Business (1) When:11/18/2024 [facility] 12-29-2024 NoteED Patient Education Note Orthopedics RICE Therapy for Routine Care of Injuries The routine care of many injuries includes rest, ice, compression, and elevation (RICE therapy). RICE therapy is often recommended for injuries to soft tissues, such as muscle strain, sprains, bruises, and overuse injuries. It can also be used for some bone injuries. Using RICE therapy can help to relieve pain and lessen swelling. Supplies needed: ??? Ice. ??? Plastic bag. ??? Towel. ??? Elastic bandage. ??? Pillow or pillows to raise (elevate) the injured body part. How to care for your injury with RICE therapy Rest Rest your injury. This may help with the healing process. Rest usually involves limiting your normal activities and not using the injured part of your body. Generally, you can return to your normal activities when your health care provider says it is okay and you can do them without much discomfort. If you rest the injury too much, it may not heal as well. Some injuries heal better with early movement instead of resting for too long. Talk with your health care provider about how you should limityour activities and whether you should start thvrs-rj-tmbglu exercises for your injury. Ice Ice your injury to lessen swelling and pain. Do not apply ice directly to your skin. ??? Put ice in a plastic bag. ??? Place a towel between your skin and the bag. ??? Leave the ice on for 20 minutes, 2?3 times a day. Use ice on as many days as told by your health care provider. Compression Put pressure (compression) on your injured area to control swelling, give support, and help with discomfort. Compression may be done with an elastic bandage. If an elastic bandage has been applied, follow these general tips: ??? Use the bandage as directed by the maker of the bandage that you are using. ??? Do not?wrap the bandage too tightly. That may block (cut off) circulation in the arm or leg in the area below the bandage. ? If part of your body beyond the bandage becomes blue, numb, cold, swollen, or more painful, your bandage is probably too tight. If this occurs, remove your bandage and reapply it more loosely. ??? Remove and reapply the bandage every 3?4 hours or as told by your health care provider. ??? See your health care provider if the bandage seems to be making your problems worse rather thanbetter. Elevation Elevate your injured area to lessen swelling and pain. If possible, elevate your injured area at orabove the level of your heart or the center of your chest. Contact a health care provider if: ??? Your pain and swelling continue. ??? Your symptoms are getting worse rather than improving. Having these problems may mean that you need further evaluation or imaging tests, such as X-rays dorie MRI. Sometimes, X-rays may not show a small broken bone (fracture) until days after the injury happened. Make a follow-up appointment with your health care provider. Ask your health care provider,or the department that is doing the imaging test, when your results will be ready. Get help right away if: ??? You have sudden severe pain at or below the area of your injury. ??? You have redness or increased swelling around your injury. ??? You have tingling or numbness at or below the area of your injury and it does not improve afteryou remove the elastic bandage. Summary ??? The routine care of many injuries includes rest, ice, compression, and elevation (RICE therapy). Using RICE therapy can help to relieve pain and lessen swelling. ??? RICE therapy is often recommended for injuries to soft tissues, such as muscle strain, sprains,bruises, and overuse injuries. It can also be used for some bone injuries. ??? Seek medical care if your pain and swelling continue or if your symptoms are getting worse rather than improving. This information is not intended to replace advice given to you by your health care provider. Make sure you discuss any questions you have with your health care provider. Document Revised: 01/09/2021 Document Reviewed: 07/25/2018 [employer] Patient Education ? 2020 [employer] Hand Pain Hand pain can make it hard to do daily activities. Many things can cause hand pain. Some common causes are: ??? Injuries. These may include: ? Broken bones (fractures)and cuts. ? Overuse injuries from doing the same movements many times (repetitive activity). ??? Arthritis. ??? Lumps in the tendons or joints of the hand and wrist (ganglion cysts). ??? Nerve compression syndromes (carpal tunnel syndrome). ??? Inflammation of the tendons (tendinitis). ??? Infection. Follow these instructions at home: Managing pain, stiffness, and swelling ??? Take mlqf-snh-uqhcihs and prescription medicines only as told by your health care provider. ??? If told, put ice on the affected area. ? Put ice i (more content not included)...[facility]11-21-2024 Hospital Discharge instructions Patient Education 10/08/2024 14:03:11 Cervical Radiculopathy, Vfqx-ix-Zjqy Cervical Radiculopathy Cervical radiculopathy means that a nerve in the neck (a cervical nerve) is pinched or bruised. This can happen because of an injury to the cervical spine (vertebrae) in the neck, or as a normal partof getting older. This condition can cause pain or loss of feeling (numbness) that runs from your neck all the way down to your arm and fingers. Often, this condition gets better with rest. Treatmentmay be needed if the condition does not get better. What are the causes? A neck injury. A bulging disk in your spine. Sudden muscle tightening (muscle spasms). Tight muscles in your neck due to overuse. Arthritis. Breakdown in the bones and joints of the spine (spondylosis) due to getting older. Bone spurs that form near the nerves in the neck. What are the signs or symptoms? Pain. The pain may: ?Run from the neck to the arm and hand. ?Be very bad or irritating. ?Get worse when you move your neck. Loss of feeling or tingling in your arm or hand. Weakness in your arm or hand, in very bad cases. How is this treated? In many cases, treatment is not needed for this condition. With rest, the condition often gets better over time. If treatment is needed, options may include: Wearing a soft neck collar (cervical collar) for short periods of time. Doing exercises (physical therapy) to strengthen your neck muscles. Taking medicines. Having shots (injections) in your spine, in very bad cases. Having surgery. This may be needed if other treatments do not help. The type of surgery that is used will depend on the cause of your condition. Follow these instructions at home: If you have a soft neck collar: Wear it as told by your doctor. Take it off only as told by your doctor. Ask your doctor if you can take the collar off for cleaning and bathing. If you are allowed to takethe collar off for cleaning or bathing: ?Follow instructions from your doctor about how to take off the collar safely. ?Clean the collar by wiping it with mild soap and water and drying it completely. ?Take out any removable pads in the collar every 1 2 days. Wash them by hand with soap and water. Let them air-dry completely before you put them back in the collar. ?Check your skin under the collar for redness or sores. If you see any, tell your doctor. Managing pain Take fuld-fqk-apsqxli and prescription medicines only as told by your doctor. If told, put ice on the painful area. To do this: ?If you have a soft neck collar, take if off as told by your doctor. ?Put ice in a plastic bag. ?Place a towel between your skin and the bag. ?Leave the ice on for 20 minutes, 2 3 times a day. ?Take off the ice if your skin turns bright red. This is very important. If you cannot feel pain, heat, or cold, you have a greater risk of damage to the area. If using ice does not help, you can try using heat. Use the heat source that your doctor recommends, such as a moist heat pack or a heating pad. ?Place a towel between your skin and the heat source. ?Leave the heat on for 20 30 minutes. ?Take off the heat if your skin turns bright red. This is very important. If you cannot feel pain, heat, or cold, you have a greater risk of getting burned. You may try a gentle neck and shoulder rub (massage). Activity Rest as needed. Return to your normal activities when your doctor says that it is safe. Do exercises as told by your doctor or physical therapist. You may have to avoid lifting. Ask your doctor how much you can safely lift. General instructions Use a flat pillow when you sleep. Do not drive while wearing a soft neck collar. If you do not have a soft neck collar, ask your doctor if it is safe to drive while your neck heals. Ask your doctor if you should avoid driving or using machines while you are taking your medicine. Do not smoke or use any products that contain nicotine or tobacco. If you need help quitting, ask your doctor. Keep all follow-up visits. Contact a doctor if: Your condition does not get better with treatment. Get help right away if: Your pain gets worse and medicine does not help. You lose feeling or feel weak in your hand, arm, face, or leg. You have a high fever. Your neck is stiff. You cannot control when you poop or pee (have incontinence). You have trouble with walking, balance, or talking. Summary Cervical radiculopathy means that a nerve in the neck is pinched or bruised. A nerve can get pinched from a bulging disk, arthritis, an injury to the neck, or other causes. Symptoms include pain, tingling, or loss of feeling that goes from the neck to the arm or hand. Weakness in your arm or hand can happen in very bad cases. Treatment may include resting, wearing a soft neck collar, and doing exercises. You might need to take medicines for pain. In very bad cases, shots or surgery may be needed. This information is not intended to replace advice given to you by your health care provider. Make sure you discuss any questions you have with your health care provider. Document Revised: 05/10/2022 Document Reviewed: 05/10/2022 [employer] Patient Education 2023 [employer]. Follow Up Care 10/08/2024 13:39:32 With:Liliya Mejia Address: [address], [address] [address] Business (1) When:10/11/2024 14:02:40 Comments:Call to schedule a follow-up appointment with your family physician in the next 2 to 3 days. Take the prednisone as prescribed. Use naproxen and Robaxin as needed for pain. Return to the ED with any new or worsening symptoms. [facility] 11-21-2024 NoteED Patient Education Note Orthopedics Cervical Radiculopathy Cervical radiculopathy means that a nerve in the neck (a cervical nerve) is pinched or bruised. This can happen because of an injury to the cervical spine (vertebrae) in the neck, or as a normal partof getting older. This condition can cause pain or loss of feeling (numbness) that runs from your neck all the way down to your arm and fingers. Often, this condition gets better with rest. Treatmentmay be needed if the condition does not get better. What are the causes? A neck injury. ??? A bulging disk in your spine. ??? Sudden muscle tightening (muscle spasms). ??? Tight muscles in your neck due to overuse. ??? Arthritis. ??? Breakdown in the bones and joints of the spine (spondylosis) due to getting older. ??? Bone spurs that form near the nerves in the neck. What are the signs or symptoms? Pain. The pain may: ? Run from the neck to the arm and hand. ? Be very bad or irritating. ? Get worse when you move your neck. ??? Loss of feeling or tingling in your arm or hand. ??? Weakness in your arm or hand, in very bad cases. How is this treated? In many cases, treatment is not needed for this condition. With rest, the condition often gets better over time. If treatment is needed, options may include: ??? Wearing a soft neck collar (cervical collar) for short periods of time. ??? Doing exercises (physical therapy) to strengthen your neck muscles. ??? Taking medicines. ??? Having shots (injections) in your spine, in very bad cases. ??? Having surgery. This may be needed if other treatments do not help. The type of surgery that isused will depend on the cause of your condition. Follow these instructions at home: If you have a soft neck collar: ??? Wear it as told by your doctor. Take it off only as told by your doctor. ??? Ask your doctor if you can take the collar off for cleaning and bathing. If you are allowed to take the collar off for cleaning or bathing: ? Follow instructions from your doctor about how to take off the collar safely. ? Clean the collar by wiping it with mild soap and water and drying it completely. ? Take out any removable pads in the collar every 1?2 days. Wash them by hand with soap and water. Let them air-dry completely before you put them back in the collar. ? Check your skin under the collar for redness or sores. If you see any, tell your doctor. Managing pain ??? Take gawp-slc-zqnkjss and prescription medicines only as told by your doctor. ??? If told, put ice on the painful area. To do this: ? If you have a soft neck collar, take if off as told by your doctor. ? Put ice in a plastic bag. ? Place a towel between your skin and the bag. ? Leave the ice on for 20 minutes, 2?3 times a day. ? Take off the ice if your skin turns bright red. This is very important. If you cannot feel pain, heat, or cold, you have a greater risk of damage to the area. ??? If using ice does not help, you can try using heat. Use the heat source that your doctor recommends, such as a moist heat pack or a heating pad. ? Place a towel between your skin and the heat source. ? Leave the heat on for 20?30 minutes. ? Take off the heat if your skin turns bright red. This is very important. If you cannot feel pain,heat, or cold, you have a greater risk of getting burned. ??? You may try a gentle neck and shoulder rub (massage). Activity ??? Rest as needed. ??? Return to your normal activities when your doctor says that it is safe. ??? Do exercises as told by your doctor or physical therapist. ??? You may have to avoid lifting. Ask your doctor how much you can safely lift. General instructions ??? Use a flat pillow when you sleep. ??? Do not drive while wearing a soft neck collar. If you do not have a soft neck collar, ask your doctor if it is safe to drive while your neck heals. ??? Ask your doctor if you should avoid driving or using machines while you are taking your medicine. ??? Do not smoke or use any products that contain nicotine or tobacco. If you need help quitting, ask your doctor. ??? Keep all follow-up visits. Contact a doctor if: ??? Your condition does not get better with treatment. Get help right away if: ??? Your pain gets worse and medicine does not help. ??? You lose feeling or feel weak in your hand, arm, face, or leg. ??? You have a high fever. ??? Your neck is stiff. ??? You cannot control when you poop or pee (have incontinence). ??? You have trouble with walking, balance, or talking. Summary ??? Cervical radiculopathy means that a nerve in the neck is pinched or bruised. ??? A nerve can get pinched from a bulging disk, arthritis, an injury to the neck, or other causes. ??? Symptoms include pain, tingling, or loss of feeling that goes from the neck to the arm or hand. ??? Weakness (more content not included)...[facility]11-15-2024 History of Present illness Narrative* YUKI Casey - 10/02/2024 1:15 PM EST Images from the original note were not included. Subjective Patient ID: Chaya Rodriguez is a 53 y.o. female. Chief Complaint: Post-op of the Left Wrist (Lt CTR TSCNCO 09/18/24 MTP) Last Surgery: No surgery found Last Surgery Date: No surgery found HPI She is here for suture removal and wound check status post carpal tunnel in the left wrist by Dr. Hartman. She states that she has a little tingling in her thumb but overall feels much better and no nighttime pain or troubles with being woken up with discomfort. Objective Ortho Exam Patient's wounds healed nicely sutures have been removed there is no erythema there is no drainage she has good sensation and function all the digits. Left-hand. Image Results: EMG 2 Extremities EMG/NCS BUE Minimal bilateral carpal tunnel syndrome NVC 11-12 Nerves EMG/NCS BUE Minimal bilateral carpal tunnel syndrome Assessment/Plan Encounter Diagnoses: Status post carpal tunnel release No orders of the defined types were placed in this encounter. Follow up if symptoms worsen or fail to improve. May keep wound covered for a few days after sutures removed for protection may still use cock-up wrist splint for heavy activity and lifting otherwise work on gentle range of motion and normal use ofthe hand. Would expect this to continue to improve over the next 6 weeks. Call the office when you wish to see Dr. Hartman and scheduled for the right side to be done after the of the year. Tylenol for discomfort notify office if developing any increased pain redness or drainage from the incision site. documented in this encounterWashington University Medical [id number] Instructions* Patient Instructions* YUKI aCsey - 10/02/2024 1:15 PM EST May keep wound covered for a few days after sutures removed for protection may still use cock-up wrist splint for heavy activity and lifting otherwise work on gentle range of motion and normal use ofthe hand. Would expect this to continue to improve over the next 6 weeks. Call the office when you wish to see Dr. Hartman and scheduled for the right side to be done after the of the year. Tylenol for discomfort notify office if developing any increased pain redness or drainage from the incision site. documented in this encounterWashington University Medical [id number] History of Present illness Narrative* Briseida Garcia - 08/20/2024 10:15 AM EDT Images from the original note were not included. GENERAL HISTORY AND PHYSICAL: NAME: Chaya Rodriguez : 1970 CHIEF COMPLAINT: Bilateral hand pain, numbness and tingling, left worse than right. HISTORY OF PRESENT ILLNESS: Chaya is here to review the EMG which confirms carpal tunnel syndrome. She is having significant pain in her palm with burning into her thenar area, left worse than right.She has tried bracing, stretching, anti-inflammatory. She wakes up at night quite frequently. This has been going on for months. Chaya is here for bilateral carpal tunnel syndrome. She was told she had carpal tunnel several years ago and thought about getting it fixed. Due to her insurance coverage, she did not move forward. She has had over the last year or two some progression of her pain, night disruption, burning and tingling. It has gotten worse over the last few months. She has tried some different brace options. She does report swelling. Numbness and tingling is reported in the median nerve distribution. PAST MEDICAL HISTORY: History reviewed. No pertinent past medical history. PAST SURGICAL HISTORY: Past Surgical History: Procedure Laterality Date GALLBLADDER SURGERY 04/2000 removal KNEE ARTHROSCOPY W/ DEBRIDEMENT Right 12/04/2023 MTP - TSCNCO (w/ excision stm on knee) SOCIAL HISTORY: Social History Occupational History Not on file Tobacco Use Smoking status: Every Day Current packs/day: 0.50 Average packs/day: 0.5 packs/day for 38.8 years (19.4 ttl pk-yrs) Types: Cigarettes Start date: 10/18/1985 Smokeless tobacco: Never Vaping Use Vaping status: Never Used Substance and Sexual Activity Alcohol use: Not Currently Drug use: Never Sexual activity: Not Currently Partners: Male control/protection: None ALLERGIES: No Known Allergies MEDICATIONS: Current Outpatient Medications Medication Instructions magnesium 200 MG tablet Multiple Vitamin (multivitamin) tablet 1 tablet, Oral, Daily REVIEW OF SYSTEMS: The review of systems, history and current medications list are all reviewed today. Vitals: Visit Vitals Ht 5' 7 Wt 152 lb BMI 23.81 kg/m OB Status Unknown Smoking Status Every Day BSA 1.8 m PHYSICAL EXAM: On physical exam, she is alert and oriented. Vital signs are stable. She has chronicnail discoloration from tobacco. There is positive Tinel's over both carpal tunnels. Phalen's is positive at 10 seconds with median nerve reproducible dysesthesias. Ulnar nerve testing of the wrist and elbow is negative. Trigger exam is negative. [facility] grind test is negative. X-rays and imaging permanently saved to the patient's record were reviewed shows mild degenerative changes of the basilar thumb joint. There is no acute fracture, dislocation, tumor or infection seen. EMG as above. There is no obvious sign of neck or elbow involvement in the EMG. Surgical History and Physical: GENERAL AND PSYCHOLOGICAL: The patient is alert and oriented for age. HEAD AND E.E.N.T.: The skull is normocephalic. There is no mass or sign of trauma. NECK: The neck is supple. There is good range of motion. There is no mass or adenopathy appreciated. The thyroid is not enlarged. CARDIAC: The heart is regular. There is no murmur or ectopy appreciated. LUNGS: Inspiratory and expiratory excursions are symmetrical. The lung varner are clear in all quadrants. ABDOMEN: The texture is soft. Bowel sounds are heard well in all quadrants. There is no tenderness to palpation. There is no organomegaly appreciated. OSTEOPATHIC AND STRUCTURAL: There is no gross evidence of kyphosis, lordosis, scoliosis, or apparent leg length discrepancy, with no acute tissue texture changes in sitting or standing positions. ASSESSMENT: Bilateral carpal tunnel syndrome, left worse than right. PLAN: The nature of the findings were discussed at length. She has tried conservative care for several months. We discussed her lack of improvement as well as night disruption. She has exhausted stretching, anti-inflammatory, vitamin and bracing management. She is requesting left carpal tunnel release. The perioperative course, time, healing, commitment and expectations were all reviewed. The potential recurrence was discussed. The anatomy, pathology and occurrence of carpal tunnel syndrome wasreviewed at length today. The EMG nerve studies correlate with the pathology of the patient. We discussed the risks, benefits, complications, and reasonable expectations of surgical carpal tunnel release. The anesthesia options were reviewed. The potential of stiffness, pain, recurrence, dissatisfaction, nerve, vessel or tendon injury, infection, infection requiring multiple surgeries with IV antibiotics, pillar pain, weakness, swelling, need for occupational therapy, blood clot, pulmonary embol ism, myocardial infarction, arrhythmia, stroke and were all reviewed. Consent forms are signed and witnessed for carpal tunnel release. She will undergo routine presurgical testing and scheduling and I will see her back postoperatively. Time, healing, commitment and expectations were all reviewed. We discussed further management of her right one down the road. She voices verbal understanding. She is discharged in stable condition. Kamari Hartman D.O. documented in this [facility]09-25-2024 History of Present illness Narrative* CHARLOTTE Palacios - 08/12/2024 9:00 AM EDT Images from the original note were not included. Reason for Appointment: EMG Patient: Chaya Rodriguez : 1970 EMG Computer: [employer] Referring Physician: Dr. 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 No hx of DM. Not on blood thinners. Comments: Procedure was explained to the patient who expressed understanding. Patient appeared to have tolerated the test well despite some discomfort due to the nature of the test. documented in this [facility]09-12-2024 History of Present illness Narrative* Briseida Garcia - 07/30/2024 2:00 PM EDT Images from the original note were not included. Chaya Rodriguez is a 53 y.o. female presents with chief complaint of bilateral hand pain, numbness and tingling. HPI: Chaya is here for bilateral carpal tunnel syndrome. She was told she had carpal tunnel several years ago and thought about getting it fixed. Due to her insurance coverage, she did not move forward. She has had over the last year or two some progression of her pain, night disruption, burning and tingling. It has gotten worse over the last few months. She has tried some different brace options. Shedoes report swelling. Numbness and tingling is reported in the median nerve distribution. SUBJECTIVE: MEDICATIONS: Current Outpatient Medications Medication Instructions magnesium 200 MG tablet Multiple Vitamin (multivitamin) tablet 1 tablet, Oral, Daily ALLERGIES: No Known Allergies SURGICAL HISTORY: Past Surgical History: Procedure Laterality Date GALLBLADDER SURGERY 04/2000 removal KNEE ARTHROSCOPY W/ DEBRIDEMENT Right 12/04/2023 MTP - TSCNCO (w/ excision stm on knee) FAMILY HISTORY: Family History Problem Relation Name Age of Onset Diabetes Mother Lizzie Marin Osteoporosis Mother Lizzie Marin Diabetes Mother's Sister Sara Rubio Aunt Diabetes Mother's Brother Donato Ashley Cancer Mother's Brother Donato Ashley Diabetes Maternal Grandmother Sandra Ashley Cancer Mother's Sister Sara Rubio SOCIAL HISTORY: Social History Tobacco Use Smoking status: Every Day Current packs/day: 0.50 Average packs/day: 0.5 packs/day for 38.8 years (19.4 ttl pk-yrs) Types: Cigarettes Start date: 10/18/1985 Smokeless tobacco: Never Vaping Use Vaping status: Never Used Substance Use Topics Alcohol use: Not Currently Drug use: Never Depression: Not on file REVIEW OF SYMPTOMS: The review of systems, history and current medications list are all reviewed today. OBJECTIVE: Visit Vitals Ht 5' 7 Wt 152 lb BMI 23.81 kg/m OB Status Unknown Smoking Status Every Day BSA 1.8 m Physical Exam On physical exam, she is alert and oriented. Vital signs are stable. She has chronic nail discoloration from tobacco. There is positive Tinel's over both carpal tunnels. Phalen's is positive at 10 seconds with median nerve reproducible dysesthesias. Ulnar nerve testing of the wrist and elbow is negative. Trigger exam is negative. [facility] grind test is negative. X-rays and imaging permanently saved to the patient's record were reviewed shows mild degenerative changes of the basilar thumb joint. There is no acute fracture, dislocation, tumor or infection seen. 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 The nature of the findings were discussed at length. We discussed conservative, injection and surgical carpal tunnel management. She will continue with the night time splint, median nerve glide stretches were reviewed. Vitamin B6 was discussed twice a day. We will set up an EMG study of the bilateral upper extremities and I will see her back post testing for further discussion and definitive treatment. She voices verbal understanding. She is discharged in stable condition. The patient was seen and examined. From the time of check in, nurse triage, vital signs, x-ray, x-ray interpretation, review of systems, comprehensive history and physical exam as well as setting up treatment plan and further management took 35 minutes. [facility] this [id number] Discharge instructions Patient Education 06/20/2024 18:35:00 Dental Pain [...] or after getting dental care. Medicines Take zazt-qkv-rvlbxlt and prescription medicines only as told by [...] pain may be mild or severe. Take gexi-rfc-poomdbd and prescription medicines only as told by [...] provider. Document Revised: 08/09/2021 Document Reviewed: 08/09/2021 [employer] Patient Education 2022 [employer]. Follow Up Care 06/20/2024 17:35:13 With:[employer] Address: [address] [place] [address] Business (1) When:06/23/2024 18:31:08 With:Justina FLYNN Address: [place] [address] Business (1) When:06/23/2024 18:31:05 [facility] 08-03-2024 NoteED Patient Education Note Dentistry Dental Pain Dental [...] after getting dental care. Medicines ? Take bgcv-iup-ropjeis and prescription medicines only as told by [...] swelling, especially if the pain is following dentaltreatment. ? If directed, put ice on the [...] directed by your dental care provider, especially ifthe root is exposed. ? Always brush your [...] may be mild or severe. ? Take bfry-wxl-feclvsz and prescription medicines only as told by [...] provider. Document Revised: 08/09/2021 Document Reviewed: 08/09/2021 [employer] Patient Education ? 2022 [employer].[facility] 03-18-2024 Hospital Discharge instructions Patient Education 03/18/2024 19:38:52 Rib Contusion [...] risk for lung collapse and pneumonia. Medicines. Psxk-rcx-odymiut or prescription medicines may be given to control pain. Injection of a numbing medicine around the nerve near your injury (nerve block). Follow these instructions at home: Medicines Take ochl-gpm-htodyiq and prescription medicines only as told by your health care provider. Ask your health care provider if the medicine prescribed to you: ?Requires you to avoid driving or using machinery. ?Can cause constipation. You may need to take these actions to prevent or treat constipation: ?Drink enough fluid to keep your urine pale yellow. ?Take ekql-rwp-aapgqxy or prescription medicines. ?Eat foods that are [...] the limit that you are told, until yourhealth care provider says that it is safe. [...] are the result of a blunt trauma thatcauses bleeding and injury to the tissues under [...] provider. Document Revised: 02/08/2021 Document Reviewed: 02/08/2021 [employer] Patient Education 2022 [employer]. Follow Up Care 03/18/2024 18:08:50 With:Cory Mcqueen Address: [address] [place] [address] When:03/21/2024 19:30:51 Comments:You can use the medications as prescribed as needed for pain. Please follow-up with your primary care doctor next 2 to 3 days for further evaluation management. Please return to the ED for any new orworsening symptoms. With:XXXX NONE Address: [place] When:Within 3 Day(s) [facility]05-01-2024 Evaluation + Plan noteExtracted from: Title:ED Note [...] hours on and 12 hours off daily, [id number], 170, cm, 03/18/24 18:36:00 EDT, Height/Length Dosing, 70, kg, 03/18/24 18:36:00 EDT, Weight Dosing naproxen, 500 mg = 1 tab(s), Oral, BID, PRN for pain, # 20 tab(s), Refills(s) 0, Pharmacy: [facility] #[id number], 170, cm, 03/18/24 18:36:00 EDT, Height/Length Dosing, 70, kg, 03/18/24 18:36:00 EDT, Weight Dosing [facility]03-25-2024 Hospital Discharge instructions Patient Education 02/09/2024 23:01:01 Knee Sprain, Adult, Zcmt-zh-Hfoh Knee Sprain A knee sprain is a [...] sitting or lying down. General instructions Take nkqj-xet-uiiffuv and prescription medicines only as told by [...] provider. Document Revised: 02/11/2023 Document Reviewed: 09/23/2020 [employer] Patient Education 2022 [employer]. Follow Up Care 02/09/2024 22:22:55 With:Kamari Hartman Address: [address] [place], [place] [id number] [facility] (1) When:02/12/2024 Comments:You can take the pain medication every 12 hours as prescribed as needed for pain. Please follow-up with your primary care doctor in addition to orthopedics for further evaluation management. Please return to the ED for any new or worsening symptoms. With:XXXX NONE Address: [place] When:02/12/2024 [facility]03-24-2024 Evaluation + Plan noteExtracted from: Title:ED Note Author:Hayde Pro DO Date :02/09/24 Knee sprain (S83.90XA: Sprai n of unspecified site of unspecified knee, initial encounter) Orders: acetaminophen-hydrocodone, 1 tab(s), Tab, Oral, Once, Stop date 02/09/24 22:52:00 EDT, STAT, Start date 02/09/24 22:52:00 EDT naproxen, 500 mg = 1 tab(s), Oral, BID, PRN for pain, # 20 tab(s), Refills(s) 0, Pharmacy: [id number], 170, cm, 02/09/24 22:28:00 EDT, Height/Length Dosing, 70.3, kg, 02/09/24 22:28:00 EDT, Weight Dosing XR Knee Complete 4+ Views Right [facility]03-11-2024 Hospital Discharge instructions Patient Education 01/26/2024 23:21:49 Toe Fracture, Vtaj-am-Nqic Toe Fracture A toe fracture is a [...] provider. Document Revised: 04/09/2022 Document Reviewed: 04/09/2022 [employer] Patient Education 2022 [employer]. Follow Up Care 01/26/2024 22:28:41 With:Pan Rincon Address: [address] [place] [address] [place] [address]- Business (1) When:01/29/2024 Comments:You can use the pain medication every 6 hours as needed for pain. Please follow-up with orthopedicsfor further evaluation management. Please return to the ED for any new or worsening symptoms. With:XXXX NONE Address: [place] When:Within 3 Day(s) [facility]10-15-2023 Hospital Discharge instructions Patient [...] told by your health care provider. Take pamm-dsb-ihbszkf and prescription medicines only as told by [...] provider. Document Revised: 03/09/2021 Document Reviewed: 03/09/2021 [employer] Patient Education 2022 [employer]. Follow Up Care 09/01/2023 14:11:44 With:Pan Rincon Address: [address] [place] [address]- Business (1) When:09/04/2023 15:59:05 Comments:You may follow-up with Dr. Rincon for further evaluation of your knee cyst. With:Naomy RINCON Address: [address] [address] [employer] (1) When:09/04/2023 15:58:55 Comments:Follow-up with your primary care provider in 3 to 5 days. If symptoms worsen, do not improve, or new symptoms arise please report back to emergency department for further evaluation. [facility]08-01-2023 Hospital Discharge instructions Patient [...] or after getting dental care. Medicines Take niqd-jfv-jpfuryb and prescription medicines only as told by [...] pain may be mild or severe. Take madx-zis-klgxzsv and prescription medicines only as told by [...] provider. Document Revised: 08/09/2021 Document Reviewed: 08/09/2021 [employer] Patient Education 2022 [employer]. Follow Up Care 06/18/2023 16:59:26 With:[facility] Address: [address] [place] [address] [place], [place] [address] [address] Business (1) When:06/21/2023 17:19:24 Comments:Dentistry follow-up [facility]08-01-2023 Evaluation + Plan noteExtracted from: Title:ED Note Author:Gopal Sutton PA-C te:06/18/23 Pain, dental (K08.89: Other specified disorders of teeth and supporting structures) Orders: naproxen, 500 mg = 1 tab(s), Oral, BID, # 20 tab(s), Refills(s) 0, Pharmacy: [facility] #[id number], 170, cm, 06/18/23 17:05:00 EDT, Height/Length Dosing, 70.5, kg, 06/18/23 17:05:00 EDT, Weight Dosing penicillin V potassium, 500 mg = 1 tab(s), Oral, TID, Take one tab by mouth 3 times a day. # 30, X 10 day(s), # 30 tab(s), Refills(s) 0, Pharmacy: [facility] #[id number], 170, cm, 06/18/23 17:05:00 EDT, Height/Length Dosing, 70.5, kg, 06/18/23 17:05:00 EDT, Weight Dosing [facility]* Diagnosis S/P right knee arthroscopy- Primary documented in this encounter [facility]Evaluation [facility]* Diagnosis Bilateral hand pain- Primary documented in this encounter [facility]* Diagnosis Status post carpal tunnel release- Primary Other postprocedural status documented in this encounter [facility]* Diagnosis Bilateral hand pain- Primary documented in this encounter [facility]* Diagnosis Bilateral carpal tunnel syndrome- Primary Carpal tunnel syndrome Numbness and tingling Disturbance of skin sensation documented in this encounter [facility] HealthcareHospital course Narrative No data available for this section [facility] No data available for this section [facility] No data available for this section [facility] Summary Purpose Family History [...] and content) DATE CREATED AUTHOR 03/27/2023 [facility] DATE CREATED AUTHOR AUTHOR'S ORGANIZ ATION 10/05/2024 [facility] EPIC DATE CREATED AUTHOR AUTHOR'S ORGANIZ ATION 11/19/2024 [facility] Reason for Visit (unrecogniz ed section and content) Reason Comments Follow-up Reason Comments Post-op Lt CTR TSCNCO 4 MTP Reason Comments Pain Specialty Diagnoses / Procedures Referred By [place] t Referred To Contact Neurology Diagnoses Carpal tunnel syndrome, bilateral upper limbs Procedures DC NERVE CONDUCTION STUDIES 9-10 STUDIES DC NEEDLE EMG EA EXTREMTY W/PARASPINL AREA COMPLETE DC NEEDLE EMG EA EXTREMTY W/PARASPINL AREA COMPLETE Kamari Hartmna, DO [address] [place] [address] Jarod Voss MD [address] [place] [address] Referral ID Status Reason Start Date Expiration Date Visits Re quested Visits Authorized [id number] Closed 08/04/2024 01/31/2025 1 1 Care Teams (unrecognized sec tion and content) Cloth Bleaching Range Back Tender Relationship Specialty Start Date End Date Briseida North, LLUVIA [address] [facility] [address] [place] [address] PCP - [facility] [employer] 08/18/24 FOR RECORDS PERTAINING TO PATIENTS WHO ARE [...] BE BASED ON THE PRIMARY CLINICAL RECORDS. [facility]. provides no warranty or guarantee of the accuracy or completeness of information in this document.
--- NOTE | 2025-03-03 20:06 | ED_ITS ---
HPI - Dental/Oral General Chief complaint: Dental/Oral Stated complaint: toothache Time Seen by Provider: 03/03/25 19:59 Source: patient Mode of arrival: walk-in Limitations: no limitations History of Present Illness HPI Narrative: Patient is a 54-year-old female with a history of poor dentition and prior infections who presents with concern of tenderness and swelling in the left lower jaw. She denies any recent injury. She is scheduled for carpal tunnel surgery in 1 week and is concerned that the infection may interfere with her surgery. Pain is moderate she has tried some Tylenol with minimal relief. She admits to smoking but states she has not done this as much today as it irritates her tooth. She notes some swelling in the left lower jaw which has her concern for early infection. She does not have a dentist and attempted to call facility today that would not take her insurance. Patient appears nontoxic in no acute distress. MD Complaint: Reports tooth pain Location: Tooth # (Lower rear molars) Context: history of dental caries and poor dental care Associated symptoms: fever and gum swelling Treatment prior to arrival: none Related Data Previous Rx's ?Medication ?Instructions ?Recorded acetaminophen 300 mg-codeine 30 mg 1 tab PO Q6H PRN pain 5 days #20 11/02/24 tablet tabs prednisone 10 mg tablet See Rx Instructions .Route 11/02/24 .COMPLEX #30 tabs clindamycin HCl 300 mg capsule 300 mg PO Q6H 7 days #28 caps 03/03/25 ibuprofen 600 mg tablet 600 mg PO TID PRN pain #30 tabs 03/03/25 Allergies Allergy/AdvReac Type Severity Reaction Status Date / Time No Known Drug Allergies Allergy Verified 07/10/24 20:37 Review of Systems ROS Constitutional Denies: fever, chills or change in weight Eyes Denies: change in vision Ears, nose, mouth, and throat Reports: other (Dental pain left lower rear molar); Denies: throat pain, neck pain, throat swelling or ear discharge Cardiovascular Denies: chest pain or palpitations Respiratory Denies: shortness of breath, cough or wheezing Gastrointestinal Denies: abdominal pain, nausea or difficulty swallowing Genitourinary Denies: painful urination Musculoskeletal Denies: back pain, neck pain or extremity pain Integumentary/Breast Denies: rash PFSH PFSH Social History Smoking status: Current every day smoker Little interest or pleasure in doing things: not at all Feeling down, depressed, or hopeless: not at all Exam Narrative Exam Narrative: Nurses notes reviewed and patient is noted to be non-hypoxic. General: The patient is comfortable, alert and oriented x3, well appearing, non toxic in no apparent distress. Head: Atraumatic and normocephalic. Eyes: Normal conjunctiva, no exudates. ENT: The oropharynx is normal. No pharyngeal erythema, uvular edema, tonsillar exudates, asymmetry or trismus. Uvula is midline. Mouth is normal to inspection With the exception of a pain on percussion of the lower rear molar. Dental caries and chronic decay there is minimal swelling to the outer buccal surface of the gum with no fluctuant abscess palpable. Early abscess is suspected. There is no evidence of facial asymmetry. Floor of the mouth is soft. No tenderness in the submental or submandibular space. No tongue elevation or deviation. The patient has prior extraction but abutting teeth in this location are both chronically decayed with fracture and dental caries noted. She has similar teeth in the molars upper and on the right side. Airway is patent. Neck: The neck demonstrates normal range of motion. No meningeals signs are present. No stridor. No masses or lymphandenopathy noted. Respiratory: No acute distress, lungs are clear to auscultation, no wheezing, rhonchi, or rales noted. No stridor or retractions are noted. Cardiovascular: Regular rate and rhythm Skin: The skin exam shows no evidence of rashes Neuro: Alert and oriented x4, normal speech Lymphatic: No cervical lymphadenopathy Constitutional Vital Signs, click to edit/add: Last Vital Signs Temp 98.5 F 03/03/25 19:47 Pulse 94 H 03/03/25 19:47 Resp 18 03/03/25 19:47 BP 114/71 03/03/25 19:47 Pulse Ox 97 03/03/25 19:47 O2 Del Method Room Air 03/03/25 19:47 Course Vital Signs Vital signs: Vital Signs Temperature 98.5 F 03/03/25 19:47 Pulse Rate 94 H 03/03/25 19:47 Respiratory Rate 18 03/03/25 19:47 Blood Pressure 114/71 03/03/25 19:47 Pulse Oximetry 97 03/03/25 19:47 Oxygen Delivery Method Room Air 03/03/25 19:47 Temperature 98.5 F 03/03/25 19:47 Pulse Rate 94 H 03/03/25 19:47 Respiratory Rate 18 03/03/25 19:47 Blood Pressure 114/71 03/03/25 19:47 Pulse Oximetry 97 03/03/25 19:47 Oxygen Delivery Method Room Air 03/03/25 19:47 MDM - Dental/Oral MDM Narrative Medical decision making narrative: Recommend patient stop smoking we discussed her dental pain and swelling maurice rning for early abscess should be placed on clindamycin with risks and benefits discussed. Patient is advised to notify her orthopedic surgeon of her situation as she is started on clindamycin for possible infection and may be taking Motrin for pain. Patient admits that Motrin is one of the medication she had to stop before her carpal tunnel surgery. She denies any neck pain or chest pain or shortness of breath. We discussed the importance of use and taking probiotic, yogurt or food to minimize side effect. She is given local dental resources to contact tomorrow for prompt follow-up and verbalized understanding of the need for definitive care. Patient admits to having infections in the past that improved with antibiotics but verbalized that the structure of the tooth is susceptible for recurrent infections and definitive treatment is definitely recommended with dentistry. She will return to the ER if symptoms worsen or new symptoms develop. The patient is to followup with DDS as soon as possible. primary care physician in next 2-3 days or to return to the emergency department should any of the signs or symptoms worsen or new symptoms develop. Patient had questions answered. The patient agrees with the following Diagnosis and Treatment plan and the patient will be discharged home. Discharge Plan Discharge Chief Complaint: Dental/Oral Clinical Impression: Dental caries, Abscess, dental Patient Disposition: Home, Self-Care Time of Disposition Decision: 20:06 Condition: Good Prescriptions / Home Meds: New clindamycin HCl 300 mg capsule 300 mg PO Q6H 7 Days Qty: 28 0RF ibuprofen 600 mg tablet 600 mg PO TID PRN (Reason: pain) Qty: 30 0RF No Action acetaminophen-codeine 300-30 mg tablet 1 tab PO Q6H PRN (Reason: pain) 5 Days Qty: 20 0RF prednisone 10 mg tablet See Rx Instructions .ROUTE .COMPLEX Qty: 30 0RF Rx Instructions: 4 by mouth daily for three days then 3 by mouth daily for three days then 2 by mouth daily for three days then 1 by mouth daily for three days Print Language: Solomon Islander Instructions: Dental Abscess (ED) Additional Instructions: Please contact dental clinics for follow up [facility] dental clinic. [phone] Referrals: Physician,Non-Staff, [Primary Care Provider] - 1 week
[2025-03-03] MEDS: BENZOCAINE 30 ML, lidocaine HCL 15 ML MM (20:19)
[2025-03-03] MEDS: CLINDAMYCIN HCL 150 MG CAPSULE 300 MG PO (20:19)
[2025-03-03 20:28] VITALS: O2SAT 98
== END 2025-03-03 20:29 | disposition home or self-care (01) ==
PROVIDERS: Emergency Provider Emergency Medicine
DX: K04.7 Periapical abscess without sinus (principal); K02.9 Dental caries, unspecified; F17.200 Nicotine dependence, unspecified, uncomplicated
CPT/HCPCS: 99283

== ENCOUNTER 2025-09-15 19:45 | Emergency (ER) | payer MEDICAID, SELFPAY ==
[2025-09-15 19:53] VITALS: BP 135/57; PULSE 97; TEMP 37.2; O2SAT 93; BMI 24.3
--- OUTSIDE RECORDS SUMMARY | 2025-09-15 19:55 | XMS_ITS | Clinical Summary ---
Author Organization [employer] [facility] tem Address [id number] [address] [place] [address] Care Team Providers Care Nurse Tech Name Role Phone Stuart Hess Primary Care Provider [phone] Allergies No known active allergies Medications MedicationSigDispense QuantityRefillsLast FilledStart DateEnd DateStatus methylPREDNISolone (MEDROL, LESLIE,) 4 mg tablet follow package directions 21 tablet 2Active Social History Tobacco UseTypesPacks/DayYears UsedDateSmoking Tobacco: Every DayCigarettes Smokeless Tobacco: Never Tobacco Cessation:Ready to Q uit: Not Asked; Counseling Given: Not Answered ChildcareAnswerDate LozzfhcyBexamhgovUyfrvbb96/10/2019EmploymentAnswerDate TcdyiffsZlwcfijadoMeniiox80/10/2019Hunger ScreeningAnswerDate RecordedWithin the past 12 months we worried whether our food would run out before we got money to buy more.Never True10/23/2022Within the past 12 months the food we bought just didn't last and we didn't have money to get more.Never True2 CommentsNoSex and Gender InformationValueDate RecordedSex Assigned at BirthNot on fileLegal GslXfwati72/04/2015 4:32 PM EDTGender IdentityNot on fileSexual OrientationNot on file Last Filed Vital Signs Vital SignReadingTime TakenCommentsBlood Qpsgwoqi756/6510/23/2022 7:51 PM EST Xwmfe192710/23/2022 7:51 PM EWPSyjgutshnup19.4 ??C (99.3 ??F)10/23/2022 6:47 PM ESTRespiratory Mfuv0999/04/2022 7:51 PM ESTOxygen Ktsfambczm58%10/23/2022 7:51 PM ESTInhaled Oxygen Concentration--Yiovne17 kg (160 lb 15 oz)10/23/2022 6:47 PM ESTHeight--Body Mass Index-- Plan of Treatment Not on file Medical Devices Not on file Care Teams Team MemberRelationshipSpecialtyStart DateEnd Date Stuart Hess APRN-SOIL SAMPLER PCP - GeneralPrimary Care Derycuqg83/6/22
--- OUTSIDE RECORDS SUMMARY | 2025-09-15 19:55 | XMS_ITS | Patient Health Record ---
Author Organization [facility] vices Address [address] [place], [place] [id number] Care Team Providers Care [employer] Name Role Phone Stuart Gaviria Unavailable [phone] Allergies No Known Allergies Reason For Referral No Information Medications Medication SIG (Take, Route, Frequency, Duration) Notes Start Date End Date Status Multi Vitamin - 1 tablet Orally Once a day ActiveDiclofenac Sodium 75 MG1 tablet as needed Orally Twice a day; Duration: 30 days2ActivePotassium Chloride 20 MEQ1 tablet with food Orally Once a dayActiveOmeprazole 20 MG1 capsule 30 minutes before morning meal Orally Once a dayActive Social History Tobacco Use: Social History Observation Description Date Details (start date - stop date) Current Smoker 03/02/1982 - NA Sex Assigned At : Social History Observation Description Sex Assigned At Female Household Question Answer Notes Number of adults in household: 2 Tobacco Use/Smoking Question Answer Notes Tobacco use: current smoker When did you start smoking?03/02/1982How often do you smoke cigarettes?every day How many cigarettes a day do you smoke?6-10How soon after you wake up do you smoke your first cigarette?within 5 minutesAre you interested in quitting?Not ready to quit Plan Of Treatment No Information Medical (General) History Medical History History ICD Code Acid Reflux ArthritisSurgical History Surgery Date(Month/Year) gallbladder
--- OUTSIDE RECORDS SUMMARY | 2025-09-15 19:55 | XMS_ITS | CCD ---
Author Organization [facility] CliniSyla Care Team Providers Care Software Asset Manager Name Role Phone PAY ., DR YIN [...] BOND Admitting Unavailable RONDA, TONIA Attending Unavailable TONIA BOND Consulting Unavailable REQUEST, NONE LISTED Primary Care Unavaila ble NONE, XXXX Primary Care Physician Unavailab le Unavailable Primary Care Provider Unavailbeto North DRAWING SUPERVISOR, Briseida Ashraf Unavailable Can DRAWING SUPERVISOR, Briseida Ashraf Unavailable KAMARI HARTMAN Referring Unavailable HARTAMN, KAMARI Hair Attending Unavailable HARTMAN, KAMARI Hair Referring Unavailable JAQUI GUEVARA Attending Unavailable JAQUI GUEVARA Referring Unavailable HARTMAN, KAMARI Hair Attending Unavailable HARTMAN, KAMARI T Referring Unavailable JAQUI GUEVARA Referring Unavailable JAQUI GUEVARA Attending Unavailable HARTMAN, KAMARI T Referring Unavailable HARTMAN, KAMARI T Referring Unavailable HARTMAN, KAMARI Hair Attending Unavailable ELENA CASTRO Attending Unavailable HARTMAN, KAMARI T Referring Unavailable HARTMAN, KAMARI Hair Attending Unavailable JAQUI GUEVARA Attending Unavailable Hartman, Kamari Hair Attending Unavailable Hartman, Kamari Hair Referring Unavailable Federico Lee Attending Unavailable PayLang Attending Unavailable DO Michael John Attending Unavailable Rafael Payton Attending Unavailable Allergies Allergy ClassificationReported Allergen(s)Allergy TypeDate of OnsetReaction(s) Facility (1 source)No Known Medication Allergies; Translations: [No Known Medication Allergies]Propensity to adverse reactions (disorder)[facility] Medications Current Medications MedicationDrug Class(es)DatesSig (Normalized)Sig (Original)acetaminophen 325 mg oral tablet (2 sources)acetaminophen (Tylenol) 325 MG tablet Take by mouth Active acetaminophen 325 mg / oxyCODONE hydrochloride 5 mg oral tablet (1 source)Opioid AgonistStart: 03-12-2025 End: 61-02-3973bhdtsizgnlhbw-oxycodone 325 mg-5 mg Tab 1 tab(s), Oral, q6hr for pain for 3 day(s), 12 tab(s), Refill(s) 0, [facility] #[id number], 170, cm, 03/12/25 17:07:00 EDT, Height/Length Dosing, 69, kg, 03/12/25 17:07:00 EDT, Weight Dosing Start Date: 03/12/25 Stop Date: 03/15/25 Status: Ordered Quantity: 12.0 Unit: tab(s) Repeat number: 1ibuprofen 600 mg oral tablet (5 sources)Nonsteroidal Anti-inflammatory DrugStart: 26-13-3435sdeldcogh 600 MG tablet TAKE 1 TABLET THREE TIMES A DAY NEEDED FOR PAIN 03/03/2025 Active lidocaine 0.05 mg/mg medicated patch (5 sources)Antiarrhythmic, Amide Local AnestheticStart: 22-25-7779Bzwbkakf 5% Patch 1 patch(es), Topical, Daily, 7 EA, Refill(s) 0, apply 12 hours on and 12 hours off daily, [facility] #[id number], 170, cm, 03/18/24 18:36:00 EDT, Height/Length Dosing, 70, kg, 03/18/24 18:36:00 EDT, Weight Dosing Start Date: 03/18/24 Status: Ordered Quantity: 7.0 Unit: EA Repeat number: 1Magnesium (16 sources)Start: 00-27-4499gwnugezix 200 MG tablet 01/16/2021 ActiveStart: 56-95-3784syxtloyai 200 MG tabletmethocarbamol 500 mg oral tablet (1 source)Muscle RelaxantStart: 10-08-2024 End: 43-87-8053znbo 2 tablets by mouth four times dailyRobaxin 500 mg Tab 1,000 mg = 2 tab(s), Oral, QID, X 3 day(s), # 24 tab(s), Refills(s) 0, Pharmacy: [facility] #[id number], 170, cm, 10/08/24 13:45:00 EST, Height/Length Dosing, 69.6, kg, 10/08/24 13:45:00 EST, Weight Dosing Start Date: 10/08/24 Stop Date: 10/11/24 Status: OrderedMultiple Vitamin (multivitamin) tablet (16 sources)take 1 tablet by mouth once dailyMultiple Vitamin (multivitamin) tablet Take 1 tablet by mouth Daily Activetake 1 tablet by mouth in the morning Multiple Vitamin (multivitamin) tablet Take 1 tablet by mouth in the morning. Activetake 1 tablet by mouth in the morningMultiple Vitamin (multivitamin) tablet Take 1 tablet by mouth in the morning. 0 Activenaproxen 500 mg oral tablet (20 sources)Nonsteroidal Anti-inflammatory DrugStart: 06-18-2023 End: 18-53-5958ktfy 1 tablet by mouth twice daily as needed for painNaprosyn 500 mg Tab 500 mg = 1 tab(s), Oral, BID, PRN for pain, # 20 tab(s), Refills(s) 0, Pharmacy: [facility] #[id number], 170, cm, 03/18/24 18:36:00 EDT, Height/Length Dosing, 70, kg, 03/18/24 18:36:00 EDT, Weight Dosing Start Date: 03/18/24 Status: Ordered Quantity: 20.0 Unit: tab(s) Repeat number: 1naproxen (Naprosyn) 250 MG tablet Take by mouth ActivepredniSONE 50 mg oral tablet (1 source)Start: 10-08-2024 End: 51-40-3481gaqj 1 tablet by mouth once dailypredniSONE 50 mg Tab 50 mg = 1 tab(s), Oral, Daily, X 5 day(s), # 5 tab(s), Refills(s) 0, Pharmacy:[facility] #[id number], 170, cm, 10/08/24 13:45:00 EST, Height/Length Dosing, 69.6, kg, 10/08/24 13:45:00 EST, Weight Dosing Start Date: 10/08/24 Stop Date: 10/13/24 Status: OrderedtraMADol hydrochloride 50 mg oral tablet (1 source)Opioid AgonistStart: 09-01-2023 End: 86-41-0630ittv 1 tablet by mouth every six hours as needed for paintraMADOL 50 mg Tab 50 mg = 1 tab(s), Oral, q6hr, PRN for pain, X 3 day(s), # 12 tab(s), Refills(s) 0, Pharmacy: [facility] #[id number], 170, cm, 09/01/23 14:16:00 EDT, Height/Length Dosing, 70.5, kg, 09/01/23 14:16:00 EDT, Weight Dosing Start Date: 09/01/23 Stop Date: 09/04/23 Status: Ordered Completed/Discontinued Medications MedicationDrug Class(es)DatesSig (Normalized)Sig (Original)amoxicillin 875 mg / clavulanate 125 mg oral tablet (3 sources)Penicillin-class AntibacterialStart: 06-20-2024 End: 21-82-1901omuvziilvof-clavulanate (Augmentin) 875-125 MG tablet 06/20/2024 07/30/2024 Discontinued (Therapy completed)penicillin v potassium 500 mg oral tablet (1 source)Start: 06-18-2023 End: 23-11-4922hujv 1 tablet by mouth three times dailypenicillin V potassium 500 mg Tab 500 mg = 1 tab(s), Oral, TID, Take one tab by mouth 3 times a day. # 30, X 10 day(s), # 30 tab(s), Refills(s) 0, Pharmacy: [facility] #[id number], 170, cm, 06/18/23 17:05:00 EDT, Height/Length Dosing, 70.5, kg, 06/18/23 17:05:00 EDT, Weight Dosing Start Date: 06/18/23 Stop Date: 06/28/23 Status: Ordered Problems Active Problems Problem ClassificationProblemDateDocumented DateEpisodic/ChronicDisorders of teeth and jaw (8 sources)Other specified disorders of teeth and supporting structures; Translations: [Periapical abscess without sinus]Onset: 95-34-6161MnblwqrbT Codes: Natural/environment (2 sources)Exposure to other specified factors, initial encounter; Translations: [Bitten by dog, initial encounter]Onset: 66-62-2622LgxtcirpSpkfitpz of lower limb (1 source)Closed fracture of phalanx of foot; Translations: [Unspecified fracture of unspecified toe(s), initial encounter for closed fracture]Onset: 38-17-5467JoioqwarInewj connective tissue disease (4 sources)Pain of bilateral hands; Translations: [Pain in right hand]08-20-2024 EpisodicOther eye disorders (3 sources)Other specified disorders of eye and adnexa; Translations: [OTHER SPEC DISORDERS EYE AND ADNEXA]Onset: 97-89-9441RkenpdidAdxos nervous system disorders (1 source)Carpal tunnel syndrome, right upper limb; Translations: [CARPAL TUNNEL SYND RIGHT UPPER LIMB]Onset: 51-87-1381HdsqvylMdzbi nervous system disorders (1 source)Bilateral carpal tunnel syndrome; Translations: [Carpal tunnel syndrome, bilateral upper limbs]51-20-8743KunszvcEekno nervous system disorders (2 sources)Carpal tunnel syndrome of right wrist; Translations: [Carpal tunnel syndrome, right upper limb]20-67-6310UevgilrMpbqg nervous system disorders (1 source)Numbness and tingling sensation of skin; Translations: [Anesthesia of skin]89-22-4621BjbsbtkeKwlxf non-traumatic joint disorders (1 source)Arthropathy of right knee joint; Translations: [Other specified joint disorders, right knee]Onset: 11-68-8609JqavqygpVwdzz non-traumatic joint disorders (1 source)Pain in right knee; Translations: [Pain of right knee joint]Onset: 58-49-9422XxvbwjziXxmyecjv codes; unclassified (1 source)Acquired absence of other specified parts of digestive tract; Translations: [ACQ ABSENCE OTH PART DIGESTV TRACT]Onset: 00-93-6500Lflrqccl Residual codes; unclassified (1 source)History of arthroscopy of knee joint; Translations: [Other specified postprocedural states]79-31-1678UbdqfgrvLhpmksawogd; intervertebral disc disorders; other back problems (1 source)Cervical radiculopathy; Translations: [Radiculopathy, cervical region] Onset: 22-82-1413ZvnuowekRhhuvhr and strains (3 sources)Unspecified sprain of right thumb, initial encounter; Translations: [Sprain of knee]Onset: 13-47-8361QfjfqvvhChmolbcmy-related disorders (11 sources)Nicotine dependence, cigarettes, uncomplicated; Translations: [Smoker]Onset: 683563-88-3927PeormtoMkwufrz on above:Added secondary to documentation in Social History.Superficial injury; contusion (2 sources)Injury of conjunctiva and corneal abrasion without foreign body, right eye, initial encounter; Translations: [Contusion of left chest wall]Onset: 77-46-2878Giaogdjy Past or Other Problems Problem ClassificationProblemDateDocumented DateEpisodic/ChronicImmunizations and screening for infectious disease (1 source)Encounter for immunization; Translations: [ENCOUNTER FOR IMMUNIZATION] Onset: 74-88-6880EgvqixutSurp wounds of extremities (4 sources)Open bite of right forearm, initial encounter; Translations: [OPEN BITE RIGHT FOREARM INITIAL ENC]Onset: 35-31-2987InkesihsOgrzr aftercare (1 source)Other longterm (current) drug therapy; Translations: [OTH [facility] CURRENT DRUG THERAPY]Onset: 23-66-2677MhribjtjCowzd connective tissue disease (4 sources)Pain in right finger(s); Translations: [PAIN IN RIGHT FINGERS]Onset: 58-90-2488Mxehcjlu Results Test NameValueInterpretationReference RangeFacilityED Clinical Summaryon [id number] Clinical SummaryED Clinical Summary [address] [address] ED Clinical Summary Person Information Name: CHAYA [facility]IG[facility] Age: 54 Years : 1970 Sex: Female Language: Venezuelan PCP: NONE, XXXX Marital Status: Visit Id: Visit Reason: Hand pain-swelling; Wrist pain-swelling; RT HAND PAIN - CARPAL TUNNEL SX 04/23/2025 Speciality: Acuity: 4 Enc Type: Emergency Med Service: Emergency Arrival: 06/25/2025 20:34:32 Discharge: 06/25/2025 21:51:59 LOS: 000 01:17 Checkin: 06/25/2025 20:34:32 Checkout: 06/25/2025 21:51:59 Dispo Type: Home (Routine DC) EVENTS: Event Name Event Status Request Date/Time Start Date/Time Complete Date/Time Arrive Complete 06/25/2025 20:34:32 06/25/2025 20:34:32 06/25/2025 20:34:32 Document Home Meds Request 06/25/2025 20:34:32 Triage Complete 06/25/2025 20:34:32 06/25/2025 20:50:25 06/25/2025 20:50:25 Registration Complete 06/25/2025 20:46:45 06/25/2025 20:46:45 06/25/2025 20:46:45 Reg Complete Request 06/25/2025 20:46:45 Reg Bed Request Complete 06/25/2025 20:46:45 06/25/2025 20:46:45 06/25/2025 20:46:45 Bed Assign Complete 06/25/2025 21:10:26 06/25/2025 21:10:26 06/25/2025 21:10:26 Dr Exam Complete 06/25/2025 21:10:26 06/25/2025 21:11:25 06/25/2025 21:11:25 RN Exam Complete 06/25/2025 21:10:26 06/25/2025 21:17:05 06/25/2025 21:17:05 Registration Request 06/25/2025 21:11:25 Meds Admin Complete 06/25/2025 21:35:35 06/25/2025 21:50:42 Discharge Complete 06/25/2025 21:35:40 06/25/2025 21:52:07 06/25/2025 21:52:07 Transfer Complete 06/25/2025 21:52:07 06/25/2025 21:52:07 06/25/2025 21:52:07 ADDRESS: [address] [place] [phone] PHYS DOC NOTES: MEDICAL INFORMATION: Prescriptions Given: Medications to Continue Taking That Have Changed [facility] #[id number], [address], [place] [id number], [phone] START: naproxen (naproxen 500 mg Tab) 1 Tablets By Mouth 2 times a day. Take one tab by mouth two times a day. Refills: 0. Other Medications START: naproxen (Naprosyn 500 mg Tab) 1 Tablets By Mouth 2 times a day as needed for pain. Refills:0. START: naproxen (Naprosyn 500 mg Tab) 1 Tablets By Mouth 2 times a day as needed for pain. Refills:0. START: naproxen (Naprosyn 500 mg Tab) 1 Tablets By Mouth 2 times a day. Refills: 0. Medications to Continue with No Changes Other Medications lidocaine topical (Lidoderm 5% Patch) 1 Patches Topical every day. apply 12 hours on and 12 hours off daily. Refills: 0. PATIENT EDUCATION INFORMATION: Instructions: Wrist Pain, Adult Follow up: With: Address: When: Kamari Hartman [address] [place], [place] [id number] [facility] () In 3 days 06/28/2025 With: Address: When: XXXX [place], [place] In 3 days DIAGNOSIS: Wrist painNormalFisher Travis Medical CenterED Note-Physicianon [id number] Note-PhysicianED Note-Physician Basic Information Time Seen: Federico Lee DO 06/25/2025 21:11 Chief Complaint pt to ED with c/o R wrist and hand pain after carpal tunnel surgery in April. states unable to contact surgeon. denies injury just c/o increased pain and burning sensation. History of Present Illness 54 female presents with right wrist pain. Patient states that she had carpal tunnel surgery April 23 on that wrist and has been having some pain over these last several days. Patient describes a fullness sensation to the volar surface of the right wrist some scar tissue noted here as well. She has been using her brace which does seem to help and has been alternating Tylenol and Advil at home without relief of symptoms. She called Dr. Hartman today did not get a call back and therefore we will try again this coming week. She denies any injuries to the area. No other aggravating or relieving factors no other associated symptoms no other prior treatments or complaints. Family: Reviewed and noncontributory Social: lives at home Review of systems negative unless otherwise specified in the HPI. Physical Exam Vitals & Measurements T: 37.5 ???C(Tympanic) HR: 100(Peripheral) RR: 16 BP: 111/73 SpO2: 97% HT: 170 cm WT: 67.2 kg BMI: 23.25 Vital Signs reviewed and noted. General: Alert, no acute distress, patient resting comfortably Skin: warm, intact, no pallor noted Head: Normocephalic, atraumatic Eye: Normal conjunctiva Cardiac: Normal peripheral perfusion Respiratory: No acute distress Musculoskeletal: Right upper extremity: Patient does have some generalized tenderness to palpation over that carpal tunnel region with some scar tissue noted consistent with stated history of surgery. Mild pain with range of motion of this area. No tenderness on the dorsal surface no redness or drainage no lymphangitis. Neurological: alert and oriented, normal sensory and motor observed. Psychiatric: Cooperative Medical Decision Making Patient is encouraged to rest ice elevate use her wrist splint as home she is given a prescription for naproxen given [place] for severe pain as well follow-up with orthopedics in the outpatient setting. Assessment/Plan Wrist pain (M25.539: Pain in unspecified wrist) Orders: acetaminophen-hydrocodone, 1 EA, Tab, Oral, Once, Stop date 06/25/25 21:35:00 EDT, STAT, Start date06/25/25 21:35:00 EDT naproxen, 500 mg = 1 tab(s), Oral, BID, Take one tab by mouth two times a day, # 14 tab(s), Refills(s) 0, Pharmacy: [facility] #[id number], 170, cm, 06/25/25 20:50:00 EDT, Height/Length Dosing, 67.2, kg, 06/25/25 20:50:00 EDT, Weight Dosing Disposition Plan Discharge Prescription List Prescriptions naproxen 500 mg Tab, 500 mg= 1 tab(s), Oral, BID Follow-up With When Contact Information Kamari Hartman In 3 days 06/28/2025 EDT [address] [place] [address]- [facility] (1) Additional Instructions: XXXX NONE In 3 days [place] Additional Instructions: Patient Education Wrist Pain, Adult Problem List/Past Medical History Ongoing Smoker Historical No qualifying data Medications Inpatient TO GO acetaminophen-hydrocodone 325 mg - 5 mg, 1 EA, Oral, Once Home Lidoderm 5% Patch, 1 patch(es), Topical, Daily Naprosyn 500 mg Tab, 500 mg= 1 tab(s), Oral, BID, PRN Naprosyn 500 mg Tab, 500 mg= 1 tab(s), Oral, BID Naprosyn 500 mg Tab, 500 mg= 1 tab(s), Oral, BID, PRN naproxen 500 mg Tab, 500 mg= 1 tab(s), Oral, BID Allergies No Known Medication Allergies Social History Alcohol - Medium Risk, 09/01/2023 Current, Wine, 1-2 times per month, 09/01/2023 Substance Abuse - No Risk, 09/01/2023 Tobacco - High Risk, 09/01/2023 10 or more cigarettes (1/2 pack or more)/day in last 30 days Tobacco Use:., 06/25/2025 10 or more cigarettes (1/2 pack or more)/day in last 30 days Tobacco Use:. Cigarettes, 09/01/2023 Lab Results No qualifying data available. Diagnostic Results No qualifying data available.[facility]burgComment on above: Result Comment: Electronically Signed By: Federico Lee DO\.br\Date and Time Signed: 06/25/25 21:37EDTED Patient Summaryon [id number] Patient SummaryED Patient Summary [address] [address] Patient Discharge Instructions Person Information Name: CHAYA RODRIGUEZ Age: 54 Years Arrival Date: 06/25/2025 20:34:32 Discharge Diagnosis: Wrist pain Primary Care Physician: NONE, XXXX Provider Information Primary Provider: Federico Lee DO [employer] Lead:None The exam and treatment you received in the Emergency Department were for an urgent problem and are not intended as complete care. It is important that you follow up with a doctor, nurse practitioner,or physician???s client account assistant for ongoing care. If your symptoms become worse or you do not improve asexpected and you are unable to reach your usual health care provider, you should return to the Emergency Department. We are available 24 hours a day. CHAYA RODRIGUEZ has been given the following list of patient education materials, prescriptions and follow-up instructions: Follow-up Instructions: With: Address: When: Kamari Hartman [address] [place] [id number] Business () In 3 days 06/28/2025 With: Address: When: [facility] , [place] In 3 days In the event that this physician does not participate in your insurance network, please consult with your insurance company to find a nearby participating provider. Patient Education Materials: Wrist Pain, Adult A MESSAGE TO ALL PATIENTS REGARDING OPIOIDS PRESCRIPTION OPIOIDS: WHAT YOU NEED TO KNOW Prescription opioids can be used to help relieve kytwjhbd-my-hakpkc pain and are often prescribed following a [...] guidance from the Food and Drug Administration (www.fda.gov/Drugs/ResourcesForYou). ??? Visit www.cdc.gov/drugoverdose to learn about the risks of opioids abuse and overdose. ??? If you believe you may be struggling with addiction, tell your health foster care therapist (more content not included)...[facility] Clinical Summaryon [id number] Clinical SummaryED Clinical Summary [place] [id number] ED Clinical Summary Person Information Name: CHAYA RODRIGUEZ [place] Age: 54 Years : 1970 Sex: Female Language: Venezuelan PCP: NONE, XXXX Marital Status: Phone: Visit Id: Visit Reason: Knee pain-swelling; RIGHT KNEE PAIN-SWELLING.- PT HAD KNEE SURGERY 2 YRS AGO. Speciality: Acuity: 4 Enc Type: Emergency Med Service: Emergency Arrival: 03/12/2025 16:59:50 Discharge: 03/12/2025 17:58:54 LOS: 000 00:59 Checkin: 03/12/2025 16:59:50 Checkout: 03/12/2025 17:58:54 Dispo Type: Home (Routine DC) EVENTS: Event Name Event Status Request Date/Time Start Date/Time Complete Date/Time Arrive Complete 03/12/2025 16:59:50 03/12/2025 16:59:50 03/12/2025 16:59:50 Document Home Meds Request 03/12/2025 16:59:50 Triage Complete 03/12/2025 16:59:50 03/12/2025 17:07:53 03/12/2025 17:07:53 Bed Assign Complete 03/12/2025 17:02:41 03/12/2025 17:02:41 03/12/2025 17:02:41 Dr Exam Complete 03/12/2025 17:02:41 03/12/2025 17:12:22 03/12/2025 17:12:22 RN Exam Complete 03/12/2025 17:02:41 03/12/2025 17:38:00 03/12/2025 17:38:00 Registration Complete 03/12/2025 17:04:31 03/12/2025 17:04:31 03/12/2025 17:04:31 Reg Complete Request 03/12/2025 17:04:31 Reg Bed Request Complete 03/12/2025 17:04:31 03/12/2025 17:04:31 03/12/2025 17:04:31 Registration Request 03/12/2025 17:12:22 X-Ray Complete 03/12/2025 17:12:52 03/12/2025 17:16:00 03/12/2025 17:30:03 Wet Read Request 03/12/2025 17:30:03 Dr Exam Complete 03/12/2025 17:53:45 03/12/2025 17:53:45 03/12/2025 17:53:45 Discharge Complete 03/12/2025 17:54:51 03/12/2025 17:59:17 03/12/2025 17:59:17 Transfer Complete 03/12/2025 17:59:17 03/12/2025 17:59:17 03/12/2025 17:59:17 ADDRESS: [address] [place] [phone] PHYS DOC NOTES: MEDICAL INFORMATION: Prescriptions Given: New Medications [facility] #[id number], [address], [place] [phone], [phone] acetaminophen-oxycodone (acetaminophen-oxycodone 325 mg-5 mg Tab) 1 Tablets By Mouth every [...] day. Refills: 0. PATIENT EDUCATION INFORMATION: Instructions: Chronic Knee Pain, Adult; Acute Knee Pain, Adult Follow up: With: Address: When: Kamari Hartman [address] [place] [id number] Business (1) In 3 days 03/15/2025 Comments: Call for diagnosis based follow up With: Address: When: Isaac Guevara [address] [place] [phone] Business (1) In 3 days 03/15/2025 Comments: Call Dr for diagnosis based follow up DIAGNOSIS: Right knee painNormalFisher Lam Medical CenterED Note-Physicianon [id number] Note-PhysicianED Note-Physician Basic Information Time Seen: Mauro PICKERING, Yahir Toscano 03/12/2025 17:12 Chief Complaint miniscus repair to right knee 2 years ago. one week ago pt straightened leg and hear a loud crack. Told Dr. Hartman this am at office, was told to come to ER if pain got worse. History of Present Illness 54-year-old female reports to the emergency department with concerns of right knee pain. Reports that about a week ago, she went to straighten her leg and heard a loud cracking sound. Reports pain inher knee ever since. Reports that he did see orthopedics today, but that was for carpal tunnel in her hands. She was told to come to the ER if pain got any worse, has not improved. Has been taking lvte-ynp-xgqxrqr medications without much improvement. Denies any injury to any otherwise. Review of Systems No other aggravating or relieving factors no other associated symptoms no other prior treatments orcomplaints. Family: Reviewed and noncontributory Social: lives at home Review of systems negative unless otherwise specified in the HPI. Physical Exam Vitals & Measurements T: 36.9 ???C(Oral) HR: 92(Peripheral) RR: 20 BP: 124/77 SpO2: 97% HT: 170 cm WT: 69 kg BMI: 23.88 General: The patient appears well and in no apparent distress. Patient is resting comfortably in chair. Afebrile Skin: Warm, dry, no pallor noted. No erythema noted. Head: Normocephalic, atraumatic Neck: No JVD Eye: PERRLA, EOMI ENT: Moist mucus membranes Cardiovascular: Regular rate. normal peripheral perfusion. Pedal pulses +2 bilaterally Respiratory: No respiratory distress. no accessory muscle use. no obvious audible wheezing Chest Wall: no deformity Musculoskeletal: normal ROM, no deformity,. Mild tenderness on the anterior aspect of the knee. No obvious deformity. GI: No obvious distention Neurological: A&O. moves all extremities equal strength and symmetry Psychiatric: Cooperative and appropriate Medical Decision Making A 54-year-old female reports emerged department with concerns of right sided knee pain. Symptoms been going on for a week. Reports heard of loud cracking sound. History of surgery on this knee before. Exam is relatively benign. Knee is neurovascular intact. No obvious swelling seen. Due to concernswe did an x- ray. X-ray negative for any acute findings. Discussed with patient. Patient given breakthrough pain medications. Discussed follow-up orthopedics. Follow-up with your primary care providerin 3 to 5 days. If symptoms worsen, do not improve, or new symptoms arise please report back to emergency department for further evaluation. The patient was understanding and agreeable to plan moving forward. Assessment/Plan Right knee pain (M25.561: Pain in right knee) Orders: acetaminophen-oxycodone, 1 tab(s), Oral, q6hr for pain for 3 day(s), 12 tab(s), Refill(s) 0, [facility] #[id number], 170, cm, 03/12/25 17:07:00 EDT, Height/Length Dosing, 69, kg, 03/12/25 17:07:00 EDT, Weight Dosing XR Knee Complete 4+ Views Right Disposition Plan Patient Discharge Condition Stable Discharge Disposition To home Discharge Prescription List Prescriptions acetaminophen-oxycodone 325 mg-5 mg Tab, 1 tab(s), Oral, q6hr, PRN Follow-up With When Contact Information Kamari Hartman In 3 days 03/15/2025 EDT [address], [place] [address] [facility] (1) Additional Instructions: Call Dr for diagnosis based follow up Isaac Guevara In 3 days 03/15/2025 EDT [address] [place] [address] [facility] (1) Additional Instructions: Call Dr for diagnosis based follow up Patient Education Chronic Knee Pain, Adult Acute Knee Pain, Adult Attestation Patient seen and evaluated by the physician client account assistant. Attending physician was present in the emergency department and supervised care. This visit was performed by both the physician and an APC. I performed all aspects of the MDM as documented. This report was transcribed using voice recognition software. Every effort was made to ensure accuracy, however, inadvertently computerized crm marketing specialist mistakes may be present. Appropriate healthcare PPE [...] with APC. Problem List/Past Medical History Ongoing Smoker Historical No qualifying data Medications Inpatient No active inpatient medications Home acetaminophen-oxycodone 325 mg-5 mg Tab, 1 tab(s), Oral, q6hr, PRN Lidoderm 5% Patch, 1 patch(es), Topical, Daily Naprosyn 500 mg Tab, 500 m (more content not included)...[facility] MiamisburgComment on above:Result Comment: Electronically Signed By: Yahir Wade PA-C\.br\Date and Time Signed: 03/12/2518:32 EDT\.br\Electronically Co-Signed By: Lang Gonzales DO\.br\Date and Time Co- Signed: 03/12/25 19:51 EDTED Patient Summaryon [id number] Patient SummaryED Patient Summary [address] [address] Patient Discharge Instructions Person Information Name: CHAYA RODRIGUEZ Age: 54 Years Arrival Date: 03/12/2025 16:59:50 Discharge Diagnosis: Right knee pain Primary Care Physician: NONE, XXXX Provider Information Primary Provider: Lang Gonzales DO [employer] Lead:Yahir Wade PA-C The exam and treatment you received in the Emergency Department were for an urgent problem and are not intended as complete care. It is important that you follow up with a doctor, nurse practitioner,or physician???s client account assistant for ongoing care. If your symptoms become worse or you do not improve asexpected and you are unable to reach your usual health care provider, you should return to the Emergency Department. We are available 24 hours a day. CHAYA RODRIGUEZ has been given the following list of patient education materials, prescriptions and follow-up instructions: Follow-up Instructions: With: Address: When: Kamari Hartman [address] [place] [address] Business (1) In 3 days 03/15/2025 Comments: Call for diagnosis based follow up With: Address: When: Isaac Guevara [address] [place], [place] [phone] Business (1) In 3 days 03/15/2025 Comments: Call for diagnosis based follow up In the event that this physician does not participate in your insurance network, please consult with your insurance company to find a nearby participating provider. Patient Education Materials: Chronic Knee Pain, Adult; Acute Knee Pain, Adult A MESSAGE TO ALL PATIENTS REGARDING OPIOIDS PRESCRIPTION OPIOIDS: WHAT YOU NEED TO KNOW Prescription opioids can be used to help relieve fmcroyos-dv-jkhxki pain and are often prescribed following a [...] following guidance from the Food and Drug Admi (more content not included)...[facility]burgXR Knee Complete 4+ Views Righton [id number] Knee Complete 4+ Views RightExam Date/Time: 03/12/2025 17:30 EDT Reason for Exam: Pain, Non Traumatic Report IMPRESSION: NO ACUTE OSSEOUS ABNORMALITY. EXAM: XR Knee Complete 4+ Views Right HISTORY: Knee pain TECHNIQUE: AP, lateral and oblique views of the knee obtained. COMPARISON: 02/09/2024 FINDINGS: No acute fracture or dislocation. Joint spaces of the knee are maintained. No knee joint effusion. Soft tissues are within normal limits. Ordering Provider: Yahir Wade FINAL REPORT Dictated: 03/12/2025 5:34 pm Cory Paula DO Signed (Electronic Signature): 03/12/2025 5:34 pm Signed by: Cory Paula DO Transcribed by: OPHELIA Technologist: DOMONIQUEThe [facility] Clinical Summaryon [id number] Clinical SummaryED Clinical Summary [address] [address] ED Clinical Summary Person Information Name: CHAYA RODRIGUEZ/Elissa Age: 54 Years : 1970 Sex: Female Language: Venezuelan PCP: NONE, XXXX Marital Status: Phone: Visit [...] 11/15/2024 01:12:37 11/15/2024 01:12:37 11/15/2024 01:12:37 ADDRESS: [address] [place] [id number] PHYS DOC NOTES: MEDICAL INFORMATION: Prescriptions Given: Medications to Continue Taking That Have Changed [id number], [address] [place], [place] [id number], [phone] START: naproxen (naproxen 500 mg Tab) 1 Tablets By Mouth 2 times a day for 10 Days. Refills: 0. Other Medications START: naproxen (Naprosyn 500 mg Tab) 1 Tablets By Mouth 2 times a day as needed for pain. Refills:0. START: naproxen (Naprosyn 500 mg Tab) 1 Tablets By Mouth 2 times a day. Refills: 0. START: naproxen (Naprosyn 500 mg Tab) 1 Tablets By Mouth 2 times a day as needed for pain. Refills:0. Medications to Continue with No Changes Other Medications lidocaine topical (Lidoderm 5% Patch) 1 Patches Topical every day. apply 12 hours on and 12 hours off daily. Refills: 0. PATIENT EDUCATION INFORMATION: Instructions: RICE Therapy for Routine Care of Injuries; Hand Pain Follow up: With: Address: When: Isaac Link [address] [place], [place] [phone] Business (1) In 3 days 11/18/2024 DIAGNOSIS: Sprain of right handNormalFisher Travis Medical CenterED Note-Physicianon [id number] Note-PhysicianED Note-Physician Basic Information Time Seen: Ever Caldwell [...] other associated symptoms no other prior treatments orcomplaints. Family: Reviewed and noncontributory Social: lives at [...] her back and has had pain within notin her right hand ever since. On exam [...] Francois wrap for compression. I discussed the importanceof RICE protocol with the patient and will [...] day(s), # 20 tab(s), Refills(s) 0, Pharmacy: [facility] #[id number], 170, cm, 11/14/24 22:23:00 EST, Height/Length Dosing, [...] In 3 days 11/18/2024 EST [address] [place] [address]- Business (1) Additional Instructions: Patient Education RICE Therapy for Routine Care of Injuries Hand Pain Attestation Patient seen and evaluated by the physician client account assistant. Attending physician was present in the emergency department and supervised care. This visit was performed by both the physician and an APC. I performed all aspects of the MDM as documented. This report was transcribed using voice recognition software. Every effort was made to ensure accuracy, however, inadvertently computerized crm marketing specialist mistakes may be present. Appropriate healthcare PPE [...] List/Past Medical History Ongoing (more content not included)...[facility] MiamisburgComment on above: Result Comment: Electronically Signed By: Ever Caldwell PA-C\.br\Date and Time Signed: 11/15/2401:19 EST\.br\Electronically Co-Signed By: Michael John DO\.br\Date and Time Co-Signed: 11/15/24 02:00 ESTED Patient Summaryon [id number] Patient SummaryED Patient Summary [address] [address] Patient Discharge Instructions Person Information Name: CHAYA RODRIGUEZ Age: 54 Years Arrival Date: 11/14/2024 22:14:15 Discharge Diagnosis: Sprain of right hand Primary Care Physician: NONE, XXXX Provider Information Primary Provider: Michael John DO Advanced Marketing [employer] Lead:Ever Caldwell PA-C The exam and treatment you received in the Emergency Department were for an urgent problem and are not intended as complete care. It is important that you follow up with a doctor, nurse practitioner,or physician???s client account assistant for ongoing care. If your symptoms become worse or you do not improve asexpected and you are unable to reach your usual health care provider, you should return to the Emergency Department. We are available 24 hours a day. CHAYA RODRIGUEZ has been given the following list of patient education materials, prescriptions and follow-up instructions: Follow-up Instructions: With: Address: When: Isaac Link [address] [phone] Business (1) In 3 days 11/18/2024 In [...] opioids can be used to help relieve npiwdezc-xw-sdwffu pain and are often prescribed following a [...] guidance from the Food and Drug Administration (www.fda.gov/Drugs/ResourcesForYou). ??? Visit www.cdc.gov/drugoverdose to learn about the risks of opioids abuse and overdose. ??? If you believe you may be struggling with addiction, tell your health care prof (more content not included)...[facility]burgXR Hand 3+ Views Righton [id number] Hand 3+ Views RightExam Date/Time: 11/14/2024 22:35 EST Reason for Exam: [...] Ka,r in mGy = . DAP = .[facility] CenterED Note-Physicianon [id number] Note-PhysicianED Note-Physician Basic Information Time Seen: Saskia PICKERING, Rebeca CanasVi 10/08/2024 13:46 Chief Complaint pt to ER c/o neck and shoulder pain that radiates down R arm. Pt states pain started 3 days ago. Pttook naproxen @1000. pt denies recent injury. History [...] it as feel like a pinched nerve. .Patient notes she recently had carpal tunnel surgery [...] to the elbow. She denies any weakness, dysart hria, headache, fevers, chest pain, shortness of breath [...] of motion of the shoulder intact, 5/5 finisher tailor apprentice strength to the right hand, radialpulse palpable, neurovascularly intact Neurological: A&O moves all [...] given Toradol and Kenalog while in the ED.She has been prescribed a short dose of [...] day(s), # 24 tab(s), Refills(s) 0, Pharmacy: [facility] #[id number], 170, cm, 10/08/24 13:45:00 EST, Height/Length Dosing, 69.6, kg, 10/08/24 13:45:00 EST, Weight Dosing predniSONE, 50 mg = 1 tab(s), Oral, Daily, X 5 day(s), # 5 tab(s), Refills(s) 0, Pharmacy: [facility] #[id number], 170, cm, 10/08/24 13:45:00 EST, Height/Length Dosing, [...] Oral, QID Follow-up With When Contact Information Liliya Mejia In 3 days 10/11/2024 EST [address], [address], [address] [place] [phone] Business (1) Additional Instructions: Call to schedule a follow-up appointment with your family physician in thenext 2 to 3 days. Take the prednisone as prescribed. Use naproxen and Robaxin as needed for pain. Return to the ED with any new or worsening symptoms. Patient Education Cervical Radiculopathy, Eqfn-hv-Qwks Attestation Patient seen and evaluated by the physician client account assistant. Attending physician was present in the emergency department and supervised care. This visit was performed by both the physician and an APC. I performed all aspects of the MDM as d (more content not included)...[facility]burgComment on above:Result Comment: Electronically Signed By: Rebeca Kruger PA-C\.br\Date and Time Signed: 10/08/2414:09 EST\.br\Electronically Co- Signed By: Kamari Miguel DO\.br\Date and Time Co-Signed: 10/10/24 13:57 ESTED Clinical Summaryon [id number] Clinical SummaryED Clinical Summary [address] [address] ED Clinical Summary Person Information Name: CHAYA RODRIGUEZ/[facility] Age: 53 Years : 1970 Sex: Female Language: Venezuelan PCP: NONE, XXXX Marital Status: Phone: Visit [...] 10/08/2024 14:46:01 10/08/2024 14:46:01 10/08/2024 14:46:01 ADDRESS: [address] [place] [phone] [facility] DOC NOTES: MEDICAL INFORMATION: Prescriptions Given: New Medications [facility] #[id number], [address], [place] [id number], [phone] methocarbamol (Robaxin 500 mg Tab) 2 Tablets [...] 0. PATIENT EDUCATION INFORMATION: Instructions: Cervical Radiculopathy, Cfxt-pr-Yomi Follow up: With: Address: When: Liliya Mejia [address] [place] [address] [facility] () In 3 days 10/11/2024 Comments: Call to schedule a follow-up appointment with your family physician in the next 2 to 3 days. Take the prednisone as prescribed. Use naproxen and Robaxin as needed for pain. Return to the ED with any new or worsening symptoms. DIAGNOSIS: Acute cervical radiculopathyNThe [facility] Patient Summary on [id number] Patient SummaryED Patient Summary [address] [address] Patient Discharge Instructions Person Information Name: CHAYA RODRIGUEZ Age: 53 Years Arrival Date: 10/08/2024 13:39:01 Discharge Diagnosis: Acute cervical radiculopathy Primary Care Physician: NONE, XXXX Provider Information Primary Provider: Kamari Miguel DO Advanced Marketing Analytics Lead:Rebeca Kruger PA-C The exam and treatment you received in the Emergency Department were for an urgent problem and are not intended as complete care. It is important that you follow up with a doctor, nurse practitioner,or physician???s client account assistant for ongoing care. If your symptoms become worse or you do not improve asexpected and you are unable to reach your usual health care provider, you should return to the Emergency Department. We are available 24 hours a day. CHAYA RODRIGUEZ has been given the following list of patient education materials, prescriptions and follow-up instructions: Follow-up Instructions: With: Address: When: Liliya Mejia [address], Arvind C, [facility] [address] [place] [address] [facility] (Spiced Bits In 3 days 10/11/2024 Comments: Call to [...] participating provider. Patient Education Materials: Cervical Radiculopathy, Ntxa-vr-Dcho A MESSAGE TO ALL PATIENTS REGARDING OPIOIDS PRESCRIPTION OPIOIDS: WHAT YOU NEED TO KNOW Prescription opioids can be used to help relieve mervtbbz-qb-qezcrs pain and are often prescribed following a [...] the toilet, following guid (more content not included)...NormalNovant Health New Hanover Orthopedic Hospitaler Brook Lane Psychiatric CenterEMG 2 Extremitieson 95-10-1961QWY/NCS BUE Minimal bilateral carpal tunnel syndromeNOMS HealthcareNOMS HealthcareNVC 11-12 Nerveson 28-95-5795ZQQ/NCS BUE Minimal bilateral carpal tunnel syndromeNOSaint Joseph Health CenterNOLA HealthcareCHEMISTRY Ordered By: SYSTEM SYSTEM on 50-86-1503Ioeic gap [Moles/Vol]12 mmol/LNormal6 - 16 mEq/LRemisol ChemCalcium [Mass/Vol]9.5 mg/dLNormal8.9 - 11.1 mg/dLRemisol ChemChloride [Moles/Vol]101 mmol/YHcfqsg072 - 111 mmol/LRemisol ChemCO2 [Moles/Vol]27 mmol/VMlzvox93 - 31 mmol/LRemisol ChemCreatinine [Mass/Vol]0.9 mg/dLNormal0.5 - 1.3 mg/dLRemisol ChemeGFRmL/min/1.73 v8Gibhnf>=59mL/min/1.73 m2 Remisol ChemGlucose [Mass/Vol]247 mg/vWOtle21 - 199 mg/dLRemisol ChemPotassium [Moles/Vol]3.7 mmol/LNormal3.5 - 5.3 mmol/LRemisol ChemSodium [Moles/Vol]136 mmol/KCdbaac991 - 145 mmol/LRemisol ChemUrea nitrogen [Mass/Vol]9 mg/dLNormal5 - 21 mg/dLRemisol ChemUrea nitrogen/Creatinine [Mass ratio]10 mg/abQwtsyj17 - 20 Remisol ChemHEMATOLOGYOrdered By: SYSTEM SYSTEM on 87-03-8406Unzkuljrv/100 WBC (Bld)0.9 %Normal0.0 - 2.0 %[facility] HemeAutoSSBasophils/Leukocytes Auto (Bld) [Pure # fraction]0.1 E9/LNormal0.0 - 0.2 E9/LFTMC HemeAutoSSEosinophils/100 WBC (Bld) 2.3 %Normal0.0 - 8.0 %[facility] HemeAutoSSEosinophils/Leukocytes Auto (Bld) [Pure # fraction]0.3 E9/LNormal0.0 - 0.5 E9/LFTMC HemeAutoSSLymphocytes/100 WBC (Bld) 36.1 %Qxwxme07.0 - 50.0 %[facility] HemeAutoSSLymphocytes/Leukocytes Auto (Bld) [Pure # fraction]5.3 E9/LHigh1.0 - 4.0 E9/LFTMC HemeAutoSSMonocytes/100 WBC (Bld)3.0 % Low4.0 - 14.0 %[facility] HemeAutoSSMonocytes/Leukocytes Auto (Bld) [Pure # fraction] 0.4 E9/LNormal0.2 - 1.0 E9/LFTMC HemeAutoSSNeutrophils/100 WBC (Bld)57.7 %Normal 36.0 - 75.0 %[facility] HemeAutoSSNeutrophils/Leukocytes Auto (Bld) [Pure # fraction] 8.5 E9/LHigh2.0 - 7.5 E9/LFTMC HemeAutoSSHEMATOLOGYOrdered By: Sandra Souza on 13-18-4360Ztcrqfozahm distribution width (RBC) [Ratio]13.2 %Rjttbw31.9 - 14.2 %[facility] HemeAutoSSHematocrit (Bld) [Volume fraction]42.3 %Urkalf22.0 - 46.0 %[facility] HemeAutoSSHemoglobin (Bld) [Mass/Vol]14.5 g/mDZqawdj60.0 - 16.0 gm/dLFTMC HemeAutoSSMCH (RBC) [Entitic mass]30.3 nmAxixlg58.0 - 34.0 pgFTMC HemeAutoSSMCHC (RBC) [Mass/Vol]34.4 g/hICqrifn74.4 - 36.0 gm/dLFTMC HemeAutoSSMCV (RBC) [Entitic vol]88.3 iXNvltuj50.0 - 100.0 fLFTMC HemeAutoSSPlatelet mean volume (Bld) [Entitic vol]8.7 fLNormal6.4 - 10.8 fLFTMC HemeAutoSSPlatelets (Bld) [#/Vol]288.0 E9/WGyoxrh835.0 - 500.0 E9/LFTMC HemeAutoSSRBC (Bld) [#/Vol]4.8 E12/LNormal4.3 - 5.9 E12/LFTMC HemeAutoSSWBC corrected for nucl RBC Auto (Bld) [#/Vol]14.8 E9/LHigh4.0 - 11.0 E9/LFTMC HemeAutoSSComment on above:Result Comment: Slide reviewed by CHRISTELLE.XR HAND RT MIN 3Von 10-39-5883MO HAND RT MIN 3V EXAM: XR HAND [...] Electronically authenticated by: RENEE YOUNG Date: 2022-09-29 17:12[facility]XR FOREARM RT 2Von 73-47-5591RX FOREARM RT 2VEXAM: XR FOREARM RT 2V HISTORY: Dog bite [...] Electronically authenticated by: MYRTLE RODRIGUEZ Date: 2022-05-14 16:25[facility] Vital Signs Date TimeVital SignValuePerforming FcjgahojgMmrwmkyd17-87-6001 12:59-0400Body gwqkse373.2 [facility] Work Phone: Ask The DoctorSaint Joseph Health CenterGrmgbylgwo66-57-8556 12:59-0400Body mass index (BMI) [Ratio]23.81 kg/m2[facility] Work Phone: noSaint Joseph Health CenterOoguyjydno28-74-5314 12:59-0400Body jeimpw12.95 kgCamarillo State Mental Hospital Work Phone: noSaint Joseph Health CenterBvabyeplkq32-00-9837 17:03-0400Body temperature 98.42 [degF]Lang [employer] [facility]04-25-2025 17:03-0400 Diastolic blood hqoebwhj49 mm[Hg]Lang [employer] [facility]04-25-2025 17:03-0400Heart rate92 /minJeffrey Pay [address] [place], [place] [address]04-25-2025 17:03-0400 Respiratory rate20 /minJeffrey Pay [address] [place], [place] [address]04-25-2025 17:03-4824RwO4% (BldA) [Mass fraction]97 %Lang Pay [address] [place], [place] [address]04-25-2025 17:03-0400 Systolic blood vtdmvlor463 mm[Hg]Lang Pay [address]04-25-2025 09:34-0400Body xzaxug582.2 cmMichael Hartman DO Work Phone: [facility] HospitalXycwpsdsbt82-85-5035 09:34-0400Body mass index (BMI) [Ratio]23.81 kg/l9Nbsjgyg Hartman DO Work Phone: [phone] [place], [place] [address]Sutocjrwfr75-36-3416 09:34-0400Body xmlawo43.95 kgMichael Hartman DO Work Phone: [phone] HospitalHoruytcyxr04-06-3889 22:19-0500Body temperature 98.6 [degF]Michael Dora [address] [place], [place] 802[address]12-28-2024 22:19-0500 Diastolic blood mm[Hg]Michael Dora [address] [place], [place] 802[address]12-28-2024 22:19-0500Heart ckna885 /minNoah Dora [address] [place], [place] [address]12-28-2024 22:19-0500 Respiratory rate20 /minNoah Dora [address] [place], [place] [address]12-28-2024 22:19-4167HkJ1% (BldA) [Mass fraction]97 %Michael Dora [address] [place], [place] [address]12-28-2024 22:19-0500 Systolic blood mm[Hg]Michael John [facility]11-21-2024 13:40-0500Body shvjgtfyacb17.7 [degF]Rafael Fito [facility]11-21-2024 13:40-0500 Diastolic blood fovnhtvs10 mm[Hg]Rafael Payton [facility]11-21-2024 13:40-0500Heart rate85 /alyRafael Payton [facility]11-21-2024 13:40-0500 Respiratory rate17 /minRafael Payton [facility]11-21-2024 13:40-2262KrT8% (BldA) [Mass fraction]97 %Rafael Fito [facility]11-21-2024 13:40-0500 Systolic blood yjramfsm152 mm[Hg]Rafael Payton [facility]11-15-2024 13:07-0500Body ppeqpz356.2 cmTd Midland PA Work Phone: [facility] HospitalXoxuusowks00-25-5695 13:07-0500Body mass index (BMI) [Ratio]23.81 kg/m2[facility] PA Work Phone: [facility] HospitalVznezbalmn30-54-2522 13:07-0500Body ozzxrp41.95 kgTodd Midland PA Work Phone: [facility] HospitalRkshahwirl28-84-9389 10:41-0400Body .2 cmMichael Hartman DO Work Phone: Ask The DoctorSaint Joseph Health CenterKupsmfdtix00-27-9032 10:41-0400Body mass index (BMI) [Ratio]23.81 kg/d0Tdyybsq Hartman DO Work Phone: Ask The DoctorSaint Joseph Health CenterHoeuulrgwu84-78-3591 10:41-0400Body uhqbqt58.95 kgMichael Hartman DO Work Phone: [facility] HospitalWvstikttfs93-70-5782 14:07-0400Body cmjwim420.2 cmMicromana Hartman DO Work Phone: [facility] HospitalOzfznodelx49-63-8397 14:07-0400Body mass index (BMI) [Ratio]23.81 kg/q2Pkkgkhr Hartman DO Work Phone: [facility] HospitalOiqnzglvtt21-61-9940 14:07-0400Body ecymch83.95 kgMicromana Hartman DO Work Phone: [facility] HospitalGvqyyceqzn64-36-7978 17:40-0400Body temperature 98.24 [degF]Federico Lee [address]08-03-2024 17:40-0400 Diastolic blood vlhbzooo95 mm[Hg]Federico Lee [address]08-03-2024 17:40-0400Heart qwpp930 /minFederico Lee [address] [place], [place] [address]08-03-2024 17:40-0400 Respiratory rate18 /minFederico Lee [address] [place], [place] 802[address]08-03-2024 17:40-3946KgO1% (BldA) [Mass fraction]96 %Federico Lee [address] [place], [place] 802[address]08-03-2024 17:40-0400 Systolic blood bgpepcbn769 mm[Hg]Federico Lee [address] [place], [place] [address]05-01-2024 18:34-0400Body iluurlbzdfc44.24 [degF][facility]05-01-2024 18:34-0400Diastolic blood inddufjw16 mm[Hg][facility]05-01-2024 18:34-0400Heart rate79 /minKn[facility] Hospital05-01-2024 18:34-0400Respiratory rate18 /minAstrit [facility]05-01-2024 18:34-5140UnF0% (BldA) [Mass fraction]97 %[facility]05-01-2024 18:34-0400Systolic blood pressure 115 mm[Hg][facility]03-24-2024 22:24-0400Body vzpdlyvuamc33.88 [degF]Kaylinn Dokken [address] [place], [place] [address]03-24-2024 22:24-0400 Diastolic blood adwsgidi92 mm[Hg]Kaylinn Dokken [address] [place], [place] [address]03-24-2024 22:24-0400Heart rate84 /minKaylinn Dokken [address] [place], [place] 306[address]03-24-2024 22:24-0400 Respiratory rate16 /minKaylinn Dokken [address] [place], [place] 306[address]03-24-2024 22:24-1591FmQ9% (BldA) [Mass fraction]96 %Kaylinn Dokken [address] [place], [place] 306[address]03-24-2024 22:24-0400 Systolic blood igaqxean267 mm[Hg]Kaylinn Dokken [address] [place], [place] 306[address]03-10-2024 22:34-0400Body cklqlkmekaa79.24 [degF]Kaylinn Dokken [address] [place], [place] [address]03-10-2024 22:34-0400 Diastolic blood fgvrzhin73 mm[Hg]Kaylinn Dokken [address] [place], [place] 306[address]03-10-2024 22:34-0400Heart rate88 /minKaylinn Dokken [address] [place], [place] 306[address]03-10-2024 22:34-0400 Respiratory rate16 /minHayde Pro [address]03-10-2024 22:34-7589CmG1% (BldA) [Mass fraction]97 %Hayde Pro [address]03-10-2024 22:34-0400 Systolic blood qbsmtyhn611 mm[Hg]Hayde Pro [address] [place], [place] 306[address]10-15-2023 14:57-0400 Diastolic blood bgtwfamw66 mm[Hg]Wayne Rangel [address] [place], [place] [address]10-15-2023 14:57-0400Heart rate85 /minWayne Rangel [address] [place], [place] 306[address]10-15-2023 14:57-0400Mean blood zyvtdhrv84 mm[Hg]Wayne Rangel [address] [place], [place] [address]10-15-2023 14:57-0400 Respiratory rate16 /minTim Juan Carlos [address] [place], [place] [address]10-15-2023 14:57-1593KuM9% (BldA) [Mass fraction]97 %Wayne Rangel [address] [place], [place] 306[address]10-15-2023 14:57-0400 Systolic blood mm[Hg]Wayne Rangel [address] [place], [place] 306[address]10-15-2023 14:14-0400Body lquqzvvorho82.24 [degF]Wayne Rangel [address] [place], [place] [address]10-15-2023 14:14-0400 Diastolic blood prszzlor00 mm[Hg]Wayne Rangel [address] [place], [place] [address]10-15-2023 14:14-0400Heart nrcp700 /minTim Juan Carlos [address] [place], [place] [address]10-15-2023 14:14-0400 Respiratory rate18 /minTim Juan Carlos [facility]10-15-2023 14:14-4143LyR6% (BldA) [Mass fraction]98 %Wayne Rangel [facility]10-15-2023 14:14-0400 Systolic blood cjegizrb397 mm[Hg]Wayne Rangel [facility]08-01-2023 17:00-0400Body nadblgbevnq00.24 [degF][facility]08-01-2023 17:00-0400Diastolic blood hofndnzo16 mm[Hg][facility]08-01-2023 17:00-0400Heart rate97 /minKn[facility] Hospital08-01-2023 17:00-0400Respiratory rate16 /minKn[facility] Hospital08-01-2023 17:00-0552BhB1% (BldA) [Mass fraction]97 %[facility] [facility] 17:00-0400Systolic blood pressure 120 mm[Hg][facility] Encounters Encounter DateEncounter TypeCare ProviderFacilityStart: 47-57-4036rztfpljzpe Kamari Hair PowersFacility:FTMCStart: 06-25-2025 End: 01-80-7047Ixtdylrvv department patient visitJohn ParenteFacility:FTMCStart: 05-05-2025 End: 68-73-9337Cftsoc Jese MIRZA Work Phone: [facility]OStart: 05-05-2025 End: 61-56-1383Tmiwtu Jese MIRZA Work Phone: [facility]OStart: 05-05-2025 End: 73-32-6259Ykmngp follow up visit related to original Chris MIRZA Work Phone: [facility] NB ORTHOComment on above:Status post carpal tunnel release (Primary Dx)Start: 05-05-2025 End: 01-61-8318oqtdarnysnHTQP D HILLSNot AvailableStart: 25-01-0214ivuifjvoyisu HartmanFacility:FIONA OATES BellevueStart: 03-12-2025 End: 50-86-9446Bxlkswnkp department patient visitLang Gonzales [facility] Start: 03-12-2025 End: 53-05-4960Nwrjqok encounter procedureMichaeervin Hair Hartman DO Work Phone: [facility] NB ORTHOComment on above:Right carpal tunnel syndrome (Primary Dx)Start: 03-12-2025 End: 67-35-4808caczsfgvbwUZDMYHT T MINNIENot AvailableStart: 11-14-2024 End: 74-32-3768Drlcnzdvf department patient visitChelisudha TiradoVi John [facility] Start: 10-08-2024 End: 72-46-9913Xakyskoeo department patient visitRafael Payton [facility] Start: 10-02-2024 End: 25-08-9926Bjbjml flowsheetaJqui MIRZA Work Phone: [facility] ORTHOStart: 10-02-2024 End: 98-94-3181Jrhnqm flowsheetToroma MIRZA Work Phone: [phone] ORTHOStart: 10-02-2024 End: 31-80-0933Basidp follow up visit related to original pxJaqui MIRZA Work Phone: [facility] NB ORTHOComment on above:Status post carpal tunnel release (Primary Dx)Start: 10-02-2024 End: 74-43-5983uhkyrkctpwYMPV D HILLSNot AvailableStart: 08-20-2024 End: 57-41-9009Lnugzb flowsheetMichael T Hartman DO Work Phone: [phone] ORTHOStart: 08-20-2024 End: 36-52-5550Ehwvgo flowsheetMichael T Hartman DO Work Phone: [phone] ORTHOStart: 08-20-2024 End: 79-49-8283Msjnrbt encounter procedureMichael T Hartman DO Work Phone: [phone] NB ORTHOComment on above:Bilateral hand pain (Primary Dx)Start: 08-20-2024 End: 83-59-0567qtuntmczcrOOXZGEJ T POWERSNot AvailableStart: 08-12-2024 End: 74-79-7807Zupoyr flowsheetNicole Eda DO Work Phone: [phone] [place] [address] ROUTEStart: 08-12-2024 End: 36-28-6368Zmnbdu flowsheetNicole Eda DO Work Phone: [phone] [place] [facility] ROUTEStart: 08-12-2024 End: 10-23-0248Hytthxd encounter procedureNicole Eda DO Work Phone: [phone] [place] STATE ROUTEComment on above:Bilateral carpal tunnel syndrome (Primary Dx); Numbness and tinglingStart: 08-12-2024 End: 16-50-2384vbkjfhbdmtKMJWUW DANNERNot AvailableStart: 07-30-2024 End: 75-68-0435Nrxbauc encounter procedureMichael T Hartman DO Work Phone: [phone] NB ORTHOComment on above:Bilateral hand pain (Primary Dx)Start: 07-30-2024 End: 62-14-9230bqgxfjgjkzNXZAULG T POWERSNot AvailableStart: 07-30-2024 End: 84-17-0015bzvdzlpqhnWGSVGST T POWERSNot AvailableStart: 06-22-2024 End: 34-93-3021fsshcctownTBLR D HILLSNot AvailableStart: 06-22-2024 End: 38-85-3698ganswelkhzDMTG D HILLSNot AvailableStart: 06-20-2024 End: 92-68-1287Zaunbvxmv department patient visitFederico Lee [facility] Start: 05-26-2024 End: 29-20-7064jbmwkwsbyrLQWINTB T POWERSNot AvailableStart: 03-18-2024 End: 48-58-6011Qpzxixcgn department patient visitAstrit Brinda [facility] Start: 02-09-2024 End: 17-20-1467Uubeapyuj department patient visitHayde Sheth Dianajuan pablo [facility] Start: 01-26-2024 End: 42-53-4597Sjmtrecdg department patient visitHayde Sheht Dianajuan pablo [facility] Start: 12-20-2023 End: 84-29-5773Hoozcxzg SupportKamari Hartman DO Work Phone: [facility] NB ORTHOComment on above:S/P right knee arthroscopy (Primary Dx)Start: 11-06-2023 End: 15-15-0019Tpezmyj encounter procedureKamari Hartman [facility] Start: 10-07-2023 End: 27-81-1011Nvlntwk encounter procedureToroma Guevara [facility] Start: 09-01-2023 End: 39-88-9870Wufoxzkyg department patient visitWayne Rangel [facility] Start: 06-18-2023 End: 41-45-9179Gdtxujuob department patient visitAstrit Brinda [facility] Start: 03-26-2023 End: 44-37-7239evkbtvjvfyQP JOSE HIGGINS .Facility:O7Clxkg: 09-29-2022 End: 31-19-4742rektjgxepaYA NONE LISTED REQUESTFacility:T4Meoph: 09-07-2022 End: 48-89-6730qcigjxyzkwOSKQQG RODRIGUEZ .Facility:T5Rggvo: 05-14-2022 End: 30-88-7619qohllsvgdgLE LANG GONZALES .Facility:I1Jbyla: 05-01-2022 End: 65-89-9188tfnqmeasagYHQOH PARKERFacility:H1 Procedures DateProcedureProcedure DetailPerforming ClinicianStart: 48-75-4807Maizc wrist complete minimum 3 viewsMichael T Hartman DO Work Phone: Start: 08-12-2024 End: 97-40-6584Mmrril emg ea extremty w/paraspinl area completeNicole Eda DO Work Phone: Start: 81-23-3614Abzhj hand minimum 3 viewsMichael T Hartman DO Work Phone: History of decompression of median nerveStatus post carpal tunnel releaseToroma MIRZA Work Phone: History of decompression of median nerveStatus post carpal tunnel releaseTodd Brielle MIRZA Work Phone: Plan of Treatment DateCare ActivityDetailAuthorStart: 04-51-5326Qavqoyfmu vaccinationInfluenza Vaccine (Season Ended)[facility] HealthcareStart: 05-05-2025 End: 17-02-9323Ksmkljw encounter cqdapachb86/18/2025 1:00 PM EDT Office Visit [facility] [address] [place] [address] Jaqui Guevara PA [address] [place] [address] ArrivedNOMS NB ORTHOComment on above:ArrivedStart: 09-18-2024 End: 84-56-5933Nwfirhx encounter pcjkpyvil67/01/2024 12:30 PM EDT Procedure Visit [facility] EX[facility] Kamari Swanson, DO [address] [place] [address] [facility] EXT DEPStart: 08-20-2024 End: 75-24-6602Hdfnoes encounter procedureNOMS BAN ORTHOComment on above: Bilateral hand pain (Primary Dx)Start: 08-12-2024 End: 25-27-2702Odassbu encounter kyhphwczi64/25/2024 9:00 AM EDT Procedure Visit [facility] [place] [facility] [address] [place] [address] Elena Castro, DO [address] [place] [address] ArrivedNOMS [place] STATE ROUTEComment on above: ArrivedStart: 98-07-7920Hxdbpwggu vaccinationInfluenza Vaccine (#1)[facility] HealthcareStart: 02-12-2024 End: 13-41-5022Cljrawu encounter rksvaubnt17/27/2024 1:15 PM EDT Office Visit [facility] [address] [place] [id number] Jaqui Guevara PA [address] [place] [address] [facility] NB ORTHOStart: 26-94-0912Khyhzqpjj for malignant neoplasm of breastMammogramNOMS HealthcareStart: 40-43-1084Zkpqqitgq for malignant neoplasm of cervixNOMS HealthcareStart: 72-10-1460Ghalblryh for malignant neoplasm of cervixPap SmearNOMS HealthcareStart: 52-76-9792Ybxbowmys for malignant neoplasm of colonNOMS HealthcareXR Hand - left 3 ViewsXR hand 3+ views left Imaging Routine Bilateral hand pain 07/30/2024 11:33 AM EDTNOMS Healthcare XR Hand - right 3 ViewsXR hand 3+ views right Imaging Routine Bilateral hand pain 07/30/2024 11:33 AM EDTNOMS Healthcare Work Phone: XR Wrist - right 3 ViewsXR wrist 3+ views right Imaging Routine Right carpal tunnel syndrome 03/12/2025 8:21 AM [facility]: Payers DatePayer CategoryPayerPolicy [id number] Health Insurance [id number] [id number] [id number] 1970 [id number] 2..840.1.521483.3.57[id number] 2.0.1.992947.3.57[id number] 2.0.1.133126.3.57[id number] 2..840.1.076211.3.57[id number] 2..0.1.947174.3.57[id number] 2..840.1.020185.3.57[id number] 2..840.1.477490.3.57[id number] 2..840.1.656308.3.57[id number] 2.840.1.260218.3.57[id number] 2..840.1.743331.3.57[id number] 2.16.840.1.013926.3.57[id number] 2.16.840.1.814399.3.57[id number] 2.16.840.1.529666.3.57[id number] 2.16.840.1.335212.3.57[id number] 2.16.840.1.761388.3.57[id number] 2.16.840.1.225086.3.57[id number] 2.16.840.1.385700.3.57[id number] 2.16.840.1.398530.3.57[id number] 2.16.840.1.591613.3.57[id number] 2.16.840.1.733696.3.579.[id number] 2..0.1.902738.3.57[id number] 2.16.0.1.897642.3.579.2.95142-59-5510Smrp-[id number] Social History DateTypeDetailFacilityTobacco smoking statusOhioHealth Marion General Hospitaltart: 12-17-2023 End: 42-79-7847Dfc Assigned At BirthFemalMemorial Health Systemtart: 01-62-9811Qzlqusj smoking statusHeavy tobacco smoker (finding)[facility]: 10-18[facility]1985 End: 07-27-5570Vdsyhbq smoking status NHISSmokes tobacco dailyUTAH STATE [facility]ITAL [facility] Start: 10-17-4663Zpptdem of tobacco useCigarette SmokerUTAH STATE HOSPITAL HealthcareStart: 10-16-2023 End: 31-16-0302Ljgfbtwuap smoked current (pack per day) - Reported0.5N[facility]S HealthcareStart: 10-16-2023 End: 54-50-1726Gfheosr use and exposureSmokeless tobacco non-userNOLA Healthcare Start: 12-17-2023 End: 55-35-5224Dwtqlpa intakeEx-drinker (finding)[facility] HealthcareStart: 41-89-5395Cwe Assigned At BirthNot on fileUTAH STATE HOSPITAL HealthcareStart: 22-27-2400Ucn Female (finding)[facility] Functional Status XawwWzcjfontgtAswyjdGmaitvlk56-39-9290Csvskbzkse StatusN/[facility]12-28-2024Functional StatusN/[facility]11-21-2024 Functional StatusN/[facility]08-03-2024Functional StatusN/A [facility]05-01-2024Functional StatusN/[facility]03-24-2024Functional StatusN/[facility] 72-58-7777Ubkwgvcwwh StatusN/[facility]10-15-2023Functional StatusN/[facility]08-01-2023Functional StatusN/[facility] Clinical Notes 06-18-2023 to 06-25-2025 Note Date & VmiqEbdfErgmjiel69-87-4728 NoteED Patient Education Note Orthopedics Wrist Pain, Adult There are many things that can cause wrist pain. Some common causes include: ??? An injury to the wrist area, such as a sprain, strain, or broken bone (fracture). ??? Overuse of the joint. ??? A condition that causes increased pressure on a nerve in the wrist (carpal tunnel syndrome). ??? Wear and tear of the joints that occurs with aging (osteoarthritis). ??? Other types of joint inflammation and stiffness (arthritis). Sometimes, the cause of wrist pain is not known. Often, the pain goes away when you follow instructions from your health care provider for relieving pain at home. This may include resting the wrist, icing the wrist, or using a splint or an elastic wrap for a short time. If your wrist pain continues, it is important to tell your provider. Follow these instructions at home: If you have a removable splint or elastic wrap: ??? Wear the splint or wrap as told by your provider. Remove it only as told by your provider. Ask your provider if you may remove it for bathing. ??? Check the skin around the splint or wrap every day. Tell your provider about any concerns. ??? Loosen the splint or wrap if your fingers tingle, become numb, or turn cold and blue. ??? Keep the splint or wrap clean. ??? If the splint or wrap is not waterproof: ? Do not let it get wet. ? Cover it with a watertight covering when you take a bath or shower. Managing pain, stiffness, and swelling ??? If told, put ice on the painful area. ? If you have a removable splint or wrap, remove it as told by your provider. ? Put ice in a plastic bag. ? Place a towel between your skin and the bag or between your splint or wrap and the bag. ? Leave the ice on for 20 minutes, 2?3 times a day. ??? If your skin turns bright red, remove the ice right away to prevent skin damage. The risk of damage is higher if you cannot feel pain, heat, or cold. ??? Move your fingers often to reduce stiffness and swelling. ??? Raise (elevate) the injured area above the level of your heart while you are sitting or lying down. Activity ??? Rest your affected wrist as told by your provider. ??? Return to your normal activities as told by your provider. Ask your provider what activities are safe for you. ??? Ask your provider when it is safe to drive if you have a splint or wrap on your wrist. ??? Do exercises as told by your provider. General instructions ??? Pay attention to any changes in your symptoms. ??? Take wwfn-dfc-qfyxswq and prescription medicines only as told by your provider. Contact a health care provider if: ??? You have a sudden, sharp pain in the wrist, hand, or arm that is different or new. ??? Any swelling or bruising on your wrist or hand gets worse. ??? Your skin becomes red, has a rash, or has open sores. ??? Your pain does not get better or it gets worse. ??? You have a fever or chills. Get help right away if: ??? You lose feeling in your fingers or hand. ??? Your fingers turn white, very red, or cold and blue. ??? You cannot move your fingers. This information is not intended to replace advice given to you by your health care provider. Make sure you discuss any questions you have with your health care provider. Document Revised: 08/09/2023 Document Reviewed: 08/09/2023 [employer] Patient Education ? 2023 [employer] 05-05-2025 History of Present illness Narrative* YUKI Casey - 05/05/2025 1:00 PM EDT Images from the original note were not included. Subjective Patient ID: Chaya Rodriguez is a 54 y.o. female. Chief Complaint: Post-op of the Right Wrist Last Surgery: No surgery found Last Surgery Date: No surgery found HPI Chaya comes in for sutures out from her right carpal tunnel release with Dr. Hartman she had her left-hand done last September she states that this has gone even better and she has had less discomfort and quicker resolution of her symptoms. Objective Ortho Exam Her incision is healed nicely she has no evidence of infection sutures have been removed without difficulty. She has less disruption and no persistent numbness to the digits. Still soreness through the palm with some resolving ecchymosis but full function of the digits of the hand. Image Results: XR wrist 3+ views right Imaging Result: X-rays three views show mild degenerative changes of the basilar thumb joint. This is three views of the wrist, AP, lateral and oblique views. There is no acute fracture, dislocation, tumor or infection seen. Assessment/Plan Encounter Diagnoses: Status post carpal tunnel release No orders of the defined types were placed in this encounter. Follow up if symptoms worsen or fail to improve. Would use a Band-Aid for a day or 2 covering the incision since the sutures are out. May get it wetat any point. Use your cock-up wrist splint for protection when handling the dogs. Would plan on following up as needed for this and any other concern. Understanding what to expect since this is the 2nd time you have had this type of surgery with the opposite hand. Tylenol for discomfort. documented in this [facility]06-18-2025 Instructions* Patient Instructions* YUKI Casey - 05/05/2025 1:00 PM EDT Would use a Band-Aid for a day or 2 covering the incision since the sutures are out. May get it wetat any point. Use your cock-up wrist splint for protection when handling the dogs. Would plan on following up as needed for this and any other concern. Understanding what to expect since this is the 2nd time you have had this type of surgery with the opposite hand. Tylenol for discomfort. documented in this [facility]04-25-2025 Hospital Discharge instructions Patient Education 03/12/2025 17:59:17 Chronic Knee Pain, Adult Chronic Knee Pain, Adult Chronic knee pain is pain in one or both knees that lasts longer than 3 months. Symptoms of chronicknee pain may include swelling, stiffness, and discomfort. Age-related wear and tear (osteoarthritis) of the knee joint is the most common cause of chronic knee pain. Other possible causes include: A long-term immune-related disease that causes inflammation of the knee (rheumatoid arthritis). This usually affects both knees. Inflammatory arthritis, such as gout or pseudogout. An injury to the knee that causes arthritis. An injury to the knee that damages the ligaments. Ligaments are strong tissues that connect bones to each other. Runner's knee or pain behind the kneecap. Treatment for chronic knee pain depends on the cause. The main treatments for chronic knee pain arephysical therapy and weight loss. This condition may also be treated with medicines, injections, a knee sleeve or brace, and by using crutches. Rest, ice, pressure (compression), and elevation, also known as RICE therapy, may also be recommended. Follow these instructions at home: If you have a knee sleeve or brace: Wear the knee sleeve or brace as told by your health care provider. Remove it only as told by your health care provider. Loosen it if your toes tingle, become numb, or turn cold and blue. Keep it clean. If the sleeve or brace is not waterproof: ?Do not let it get wet. ?Remove it if allowed by your health care provider, or cover it with a watertight covering when youtake a bath or a shower. Managing pain, stiffness, and swelling If directed, apply heat to the affected area as often as told by your health care provider. Use theheat source that your health care provider recommends, such as a moist heat pack or a heating pad. ?If you have a removable knee sleeve or brace, remove it as told by your health care provider. ?Place a towel between your skin and the heat source. ?Leave the heat on for 20 30 minutes. ?Remove the heat if your skin turns bright red. This is especially important if you are unable to feel pain, heat, or cold. You may have a greater risk of getting burned. If directed, put ice on the affected area. To do this: ?If you have a removable knee sleeve or brace, remove it as told by your health [...] often to reduce stiffness and swelling. Raise (elevate) the injured area above the level of your heart while you are sitting or lying down. Activity Avoid high-impact activities or exercises, such as running, jumping rope, or doing jumping jacks. Follow the exercise plan that your health care provider designed for you. Your health care providermay suggest that you: ?Avoid activities that make knee pain worse. This may require you to change your exercise routines,sport participation, or job duties. ?Wear shoes with cushioned soles. ?Avoid sports that require running and sudden changes in direction. ?Do physical therapy. Physical therapy is planned to match your needs and abilities. It may includeexercises for strength, flexibility, stability, and endurance. ?Do exercises that increase balance and strength, such as octavio chi and yoga. Do not use the injured limb to support your body weight until your health care provider says that you can. Use crutches as told by your health care provider. Return to your normal activities as told by your health care provider. Ask your health care provider what activities are safe for you. General instructions Take pyyq-san-ujwpagb and prescription medicines only as told by your health care provider. Lose weight if you are overweight. Losing even a little weight can reduce knee pain. Ask your health care provider what your ideal weight is, and how to safely lose extra weight. A dietitian may be able to help you plan your meals. Do not use any products that contain nicotine or tobacco, such as cigarettes, e- cigarettes, and chewing tobacco. These can delay healing. If you need help quitting, ask your health care provider. Keep all follow-up visits. This is important. Contact a health care provider if: You have knee pain that is not getting better or gets worse. You are unable to do your physical therapy exercises due to knee pain. Get help right away if: Your knee swells and the swelling becomes worse. You cannot move your knee. You have severe knee pain. Summary Knee pain that lasts more than 3 months is considered chronic knee pain. The main treatments for chronic knee pain are physical therapy and weight loss. You may also need to take medicines, wear a knee sleeve or brace, use crutches, and apply ice or heat. Losing even a little weight can reduce knee pain. Ask your health care provider what your ideal weight is, and how to safely lose extra weight. A dietitian may be able to help you plan your meals. Follow the exercise plan that your health care provider designed for you. This information is not intended to replace advice given to you by your health care provider. Make sure you discuss any questions you have with your health care provider. Document Revised: 04/18/2021 Document Reviewed: 04/19/2021 [email or web address] Patient Education 2023 [employer]. 03/12/2025 17:59:17 Acute Knee Pain, Adult Acute Knee Pain, Adult Acute knee pain is sudden and may be caused by damage, swelling, or irritation of the muscles and tissues that support the knee. Pain may result from: A fall. An injury to the knee from twisting motions. A hit to the knee. Infection. Acute knee pain may go away on its own with time and rest. If it does not, your health care provider may order tests to find the cause of the pain. These may include: Imaging tests, such as an X-ray, MRI, CT scan, or ultrasound. Joint aspiration. In this test, fluid is removed from the knee and evaluated. Arthroscopy. In this test, a lighted tube is inserted into the knee and an image is projected onto a TV screen. Biopsy. In this test, a sample of tissue is removed from the body and studied under a microscope. Follow these instructions at home: If you have a knee sleeve or brace: Wear the knee sleeve or brace as told by your health care provider. Remove it only as told by your health care provider. Loosen it if your toes tingle, become numb, or turn cold and blue. Keep it clean. If the knee sleeve or brace is not waterproof: ?Do not let it get wet. ?Cover it with a watertight covering when you take a bath or shower. Activity Rest your knee. Do not do things that cause pain or make pain worse. Avoid high-impact activities or exercises, such as running, jumping rope, or doing jumping jacks. Work with a physical therapist to make a safe exercise program, as recommended by your health care provider. Do exercises as told by your physical therapist. Managing pain, stiffness, and swelling If directed, put ice on the affected knee. To do this: ?If you have a removable knee sleeve or brace, remove it as told by your health [...] risk of damage to the area. If directed, use an elastic bandage to put pressure (compression) on your injured knee. This may control swelling, give support, and help with discomfort. Raise (elevate) your knee above the level of your heart while you are sitting or lying down. Sleep with a pillow under your knee. General instructions Take rjou-yjh-zykuqsi and prescription medicines only as told by your health care provider. Do not use any products that contain nicotine or tobacco, such as cigarettes, e- cigarettes, and chewing tobacco. If you need help quitting, ask your health care provider. If you are overweight, work with your health care provider and a dietitian to set a weight-loss goal that is healthy and reasonable for you. Extra weight can put pressure on your knee. Pay attention to any changes in your symptoms. Keep all follow-up visits. This is important. Contact a health care provider if: Your knee pain continues, changes, or gets worse. You have a fever along with knee pain. Your knee feels warm to the touch or is red. Your knee ramon or locks up. Get help right away if: Your knee swells, and the swelling becomes worse. You cannot move your knee. You have severe pain in your knee that cannot be managed with pain medicine. Summary Acute knee pain can be caused by a fall, an injury, an infection, or damage, swelling, or irritation of the tissues that support your knee. Your health care provider may perform tests to find out the cause of the pain. Pay attention to any changes in your symptoms. Relieve your pain with rest, medicines, light activity, and the use of ice. Get help right away if your knee swells, you cannot move your knee, or you have severe pain that cannot be managed with medicine. This information is not intended to replace advice given to you by your health care provider. Make sure you discuss any questions you have with your health care provider. Document Revised: 04/18/2021 Document Reviewed: 04/19/2021 [email or web address] Patient Education 2023 [employer]. Follow Up Care 03/12/2025 17:01:27 With:Kamari Hartman Address: [address] [place] [phone] Business (1) When:03/15/2025 17:54:47 Comments:Call for diagnosis based follow up With:Isaac Guevara Address: [address] [place] [phone] Business (1) When:03/15/2025 17:54:07 Comments:Call for diagnosis based follow up [facility] 04-25-2025 NoteED Patient Education Note Orthopedics Chronic Knee Pain, Adult Chronic knee pain is pain in one or both knees that lasts longer than 3 months. Symptoms of chronicknee pain may include swelling, stiffness, and discomfort. Age-related wear and tear (osteoarthritis) of the knee joint is the most common cause of chronic knee pain. Other possible causes include: ??? A long-term immune-related disease that causes inflammation of the knee (rheumatoid arthritis).This usually affects both knees. ??? Inflammatory arthritis, such as gout or pseudogout. ??? An injury to the knee that causes arthritis. ??? An injury to the knee that damages the ligaments. Ligaments are strong tissues that connect bones to each other. ??? Runner's knee or pain behind the kneecap. Treatment for chronic knee pain depends on the cause. The main treatments for chronic knee pain arephysical therapy and weight loss. This condition may also be treated with medicines, injections, a knee sleeve or brace, and by using crutches. Rest, ice, pressure (compression), and elevation, also known as RICE therapy, may also be recommended. Follow these instructions at home: If you have a knee sleeve or brace: ??? Wear the knee sleeve or brace as told by your health care provider. Remove it only as told by your health care provider. ??? Loosen it if your toes tingle, become numb, or turn cold and blue. ??? Keep it clean. ??? If the sleeve or brace is not waterproof: ? Do not let it get wet. ? Remove it if allowed by your health care provider, or cover it with a watertight covering when you take a bath or a shower. Managing pain, stiffness, and swelling ??? If directed, apply heat to the affected area as often as told by your health care provider. Usethe heat source that your health care provider recommends, such as a moist heat pack or a heating pad. ? If you have a removable knee sleeve or brace, remove it as told by your health care provider. ? Place a towel between your skin and the heat source. ? Leave the heat on for 20?30 minutes. ? Remove the heat if your skin turns bright red. This is especially important if you are unable to feel pain, heat, or cold. You may have a greater risk of getting burned. ??? If directed, put ice on the affected area. To do this: ? If you have a removable knee sleeve or brace, remove it as told by your health [...] risk of damage to the area. ??? Move your toes often to reduce stiffness and swelling. ??? Raise (elevate) the injured area above the level of your heart while you are sitting or lying down. Activity ??? Avoid high-impact activities or exercises, such as running, jumping rope, or doing jumping jacks. ??? Follow the exercise plan that your health care provider designed for you. Your health care provider may suggest that you: ? Avoid activities that make knee pain worse. This may require you to change your exercise routines, sport participation, or job duties. ? Wear shoes with cushioned soles. ? Avoid sports that require running and sudden changes in direction. ? Do physical therapy. Physical therapy is planned to match your needs and abilities. It may include exercises for strength, flexibility, stability, and endurance. ? Do exercises that increase balance and strength, such as octavio chi and yoga. ??? Do not use the injured limb to support your body weight until your health care provider says that you can. Use crutches as told by your health care provider. ??? Return to your normal activities as told by your health care provider. Ask your health care provider what activities are safe for you. General instructions ??? Take howz-blp-rumpshu and prescription medicines only as told by your health care provider. ??? Lose weight if you are overweight. Losing even a little weight can reduce knee pain. Ask your health care provider what your ideal weight is, and how to safely lose extra weight. A dietitian may be able to help you plan your meals. ??? Do not use any products that contain nicotine or tobacco, such as cigarettes, e-cigarettes, andchewing tobacco. These can delay healing. If you need help quitting, ask your health care provider. ??? Keep all follow-up visits. This is important. Contact a health care provider if: ??? You have knee pain that is not getting better or gets worse. ??? You are unable to do your physical therapy exercises due to knee pain. Get help right away if: ??? Your knee swells and the swelling becomes worse. ??? You cannot move your knee. ??? You have severe knee pain. Summary ??? Knee pain that lasts more t (more content not included)...[facility]04-25-2025 Evaluation + Plan noteExtracted from:Title:ED Note Author:Mauro PICKERING, Yahir Ramirez.Date:03/12/25 Right knee pain (M25.561: Pa in in right knee) Orders: acetaminophen-oxycodone, 1 tab(s), Oral, q6hr for pain for 3 day(s), 12 tab(s), Refill(s) 0, [facility] #[id number], 170, cm, 03/12/25 17:07:00 EDT, Height/Length Dosing, 69, kg, 03/12/25 17:07:00 EDT, Weight Dosing XR Knee Complete 4+ Views Right [facility] [id number] History of Present illness Narrative* Briseida Garcia - 03/12/2025 9:30 AM EDT Images from the original note were not included. GENERAL HISTORY AND PHYSICAL: NAME: Chaya Rodriguez : 1970 CHIEF COMPLAINT: Right hand pain, numbness and tingling. HISTORY OF PRESENT ILLNESS: Chaya is here of which she did well with her left hand with significantimprovement of her symptoms and pain. Night disruption is better on the left. She tried splinting in the past. She has a positive EMG on the right. She has median nerve dysesthesias. The symptoms over the last month or two have increased significantly. She did well in the perioperative course of the left wrist. PAST MEDICAL HISTORY: History reviewed. No pertinent past medical history. PAST SURGICAL HISTORY: Past Surgical History: Procedure Laterality Date CARPAL TUNNEL RELEASE Left 09/18/2024 [facility] w/ [facility] GALLBLADDER SURGERY 04/2000 removal KNEE ARTHROSCOPY W/ DEBRIDEMENT Right 12/04/2023 [facility] - [facility] (w/ excision stm on knee) SOCIAL HISTORY: Social History Occupational History Not on file Tobacco Use Smoking status: Every Day Current packs/day: 0.50 Average packs/day: 0.5 packs/day for 39.4 years (19.7 ttl pk-yrs) Types: Cigarettes Start date: 10/18/1985 Smokeless tobacco: Never Vaping Use Vaping status: Never Used Substance and Sexual Activity Alcohol use: Not Currently Drug use: Never Sexual activity: Not Currently Partners: Male control/protection: None ALLERGIES: No Known Allergies MEDICATIONS: Current Outpatient Medications Medication Instructions ibuprofen 600 MG tablet TAKE 1 TABLET THREE TIMES A DAY NEEDED FOR PAIN magnesium 200 MG tablet Multiple Vitamin (multivitamin) tablet 1 tablet, Daily naproxen (Naprosyn) 250 MG tablet Take by mouth REVIEW OF SYSTEMS: The review of systems, history and current medications list are all reviewed today. Vitals: Visit Vitals Ht 5' 7 Wt 152 lb BMI 23.81 kg/m OB Status Unknown Smoking Status Every Day BSA 1.8 m PHYSICAL EXAM: On physical exam, she is alert and oriented. Vital signs are stable. The right hand has a positive Tinel's. Phalen's is positive at 15 seconds. Ulnar nerve testing of the wrist and elbow is negative. Trigger exam is negative. [facility] grind test is negative for pain. De Quervain's testingis negative. X-rays three views show mild degenerative changes of the basilar thumb joint. This is three views of the wrist, AP, lateral and oblique views. There is no acute fracture, dislocation, tumor or infection seen. EMG as prior. Surgical History and Physical: GENERAL AND PSYCHOLOGICAL: [...] changes in sitting or standing positions. ASSESSMENT: Right carpal tunnel syndrome. PLAN: The nature of the findings were discussed at length. We discussed the perioperative course, time, healing, commitment and expectations were all reviewed of carpal tunnel release. The anatomy, pathology and occurrence of carpal tunnel syndrome was reviewed at length today. The EMG nerve studies correlate with the pathology of the patient. We discussed the risks, benefits, complications, and reasonable expectations of surgical carpal tunnel release. The anesthesia options were reviewed. Thepotential of stiffness, pain, recurrence, dissatisfaction, nerve, vessel or tendon injury, infection, infection requiring multiple surgeries with IV antibiotics, pillar pain, weakness, swelling, needfor occupational therapy, blood clot, pulmonary embolism, myocardial infarction, arrhythmia, strokeand were all reviewed. Consent forms are signed and witnessed for right carpal tunnel release. She will undergo routine presurgical testing and scheduling and move forward in the near future. Karin see her back postoperatively. She voices verbal understanding. She is discharged in stable condition. Kamari Hartman D.O. Cosigned by Kamari Hartman DO at 03/15/2025 6:31 PM EDT documented in this encounterEastern Missouri State [id number] Evaluation + Plan note Extracted from:Title:ED NoteAuthor:Ever Caldwell PA-CDate:11/15/24 Sprain of right hand (S63.91 XA: Sprain of unspecified part of right wrist and hand, initial encounter) Orders: naproxen, 500 mg = 1 tab(s), Oral, BID, X 10 day(s), # 20 tab(s), Refills(s) 0, Pharmacy: [facility] #[id number], 170, cm, 11/14/24 22:23:00 EST, Height/Length Dosing, 68.3, kg, 11/14/24 22:23:00 EST, Weight Dosing naproxen, 500 mg = 2 tab(s), Tab, Oral, Once, Stop date 11/15/24 0:52:00 EST, STAT, Start date 11/15/24 0:52:00 EST, 11/15/24 0:52:00 EST [facility] [id number] Hospital Discharge instructions Patient Education 11/15/2024 01:12:38 [...] limityour activities and whether you should start rxvlm-ji-bqaikn exercises for your injury. Ice Ice your [...] provider. Document Revised: 01/09/2021 Document Reviewed: 07/25/2018 [email or web address] Patient Education 2020 [email or web address] Inc. 11/15/2024 01:12:38 Hand Pain Hand Pain Hand [...] home: Managing pain, stiffness, and swelling Take vzwr-hxr-vupwtzk and prescription medicines only as told by [...] provider. Document Revised: 06/12/2023 Document Reviewed: 06/12/2023 [email or web address] Patient Education 2023 [employer]. Follow Up Care 11/14/2024 22:15:08 With:Isaac Link Address: [address] [place] [address] Business (1) When:11/18/2024 [facility] 12-29-2024 NoteED Patient Education Note Orthopedics RICE [...] limityour activities and whether you should start awjnz-jd-linyyg exercises for your injury. Ice Ice your [...] provider. Document Revised: 01/09/2021 Document Reviewed: 07/25/2018 Elsevier Patient Education ? 2020 Elsevier Inc. Hand Pain Hand pain can make [...] Managing pain, stiffness, and swelling ??? Take nrlh-gzt-vyhnipy and prescription medicines only as told by your health care provider. ??? If told, put ice on the affected area. ? Put ice i (more content not included)...[facility]11-21-2024 Hospital Discharge instructions Patient Education 10/08/2024 14:03:11 Cervical Radiculopathy, Pvvn-oq-Kizy Cervical Radiculopathy Cervical radiculopathy means that a [...] any, tell your doctor. Managing pain Take tbsy-xqv-uwobrgj and prescription medicines only as told by [...] provider. Document Revised: 05/10/2022 Document Reviewed: 05/10/2022 [email or web address] Patient Education 2023 [employer]. Follow Up Care 10/08/2024 13:39:32 With:Liilya Mejia Address: [address] [place] [place] , [address] [address] Business (1) When:10/11/2024 14:02:40 Comments:Call to schedule a follow-up appointment with your family physician in the next 2 to 3 days. Take the prednisone as prescribed. Use naproxen and Robaxin as needed for pain. Return to the ED with any new or worsening symptoms. [facility] 11-21-2024 NoteED Patient Education Note Orthopedics Cervical [...] tell your doctor. Managing pain ??? Take gmws-lqf-jvihevj and prescription medicines only as told by [...] or hand. ??? Weakness (more content not included)...[facility]11-15-2024 History of Present illness Narrative* YUKI Casey [...] from the incision site. documented in this [facility]11-15-2024 Instructions* Patient Instructions* YUKI Casey - 10/02/2024 1:15 PM EST May keep [...] from the incision site. documented in this [facility]10-03-2024 History of Present illness Narrative* Briseida Gacria - 08/20/2024 10:15 AM EDT Images from [...] condition. Kamari Hartman D.O. documented in this encounterEastern Missouri State [id number] History of Present illness Narrative* Billy Pool, GLENROYT - 08/12/2024 9:00 AM EDT Images from the original note were not included. Reason for Appointment: EMG Patient: Chaya Rodriguez : 1970 EMG Computer: GCW Referring Physician: Dr. Kamari Hartman EMG: RUBY managed care nurse: Billy Pool RT(R) Office Location: [place] Reason for EMG: c/o numbness/tingling in bilateral hands/wrists L>R, tingling in neck. No hx of DM. Not on blood thinners. Comments: Procedure was explained to the patient who expressed understanding. Patient appeared to have tolerated the test well despite some discomfort due to the nature of the test. documented in this encounterEastern Missouri State [id number] History of Present illness Narrative* Briseida Garcia [...] Sara Rubio Aunt Diabetes Mother's Brother Donato Gabi Cancer Mother's Brother Donato Gabi Diabetes Maternal Grandmother Sandra Gabi Cancer Mother's Sister Sara Rubio SOCIAL HISTORY: [...] management took 35 minutes. documented in this encounterEastern Missouri State [id number] Hospital Discharge instructions Patient Education 06/20/2024 18:35:00 [...] or after getting dental care. Medicines Take tclj-vja-vvlxwvh and prescription medicines only as told by [...] pain may be mild or severe. Take flgm-ilg-sakypts and prescription medicines only as told by [...] provider. Document Revised: 08/09/2021 Document Reviewed: 08/09/2021 [email or web address] Patient Education 2022 [employer]. Follow Up Care 06/20/2024 17:35:13 With:[employer] Address: [address] [place] [address] Business (1) When:06/23/2024 18:31:08 With:Justina FLYNN Address: [place] [address]- Business (1) When:06/23/2024 18:31:05 [facility] 05-01-2024 Hospital Discharge instructions Patient Education 03/18/2024 19:38:52 [...] risk for lung collapse and pneumonia. Medicines. Ldvg-jce-fouclue or prescription medicines may be given to control pain. Injection of a numbing medicine around the nerve near your injury (nerve block). Follow these instructions at home: Medicines Take njic-xrt-ruptxog and prescription medicines only as told by your health care provider. Ask your health care provider if the medicine prescribed to you: ?Requires you to avoid driving or using machinery. ?Can cause constipation. You may need to take these actions to prevent or treat constipation: ?Drink enough fluid to keep your urine pale yellow. ?Take ugpk-kvo-vxxdmwg or prescription medicines. ?Eat foods that are [...] provider. Document Revised: 02/08/2021 Document Reviewed: 02/08/2021 [email or web address] Patient Education 2022 [employer]. Follow Up Care 03/18/2024 18:08:50 With:Cory Mcqueen Address: [address] [phone] When:03/21/2024 19:30:51 Comments:You can use the medications as prescribed as needed for pain. Please follow-up with your primary care doctor next 2 to 3 days for further evaluation management. Please return to the ED for any new orworsening symptoms. With:XXXX NONE Address: [place] When:Within 3 Day(s) [facility]05-01-2024 Evaluation + Plan noteExtracted from: Title:ED NoteAuthor:Hayde Pro DO ADate:03/18/24 Contusion of rib on left yadira e (S20.212A: Contusion of left front wall of thorax, initial encounter) Orders: acetaminophen-hydrocodone, 1 EA, Tab, Oral, Once, Stop date 03/18/24 19:29:00 EDT, STAT, Start date03/18/24 19:29:00 EDT lidocaine topical, 1 patch(es), Patch, TransDermal, Once, Stop date 03/18/24 19:28:00 EDT, STAT, Start date 03/18/24 19:28:00 EDT lidocaine topical, 1 patch(es), Topical, Daily, 7 EA, Refill(s) 0, apply 12 hours on and 12 hours off daily, [facility] #[id number], 170, cm, 03/18/24 18:36:00 EDT, Height/Length Dosing, 70, kg,03/18/24 18:36:00 EDT, Weight Dosing naproxen, 500 mg = 1 tab(s), Oral, BID, PRN for pain, # 20 tab(s), Refills(s) 0, Pharmacy: [facility] #[id number], 170, cm, 03/18/24 18:36:00 EDT, Height/Length Dosing, 70, kg, 03/18/24 18:36:00EDT, Weight Dosing [facility]03-25-2024 Hospital Discharge instructions Patient Education 02/09/2024 23:01:01 Knee Sprain, Adult, Wgfd-al-Sodl Knee Sprain A knee sprain is a [...] sitting or lying down. General instructions Take nvax-awa-kfcxbsc and prescription medicines only as told by [...] provider. Document Revised: 02/11/2023 Document Reviewed: 09/23/2020 [email or web address] Patient Education 2022 [employer]. Follow Up Care 02/09/2024 22:22:55 With:Kamari Hartman Address: [address] [place], [place] [id number] [facility] () When:02/12/2024 Comments:You can take the pain medication every 12 hours as prescribed as needed for pain. Please follow-up with your primary care doctor in addition to orthopedics for further evaluation management. Please return to the ED for any new or worsening symptoms. With:XXXX NONE Address: [place] When:02/12/2024 [facility]03-24-2024 Evaluation + Plan noteExtracted from: Title:ED NoteAuthor:Hayde Pro DO ADate:02/09/24 Knee sprain (S83.90XA: Sprai n of unspecified site of unspecified knee, initial encounter) Orders: acetaminophen-hydrocodone, 1 tab(s), Tab, Oral, Once, Stop date 02/09/24 22:52:00 EDT, STAT, Start date 02/09/24 22:52:00 EDT naproxen, 500 mg = 1 tab(s), Oral, BID, PRN for pain, # 20 tab(s), Refills(s) 0, Pharmacy: [facility] #[id number], 170, cm, 02/09/24 22:28:00 EDT, Height/Length Dosing, 70.3, kg, 02/09/24 22:28:00 EDT, Weight Dosing XR Knee Complete 4+ Views Right [facility]03-11-2024 Hospital Discharge instructions Patient Education 01/26/2024 23:21:49 Toe Fracture, Cpdv-jt-Pmay Toe Fracture A toe fracture is a [...] provider. Document Revised: 04/09/2022 Document Reviewed: 04/09/2022 [email or web address] Patient Education 2022 [employer]. Follow Up Care 01/26/2024 22:28:41 With:Pan Rincon Address: [address] [place] [address] [facility] (1) When:01/29/2024 Comments:You can use the pain medication every 6 hours as needed for pain. Please follow-up with orthopedicsfor further evaluation management. Please return to the ED for any new or worsening symptoms. With:XXXX NONE Address: [place] When:Within 3 Day(s) [facility]10-15-2023 Hospital Discharge instructions Patient Education 09/01/2023 16:07:11 [...] told by your health care provider. Take bexd-tty-tdwftgv and prescription medicines only as told by [...] provider. Document Revised: 03/09/2021 Document Reviewed: 03/09/2021 [email or web address] Patient Education 2022 [email or web address] Inc. Follow Up Care 09/01/2023 14:11:44 With:Pan Rincon Address: [address] [place] [address]- Business (1) When:09/04/2023 15:59:05 Comments:You may follow-up with Dr. Rincon for further evaluation of your knee cyst. With:Naomy RINCON Address: [address] [place] [address]- Business (1) When:09/04/2023 15:58:55 Comments:Follow-up with your primary care provider in 3 to 5 days. If symptoms worsen, do not improve, or new symptoms arise please report back to emergency department for further evaluation. [facility]08-01-2023 Hospital Discharge instructions Patient Education 06/18/2023 17:41:23 [...] or after getting dental care. Medicines Take nrhp-zrw-gsyrqsz and prescription medicines only as told by [...] pain may be mild or severe. Take atit-klr-hytyuui and prescription medicines only as told by [...] provider. Document Revised: 08/09/2021 Document Reviewed: 08/09/2021 [email or web address] Patient Education 2022 [employer]. Follow Up Care 06/18/2023 16:59:26 With:[facility] Address: [address] [place] [address] [place] [address] Business (1) When:06/21/2023 17:19:24 Comments:Dentistry follow-up [facility]08-01-2023 Evaluation + Plan noteExtracted from: Title:ED NoteAuthor:Herman PICKERING, JansenDate:06/18/23 Pain, dental (K08.89: Other specified disorders of teeth and supporting structures) Orders: naproxen, 500 mg = 1 tab(s), Oral, BID, # 20 tab(s), Refills(s) 0, Pharmacy: [facility] #[id number], 170, cm, 06/18/23 17:05:00 EDT, Height/Length Dosing, 70.5, kg, 06/18/23 17:05:00 EDT, WeightDosing penicillin V potassium, 500 mg = 1 tab(s), Oral, TID, Take one tab by mouth 3 times a day. # 30, X 10 day(s), # 30 tab(s), Refills(s) 0, Pharmacy: [facility] #[id number], 170, cm, 06/18/23 17:05:00 EDT, Height/Length Dosing, 70.5, kg, 06/18/23 17:05:00 EDT, Weight Dosing [facility]* Diagnosis S/P right knee arthroscopy- Primary [facility] Diagnosis Bilateral hand pain- Primary [facility]* Diagnosis Status post carpal tunnel release- Primary Other postprocedural status documented in [facility] encounter [facility]* Diagnosis Bilateral hand pain- Primary [facility]* Diagnosis Bilateral carpal tunnel syndrome- Primary Carpal tunnel syndrome Numbness and tingling Disturbance of skin sensation documented in this encounter [facility]* Diagnosis Right carpal tunnel syndrome- Primary Carpal tunnel syndrome [facility]* Diagnosis Status post carpal tunnel release- Primary Other postprocedural status documented in this encounter [facility] Narrative No data available for this section [facility] No data available for this section [facility] No data available for this section [facility] Summary Purpose Family History No Family History [...] and content) DATE CREATED AUTHOR 03/27/2023 [facility] DATE CREATED AUTHOR AUTHOR'S ORGANIZ ATION 05/08/2025 [facility] DATE CREATED AUTHOR AUTHOR'S ORGANIZ ATION 08/06/2025 [facility] [place] Reason for Visit (unrecogniz ed section and content) XegkvrXrkikwnvDsqrto-duXjvhfhSixirmblOzti-bqMy CTR TSCNCO 09/18/24 MTPReason CommentsPainSpecialtyDiagnoses / ProceduresReferred By ContactReferred To ContactNeurology Diagnoses Carpal tunnel syndrome, bilateral upper limbs Procedures FL NERVE CONDUCTION STUDIES 9-10 STUDIES FL NEEDLE EMG EA EXTREMTY W/PARASPINL AREA COMPLETE FL NEEDLE EMG EA EXTREMTY W/PARASPINL AREA COMPLETE Kamari Hartman, DO [address] [place] [address] Jarod Voss MD [address] [place] [address] Referral IDStatusReasonStart DateExpiration DateVisits RequestedVisits [id number]-cd Care Teams (unrecognized sec tion and content) Team MemberRelationshipSpecialtyStart DateEnd Date Briseida North, DRAWING SUPERVISOR [address] [facility] [address] [place] [address] PCP - [facility]10/1/24 FOR RECORDS PERTAINING TO PATIENTS WHO ARE [...] BE BASED ON THE PRIMARY CLINICAL RECORDS. [facility]. provides no warranty or guarantee of the accuracy or completeness of information in this document.
--- OUTSIDE RECORDS SUMMARY | 2025-09-15 19:55 | XMS_ITS | Clinical Summary ---
Author Organization [facility] Address [address] [place] [address] Care Team Providers Care Button Attaching Machine Operator Name Role Phone Briseida North PATIENT SAFETY SITTER Unavailable Allergies No known active allergies Medications MedicationSigDispense QuantityRefillsLast FilledStart DateEnd DateStatus Multiple Vitamin (multivitamin) tablet Take 1 tablet by mouth DailyActive magnesium 200 MG tablet 1Active naproxen (Naprosyn) 250 MG tablet Take by mouthActive ibuprofen 600 MG tablet TAKE 1 TABLET THREE TIMES A DAY NEEDED FOR PAIN5Active acetaminophen (Tylenol) 325 MG tablet Take by mouthActive Active Problems No known active problems Encounters DateTypeDepartmentCare MgkzMtuvlkoduwd05/11/2025Telephone [facility] [address] [facility] [place] [phone] Brooke North RN from Last 3 Months Family History Medical HistoryRelationNameCommentsDiabetesMaternal GrandmotherKathryn Gabi DiabetesMotherMary WooleverOsteoporosisMotherMary WooleverCancerMother's Brother Donato SniderDiabetesMother's BrotherWilliam SniderDiabetesMother's Sister 1 Sara Stiltner AuntCancerMother's Sister 2Phyllis StiltnerRelationNameStatus CommentsMaternal GrandmotherKathryn SniderMotherMary WooleverDeceasedMother's BrotherWilliam SniderAliveMother's Sister 1Phyllis Stiltner AuntAliveMother's Sister 2Phyllis Stiltner Social History Tobacco UseTypesPacks/DayYears UsedDateSmoking Tobacco: Every DayCigarettes0.5 39.9Started: 10/18/1985Smokeless Tobacco: Never Tobacco Cessation:Ready to Q uit: Not Asked; Counseling Given: Not Answered Alcohol UseStandard Drinks/WeekCommentsNot Currently0 (1 standard drink = 0.6 oz pure alcohol)CommentsUnknownSex and Gender InformationValueDate Recorded Sex Assigned at BirthNot on fileLegal NqrZfdhwb97/15/2023 7:12 PM EDTGender IdentityNot on fileSexual OrientationNot on file Last Filed Vital Signs Vital SignReadingTime TakenCommentsBlood Pressure--Pulse--Hxemsdsuemy04.3 ??C (97.4 ??F)06/22/2024 2:58 PM EDTRespiratory Rate--Oxygen Saturation--Inhaled Oxygen Concentration--Jpojyg68.9 kg (152 lb)05/05/2025 12:59 PM YZLHplxik357.2 cm (5' 7 )05/05/2025 12:59 PM EDTBody Mass Index23.8105/05/2025 12:59 PM EDT Plan of Treatment Health MaintenanceDue DateLast DoneCommentsCT Niynatfdlhvd1970Colonoscopy 1970Colorectal Cancer Nzzraxcmz1970FIT-DNA1970FIT1970 FOBT1970Lung Cancer Screening Shared Decision Dzxtlt81 1970 Ougsqkwmjyaln1970Pap Smear1991Cervical Cancer Mebysdvvz06/03/2000 HPV/Ujsojt8410/20/20002346Ymmjzfmbu56/03/2010Influenza Vaccine (#1)2025 Insurance Care Teams Team MemberRelationshipSpecialtyStart DateEnd Date Briseida North, PATIENT SAFETY SITTER 112 [facility] [address] [place] [address] PCP - JOLANTA Monroe [facility]08/18/24
--- NOTE | 2025-09-15 20:15 | ED.EXTPRO1 ---
HPI - Extremity Problem General Chief complaint: Extremity Problem, Nontraumatic Stated complaint: RIGHT WRIST AND POINTER FINGER HAVE BEEN HURTING Time Seen by Provider: 09/15/25 19:54 Source: patient Mode of arrival: walk-in Limitations: no limitations History of Present Illness HPI Narrative: painful nodule right index finger. ongoing for past week. Now has soreness at her right volar wrist. increased pain of the wrist with flexion and extension.no injury or fever Related Data Previous Rx's ?Medication ?Instructions ?Recorded acetaminophen 300 mg-codeine 30 mg 1 tab PO Q6H PRN pain 5 days #20 11/02/24 tablet tabs prednisone 10 mg tablet See Rx Instructions .Route 11/02/24 .COMPLEX #30 tabs clindamycin HCl 300 mg capsule 300 mg PO Q6H 7 days #28 caps 03/03/25 ibuprofen 600 mg tablet 600 mg PO TID PRN pain #30 tabs 03/03/25 Allergies Allergy/AdvReac Type Severity Reaction Status Date / Time No Known Drug Allergies Allergy Verified 09/15/25 19:59 Review of Systems ROS Status of ROS 10 or more systems reviewed and unremarkable except as noted in history and below [facility] Social History Smoking status: Current every day smoker Little interest or pleasure in doing things: not at all Feeling down, depressed, or hopeless: not at all Exam Constitutional Vital Signs, click to edit/add: Last Vital Signs Temp 98.9 F 09/15/25 19:53 Pulse 97 H 09/15/25 19:53 Resp 16 09/15/25 19:53 BP 135/57 09/15/25 19:53 Pulse Ox 93 L 09/15/25 19:53 O2 Del Method Room Air 09/15/25 19:53 Common normals: no apparent distress, average body habitus, oriented x3, no limitations, healthy appearing, alert and well nourished [facility] Common normals: normocephalic and head/scalp atraumatic Respiratory Common normals: normal respiratory effort, no retractions and no use of accessory muscles Cardio Common normals: regular rate, regular rhythm, S1 normal heart sound and S2 normal heart sound Extremity Other: palmar aspect right index with 1cm raised tender nodular structure. Her right volar wrist appears normal but is also mildly tender Neuro Common normals: oriented x3, CN's II-XII intact bilaterally, moves all extremities and no focal motor deficits Psych Appearance: grossly normal Course Vital Signs Vital signs: Vital Signs Temperature 98.9 F 09/15/25 19:53 Pulse Rate 97 H 09/15/25 19:53 Respiratory Rate 16 09/15/25 19:53 Blood Pressure 135/57 09/15/25 19:53 Pulse Oximetry 93 L 09/15/25 19:53 Oxygen Delivery Method Room Air 09/15/25 19:53 Temperature 98.9 F 09/15/25 19:53 Pulse Rate 97 H 09/15/25 19:53 Respiratory Rate 16 09/15/25 19:53 Blood Pressure 135/57 09/15/25 19:53 Pulse Oximetry 93 L 09/15/25 19:53 Oxygen Delivery Method Room Air 09/15/25 19:53 MDM - Extremity (Nontraumatic) MDM Narrative Medical decision making narrative: painful nodular lesion of palmar surface right index. not erythematous but tender . not clear why she is also experiencing pain at her right volar wrist and if there is a connection. No clear what is causing this tender growth. May be infectious. Plan course of antibiotics and have her follow up with her doctor for recheck Discharge Plan Discharge Chief Complaint: Extremity Problem, Nontraumatic Clinical Impression: Nodule of finger Patient Disposition: Home, Self-Care Condition: Good Mode of Transportation: Private Vehicle Prescriptions / Home Meds: No Action clindamycin HCl 300 mg capsule 300 mg PO Q6H 7 Days Qty: 28 0RF ibuprofen 600 mg tablet 600 mg PO TID PRN (Reason: pain) Qty: 30 0RF acetaminophen-codeine 300-30 mg tablet 1 tab PO Q6H PRN (Reason: pain) 5 Days Qty: 20 0RF prednisone 10 mg tablet See Rx Instructions .ROUTE .COMPLEX Qty: 30 0RF Rx Instructions: 4 by mouth daily for three days then 3 by mouth daily for three days then 2 by mouth daily for three days then 1 by mouth daily for three days Print Language: Chinese Instructions: Cellulitis (ED) Additional Instructions: follow up with your doctor this week or early next week Referrals: Physician,Non-Staff, MD [Primary Care Provider] - 1 week Discharge Date/Time: 09/15/25 20:30
[2025-09-15] MEDS: AMOXICILLIN/POT CLAV 875-125 MG TABLET 1 TAB PO (20:18)
== END 2025-09-15 20:30 | disposition home or self-care (01) ==
PROVIDERS: Emergency Provider Internal Medicine
DX: R22.31 Localized swelling, mass and lump, right upper limb (principal); M79.644 Pain in right finger(s); M25.531 Pain in right wrist
CPT/HCPCS: 99283

== ENCOUNTER 2025-11-07 16:57 | Emergency (ER) | payer MEDICAID, SELFPAY ==
[2025-11-07 17:16] VITALS: BP 116/66; PULSE 88; TEMP 37.1; O2SAT 97; BMI 23.5
--- NOTE | 2025-11-07 17:25 | ED_ITS ---
HPI HPI - General Adult General Chief complaint: Upper Respiratory Infection Stated complaint: Upper Respiratory Infection Time Seen by Provider: 11/07/25 17:01 Source: patient Mode of arrival: walk-in History of Present Illness HPI narrative: 55-year-old female presents for cough. She has had it for about 36 hours and has been nonproductive. No known fever. No known ill contacts. She is a smoker. Her throats been scratchy. Related Data Previous Rx's ?Medication ?Instructions ?Recorded acetaminophen 300 mg-codeine 30 mg 1 tab PO Q6H PRN pa in 5 days #20 11/02/24 tablet tabs prednisone 10 mg tablet See Rx Instructions .Route 1 01/03/24 .COMPLEX #30 tabs clindamycin HCl 300 mg capsule 300 mg PO Q6H 7 days #2 8 caps 03/03/25 ibuprofen 600 mg tablet 600 mg PO TID PRN pain #30 t abs 03/03/25 albuterol sulfate 90 mcg/actuation 2 inh inhalation Q4 H PRN shortness 11/07/25 aerosol inhaler of breath or wheezing #8.5 g jerod benzonatate 100 mg capsule 100 mg PO TID PRN cough #20 caps 11/07/25 prednisone 10 mg tablet See Rx Instructions .Route 1 01/08/25 .COMPLEX #30 tabs Allergies Allergy/AdvReac Type Severity Reaction Status Date / Time No Known Drug Allergies Allergy Verified 09/15/25 19:59 Opioid HPI Opioid Management Most Recent Opioid Data: Last Pain Scale 4 09/15/25, 20:01 Review of Systems ROS Narrative A ten point review of systems is negative except as noted above. PFSH PFSH Social History Smoking status: Current every day smoker Little interest or pleasure in doing things: not at all Feeling down, depressed, or hopeless: not at all Exam Narrative Exam Narrative: Nurses note and vital signs reviewed General:The patient appears in no apparent distress. Skin:Warm, dry, no pallor noted.There is no rash noted. Head:Normocephalic, atraumatic Eye: Normal conjunctiva, no drainage Ears, Nose, Mouth, and Throat: oral mucosa is moist. Nares patent. Cardiovascular:Regular Rate and Rhythm Respiratory:Patient is in no distress, no accessory muscle use, lungs are clear to auscultation, no wheezing, rales or rhonchi Back:non-tender GI: Soft and nontender Musculoskeletal: The patient has no evidence of calf tenderness, no pitting edema, symmetrical pulses noted bilaterally Neurological:A&O, normal speech Psychiatric:Cooperative Constitutional Vital Signs, click to edit/add: Last Vital Signs Temp 98.7 F 11/07/25 17:16 Pulse 88 11/07/25 17:16 Resp 16 11/07/25 17:16 BP 116/66 11/07/25 17:16 Pulse Ox 97 11/07/25 17:16 O2 Del Method Room Air 11/07/25 17:16 Course Vital Signs Vital signs: Vital Signs Temperature 98.7 F 11/07/25 17:16 Pulse Rate 88 11/07/25 17:16 Respiratory Rate 16 11/07/25 17:16 Blood Pressure 116/66 11/07/25 17:16 Pulse Oximetry 97 11/07/25 17:16 Oxygen Delivery Method Room Air 11/07/25 17:16 Temperature 98.7 F 11/07/25 17:16 Pulse Rate 88 11/07/25 17:16 Respiratory Rate 16 11/07/25 17:16 Blood Pressure 116/66 11/07/25 17:16 Pulse Oximetry 97 11/07/25 17:16 Oxygen Delivery Method Room Air 11/07/25 17:16 Medical Decision Making MDM Narrative Medical decision making narrative: Chest x-ray, COVID, and influenza test are negative. She will be discharged home on albuterol and Tessalon and prednisone. Treatment diagnosis and follow- up were discussed with the patient. Differential Diagnosis Differential Diagnosis: Pneumonia, COVID, influenza, viral URI Lab Data Lab results reviewed: Yes I reviewed the patient's lab results Labs: Lab Results 11/07/25 Range/Units 17:20 Influenza Type A Ag Negative Influenza Type B Ag Negative SARS-CoV-2 Ag (CV2AG) Negative (NEGATIVE) Imaging Data Chest x-ray: Radiologist's impression: ITS Impressions Chest X-Ray 11/07/25 17:25 IMPRESSION: NO ACUTE PROCESS. Impression dictated by: Bethel Jackson Jr., D.O. 11/07/2025 6:09 PM Dictation Location: [place] [address] Electronically authenticated by: [id number] Y Date: 11/07/2025 18:09 Discharge Plan Discharge Chief Complaint: Upper Respiratory Infection Clinical Impression: Viral URI Patient Disposition: Home, Self-Care Time of Disposition Decision: 18:20 Condition: Good Mode of Transportation: Private Vehicle Prescriptions / Home Meds: New prednisone 10 mg tablet See Rx Instructions .ROUTE .COMPLEX Qty: 30 0RF Rx Instructions: 4 by mouth daily for three days then 3 by mouth daily for three days then 2 by mouth daily for three days then 1 by mouth daily for three days benzonatate 100 mg capsule 100 mg PO TID PRN (Reason: cough) Qty: 20 0RF albuterol sulfate 90 mcg/actuation HFA aerosol inhaler 2 inh inhalation Q4H PRN (Reason: shortness of breath or wheezing) Qty: 8.5 0RF No Action clindamycin HCl 300 mg capsule 300 mg PO Q6H 7 Days Qty: 28 0RF ibuprofen 600 mg tablet 600 mg PO TID PRN (Reason: pain) Qty: 30 0RF acetaminophen-codeine 300-30 mg tablet 1 tab PO Q6H PRN (Reason: pain) 5 Days Qty: 20 0RF prednisone 10 mg tablet See Rx Instructions .ROUTE .COMPLEX Qty: 30 0RF Rx Instructions: 4 by mouth daily for three days then 3 by mouth daily for three days then 2 by mouth daily for three days then 1 by mouth daily for three days Print Language: Guatemalan Instructions: Upper Respiratory Infection (ED) Referrals: Physician,Non-Staff, MD [Primary Care Provider] - 1 week
--- NOTE | 2025-11-07 17:25 | XR_ITS ---
The [address] [address] Patient Name: CHAYA RODRIGUEZ MRN: [id number] date: 1970 Sex: F Assigned Patient Location: ER Current Patient Location: ED.MAIN Accession/Order Number: [id number] Exam Date: 11/07/2025 17:50 Report Date: 11/07/2025 18:09 At the request of: SHARITA MCPHERSON MD Procedure: XR chest 1V Single view chest: CLINICAL HISTORY: cough COMPARISON: None FINDINGS: The heart is normal in size. The lungs are clear other than evidence of old granulomatous disease. The pulmonary vasculature is normal. Mediastinum and hilar regions are unremarkable. No pleural effusions are seen. Visualized bones are intact. XR/XR chest 1V IMPRESSION: NO ACUTE PROCESS. Impression dictated by: Bethel Jackson Jr., D.O. 11/07/2025 6:09 PM Dictation Location: [place] [address] Electronically authenticated by: [id number] Y Date: 11/07/2025 18:09
[2025-11-07 17:47] LABS: SARS-CoV-2 Ag NEGATIVE (NEGATIVE)
--- OUTSIDE RECORDS SUMMARY | 2025-11-07 18:03 | XMS_ITS | Patient Health Record ---
Author Organization [facility] Address [address] [place], [place] [id number] Care Team Providers Care Information Officer Name Role Phone Stuart Gaviria Unavailable [phone] Allergies No Known Allergies Reason For Referral No Information Medications Medication SIG (Take, Route, Frequency, Duration) Notes Start Date End Date Status Multi Vitamin - Tablet 1 tablet Orally Once a da y ActiveDiclofenac Sodium 75 MG Tablet Delayed Release1 tablet as needed Orally Twice a day; Duration: 30 days2ActivePotassium Chloride 20 MEQ Tablet Extended Release1 tablet with food Orally Once a dayActiveOmeprazole 20 MG Capsule Delayed Release1 capsule 30 minutes before morning meal Orally Once a dayActive Social History Tobacco Use: Social History Observation Description Date Details (start date - stop date) Current Smoker 03/02/1982 - NA Sex Assigned At : Social History Observation Description Sex Assigned At Female Social History Household:Social InfoQuestionAnswerNotesHouseholdNumber of adults in household:2 Drugs/Alcohol/Caffeine:Social InfoQuestionAnswerNotesDrugsHave you used drugs other than those for medical reasons in the past 12 months?NoCaffeineIntake:3-4 cups per dayMountain DewTobacco Use:Social InfoQuestionAnswerNotesTobacco Use/SmokingTobacco use:current smoker? When did you start smoking?03/02/1982? How often do you smoke cigarettes?every day? How many cigarettes a day do you smoke? 6-10? How soon after you wake up do you smoke your first cigarette?within 5 minutes? Are you interested in quitting?Not ready to quitAdditional Details CategorySocial InfoOptionsDetailsMiscellaneous:Occupation:unemployed Culture/Language BarrierYesEducation LevelGrade 7-12Barriers to LearningNone SafetyPatient feels safe in relationshipsYesDrugs/Alcohol/Caffeine:Do you smoke marijuana?DeniesDo you drink alcohol?No Plan Of Treatment No Information Medical (General) History Medical History History ICD Code Acid Reflux ArthritisSurgical History Surgery Date(Month/Year) gallbladder
--- OUTSIDE RECORDS SUMMARY | 2025-11-07 18:03 | XMS_ITS | Clinical Summary ---
Author Organization [facility] tem Address [id number] [address] [place] [address] Care Team Providers Care Link Knitting Machine Operator Name Role Phone Stuart Hess Primary Care Provider [phone] Allergies No known active allergies Medications MedicationSigDispense QuantityRefillsLast FilledStart DateEnd DateStatus methylPREDNISolone (MEDROL, LESLIE,) 4 mg tablet follow package directions 21 tablet 2Active Social History Tobacco UseTypesPacks/DayYears UsedDateSmoking Tobacco: Every DayCigarettes Smokeless Tobacco: Never Tobacco Cessation:Ready to Q uit: Not Asked; Counseling Given: Not Answered ChildcareAnswerDate TdwekumrFjkenfbtoPgxlfup74/10/2019EmploymentAnswerDate HlypzbycKprqifbnhiGisaxyn73/10/2019Hunger ScreeningAnswerDate RecordedWithin the past 12 months we worried whether our food would run out before we got money to buy more.Never True10/23/2022Within the past 12 months the food we bought just didn't last and we didn't have money to get more.Never True2 CommentsNoSex and Gender InformationValueDate RecordedSex Assigned at BirthNot on fileLegal VnxWrkxiw79/04/2015 4:32 PM EDTGender IdentityNot on fileSexual OrientationNot on file Last Filed Vital Signs Vital SignReadingTime TakenCommentsBlood Glepsaix305/6510/23/2022 7:51 PM EST Kjzws472410/23/2022 7:51 PM DHMXuanyurkgbv88.4 ??C (99.3 ??F)10/23/2022 6:47 PM ESTRespiratory Kzdi4845/04/2022 7:51 PM ESTOxygen Ehrmbptppd05%10/23/2022 7:51 PM ESTInhaled Oxygen Concentration--Grmwcx47 kg (160 lb 15 oz)10/23/2022 6:47 PM ESTHeight--Body Mass Index-- Plan of Treatment Not on file Medical Devices Not on file Care Teams Team MemberRelationshipSpecialtyStart DateEnd Date Stuart Hess APRN-FOOD AND BEVERAGE OUTLETS MANAGER PCP - GeneralPrimary Care Msmogkgm72/6/22
--- OUTSIDE RECORDS SUMMARY | 2025-11-07 18:03 | XMS_ITS | Clinical Summary ---
Author Organization [facility] Address [address] [place] [address] Care Team Providers Care Wine Cellar Stock Clerk Name Role Phone Briseida North NOTEMAN Unavailable Allergies No known active allergies Medications MedicationSigDispense QuantityRefillsLast FilledStart DateEnd DateStatus Multiple Vitamin (multivitamin) tablet Take 1 tablet by mouth DailyActive magnesium 200 MG tablet 1Active naproxen (Naprosyn) 250 MG tablet Take by mouthActive ibuprofen 600 MG tablet TAKE 1 TABLET THREE TIMES A DAY NEEDED FOR PAIN5Active acetaminophen (Tylenol) 325 MG tablet Take by mouthActive Active Problems No known active problems Family History Medical HistoryRelationNameCommentsDiabetesMaternal GrandmotherKathryn Gabi DiabetesMotherMary WooleverOsteoporosisMotherMary WooleverCancerMother's Brother Donato SniderDiabetesMother's BrotherWilliam SniderDiabetesMother's Sister 1 Sara Stiltner AuntCancerMother's Sister 2Phyllis StiltnerRelationNameStatus CommentsMaternal GrandmotherKathryn SniderMotherMary WooleverDeceasedMother's BrotherWilliam SniderAliveMother's Sister 1Phyllis Stiltner AuntAliveMother's Sister 2Phyllis Stiltner Social History Tobacco UseTypesPacks/DayYears UsedDateSmoking Tobacco: Every DayCigarettes0.5 40.1Started: 10/18/1985Smokeless Tobacco: Never Tobacco Cessation:Ready to Q uit: Not Asked; Counseling Given: Not Answered Alcohol UseStandard Drinks/WeekCommentsNot Currently0 (1 standard drink = 0.6 oz pure alcohol)CommentsUnknownSex and Gender InformationValueDate Recorded Sex Assigned at BirthNot on fileLegal YuzIahczp16/15/2023 7:12 PM EDTGender IdentityNot on fileSexual OrientationNot on file Last Filed Vital Signs Vital SignReadingTime TakenCommentsBlood Pressure--Pulse--Wcctqliwxur75.3 ??C (97.4 ??F)06/22/2024 2:58 PM EDTRespiratory Rate--Oxygen Saturation--Inhaled Oxygen Concentration--Hfrcgh63.9 kg (152 lb)05/05/2025 12:59 PM TMSFliqcn307.2 cm (5' 7 )05/05/2025 12:59 PM EDTBody Mass Index23.8105/05/2025 12:59 PM EDT Plan of Treatment Health MaintenanceDue DateLast DoneCommentsCT Mdgcqahrdbkf1970Colonoscopy 1970Colorectal Cancer Lcbzegfkx1970FIT-DNA1970FIT1970 FOBT1970Lung Cancer Screening Shared Decision Xakjkw79 1970 Qprswkugmilza1970Pneumococcal Vaccine: Pediatrics (0 to 5 Years) and At- Risk Patients (6 to 64 Years) (1 of 2 - PCV)1989Pap Smear1991 Cervical Cancer Fqelytebe95/03/2000HPV/Kpcdgq6010/20/20000520Facvqvzqn02/03/2010COVID- 19 Vaccine ( - 2024- season)2025Influenza Vaccine (#1)2025 Insurance Care Teams Team MemberRelationshipSpecialtyStart DateEnd Date Briseida North, NOTEMAN [address] [facility] [address] [place] [address] PCP - JOLANTA Monroe [facility]08/18/24
== END 2025-11-07 18:30 | disposition home or self-care (01) ==
PROVIDERS: Emergency Provider Emergency Medicine
DX: J06.9 Acute upper respiratory infection, unspecified (principal); F17.200 Nicotine dependence, unspecified, uncomplicated
CPT/HCPCS: 71045; 87804; 87811; 99283; 99285